=== PATIENT | female | born 1945 | race Caucasian/White ===

== ENCOUNTER → 2017-12-19 08:46 | Outpatient (CLI) | payer MEDICARE, BC, SELFPAY ==
[2017-12-11 11:31] VITALS: BP 124/71; BMI 26.7
--- NOTE | 2017-12-19 | IMM_PTH ---
PATIENT: ÓSCAR ROBERT LOC: CT U#:[id number] AGE/SX: 80/F ROOM: RE12/19/[address]: Dr. Abhay Guy MD : 1945 BED: DIS: SPEC #: [id number] RECD: 12/20/17 11:08 STATUS: RADHA REGeovany #: [id number] NADEEN: 12/19/17 00:[address]: Abhay Guy DEPT: IMMUNOHISTOCHEMISTRY RECD BY: Jelly Cortes ENTERED: 12/20/17 11:10 SP TYPE: IMMUNO OTHR DR: Dr. Edvin Anthony DO Tissues: B - Bone marrow of iliac crest Procedures: BCL-2 (add) BCL-6 (add) CD10 (add) CD138 (add) CD20 (add) CD23 (add) CD3 (add) CD30 (add) CD43 (add) CD45 (add) CD5 (add) CD79A (add) CYCLIN (add) KAPPA (add) KI-67 (add) LAMBDA (add) Pankeratin (initial) PHYSICIAN & [address] [address] SPECIMEN INFORMATION: Tissue Source: B ? Bone marrow clot Clinical Info: Multiple myeloma Specimen Number: [id number] CPT code: 63751, 41267 x16 METHODOLOGY: Deparaffinized sections of prefer/formalin-fixed tissue or PAP/DQ stained slides are incubated with monoclonal/polyclonal antibodies/oligonucleotide probes. Localization is made via biotin free immunoperoxidase method. Appropriate controls are performed and reacted as expected. Results on target cell population are indicated in the following table: RESULTS: ANTIBODY / CLONE RESULT AE1-3 (AE1/AE3/PCK26) negative CD3 (PS1) positive CD5 (SP10) positive CD10 (56C6) negative CD20 (L26) negative CD23 (1B12) negative CD30 (Rick-H2) negative CD43 (L60) positive CD45 (RP2/18) positive CD79a (11E3) positive CD138 (B-A38) positive BCL-2 (bcl-2/100/D5) positive BCL-6 (DY291F/A8) negative Cyclin D1/BCL-1 (SP4) negative Olivia Lopez De Gutierrez (polyclonal) positive Lambda (polyclonal) negative Ki-67 (30-9) positive These tests were developed and their performance characteristics determined by [facility]. They may not have been cleared or approved by the U.S. Food and Drug Administration. The FDA has determined that such clearance or approval is not necessary. INTERPRETATION: B. Bone marrow clot: Olivia Lopez De Gutierrez restricted plasma cell dyscrasia (4%). AM:lyn 12/26/17 Case has been reviewed in consultation with Dr. Singer who concurs with the above diagnosis. IDC:SJ
--- NOTE | 2017-12-19 | BMB_PTH ---
PATIENT: ÓSCAR ROBERT LOC: CT U#:[id number] AGE/SX: 80/F ROOM: RE12/19/[address]: Dr. Abhay Guy MD : 1945 BED: DIS: SPEC #: [id number] RECD: 12/19/17 13:35 STATUS: RADHA DELGADILLOGeovany #: [id number] NADEEN: 12/19/17 00:[address]: Abhay Guy DEPT: BONE MARROW RECD BY: Moris Holguin ENTERED: 12/19/17 13:35 SP TYPE: BMB OTHR DR: Dr. Edvin Anthony, DO Tissues: A - Bone marrow, NOS B - Bone marrow, NOS C - Bone marrow, NOS Procedures: PERIPH Decalcification bone/plaque Bone Marrow Aspiration Special Stain Group II PAS Stain (control) Retic (control) Iron Stain (control) Johns Stain (control) Bone Marrow Core Biopsy Iron Stain Bone Marrow HEADER OPERATION: Bone marrow biopsy and aspiration PRE-OP DIAGNOSIS: Multiple myeloma TISSUE SUBMITTED: A - Core, B - Clot, C - Smears, and send outs (flow, cytogenetics, FISH MDS & MM) BONE MARROW DIAGNOSIS Bone marrow core, clot and aspiration: [place] restricted plasma cell dyscrasia (4%). AM:lyn 12/26/17 COMMENT Flow cytometric analysis was performed at [facility] and reveals a population of monotypic cytoplasmic kappa restricted plasma cells consistent with plasma cell dyscrasia. The plasma cell population comprises 4% of the bone marrow elements. Please see the complete flow cytometric analysis report in patient?s EMR. The marrow is hypercellular for age due to atypical infiltrate of plasma cells. Clinical correlation is suggested. Case has been reviewed in consultation with Dr. Singer who concurs with the above diagnosis. IDC:SJ BONE MARROW STUDY Slides are reviewed. CBC DATE: 12/19/17 WBC 18.9; RBC 2.68; HGB 8.2; HCT 26.2; MCV 97.8; RDW 20.3; PLTS 63,000 SEGS 85.9%; LYMPHS 5.1%; MONOS 7.0%; EOS 0.3%; BASOS 0.1% PERIPHERAL SMEAR: Submitted. RBC: Normocytic anemia WBC: Neutrophilic leukocytosis with slight left shift. PLTS: Moderate thrombocytopenia BONE MARROW ASPIRATE DIFFERENTIAL: 200 cell count. Blasts % (normal 0-2): 2 Promyelocytes % (normal 1-5): 4 Myelocytes and metamyelocytes % (normal 17-41): 38 Bands and Segs % (normal 15-32): 20 Eos % (normal 1-6): 2 Basos % (normal 0-1): 0 Monocytes % (normal 0-4): 1 Erythroid Precursors % (normal 17-35): 21 Lymphocytes % (normal 7-13): 8 Plasma Cells % (normal 0-2): 4 ASPIRATE FINDINGS: Site: Not specified Paucispicular Hypocellular M/E ratio: 3.1 (Normal 1.5 - 4.0) Megakaryocytes: Normoblastic Erythropoiesis: Normoblastic Granulopoiesis: Slight left shift Other findings: 4% plasma cells (kappa restricted) consistent with plasma cell dyscrasia. CORE BIOPSY FINDINGS: Site: Not specified Adequacy: Inadequate for evaluation of marrow elements. Cellularity %: Not applicable M/E ratio: Not applicable Comment: Specimen contains only serum and blood. ASPIRATE CLOT FINDINGS: Site: Not specified Marrow Particles: few Cellularity %: 50% M/E ratio: increased. Megakaryocytes: Rare, Granuloma(s): 0 Lymphoid aggregate(s): 0 Atypical infiltrate(s): 0 Comment:. 4% plasma cells (kappa restricted) consistent with plasma cell dyscrasia. SPECIAL STAINS (with matched controls): Iron: Stainable iron present Reticulin: Within normal limits PAS: Highlights myeloid elements and megakaryocytes. BONE MARROW GROSS A - Received is a container labeled with the patient's name and designated bone marrow biopsy. The specimen consists of light pradhan clot measuring 1 x 0.5 x <0.1 cm. The specimen is totally submitted in one cassette after decalcification. No obvious bone is identified. B - Received labeled with the patient's name and designated aspirate is a specimen that consists of approximately 8 cc of bloody fluid that on filtration yields multiple irregular fragments of reddish-pradhan soft tissue measuring in aggregate 2.5 x 2 x 0.1 cm. The specimen is totally submitted in one cassette. C - Also received are 17 unstained and 1 peripheral stained slides. The unstained slides are submitted for appropriate staining. Also received are two green top tubes which are sent to our reference lab for flow, cytogenetics, FISH MDS & MM. / AM:lyn 12/19/17 TC:0 CPT: 01214, 44949, 61393 x2, 27729 x3, 17247 ADDENDUM ADDENDUM ADDENDUM ADDENDUM ADDENDUM ADDENDUM ADDENDUM ADDENDUM ADDENDUM ADDENDUM ADDENDUM ADDENDUM ADDENDUM ADDENDUM ADDENDUM ADDENDUM ADDENDUM ADDENDUM ADDENDUM 12/27/2017 14:50 ADDENDUM 05/23/2018 14:14 ADDENDUM 12/27/2017 14:50 ADDENDUM 12/27/2017 14:50 ADDENDUM 12/27/2017 14:50 ADDENDUM 12/27/2017 14:50 CYTOGENETICS, MDS FISH AND [facility] CY[facility]GENETIC RESULT: 46,XX[20] INTERPRETATION: Normal female karyotype was observed in twenty metaphases analyzed. FISH RESULT: Normal MDS panel INTERPRETATION: The FISH analysis of MDS specific chromosome changes was normal. DNA probes specific for chromosome regions 5q33, 7q31, 8cen/8q24 and 20q12 showed normal signals in all interphase cells examined. No deletion or trisomy associated with MDS was observed. FISH RESULT: Nuclei positive for FGFR3-IGH fusion, three 1Q signals, monosomy 13 and TP53 deletion. INTERPRETATION: Multiple myeloma related clone detected. Please see complete report in e-chart or EMR for further details This addendum is added to incorporate an outside pathology consultation report. The case was examined at [facility] (#[id number]) and the following diagnosis was rendered. Bone marrow, aspirate smears and clot section with peripheral blood: -?Involved by plasma cell neoplasm (kappa) representing 30% of hypercellular bone marrow (5060%) with trilineage hematopoiesis, persistent/recurrent by history. -?Stainable iron present. Please see complete above mentioned consultation report in EMR
--- NOTE | 2017-12-19 09:31 | CT_ITS ---
PROCEDURE: CT GUIDED BONE marrow biopsy of the right iliac bone. DATE: December 19, 2017. INDICATION: Female, 72 years old. The patient has a history of multiple myeloma. PHYSICIAN: iMlton Spear M.D. RADIATION DOSAGE (If Supplied By Facility): CTDIvol = ( 19 ) mGy, DLP = ( 602.98 ) mGycm. Individualized dose reduction technique was utilized. PROCEDURE: The risks, benefits, and alternatives to the procedure were explained to the patient. The specific risk of hemorrhage requiring further treatment or intervention was detailed and accepted. Follow-up instructions were discussed with the patient as well. Written informed consent was obtained. The patient was brought into the CT suite and placed in the supine position. . An appropriate entry site was identified. The anterior aspect of the right superior iliac crest was chosen. The overlying skin was prepped and draped in the usual sterile fashion. 1% lidocaine was administered subcutaneously for local anesthesia. Conscious sedation was performed. The patient received 2 mg of Versed and 75 mcg of fentanyl intravenously. The patient was monitored independently by the department nurse. Conscious sedation was started at 10:18 AM and terminated at 10:[address] guidance, a bone marrow aspirate was performed following this, a bone marrow biopsy was performed utilizing an Argon bone marrow biopsy kit. The specimens were then placed in the appropriate fluid and transported to the laboratory for analysis. Hemostasis was obtained. The patient tolerated the procedure well without immediate complications. CT/Biopsy/Inj or Needle Placement IMPRESSION: Successful CT guided bone marrow biopsy of the anterior right iliac bone, as described above. Electronically Signed: Milton Spear MD at 13:25 EST Tel [phone], Service support ,
[2017-12-19 09:43] VITALS: BP 146/76; PULSE 88; RESP 16; TEMP 36.6; O2SAT 96; BMI 26.5
[2017-12-19 09:48] LABS: Absolute Lymphocyte Count 0.71 X10^3/ul (0.83-4.51); Absolute Neutrophil Count 11.9 X10^3/uL (2.0-7.7); Basophil# 0.01 X10^3/uL; Basophil% 0.1 % (0-1); Eosinophil# 0.04 X10^3/uL; Eosinophils% 0.3 % (0-5); Hematocrit 26.2 % (37-47); Hemoglobin 8.2 g/dl (12.0-15.0); Lymphocyte # 0.71 X10^3/ul (4.0); Lymphocyte % 5.1 % (19-41); Mean Corp Hgb Conc 31.3 g/gl (32-36); Mean Corpuscular Hgb 30.6 pg (27.0-32.0); Mean Corpuscular Volume 97.8 fL (81-99); Mean Platelet Vol. 10.5 fl (6.2-12.0); Monocyte# 0.97 X10^3/uL; Neutrophil % 85.9 % (47-70); Platelet Count 63 K/mm3 (150-450); RBC Distribution Width CV 20.3 % (11.6-14.6); RBC Distribution Width SD 69.8 fl (35.1-43.9); Red Blood Count 2.68 M/mm3 (4.2-5.4); White Blood Count 13.9 K/mm3 (4.4-11.0)
[2017-12-19 09:49] LABS: Differential Indicated SCAN CRITERIA MET; POSITIVE COUNT NO; POSITIVE DIFFERENTIAL NO; POSITIVE MORPHOLOGY YES
[2017-12-19 09:53] LABS: Anisocytosis 1+; Hypochromasia 2+; Platelet Estimate MOD DEC (ADEQ); Rouleaux 1+
[2017-12-19 10:04] LABS: ALB/GLOB Ratio 0.5 RATIO (0.9-2.4); AST(SGOT) 57 U/L (15-37); Alanine Aminotransfer ALT/SGPT 32 U/L (13-56); Albumin, Serum 2.4 g/dL (3.2-5.0); Alkaline Phosphatase 206 U/L (45-117); Anion Gap 6 (5-15); BUN 20 mg/dL (7-18); BUN/Creat Ratio 36.8 RATIO (10-20); Calcium,Total 8.6 mg/dL (8.5-10.1); Chloride 106 mmol/L (98-107); Creatinine, Serum 0.54 mg/dL (0.55-1.02); EST Glomerular Filtration Rate 116 mL/min (>60); Est Glom Filt Rate - Afr Amer 141 mL/min (>60); Estimated Creatinine Clearance 39.04 ml/min; Globulin 4.4 g/dL (2.2-4.2); Glucose 105 mg/dL (74-106); Potassium 3.7 mmol/L (3.5-5.1); Protein, Total 6.8 g/dL (6.4-8.2); Sodium Level 141 mmol/L (136-145)
[2017-12-19 14:13] VITALS: BP 126/74; PULSE 84; RESP 16; O2SAT 94
== END ==
PROVIDERS: Family Provider Family Medicine; PCP Family Medicine; Visit Provider Internal Medicine Medical Oncology
DX: C90.00 Multiple myeloma not having achieved remission (principal); D75.89 Other specified diseases of blood and blood-forming organs; D64.9 Anemia, unspecified; D70.9 Neutropenia, unspecified; D69.6 Thrombocytopenia, unspecified; I25.10 Atherosclerotic heart disease of native coronary artery without angina pectoris; Z86.79 Personal history of other diseases of the circulatory system; Z85.3 Personal history of malignant neoplasm of breast; Z87.19 Personal history of other diseases of the digestive system; Z90.49 Acquired absence of other specified parts of digestive tract; Z90.710 Acquired absence of both cervix and uterus; Z90.12 Acquired absence of left breast and nipple; Z79.899 Other long term (current) drug therapy
CPT/HCPCS: 38222; 36415; 77012; 80053; 85025; 88305; 88311; 88313; 88341; 88342; 99156; 99157; J7040; A4216

== ENCOUNTER 2018-01-07 22:41 | Inpatient (IN) | payer MEDICARE, BC, SELFPAY ==
[2018-01-07 22:46] VITALS: BP 98/51; PULSE 107; RESP 20; O2SAT 98; BMI 25.3
[2018-01-07 22:53] VITALS: PULSE 100; TEMP 36.7; O2SAT 100
--- NOTE | 2018-01-07 23:10 | RAD_ITS ---
STUDY: X-RAY CHEST REASON FOR EXAM: Female, 72 years old. Chest pain TECHNIQUE: Single AP portable view of the chest. COMPARISON: 10/14/2017. FINDINGS: EKG lines overlying the chest. The lungs are expanded. No infiltrate. There is no demonstrated pleural abnormality. Normal size heart. Normal mediastinum and florence. Normal visualized pulmonary arteries. Normal visualized aortic arch and descending thoracic aorta. Normal visualized thoracic spine. Normal visualized ribs, clavicles, and shoulders. There is no demonstrated abnormality of the visualized soft tissue structures of the upper abdomen. RAD/Chest 1 View (Portable) IMPRESSION: No acute cardiopulmonary disease. Electronically Signed: David Wiggins DO at 23:41 EST , Service support ,
--- NOTE | 2018-01-07 23:16 | ED.VISSUMM ---
- ER Visit Summary Date of Service: 01/07/18 Chief Complaint: Chest pain History of Present Illness: The patient is a 72 F presenting with intermittent chest discomfort it feels like burning indigestion that has been present all afternoon and evening today for the past 8-9 hours. She gets that discomfort often, she states the only thing I can associated with his low blood counts, and her hemoglobin was 6.4 last week. She has multiple myeloma, undergoing active treatment for it, she had a packed red blood cell transfusion ?2 units prior to that reading, so since she had received multiple transfusions in the past month or 2, her doctor gave her Procrit instead and was planning on rechecking her this coming week. She states today, the symptoms are more persistent than usual, and knowing that her hemoglobin is low, this led her to concern. She has history coronary disease with one stent that was placed around 8 years ago. She gets intermittent nosebleeds, her last one was yesterday, it was not severe, she has had no other symptoms of bleeding. She states the symptoms get worse when she exerts herself and better with rest, she occasionally gets some relief with antacids, and has a lot of associated belching, and some occasional skipping of her heartbeat and that is not unusual for her. Today the antacids did not seem to help very much, however at this current time she has no discomfort. Secondary to bleeding, relatively low platelets which she has never needed a transfusion for, and her low blood counts, she is not on aspirin or other antiplatelets or anticoagulants. Physical Examination: Vital signs are normal, she is well-appearing in no acute distress. Heart is regular with a 3/6 systolic ejection murmur. Lungs are clear to auscultation throughout, no splinting on deep inspiration. Chest nontender. Abdomen benign. 1+ bilateral lower extremity edema without any calf tenderness or signs of cellulitis, patient states this is stable for the past month or so. Equal bilateral 2+/4 radial pulses. Test Results: EKG shows no ST elevation, but there is at most [address] depression in the lateral precordial leads, somewhat limited secondary to lead artifact that the tach clean as best possible, and there is flattening of T waves with nonspecific ST segment abnormalities in the lateral limb leads. No reciprocal changes. Normal axis. Sinus rhythm. These possible ischemic abnormalities are new when compared w/ prior EKG. Labs show prerenal azotemia and a hemoglobin of 3.3. She is pancytopenic, however her platelets are not dangerously low. Chest x-ray unremarkable. Troponin not elevated. Emergency Department Course and Treatment: I am concerned that the patient is having unstable angina due to her anemia and her coronary status is unknown at this time. I think she needs to be admitted. Patient is amenable to getting a blood transfusion. Discussed with Dr. Dutta, covering for Dr. Guy, who recommends that the blood be leuko-depleted and CMV negative. Discussed with the blood bank.. Will admit and transfuse with 1 unit PRBC for now. She is clinically and hemodynamically stable without any chest discomfort at rest at this time. Treatment Plan: Admit Disposition: Admit PCU Impression: Acute on chronic anemia Unstable angina Pancytopenia Multiple myeloma History coronary artery disease with remote PCI This note was generated with [employer] dictation software. It may contain incorrect words, spelling, and punctuation that were not noted in review of the chart prior to signing ED Disposition - Plan for ED Patient: Disposition: Acute Care Hospital [facility] Chief Complaint: Chest Pain Referrals: Edvin Anthony [Primary Care Provider] -
[2018-01-07 23:19] VITALS: O2SAT 100
--- NOTE | 2018-01-07 23:31 | ED.RN ---
LAB CALLS WITH CRITICAL RESULT, HEMOGLOBIN 3.3, DR. GRIMES MADE AWARE.
[2018-01-07 23:33] LABS: Absolute Lymphocyte Count 1.21 X10^3/ul (0.83-4.51); Absolute Neutrophil Count 0.9 X10^3/uL (2.0-7.7); Basophil# 0.01 X10^3/uL; Basophil% 0.4 % (0-1); Differential Indicated SCAN CRITERIA MET; Eosinophil# 0.05 X10^3/uL; Eosinophils% 1.9 % (0-5); Hematocrit 14.6 % (37-47); Hemoglobin 3.3 g/dl (12.0-15.0); Lymphocyte # 1.21 X10^3/ul (4.0); Lymphocyte % 47.1 % (19-41); Mean Corp Hgb Conc 22.6 g/gl (32-36); Mean Corpuscular Hgb 23.1 pg (27.0-32.0); Mean Corpuscular Volume 102.1 fL (81-99); Mean Platelet Vol. 9.7 fl (6.2-12.0); Monocyte# 0.35 X10^3/uL; Monocyte% 13.6 % (0-10); Neutrophil # 0.94 X10^3/uL (2.7-7.7); Neutrophil % 36.6 % (47-70); POSITIVE COUNT YES; POSITIVE DIFFERENTIAL YES; POSITIVE MORPHOLOGY YES; Platelet Count 98 K/mm3 (150-450); RBC Distribution Width CV 21.2 % (11.6-14.6); RBC Distribution Width SD 77.2 fl (35.1-43.9); Red Blood Count 1.43 M/mm3 (4.2-5.4); White Blood Count 2.6 K/mm3 (4.4-11.0)
[2018-01-07] MEDS: 0.9% Normal Saline 1,000 ML 15 ML IV (23:33)
[2018-01-07 23:57] LABS: ALB/GLOB Ratio 0.7 RATIO (0.9-2.4); AST(SGOT) 57 U/L (15-37); Alanine Aminotransfer ALT/SGPT 28 U/L (13-56); Albumin, Serum 2.1 g/dL (3.2-5.0); Alkaline Phosphatase 136 U/L (45-117); Anion Gap 9 (5-15); BUN 41 mg/dL (7-18); BUN/Creat Ratio 61.1 RATIO (10-20); Chloride 108 mmol/L (98-107); Creatinine, Serum 0.67 mg/dL (0.55-1.02); EST Glomerular Filtration Rate 91 mL/min (>60); Est Glom Filt Rate - Afr Amer 110 mL/min (>60); Estimated Creatinine Clearance 39.04 ml/min; Globulin 3.1 g/dL (2.2-4.2); Glucose 123 mg/dL (74-106); Potassium 4.7 mmol/L (3.5-5.1); Protein, Total 5.2 g/dL (6.4-8.2); Sodium Level 142 mmol/L (136-145)
[2018-01-07 23:58] LABS: Anisocytosis 3+; Differential Comment SCANNED
[2018-01-07 23:59] LABS: Hypochromasia 1+; Macrocytosis 3+; Schistocytes RARE
[2018-01-08] VITALS (44 sets, daily range): BP systolic 80–174; BP diastolic 36–102; PULSE 88–109; RESP 12–29; TEMP 36.6–37.3; O2SAT 93–100; BMI 25.0
--- NOTE | 2018-01-08 01:45 | PCM.HP.STD ---
Problem List (1) Signs and symptoms of anemia Status: Acute (2) Myelosuppression Status: Acute (3) Pancytopenia Status: Acute (4) CAD (coronary artery disease) Status: Chronic (5) Iron deficiency anemia Status: Chronic (6) Multiple myeloma Status: Chronic Qualifiers: (7) Multiple myeloma not having achieved remission Status: Chronic (8) Myelodysplasia (myelodysplastic syndrome) Status: Chronic (9) Myelosuppression after chemotherapy Status: Chronic History of Present Illness Date of Admission: 01/08/18 Chief Complaint: Acute symptomatic anemia The patient is a 72 year old female w/ h/o acute blood loss anemia, bone marrow suppression, multiple myeloma IgG kappa type, in May 2010. She has received various treatments including Thalomid/Decadron, Revlimid/Decadron and Velcade/Decadron, non-Hodgkin's lymphoma, stage IV, with abdominal mass and ascites in January 2000 s/p R-CHOP and 2 cycles of R-CEOP followed by high-dose chemotherapy and autologous stem cell transplant, left breast cancer s/p left modified radical mastectomy plus axillary lymph node dissection on 11/26/2008 for stage I, ER/DE positive, HER2 negative disease, and GIB admitted for acute symptomatic anemia. Her last dose of Velcade/Decadron was on 11/30/2016 because of persistent cytopenia requiring red blood cell transfusions and leukopenia requiring Neupogen. Bone marrow biopsy done on 01/04/2017 shows plasma cells of 15% and cellularity of 50-60%. She was supported last week with Procrit when her H and H was 6.4. She has received multiple blood transfusion in the past months and has weekly lab draw. However, her H and H has been extremely low. She has been fatigue for the past few weeks. Her fatigue has worsened. Nothing appeared to make it better or worse. Her fatigue affected her all part of the days on more days than not. She developed substernal chest pain this evening. Pain lasted for hours. Pain was sharp and radiated into the right arm. No e/o bleeding. No melena. No dark tarry stool. No SOB. No palpitation. Past Medical History Past Medical History (Chronic Problems): Chronic Problems (Last Reviewed 01/04/18 @ 09:28 by Sarah Skinner) Neutropenia (Chronic) History of breast cancer (Chronic) Multiple myeloma (Chronic) History of stem cell transplant (Chronic) CAD (coronary artery disease) (Chronic) HTN (hypertension) (Chronic) Iron deficiency anemia (Chronic) Myelodysplasia (myelodysplastic syndrome) (Chronic) Multiple myeloma not having achieved remission (Chronic) Myelosuppression after chemotherapy (Chronic) Severe anemia (Chronic) Allergies Penicillins [PCN] Allergy (Severe, Verified 01/07/18 22:50) Hives Home Medications: Ambulatory Orders Medication Instructions Recorded Simvastatin [Zocor] 40 mg PO QHS 08/15/13 Multivitamin [Multiple Vitamins] 1 each PO DAILY 09/26/17 Pyridoxine HCl [Vitamin B6] 100 mg PO DAILY 09/26/17 Metoclopramide [Reglan] 10 mg PO TID PRN #60 tablet 10/05/17 Albuterol Inhaler [Ventolin Hfa] 1 - 2 puff INHALATION Q4H PRN PRN 10/14/17 #1 inhaler Dexamethasone [Decadron] 40 mg PO QWEEK #40 tab 11/07/17 Loratadine [Claritin] 10 mg PO DAILY 11/20/17 lisinopril 2.5 mg tablet 2.5 mg PO DAILY #30 tab 01/03/18 metoprolol succinate ER 25 mg 25 mg PO DAILY #30 tab 01/03/18 tablet,extended release 24 hr Surgical History: cholecystectomy, hysterectomy, mastectomy Smoking Status: Never smoker - *Family History Maternal History Items: Cancer - Uterine and breast Paternal History Items: Cancer, Diabetes Review of Systems Constitutional: Reports: Malaise, Weakness, Fatigue. Denies: Chills, Fever, Weight Change HEENT: Denies: Head Aches, Sinus Congestion, Sinus Drainage Cardiovascular: Denies: Chest Pain, Palpitations Respiratory: Denies: Cough, Shortness of breath at rest, Sputum production Gastrointestinal: Denies: Abdominal Pain, Nausea, Vomiting Genitourinary: Denies: Dysuria Musculoskeletal: Denies: Joint Pain, Joint Tenderness Skin: Denies: Rash, Wounds Neurological: Denies: Numbness, Tingling, Focal weakness Psychiatric: Denies: Anxiety, Depression, Homicidal Ideations, Suicidal Ideations Hematologic/ Lymphatic: Denies: Easy Bruising, Easy Bleeding VTE Information - Inpt Only VTE Present on Admission: No VTE Mechan Device Prophylaxis: SCD's VTE Pharm Prophylaxis ordered?: No Patient Problems: Active and Suspected Problems (Last Reviewed 01/04/18 @ 09:28 by Sarah Skinner) Signs and symptoms of anemia (Acute) - Physical Exam General: Alert, Oriented x3, Cooperative HEENT: Atraumatic, PERRLA, EOMI, Normocephalic Neck: Supple, No JVD, Negative Carotid Bruits Lungs: Clear to auscultation, Normal air movement Cardiovascular: Regular rate, No murmurs Abdomen: Bowel Sounds Present, Soft, Non Tender Extremities: No edema, Capillary Refill Less than 3 Seconds Skin: No rashes, No breakdown Musculoskeletal: No Tenderness to Palpation of Joints or Extremities Neurological: Cranial nerves II-XII grossly intact Psych/Mental Status: Normal Affect, Appropriate Vital Signs Temp Pulse Resp BP Pulse Ox 98.0 F 93 19 H 98/52 L 100 01/08/18 01:42 01/08/18 01:42 01/08/18 01:42 01/08/18 01:42 01/08/18 01:42 Oxygen Flow Rate 2 Oxygen Delivery Method Nasal Cannula Weight: 62.8 kg Body Mass Index (BMI) 25.3 Intake and Output for Last 24 Hours 01/06/18 01/07/18 01/08/18 23:59 23:59 23:59 Intake Total 0 / 0 Balance 0 / 0 Laboratory Tests Past 24 Hrs 01/07/18 01/07/18 01/07/18 22:25 22:50 22:50 WBC 2.6 L RBC 1.43 L Hgb 3.3 L* Hct 14.6 L MCV 102.1 H MCH 23.1 L MCHC 22.6 L RDW 21.2 H RDW Differential 77.2 H Plt Count 98 L MPV 9.7 Immature Gran % (Auto) 0.400 Neut % (Auto) 36.6 L Lymph % (Auto) 47.1 H [place] % (Auto) 13.6 H Eos % (Auto) 1.9 Baso % (Auto) 0.4 Absolute Neuts (auto) 0.9 L Absolute Lymphs (auto) 1.21 Total Counted Not Reportable Differential Comment SCANNED Diff Path Review May foll Hypochromasia 1+ Anisocytosis 3+ Macrocytosis 3+ Schistocytes RARE Sodium 142 Potassium 4.7 Chloride 108 H Carbon Dioxide 25.0 Anion Gap 9 BUN 41 H Creatinine 0.67 Estim Creat Clear Calc 39.04 Est GFR (MDRD) Af Amer 110 Est GFR (MDRD) Non-Af 91 BUN/Creatinine Ratio 61.1 H Glucose 123 H Calcium 8.0 L Total Bilirubin 0.50 AST 57 H ALT 28 Alkaline Phosphatase 136 H Troponin I < 0.02 Total Protein 5.2 L Albumin 2.1 L Globulin 3.1 Albumin/Globulin Ratio 0.7 L Blood Type Antibody Screen Crossmatch See Detail 01/07/18 23:22 WBC RBC Hgb Hct MCV MCH MCHC RDW RDW Differential Plt Count MPV Immature Gran % (Auto) Neut % (Auto) Lymph % (Auto) [place] % (Auto) Eos % (Auto) Baso % (Auto) Absolute Neuts (auto) Absolute Lymphs (auto) Total Counted Differential Comment Diff Path Review Hypochromasia Anisocytosis Macrocytosis Schistocytes Sodium Potassium Chloride Carbon Dioxide Anion Gap BUN Creatinine Estim Creat Clear Calc Est GFR (MDRD) Af Amer Est GFR (MDRD) Non-Af BUN/Creatinine Ratio Glucose Calcium Total Bilirubin AST ALT Alkaline Phosphatase Troponin I Total Protein Albumin Globulin Albumin/Globulin Ratio Blood Type A NEGATIVE Antibody Screen NEGATIVE Crossmatch Assessment/Plan Active and Suspected Problems (Last Reviewed 01/04/18 @ 09:28 by Sarah Skinner) Signs and symptoms of anemia (Acute) 72 year old female w/ h/o acute blood loss anemia, bone marrow suppression, multiple myeloma IgG kappa type, in May 2010. She has received various treatments including Thalomid/Decadron, Revlimid/Decadron and Velcade/Decadron, non-Hodgkin's lymphoma, stage IV, with abdominal mass and ascites in January 2000 s/p R-CHOP and 2 cycles of R-CEOP followed by high-dose chemotherapy and autologous stem cell transplant, left breast cancer s/p left modified radical mastectomy plus axillary lymph node dissection on 11/26/2008 for stage I, ER/DE positive, HER2 negative disease, and GIB admitted for acute symptomatic anemia. 1) Acute symptomatic anemia: H and H 3.3 and 14.6 1 unit PRBC leukoreduced, irradiated and CMV negative blood given. Probably will need more transfusion. Iron, B12, folate, FOBT, LDH, and retic pending. Will admit to ICU. Hemodynamically stable. No e/o acute bleeding. Recent extensive GI workup done. 2) Multiple myeloma IgG kappa type, in May 2010. She has received various treatments including Thalomid/Decadron, Revlimid/Decadron and Velcade/Decadron. Treatment held secondary to worsening anemia. She is currently on decadron. Will defer to oncology [place] treatment of anemia given complex h/o multiple cancers. 3) HTN: Will hold all SBP meds in the setting of severe symptomatic anemia. Monitor. 4) Chest pain: Most likely secondary to severe symptomatic anemia. Will get serial trops. Treat anemia. Monitor. 5) Prophylaxis: No heparin given severe anemia. SCD
[2018-01-08 04:38] LABS: M R Staph aureus DNA By PCR Negative (Negative); Probe Check PASS; Specimen Processing Control PASS
[2018-01-08] MEDS: Multivitamins,Therapeutic Tablet 1 TABLET PO (08:11)
[2018-01-08 09:51] LABS: International Normalized Ratio 1.2; Prothrombin Time (Protime)PT. 15.6 SECONDS (11.7-14.9)
[2018-01-08 10:11] LABS: Hematocrit 17.2 % (37-47); Hemoglobin 5.9 g/dl (12.0-15.0); Mean Corp Hgb Conc 34.3 g/gl (32-36); Mean Corpuscular Hgb 32.2 pg (27.0-32.0); Platelet Count 71 K/mm3 (150-450); RBC Distribution Width CV 20.5 % (11.6-14.6); RBC Distribution Width SD 65.7 fl (35.1-43.9); Red Blood Count 1.83 M/mm3 (4.2-5.4); Scan Indicated on CBC? Y/N YES- FLAGS NOTED
[2018-01-08 10:35] LABS: Vitamin B12 > 2000 pg/mL (211-911)
[2018-01-08 10:40] LABS: Anion Gap 10 (5-15); BUN 36 mg/dL (7-18); Calcium,Total 7.9 mg/dL (8.5-10.1); Chloride 109 mmol/L (98-107); Cholesterol 90 mg/dL (200); Creatinine, Serum 0.62 mg/dL (0.55-1.02); EST Glomerular Filtration Rate 100 mL/min (>60); Est Glom Filt Rate - Afr Amer 121 mL/min (>60); Estimated Creatinine Clearance 39.04 ml/min; Glucose 149 mg/dL (74-106); High Density Lipoprotein 21 mg/dL; Iron 131 ug/dL (50-170); Iron Binding Capacity,Total 305 ug/dL (250-450); LDH 138 U/L (84-246); Potassium 3.8 mmol/L (3.5-5.1); Sodium Level 144 mmol/L (136-145); Thyroid Stim Hormone (TSH) 2.55 uIU/mL (0.358-3.74); Triglycerides 141 mg/dL; Very Low Density Lipoprotein 28 mg/dL (5-40)
[2018-01-08 10:43] LABS: Differential Comment SCANNED
[2018-01-08] MEDS: Pyridoxine HCl 50 MG Tablet 100 MG PO (10:49)
[2018-01-08] MEDS: Loratadine 10 MG Tablet PO (10:49)
[2018-01-08 11:13] LABS: Immature Platelet Fraction 4.9 % (1.0-7.9)
--- NOTE | 2018-01-08 12:06 | PCM.PN.HOSP ---
Patient Problems: Active and Suspected Problems (Last Reviewed 01/04/18 @ 09:28 by Sarah Skinner) Signs and symptoms of anemia (Acute) Subjective: CC: Generalized weakness The patient presented with generalized,weakness dizziness and chest discomfort and found to have hemoglobin of 3.3, she is receiving transfusion with packed RBCs, post feeling much improved since admission. She reports dark stools, heme positive test., She denies any hematochezia, abdominal pain, hematemesis nausea or vomiting. Vitals/I&O's: Vital Signs Temp Pulse Resp BP Pulse Ox 98.0 F 93 20 H 121/58 H 97 01/08/18 11:55 01/08/18 11:55 01/08/18 11:55 01/08/18 11:55 01/08/18 11:55 Oxygen Flow Rate 2 Oxygen Delivery Method Room Air Weight: 62.1 kg Body Mass Index (BMI) 25.0 Intake and Output for Last 24 Hours 01/06/18 01/07/18 01/08/18 23:59 23:59 23:59 Intake Total 1040 / 1040 Output Total 850 / 850 Balance 190 / 190 General: Alert, Oriented x3 Oral: Moist Mucosa Neck: Supple, No JVD Lungs: Clear to auscultation, No wheeze Cardiovascular: Regular rate, Normal S1, Normal S2 Abdomen: Bowel Sounds Present, Soft, Non Tender Extremities: No edema Microbiology Past 72 Hours 01/08/18 11:06 Stool Stool Occult Blood (ALEJA) - Final Occult Blood Positive Laboratory Results 01/08/18 02:20: MRSA (PCR) Negative 01/08/18 03:05: Troponin I < 0.02 01/08/18 06:40: Troponin I 0.02 01/08/18 09:35: Immature Plt Fraction 4.9, Retic Count 3.00 H, Immature Retic Fraction 10.30, Retic Hgb Equivalent 34.0 01/08/18 09:35: WBC 2.0 L, RBC 1.83 L, Hgb 5.9 L*, Hct 17.2 L, MCV 94.0, MCH 32.2 H, MCHC 34.3, RDW 20.5 H, RDW Differential 65.7 H, Plt Count 71 L, MPV 9.0, Differential Comment SCANNED, Diff Path Review March01/08/18 09:35: PT 15.6 H, INR 1.2 01/08/18 09:35: Sodium 144, Potassium 3.8, Chloride 109 H, Carbon Dioxide 25.0, Anion Gap 10, BUN 36 H, Creatinine 0.62, Estim Creat Clear Calc 39.04, Est GFR (MDRD) Af Amer 121, Est GFR (MDRD) Non-Af 100, BUN/Creatinine Ratio 58.0 H, Glucose 149 H, Calcium 7.9 L, Iron 131, TIBC 305, Iron Saturation 43.0, Lactate Dehydrogenase 138, Triglycerides 141, Cholesterol 90, LDL Cholesterol 41, VLDL Cholesterol 28, HDL Cholesterol 21 L, Folate 18.20, TSH 2.55 01/08/18 09:35: Vitamin B12 > 2000 H Current Medications Atorvastatin Calcium (Lipitor) 20 mg PO QHS [facility] Dexamethasone (Decadron) 40 mg PO QWEEK@0800 [facility] Last Admin: 01/08/18 08:13 Dose: 40 mg Sodium Chloride () 1,000 mls @ 0 mls/hr IV .Q0M MONIKA PRN Reason: KVO Last Admin: 01/07/18 23:33 Dose: 15 mls/hr Sodium Chloride () 250 mls @ 15 mls/hr IV .[id number] PRN PRN Reason: SALINE FLUSH Pantoprazole Sodium 40 mg/ (Sodium Chloride) 110 mls @ 330 mls/hr IV Q24 [facility] Loratadine (Claritin) 10 mg PO DAILY [facility] Last Admin: 01/08/18 10:49 Dose: 10 mg Magnesium Hydroxide (Milk Of Magnesia) 30 ml PO DAILY PRN PRN Reason: Constipation Metoclopramide HCl (Reglan) 10 mg PO TID PRN PRN PRN Reason: NAUSEA Metoprolol Succinate (Toprol Xl (Beta Freedom)) 25 mg PO DAILY [facility] Multivitamins (Multivitamin) 1 tablet PO DAILY@0800 [facility] Last Admin: 01/08/18 08:11 Dose: 1 tablet Nutritional Formula (Lactose Free) (Ensure Enlive) 120 ml PO 4X/DAY [facility] Last Admin: 01/08/18 11:33 Dose: 120 ml Pyridoxine HCl (Vitamin B-6) 100 mg PO DAILY [facility] Last Admin: 01/08/18 10:49 Dose: 100 mg Sodium Chloride () 5 - 30 ml IV UD PRN PRN Reason: SALINE FLUSH Assessment/Plan Active and Suspected Problems (Last Reviewed 01/04/18 @ 09:28 by Sarah Skinner) Signs and symptoms of anemia (Acute) 1. Acute blood loss anemia superimposed on anemia of chronic disease and myelosuppression; he said he has been transfused with packed RBCs. 2. Hem positive stool; patient is status post EGD for colonoscopy a year ago , was found to have diverticular bleed at some point. We will place him on PPI and consult surgery or GI for EGD 3. Pancytopenia; will repeat CBC daily. 4. Recurrent epistaxis; she has chronic maxillary sinusitis and was treated with oral antibiotics in September 2017 for this. 5. History of breast cancer, multiple myeloma, non-Hodgkin's lymphoma, status post stem cell transplant; oncology is consulted. 6. CAD-status post stent in 2009. She currently has no signs and symptoms of angina or heart failure. 7. Hypertension; this is controlled. 8. DVT Prophylaxis with SCDs. Code Visit Inpatient E&M: 40676 Subs Hosp L3
[2018-01-08 13:25] LABS: Pathologist Review Reviewed
--- NOTE | 2018-01-08 13:54 | ONC.CONS.INP ---
Consult Referring Physician: Lee Park Subjective Date of Service:: 01/08/18 Chief Complaint: Severe anemia History of Present Illness: Ms. Rhea Calhoun is a pleasant 71 year old woman with a complex oncologic history. She was diagnosed with non-Hodgkin's lymphoma, stage IV, with abdominal mass and ascites in January 2000. She received R-CHOP with remission. She had recurrent disease in May 2004 with multiple abdominal masses. She was treated with 2 cycles of R-CEOP followed by high-dose chemotherapy and autologous stem cell transplant with complete remission. She had left breast cancer and had a left modified radical mastectomy plus axillary lymph node dissection on 11/26/2008 for stage I, ER/CT positive, HER2 negative disease. She was then diagnosed with multiple myeloma, IgG kappa type, in May 2010. She has received various treatments including Thalomid/Decadron, Revlimid/Decadron and Velcade/Decadron. Her last dose of Velcade/Decadron was on 11/30/2016 because of persistent cytopenia requiring red blood cell transfusions and leukopenia requiring Neupogen. M spike has plateaued off. Bone marrow biopsy done on 01/04/2017 shows plasma cells of 15% and cellularity of 50-60%. Iron stain was negative. Requires Venofer often. Received Procrit 60,000 units and Granix 480 mcg weekly. She was found to have bleeding hemorrhoids June 2017, received PRBC transfusions. On 06/23/2017 she again presented with GI bleed, was transferred to [facility], GI bleeding study was negative, Capsule endoscopy was also negative. Resumed weekly Granix 07/04/17. Cyclosporine 07/19/17- 09/2017. Bone marrow bx 09/06/2017 at [facility] showed hypercellular marrow 90%, Plasma cell 40%. M-spike is 0.5, Cytogenetic was normal 46 XY. Abd US on 09/15/2017 showed mild splenomegaly and fatty infiltration of liver. She was to start Kyprolis but changed her mind and instead agreed to Decadron 40mg weekly, starting on 10/09/2017. She is transfusion dependent with parameters for tx being Hgb of <= 7 and subjective c/o fatigue/CP. She was given Granix 480mcg 3 times a week with no response so started Neulasta 6mg on 11/13/2017 and continues every 2 weeks, last dose 12/28/17. Bone marrow biopsy on 12/19/2017 showed Plasma cells 4%, Hypercellular marrow, + stainable iron. Given Procrit 60,000 units 01/04/18. Patient presented to [facility] ED last evening subsequent to experiencing worsening dyspnea, fatigue and CP. Found to have Hgb 3.3 and subsequently she was admitted for medical management of severe anemia. Upon assessment today she is just finishing 3rd unit of PRBCs and states I feel much better in terms of fatigue, weakness and CP has resolved. Denies dyspnea and swelling of extremities at this time. Admits she noticed dark, tarry stools daily x approx 3 days while at home. LBM this morning and describes as dark as well. 1 episode of mild epistaxis earlier today. Past Medical History: Chronic Problems (Last Reviewed 01/04/18 @ 09:28 by Sarah Skinner) Neutropenia (Chronic) History of breast cancer (Chronic) Multiple myeloma (Chronic) History of stem cell transplant (Chronic) CAD (coronary artery disease) (Chronic) HTN (hypertension) (Chronic) Iron deficiency anemia (Chronic) Myelodysplasia (myelodysplastic syndrome) (Chronic) Multiple myeloma not having achieved remission (Chronic) Myelosuppression after chemotherapy (Chronic) Severe anemia (Chronic) Past Medical/Surgical History: Past Medical History - Most Recent Inpatient Visit Past Medical History Start: 01/08/18 02:16 Text: Status: Complete Freq: ONCE Protocol: Document 01/08/18 02:16 AW (Rec: 01/08/18 02:26 AW [id number]) BMI Required to complete PMH What is Patient's BMI 25.0 Neurologic Medical History Hx Stroke/TIA No Hx Dementia/Alzheimer's No Hx Parkinson's Disease No Hx Seizures No Hx Multiple Sclerosis No Hx Migraines No Cardiac Medical History VTE Present on Admission No Hx of Deep Vein Thrombosis/VTE/PE No Hx Hypertension Yes Hx Chest Pain/Angina Yes: WHEN HGB GETS TOO LOW Hx Heart Attack No Hx Cardiac Surgery/Stents/Etc. Yes: STENT X1 Hx Heart Failure No Hx Pacemaker/AICD No Hx Irregular Heartbeat and/or Afib Yes: skips a beat occasionally Hx Anticoagulant Therapy No Query Text:(Coumadin, Aspirin, Plavix, Xarelto, etc.) Hx Pain in Legs when Walking/Leg Cramps Yes: leg cramps Respiratory Medical History Hx COPD No Hx Emphysema No Hx Smoking No Smoking Status Never smoker Hx Smoking Cessation Counseling No Hx Smoking Exposure No Hx Tobacco Use in last 12 months No Hx of Pipe Smoking No Hx Sleep Apnea No Do you snore loudly (louder than talking No or can be heard through closed doors)? Do you often feel tired/ fatigued/ Yes sleepy during daytime? Has anyone observed you stop breathing No during sleep? STOP Results Positive GI Medical History Hx Ulcer No Hx Hepatitis No Hx Cirrhosis No Hx GI Bleed Yes: some blood in stool occasionally Hx Unplanned Weight Loss No Genitourinary Medical History Indwelling Catheter in Place on Arrival/ No Admission Hx Renal Disease No Hx Dialysis No Musculoskeletal History Hx Arthritis No Hx Rheumatoid Arthritis No Endocrine Medical History Hx Diabetes No Hx Thyroid Disease No Hematologic Medical History Hx of Blood Transfusion Yes Hx of Transfusion in last 3 Months Yes Date of Last Transfusion (if within last 12/29/17 3 months) Ever experience any problems with No transfusion(s)? Hx of Preganancy in last 3 Months N/A Nurse Filling Out Transfusion & [id number] Questions: Date: 01/08/18 Time: 02:24 Psycho/Social Medical History Hx Depression No Hx Anxiety No Hx Behavior Disorder No Hx Alcohol Use No Hx Substance Use No Other Medical History Hx Blood Disorders Yes: MDS Hx Anemia Yes Hx Cancer Yes: breast, mult myeloma, lymphoma, NONHODGKINS Hx Drug Resistant Organism No Wound/Pressure Injury Present on Arrival No /Admission Query Text:If yes, chart assessment in Shift/Clinical Findings Central Line/PICC/VAD Present on Arrival No /Admission Antibiotics within last 7 days? No Methicillin Resistant Staphylococcus aureus Screening Active MRSA No Risk for Readmission Number of Risk Factors 6 At Risk for Readmission Patient is At Risk For Readmission Patient is eligible for Call Back Y Past Medical History (Last Reviewed 01/04/18 @ 09:28 by Sarah Skinner) CATARACT SURGERY BILATERAL (Acute) Past Surgical History (Last Reviewed 01/04/18 @ 09:28 by Sarah Skinner) H/O mastectomy (Acute) H/O: hysterectomy (Acute) Hx of cholecystectomy (Acute) Maternal Family History: Family History (Last Reviewed 01/04/18 @ 09:28 by Sarah Skinner) Father Diabetes Heart disease Mother Arthritis Breast cancer Uterine cancer Family History: Cancer - Uterine and breast Paternal Family History: Family History (Last Reviewed 01/04/18 @ 09:28 by Sarah Skinner) Father Diabetes Heart disease Mother Arthritis Breast cancer Uterine cancer Family History: Cancer, Diabetes - Social History Smoking Status: Never smoker Allergies/Adverse Reactions: Allergy/AdvReac Type Severity Reaction Status Date / Time Penicillins [PCN] Allergy Severe Hives Verified 01/07/18 22:50 Home Medications Medication Instructions Recorded Simvastatin [Zocor] 40 mg PO QHS 08/15/13 Multivitamin [Multiple Vitamins] 1 each PO DAILY 09/26/17 Pyridoxine HCl [Vitamin B6] 100 mg PO DAILY 09/26/17 Metoclopramide [Reglan] 10 mg PO TID PRN #60 tablet 10/05/17 Albuterol Inhaler [Ventolin Hfa] 1 - 2 puff INHALATION Q4H PRN PRN 10/14/17 #1 inhaler Dexamethasone [Decadron] 40 mg PO QWEEK #40 tab 11/07/17 Loratadine [Claritin] 10 mg PO DAILY 11/20/17 lisinopril 2.5 mg tablet 2.5 mg PO DAILY #30 tab 01/03/18 metoprolol succinate ER 25 mg 25 mg PO DAILY #30 tab 01/03/18 tablet,extended release 24 hr Bisacodyl [Dulcolax] 5 mg PO DAILY 01/08/18 Review of Systems Constitutional:: Reports: Weakness, Fatigue. Denies: Fever, Sweats, Weight loss, Appetite change, Chills Cardiovascular:: Reports: Dyspnea on exertion. Denies: Chest pain, Palpitations, Orthopnea, PND Respiratory: Denies: Cough, Hemoptysis, Wheezing Gastrointestinal:: Reports: Melena. Denies: Abdominal pain, Nausea, Vomiting, Diarrhea, Constipation, Hematochezia Genitourinary: Denies: Dysuria, Hematuria, 15, Flank pain Musculoskeletal:: Denies: Back pain, Myalgia, Arthralgia Skin: Denies: Rash, Skin Changes, Wounds Neurological:: Denies: Headache, Dizziness, Numbness, Tingling, Visual changes, Tinnitus, Hearing loss Psychiatric: Denies: Anxiety, Depression, Homicidal Ideations, Suicidal Ideations Vital Signs Height 5 ft 2 in Weight: 136 lb 14.513 oz Weight in Pounds 136.9 lbs Pulse Ox 98 Temperature 98.9 F Pulse Rate 93 Respiratory Rate 19 Blood Pressure [BP] 128/74 Blood Pressure 113/52 Blood Pressure Position [BP] Semi-Fowlers Blood Pressure Position Sitting - Physical Exam General: Alert, Oriented x3, No apparent distress HEENT: Atraumatic, Normocephalic Oropharynx:: Negative for: Dry mucosa, Ulcerated lesions Neck:: Supple, Trachea midline. Negative for: JVD, bilateral Cardiac:: Regular rate, Regular rhythm, Normal S1, Normal S2 Lungs: Clear to auscultation, Excusion symmetrical. Negative for: Rhonchi, Wheezes Abdomen:: Bowel sounds x 4, Soft, Non-tender, Non-distended. Negative for: Hepatosplenomegaly Extremities:: Negative for: Cyanosis, Edema Neurological: Neuro grossly intact Skin:: Negative for: Lesions, Rash, Petechiae, Ecchymosis Psychiatric:: Appropriate affect, Euthymic Lymphatics:: Negative for: Cervical lymphadenopathy, Supraclavicular lymphadenopathy, Axillary lymphadenopathy Laboratory Data: Microbiology 01/08/18 11:06 Stool Occult Blood (ALEJA) - Final Stool Occult Blood Positive Laboratory Tests 01/08/18 01/08/18 01/08/18 Range/Units 09:35 09:35 09:35 WBC (4.4-11.0) K/mm3 RBC (4.2-5.4) M/mm3 Hgb (12.0-15.0) g/dl Hct (37-47) % MCV (81-99) fL MCH (27.0-32.0) pg MCHC (32-36) g/gl RDW (11.6-14.6) % RDW Differential (35.1-43.9) fl Plt Count (150-450) K/mm3 MPV (6.2-12.0) fl Differential Comment Diff Path Review Immature Plt Fraction (1.0-7.9) % Retic Count (0.5-1.5) % Immature Retic Fraction (3.00-15.90) % Retic Hgb Equivalent (30-35) pg PT 15.6 H (11.7-14.9) SECONDS INR 1.2 Sodium 144 (136-145) mmol/L Potassium 3.8 (3.5-5.1) mmol/L Chloride 109 H (98-107) mmol/L Carbon Dioxide 25.0 (21.0-32.0) mmol/L Anion Gap 10 (5-15) BUN 36 H (7-18) mg/dL Creatinine 0.62 (0.55-1.02) mg/dL Estim Creat Clear Calc 39.04 ml/min Est GFR (MDRD) Af Amer 121 (>60) mL/min Est GFR (MDRD) Non-Af 100 (>60) mL/min BUN/Creatinine Ratio 58.0 H (10-20) RATIO Glucose 149 H (74-106) mg/dL Calcium 7.9 L (8.5-10.1) mg/dL Iron 131 (50-170) ug/dL TIBC 305 (250-450) ug/dL Iron Saturation 43.0 (15.0-55.0) % Lactate Dehydrogenase 138 (84-246) U/L Troponin I (<0.06) ng/mL Triglycerides 141 ( - 199) mg/dL Cholesterol 90 (200) mg/dL LDL Cholesterol 41 (0-130) mg/dL VLDL Cholesterol 28 (5-40) mg/dL HDL Cholesterol 21 L (40 - ) mg/dL Vitamin B12 > 2000 H (211-911) pg/mL Folate 18.20 (3.1-55.4) ng/mL TSH 2.55 (0.358-3.74) uIU/mL MRSA (PCR) (Negative) 01/08/18 01/08/18 01/08/18 Range/Units 09:35 09:35 06:40 WBC 2.0 L (4.4-11.0) K/mm3 RBC 1.83 L (4.2-5.4) M/mm3 Hgb 5.9 L* (12.0-15.0) g/dl Hct 17.2 L (37-47) % MCV 94.0 (81-99) fL MCH 32.2 H (27.0-32.0) pg MCHC 34.3 (32-36) g/gl RDW 20.5 H (11.6-14.6) % RDW Differential 65.7 H (35.1-43.9) fl Plt Count 71 L (150-450) K/mm3 MPV 9.0 (6.2-12.0) fl Differential Comment SCANNED Diff Path Review May foll Immature Plt Fraction 4.9 (1.0-7.9) % Retic Count 3.00 H (0.5-1.5) % Immature Retic Fraction 10.30 (3.00-15.90) % Retic Hgb Equivalent 34.0 (30-35) pg PT (11.7-14.9) SECONDS INR Sodium (136-145) mmol/L Potassium (3.5-5.1) mmol/L Chloride (98-107) mmol/L Carbon Dioxide (21.0-32.0) mmol/L Anion Gap (5-15) BUN (7-18) mg/dL Creatinine (0.55-1.02) mg/dL Estim Creat Clear Calc ml/min Est GFR (MDRD) Af Amer (>60) mL/min Est GFR (MDRD) Non-Af (>60) mL/min BUN/Creatinine Ratio (10-20) RATIO Glucose (74-106) mg/dL Calcium (8.5-10.1) mg/dL Iron (50-170) ug/dL TIBC (250-450) ug/dL Iron Saturation (15.0-55.0) % Lactate Dehydrogenase (84-246) U/L Troponin I 0.02 (<0.06) ng/mL Triglycerides ( - 199) mg/dL Cholesterol (200) mg/dL LDL Cholesterol (0-130) mg/dL VLDL Cholesterol (5-40) mg/dL HDL Cholesterol (40 - ) mg/dL Vitamin B12 (211-911) pg/mL Folate (3.1-55.4) ng/mL TSH (0.358-3.74) uIU/mL MRSA (PCR) (Negative) 01/08/18 01/08/18 Range/Units 03:05 02:20 WBC (4.4-11.0) K/mm3 RBC (4.2-5.4) M/mm3 Hgb (12.0-15.0) g/dl Hct (37-47) % MCV (81-99) fL MCH (27.0-32.0) pg MCHC (32-36) g/gl RDW (11.6-14.6) % RDW Differential (35.1-43.9) fl Plt Count (150-450) K/mm3 MPV (6.2-12.0) fl Differential Comment Diff Path Review Immature Plt Fraction (1.0-7.9) % Retic Count (0.5-1.5) % Immature Retic Fraction (3.00-15.90) % Retic Hgb Equivalent (30-35) pg PT (11.7-14.9) SECONDS INR Sodium (136-145) mmol/L Potassium (3.5-5.1) mmol/L Chloride (98-107) mmol/L Carbon Dioxide (21.0-32.0) mmol/L Anion Gap (5-15) BUN (7-18) mg/dL Creatinine (0.55-1.02) mg/dL Estim Creat Clear Calc ml/min Est GFR (MDRD) Af Amer (>60) mL/min Est GFR (MDRD) Non-Af (>60) mL/min BUN/Creatinine Ratio (10-20) RATIO Glucose (74-106) mg/dL Calcium (8.5-10.1) mg/dL Iron (50-170) ug/dL TIBC (250-450) ug/dL Iron Saturation (15.0-55.0) % Lactate Dehydrogenase (84-246) U/L Troponin I < 0.02 (<0.06) ng/mL Triglycerides ( - 199) mg/dL Cholesterol (200) mg/dL LDL Cholesterol (0-130) mg/dL VLDL Cholesterol (5-40) mg/dL HDL Cholesterol (40 - ) mg/dL Vitamin B12 (211-911) pg/mL Folate (3.1-55.4) ng/mL TSH (0.358-3.74) uIU/mL MRSA (PCR) Negative (Negative) Diagnostic Data: Diagnostic Data Chest X-Ray 01/07/18 23:10 IMPRESSION: No acute cardiopulmonary disease. Electronically Signed: David Wiggins DO at 23:41 EST , Service support , Assessment and Plan 72 year old female w/ h/o acute blood loss anemia and bone marrow suppression. PMH history positive for non-Hodgkin's lymphoma, stage IV, with abdominal mass and ascites in January 2000 s/p R-CHOP and 2 cycles of R-CEOP followed by high-dose chemotherapy and autologous stem cell transplant and left breast cancer s/p left modified radical mastectomy plus axillary lymph node dissection on 11/26/2008 for stage I, ER/CT positive, HER2 negative disease admitted for acute symptomatic anemia and most recently multiple myeloma IgG kappa type, in May 2010. 1) Acute symptomatic anemia: Upon admission Hgb 3.3. Subsequent to 2 units PRBC leukoreduced, irradiated and CMV negative PRBCs Hgb reflects improvement. Now 5.9 and receiving 3rd unit now. Goal hgb >7 and asymptomatic. Recent extensive GI workup completed, although patient endorses 3 days of melena. Although she has undergone extensive GI workup, it was complete > 6months ago. Recommend GI consult. 2) IgG kappa multiple myeloma- On weekly dexamethasone 40 mg, administered on Mondays. Dex given earlier this morning. IgG and kappa/lambda ratio improving. 3) Pancytopenia- ? myelosuppression, MDS. Platelets stable 71,000. ANC 3.1. Last dose of Neulasta administered on 12/28/17. Continue to monitor. 4) DVT Prophylaxis: Chemical prophylaxis contraindicated in the setting of severe anemia and mild thrombocytopenia. Kaylyn Dutta, MSN, [employer]ATOR-[employer], AOCNP Medications: Prescriptions This Visit Medication Instructions Recorded Bisacodyl [Dulcolax] 5 mg PO DAILY 01/08/18 Medications Added to Medication List This Visit Category Date Time Status Atorvastatin Calcium [Lipitor] Med 01/08/18 22:00 Active 20 mg PO QHS Dexamethasone [Decadron] Med 01/08/18 08:00 Active 40 mg PO QWEEK@0800 Ensure Enlive Med 01/08/18 10:00 Active 120 ml PO 4X/DAY Loratadine [Claritin] Med 01/08/18 10:00 Active 10 mg PO DAILY Metoprolol(XL)Succ [Toprol Xl (Beta Freedom)] Med 01/09/18 10:00 Active 25 mg PO DAILY Multivitamins,Therapeutic [Multivitamin] Med 01/08/18 08:00 Active 1 tablet PO DAILY@0800 Pantoprazole Sodium [Protonix] 40 mg Med 01/09/18 10:00 Active 0.9% Normal Saline 100 ml IV Q24 Pyridoxine HCl [Vitamin B-6] Med 01/08/18 10:00 Active 100 mg PO DAILY Primary Care Provider: Edvin Anthony Referring Provider:
[2018-01-08] MEDS: Metoprolol(XL)Succ 25 MG Tablet PO (14:07)
--- NOTE | 2018-01-08 14:08 | CON.PCM_ITS ---
Consult Referring Physician: Lee Park Subjective Date of Service:: 01/08/18 Chief Complaint: Severe anemia History of Present Illness: Ms. Rhea Calhoun is a pleasant 71 year old woman with a complex oncologic history. She was diagnosed with non-Hodgkin's lymphoma, stage IV, with abdominal mass and ascites in January 2000. She received R-CHOP with remission. She had recurrent disease in May 2004 with multiple abdominal masses. She was treated with 2 cycles of R-CEOP followed by high-dose chemotherapy and autologous stem cell transplant with complete remission. She had left breast cancer and had a left modified radical mastectomy plus axillary lymph node dissection on 11/26/2008 for stage I, ER/IN positive, HER2 negative disease. She was then diagnosed with multiple myeloma, IgG kappa type, in May 2010. She has received various treatments including Thalomid/Decadron, Revlimid/Decadron and Velcade/Decadron. Her last dose of Velcade/Decadron was on 11/30/2016 because of persistent cytopenia requiring red blood cell transfusions and leukopenia requiring Neupogen. M spike has plateaued off. Bone marrow biopsy done on 2016 shows plasma cells of 15% and cellularity of 50-60%. Iron stain was negative. Requires Venofer often. Received Procrit 60,000 units and Granix 480 mcg weekly. She was found to have bleeding hemorrhoids June 2017, received PRBC transfusions. On 06/23/2017 she again presented with GI bleed, was transferred to [facility], GI bleeding study was negative, Capsule endoscopy was also negative. Resumed weekly Granix 07/04/17. Cyclosporine - 09/2017. Bone marrow bx 09/06/2017 at [facility] showed hypercellular marrow 90%, Plasma cell 40%. M-spike is 0.5, Cytogenetic was normal 46 XY. Abd US on 2016 showed mild splenomegaly and fatty infiltration of liver. She was to start Kyprolis but changed her mind and instead agreed to Decadron 40mg weekly, starting on 10/09/2017. She is transfusion dependent with parameters for tx being Hgb of <= 7 and subjective c/o fatigue/CP. She was given Granix 480mcg 3 times a week with no response so started Neulasta 6mg on 11/13/2017 and continues every 2 weeks, last dose 12/28/17. Bone marrow biopsy on 12/19/2017 showed Plasma cells 4%, Hypercellular marrow, + stainable iron. Given Procrit 60,000 units 01/04/18. Patient presented to [facility] ED last evening subsequent to experiencing worsening dyspnea, fatigue and CP. Found to have Hgb 3.3 and subsequently she was admitted for medical management of severe anemia. Upon assessment today she is just finishing 3rd unit of PRBCs and states I feel much better in terms of fatigue, weakness and CP has resolved. Denies dyspnea and swelling of extremities at this time. Admits she noticed dark, tarry stools daily x approx 3 days while at home. LBM this morning and describes as dark as well. 1 episode of mild epistaxis earlier today. Past Medical History: Chronic Problems (Last Reviewed 01/04/18 @ 09:28 by Sarah Skinner) Neutropenia (Chronic) History of breast cancer (Chronic) Multiple myeloma (Chronic) History of stem cell transplant (Chronic) CAD (coronary artery disease) (Chronic) HTN (hypertension) (Chronic) Iron deficiency anemia (Chronic) Myelodysplasia (myelodysplastic syndrome) (Chronic) Multiple myeloma not having achieved remission (Chronic) Myelosuppression after chemotherapy (Chronic) Severe anemia (Chronic) Past Medical/Surgical History: Past Medical History - Most Recent Inpatient Visit Past Medical History Start: 01/08/18 02: 16 Text: Status: Complete Freq: ONCE Protocol: Document 01/08/18 02:16 AW (Rec: 01/08/18 02:26 AW [id number]) BMI Required to complete PMH What is Patient's BMI 25.0 Neurologic Medical History Hx Stroke/TIA No Hx Dementia/Alzheimer's No Hx Parkinson's Disease No Hx Seizures No Hx Multiple Sclerosis No Hx Migraines No Cardiac Medical History VTE Present on Admission No Hx of Deep Vein Thrombosis/VTE/PE No Hx Hypertension Yes Hx Chest Pain/Angina Yes: WHEN HGB GETS TOO LOW Hx Heart Attack No Hx Cardiac Surgery/Stents/Etc. Yes: STENT X1 Hx Heart Failure No Hx Pacemaker/AICD No Hx Irregular Heartbeat and/or Afib Yes: skips a beat occasionally Hx Anticoagulant Therapy No Query Text:(Coumadin, Aspirin, Plavix, Xarelto, etc.) Hx Pain in Legs when Walking/Leg Cramps Yes: leg cramps Respiratory Medical History Hx COPD No Hx Emphysema No Hx Smoking No Smoking Status Never smoker Hx Smoking Cessation Counseling No Hx Smoking Exposure No Hx Tobacco Use in last 12 months No Hx of Pipe Smoking No Hx Sleep Apnea No Do you snore loudly (louder than talking No or can be heard through closed doors)? Do you often feel tired/ fatigued/ Yes sleepy during daytime? Has anyone observed you stop breathing No during sleep? STOP Results Positive GI Medical History Hx Ulcer No Hx Hepatitis No Hx Cirrhosis No Hx GI Bleed Yes: some blood in stool occasionally Hx Unplanned Weight Loss No Genitourinary Medical History Indwelling Catheter in Place on Arrival/ No Admission Hx Renal Disease No Hx Dialysis No Musculoskeletal History Hx Arthritis No Hx Rheumatoid Arthritis No Endocrine Medical History Hx Diabetes No Hx Thyroid Disease No Hematologic Medical History Hx of Blood Transfusion Yes Hx of Transfusion in last 3 Months Yes Date of Last Transfusion (if within last 12/29/17 3 months) Ever experience any problems with No transfusion(s)? Hx of Preganancy in last 3 Months N/A Nurse Filling Out Transfusion & [id number] Questions: Date: 01/08/18 Time: 02:24 Psycho/Social Medical History Hx Depression No Hx Anxiety No Hx Behavior Disorder No Hx Alcohol Use No Hx Substance Use No Other Medical History Hx Blood Disorders Yes: MDS Hx Anemia Yes Hx Cancer Yes: breast, mult myeloma, lymphoma, NONHODGKINS Hx Drug Resistant Organism No Wound/Pressure Injury Present on Arrival No /Admission Query Text:If yes, chart assessment in Shift/Clinical Findings Central Line/PICC/VAD Present on Arrival No /Admission Antibiotics within last 7 days? No Methicillin Resistant Staphylococcus aureus Screening Active MRSA No Risk for Readmission Number of Risk Factors 6 At Risk for Readmission Patient is At Risk For Readmission Patient is eligible for Call Back Y Past Medical History (Last Reviewed 01/04/18 @ 09:28 by Sarah Skinner) CATARACT SURGERY BILATERAL (Acute) Past Surgical History (Last Reviewed 01/04/18 @ 09:28 by Sarah Skinner) H/O mastectomy (Acute) H/O: hysterectomy (Acute) Hx of cholecystectomy (Acute) Maternal Family History: Family History (Last Reviewed 01/04/18 @ 09:28 by Sarah Skinner) Father Diabetes Heart disease Mother Arthritis Breast cancer Uterine cancer Family History: Cancer - Uterine and breast Paternal Family History: Family History (Last Reviewed 01/04/18 @ 09:28 by Sarah Skinner) Father Diabetes Heart disease Mother Arthritis Breast cancer Uterine cancer Family History: Cancer, Diabetes - Social History Smoking Status: Never smoker Allergies/Adverse Reactions: Allergy/AdvReac Type Severity Reaction Status Date / Time Penicillins [PCN] Allergy Severe Hives Verified 01/07/18 22:50 Home Medications Medication Instructions Recorded Simvastatin [Zocor] 40 mg PO QHS 08/15/13 Multivitamin [Multiple Vitamins] 1 each PO DAILY 09/26/17 Pyridoxine HCl [Vitamin B6] 100 mg PO DAILY 09/26/17 Metoclopramide [Reglan] 10 mg PO TID PRN #60 tablet 10/05/17 Albuterol Inhaler [Ventolin Hfa] 1 - 2 puff INHALATION Q4H PRN PRN 10/14/17 #1 inhaler Dexamethasone [Decadron] 40 mg PO QWEEK #40 tab 11/07/17 Loratadine [Claritin] 10 mg PO DAILY 11/20/17 lisinopril 2.5 mg tablet 2.5 mg PO DAILY #30 tab 01/03/18 metoprolol succinate ER 25 mg 25 mg PO DAILY #30 tab 01/03/18 tablet,extended release 24 hr Bisacodyl [Dulcolax] 5 mg PO DAILY 01/08/18 Review of Systems Constitutional:: Reports: Weakness, Fatigue. Denies: Fever, Sweats, Weight loss , Appetite change, Chills Cardiovascular:: Reports: Dyspnea on exertion. Denies: Chest pain, Palpitations , Orthopnea, PND Respiratory: Denies: Cough, Hemoptysis, Wheezing Gastrointestinal:: Reports: Melena. Denies: Abdominal pain, Nausea, Vomiting, Diarrhea, Constipation, Hematochezia Genitourinary: Denies: Dysuria, Hematuria, 15, Flank pain Musculoskeletal:: Denies: Back pain, Myalgia, Arthralgia Skin: Denies: Rash, Skin Changes, Wounds Neurological:: Denies: Headache, Dizziness, Numbness, Tingling, Visual changes, Tinnitus, Hearing loss Psychiatric: Denies: Anxiety, Depression, Homicidal Ideations, Suicidal Ideations Vital Signs Height 5 ft 2 in Weight: 136 lb 14.513 oz Weight in Pounds 136.9 lbs Pulse Ox 98 Temperature 98.9 F Pulse Rate 93 Respiratory Rate 19 Blood Pressure [BP] 128/74 Blood Pressure 113/52 Blood Pressure Position [BP] Semi-Fowlers Blood Pressure Position Sitting - Physical Exam General: Alert, Oriented x3, No apparent distress HEENT: Atraumatic, Normocephalic Oropharynx:: Negative for: Dry mucosa, Ulcerated lesions Neck:: Supple, Trachea midline. Negative for: JVD, bilateral Cardiac:: Regular rate, Regular rhythm, Normal S1, Normal S2 Lungs: Clear to auscultation, Excusion symmetrical. Negative for: Rhonchi, Wheezes Abdomen:: Bowel sounds x 4, Soft, Non-tender, Non-distended. Negative for: Hepatosplenomegaly Extremities:: Negative for: Cyanosis, Edema Neurological: Neuro grossly intact Skin:: Negative for: Lesions, Rash, Petechiae, Ecchymosis Psychiatric:: Appropriate affect, Euthymic Lymphatics:: Negative for: Cervical lymphadenopathy, Supraclavicular lymphadenopathy, Axillary lymphadenopathy Laboratory Data: Microbiology 01/08/18 11:06 Stool Occult Blood (ALEJA) - Final Stool Occult Blood Positive Laboratory Tests 3 01/08/18 01/08/18 01/08/18 Range/Units 09:35 09:35 09:35 WBC (4.4-11.0) K/mm3 RBC (4.2-5.4) M/mm3 Hgb (12.0-15.0) g/dl Hct (37-47) % MCV (81-99) fL MCH (27.0-32.0) pg MCHC (32-36) g/gl RDW (11.6-14.6) % RDW Differential (35.1-43.9) fl Plt Count (150-450) K/mm3 MPV (6.2-12.0) fl Differential Comment Diff Path Review Immature Plt Fraction (1.0-7.9) % Retic Count (0.5-1.5) % Immature Retic Fraction (3.00-15.90) % Retic Hgb Equivalent (30-35) pg PT 15.6 H (11.7-14.9) SECONDS INR 1.2 Sodium 144 (136-145) mmol/L Potassium 3.8 (3.5-5.1) mmol/L Chloride 109 H (98-107) mmol/L Carbon Dioxide 25.0 (21.0-32.0) mmol/L Anion Gap 10 (5-15) BUN 36 H (7-18) mg/dL Creatinine 0.62 (0.55-1.02) mg/dL Estim Creat Clear Calc 39.04 ml/min Est GFR (MDRD) Af Amer 121 (>60) mL/min Est GFR (MDRD) Non-Af 100 (>60) mL/min BUN/Creatinine Ratio 58.0 H (10-20) RATIO Glucose 149 H (74-106) mg/dL Calcium 7.9 L (8.5-10.1) mg/dL Iron 131 (50-170) ug/dL TIBC 305 (250-450) ug/dL Iron Saturation 43.0 (15.0-55.0) % Lactate Dehydrogenase 138 (84-246) U/L Troponin I (<0.06) ng/mL Triglycerides 141 ( - 199) mg/dL Cholesterol 90 (200) mg/dL LDL Cholesterol 41 (0-130) mg/dL VLDL Cholesterol 28 (5-40) mg/dL HDL Cholesterol 21 L (40 - ) mg/dL Vitamin B12 > 2000 H (211-911) pg/mL Folate 18.20 (3.1-55.4) ng/mL TSH 2.55 (0.358-3.74) uIU/mL MRSA (PCR) (Negative) 3 01/08/18 01/08/18 01/08/18 Range/Units 09:35 09:35 06:40 WBC 2.0 L (4.4-11.0) K/mm3 RBC 1.83 L (4.2-5.4) M/mm3 Hgb 5.9 L* (12.0-15.0) g/dl Hct 17.2 L (37-47) % MCV 94.0 (81-99) fL MCH 32.2 H (27.0-32.0) pg MCHC 34.3 (32-36) g/gl RDW 20.5 H (11.6-14.6) % RDW Differential 65.7 H (35.1-43.9) fl Plt Count 71 L (150-450) K/mm3 MPV 9.0 (6.2-12.0) fl Differential Comment SCANNED Diff Path Review May foll Immature Plt Fraction 4.9 (1.0-7.9) % Retic Count 3.00 H (0.5-1.5) % Immature Retic Fraction 10.30 (3.00-15.90) % Retic Hgb Equivalent 34.0 (30-35) pg PT (11.7-14.9) SECONDS INR Sodium (136-145) mmol/L Potassium (3.5-5.1) mmol/L Chloride (98-107) mmol/L Carbon Dioxide (21.0-32.0) mmol/L Anion Gap (5-15) BUN (7-18) mg/dL Creatinine (0.55-1.02) mg/dL Estim Creat Clear Calc ml/min Est GFR (MDRD) Af Amer (>60) mL/min Est GFR (MDRD) Non-Af (>60) mL/min BUN/Creatinine Ratio (10-20) RATIO Glucose (74-106) mg/dL Calcium (8.5-10.1) mg/dL Iron (50-170) ug/dL TIBC (250-450) ug/dL Iron Saturation (15.0-55.0) % Lactate Dehydrogenase (84-246) U/L Troponin I 0.02 (<0.06) ng/mL Triglycerides ( - 199) mg/dL Cholesterol (200) mg/dL LDL Cholesterol (0-130) mg/dL VLDL Cholesterol (5-40) mg/dL HDL Cholesterol (40 - ) mg/dL Vitamin B12 (211-911) pg/mL Folate (3.1-55.4) ng/mL TSH (0.358-3.74) uIU/mL MRSA (PCR) (Negative) 3 01/08/18 01/08/18 Range/Units 03:05 02:20 WBC (4.4-11.0) K/mm3 RBC (4.2-5.4) M/mm3 Hgb (12.0-15.0) g/dl Hct (37-47) % MCV (81-99) fL MCH (27.0-32.0) pg MCHC (32-36) g/gl RDW (11.6-14.6) % RDW Differential (35.1-43.9) fl Plt Count (150-450) K/mm3 MPV (6.2-12.0) fl Differential Comment Diff Path Review Immature Plt Fraction (1.0-7.9) % Retic Count (0.5-1.5) % Immature Retic Fraction (3.00-15.90) % Retic Hgb Equivalent (30-35) pg PT (11.7-14.9) SECONDS INR Sodium (136-145) mmol/L Potassium (3.5-5.1) mmol/L Chloride (98-107) mmol/L Carbon Dioxide (21.0-32.0) mmol/L Anion Gap (5-15) BUN (7-18) mg/dL Creatinine (0.55-1.02) mg/dL Estim Creat Clear Calc ml/min Est GFR (MDRD) Af Amer (>60) mL/min Est GFR (MDRD) Non-Af (>60) mL/min BUN/Creatinine Ratio (10-20) RATIO Glucose (74-106) mg/dL Calcium (8.5-10.1) mg/dL Iron (50-170) ug/dL TIBC (250-450) ug/dL Iron Saturation (15.0-55.0) % Lactate Dehydrogenase (84-246) U/L Troponin I < 0.02 (<0.06) ng/mL Triglycerides ( - 199) mg/dL Cholesterol (200) mg/dL LDL Cholesterol (0-130) mg/dL VLDL Cholesterol (5-40) mg/dL HDL Cholesterol (40 - ) mg/dL Vitamin B12 (211-911) pg/mL Folate (3.1-55.4) ng/mL TSH (0.358-3.74) uIU/mL MRSA (PCR) Negative (Negative) Diagnostic Data: Diagnostic Data Chest X-Ray 01/07/18 23:10 IMPRESSION: No acute cardiopulmonary disease. Electronically Signed: David Wiggins DO at 23:41 EST , Service support , Assessment and Plan 72 year old female w/ h/o acute blood loss anemia and bone marrow suppression. PMH history positive for non-Hodgkin's lymphoma, stage IV, with abdominal mass and ascites in January 2000 s/p R-CHOP and 2 cycles of R-CEOP followed by high- dose chemotherapy and autologous stem cell transplant and left breast cancer s/ p left modified radical mastectomy plus axillary lymph node dissection on 2008 for stage I, ER/IN positive, HER2 negative disease admitted for acute symptomatic anemia and most recently multiple myeloma IgG kappa type, in May 2010. 1) Acute symptomatic anemia: Upon admission Hgb 3.3. Subsequent to 2 units PRBC leukoreduced, irradiated and CMV negative PRBCs Hgb reflects improvement. Now 5.9 and receiving 3rd unit now. Goal hgb >7 and asymptomatic. Recent extensive GI workup completed, although patient endorses 3 days of melena. Although she has undergone extensive GI workup, it was complete > 6months ago. Recommend GI consult. 2) IgG kappa multiple myeloma- On weekly dexamethasone 40 mg, administered on Mondays. Dex given earlier this morning. IgG and kappa/lambda ratio improving. 3) Pancytopenia- ? myelosuppression, MDS. Platelets stable 71,000. ANC 3.1. Last dose of Neulasta administered on 12/28/17. Continue to monitor. 4) DVT Prophylaxis: Chemical prophylaxis contraindicated in the setting of severe anemia and mild thrombocytopenia. Kaylyn Dutta, RADHA, [employer], AOCNP Medications: Prescriptions This Visit Medication Instructions Recorded Bisacodyl [Dulcolax] 5 mg PO DAILY 01/08/18 Medications Added to Medication List This Visit Category Date Time Status Atorvastatin Calcium [Lipitor] Med 01/08/18 22:00 Active 20 mg PO QHS Dexamethasone [Decadron] Med 01/08/18 08:00 Active 40 mg PO QWEEK@0800 Ensure Enlive Med 01/08/18 10:00 Active 120 ml PO 4X/DAY Loratadine [Claritin] Med 01/08/18 10:00 Active 10 mg PO DAILY Metoprolol(XL)Succ [Toprol Xl (Beta Freedom)] Med 01/09/18 10:00 Active 25 mg PO DAILY Multivitamins,Therapeutic [Multivitamin] Med 01/08/18 08:00 Active 1 tablet PO DAILY@0800 Pantoprazole Sodium [Protonix] 40 mg Med 01/09/18 10:00 Active 0.9% Normal Saline 100 ml IV Q24 Pyridoxine HCl [Vitamin B-6] Med 01/08/18 10:00 Active 100 mg PO DAILY Primary Care Provider: Edvin Anthony Referring Provider:
[2018-01-08 16:50] LABS: Hematocrit 22.2 % (37-47); Hemoglobin 7.4 g/dl (12.0-15.0)
[2018-01-08] MEDS: Atorvastatin Calcium 20 MG Tablet PO (21:28)
[2018-01-08] MEDS: LORazepam 0.5 MG Tablet PO (22:32)
[2018-01-09] VITALS (23 sets, daily range): BP systolic 110–150; BP diastolic 53–72; PULSE 71–99; RESP 13–23; TEMP 36.2–36.8; O2SAT 93–99
[2018-01-09 06:21] LABS: Hematocrit 21.3 % (37-47); Mean Corp Hgb Conc 32.9 g/gl (32-36); Mean Corpuscular Hgb 31.8 pg (27.0-32.0); Mean Corpuscular Volume 96.8 fL (81-99); Mean Platelet Vol. 10.6 fl (6.2-12.0); Platelet Count 67 K/mm3 (150-450); RBC Distribution Width CV 19.8 % (11.6-14.6); White Blood Count 3.6 K/mm3 (4.4-11.0)
[2018-01-09 06:25] LABS: Differential Indicated MANUAL DIFF; POSITIVE COUNT YES; POSITIVE DIFFERENTIAL YES; POSITIVE MORPHOLOGY YES
[2018-01-09 06:35] LABS: Total Cells Counted 50 (MANUAL DIFF)
[2018-01-09 06:36] LABS: Monocyte 4 % (0-10); Neutrophil-Band 4 % (0-5); Neutrophil-Segmented 76 % (47-70); Toxic Granulation 2+
[2018-01-09 06:37] LABS: Anion Gap 6 (5-15); BUN 23 mg/dL (7-18); BUN/Creat Ratio 46.1 RATIO (10-20); Blast 1 % (0-0); Calcium,Total 8.1 mg/dL (8.5-10.1); Chloride 112 mmol/L (98-107); EST Glomerular Filtration Rate 128 mL/min (>60); Est Glom Filt Rate - Afr Amer 155 mL/min (>60); Estimated Creatinine Clearance 39.04 ml/min; Glucose 128 mg/dL (74-106); Lymphocyte 15 % (19-41); Microcytosis 2+; Platelet Estimate MOD DEC (ADEQ); Potassium 3.9 mmol/L (3.5-5.1); Red Cell Morphology N CHROM NORMAL (NORM C&C); Sodium Level 143 mmol/L (136-145)
[2018-01-09 06:38] LABS: Absolute Lymphocyte Count 0.54 X10^3/ul (0.83-4.51); Lymphocyte # 0.54 X10^3/ul (4.0)
[2018-01-09 06:39] LABS: Absolute Neutrophil Count 2.9 X10^3/uL (2.0-7.7); Neutrophil # 2.88 X10^3/uL (2.7-7.7)
--- NOTE | 2018-01-09 07:45 | PCM.CONS.GEN ---
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) Severe anemia (Chronic) Pancytopenia (Chronic) Allergies Penicillins [PCN] Allergy (Severe, Verified 01/07/18 22:50) Hives Home Medications: Ambulatory Orders Medication Instructions Recorded Simvastatin [Zocor] 40 mg PO QHS 08/15/13 Multivitamin [Multiple Vitamins] 1 each PO DAILY 09/26/17 Pyridoxine HCl [Vitamin B6] 100 mg PO DAILY 09/26/17 Metoclopramide [Reglan] 10 mg PO TID PRN #60 tablet 10/05/17 Albuterol Inhaler [Ventolin Hfa] 1 - 2 puff INHALATION Q4H PRN PRN 10/14/17 #1 inhaler Dexamethasone [Decadron] 40 mg PO QWEEK #40 tab 11/07/17 Loratadine [Claritin] 10 mg PO DAILY 11/20/17 lisinopril 2.5 mg tablet 2.5 mg PO DAILY #30 tab 01/03/18 metoprolol succinate ER 25 mg 25 mg PO DAILY #30 tab 01/03/18 tablet,extended release 24 hr Bisacodyl [Dulcolax] 5 mg PO DAILY 01/08/18 Pantoprazole Sodium [Protonix] 40 mg PO DAILY #30 tab 01/09/18 Patient Problems: Active and Suspected Problems (Last Reviewed 01/04/18 @ 09:28 by Sarah Skniner) Signs and symptoms of anemia (Acute) - Physical Exam Vital Signs Temp Pulse Resp BP Pulse Ox 97.7 F L 88 17 134/65 H 95 01/09/18 12:46 01/09/18 12:46 01/09/18 12:46 01/09/18 12:46 01/09/18 12:46 Oxygen Flow Rate (L/min) 2 Oxygen Delivery Method Room Air Weight: 137 lb 12.623 oz Body Mass Index (BMI) 25.0 Intake and Output for Last 24 Hours 01/07/18 01/08/18 01/09/18 23:59 23:59 23:59 Intake Total 2290 / 2290 500 / 500 Output Total 1550 / 1550 Balance 740 / 740 500 / 500 Microbiology Past 72 Hours 01/08/18 11:06 Stool Occult Blood (ALEJA) - Final Stool Occult Blood Positive Laboratory Tests Past 24 Hrs 01/08/18 01/08/18 01/09/18 16:00 18:35 05:00 WBC 3.6 L RBC 2.20 L Hgb 7.4 L 7.0 L Hct 22.2 L 21.3 L MCV 96.8 MCH 31.8 MCHC 32.9 RDW 19.8 H RDW Differential 61.0 H Plt Count 67 L MPV 10.6 Neut % (Auto) Not Reportable Absolute Neuts (auto) 2.9 Absolute Lymphs (auto) 0.54 L Total Counted 50 Neutrophils % (Manual) 76 H Band Neutrophils % 4 Lymphocytes % (Manual) 15 L Monocytes % (Manual) 4 Blast Cells % 1 H* Diff Path Review May foll Toxic Granulation 2+ Platelet Estimate MOD DEC RBC Morphology N CHROM Microcytosis 2+ Sodium Potassium Chloride Carbon Dioxide Anion Gap BUN Creatinine Estim Creat Clear Calc Est GFR (MDRD) Af Amer Est GFR (MDRD) Non-Af BUN/Creatinine Ratio Glucose Calcium Troponin I < 0.02 01/09/18 05:00 WBC RBC Hgb Hct MCV MCH MCHC RDW RDW Differential Plt Count MPV Neut % (Auto) Absolute Neuts (auto) Absolute Lymphs (auto) Total Counted Neutrophils % (Manual) Band Neutrophils % Lymphocytes % (Manual) Monocytes % (Manual) Blast Cells % Diff Path Review Toxic Granulation Platelet Estimate RBC Morphology Microcytosis Sodium 143 Potassium 3.9 Chloride 112 H Carbon Dioxide 25.0 Anion Gap 6 BUN 23 H Creatinine 0.50 L Estim Creat Clear Calc 39.04 Est GFR (MDRD) Af Amer 155 Est GFR (MDRD) Non-Af 128 BUN/Creatinine Ratio 46.1 H Glucose 128 H Calcium 8.1 L Troponin I Assessment/Plan Active and Suspected Problems (Last Reviewed 01/04/18 @ 09:28 by Sarah Skinner) Signs and symptoms of anemia (Acute) This is an extremely complicated case. Patient has had numerous scopes in the past all of which have been negative. And I do not believe she has been of benefit from having a scope at this admission. I believe that once the patient is well hydrated and her hemoglobin is at an acceptable level as long as it does not drift down she can be discharged. However if her hemoglobin continues to drift down I believe the order of exams should be: 1. Immediate bleeding scan if this is positive it should be followed up with 2. An arteriogram selective to where the bleeding is coming from. If the bleeding is coming from an upper abdominal source since she has had no documented histories of ulcers she may have a dulafos vessel/ulcer which may need to be looked at via endoscopic technique. Unfortunately were hunting for Zebras now, and given overall medical condition we may never find the actual bleeding source. I believe if we continue to do negative diagnostic endoscopies and will be only a matter of time before she has a complication. <Analy Alcantara - Last Filed: 01/09/18 14:59> Problem List (1) Severe anemia Status: Chronic (2) GI bleed Status: Acute Reason for Consult Date of Consultation: 01/09/18 Reason for Consultation: Acute on Chronic anemia History of Present Illness: The patient is a 72 year old F who presents with chest pain, weakness starting on Monday. Patient was noted to have a hemoglobin of 3.3 in the ED. Patient has a history of multiple myeloma (currently being treated for), Non-Hodgkin's lymphoma stage IV (had an abdominal mass)- treated with high-dose chemotherapy. She has also had a previous stem cell transplant in 2003. Patient had history of left breast cancer in 2008. Dr. Oconnor performed a modified radical mastectomy with axillary dissection. She notes being treated with Decadron for multiple years for multiple myeloma. Patient currently receives Decadron weekly. Dr. Guy is her oncologist. Patient has a history of anemia. Patient has been given Procrit on 01/04/18 in oncology. Patient notes she has had multiple transfusions over the last year. She notes on average she would have blood transfusion every 6 months. Patient states since her ER visit in August with a nosebleed, she has had to have 2 units of PRBC every 2-3 weeks. Patient states her last blood transfusion was on 12/29 in oncology. Patient states she has had a previous GI bleed in June 2017 x 2. Patient notes early in June she came in with anemia. Dr. Oconnor performed and upper and lower scope on 06/12/17. Findings included internal hemorrhoids. Patient was given hemorrhoidal ointment. No active bleeding was noted at that time. Patient then returned later that month with anemia. She was transferred to [facility] secondary to suspicion of small bowel bleeding. She had a GI bleeding study/scan which was negative and capsule endoscopy was performed also negative. In August patient presented to the ED with nose bleed which was unable to be controlled. Patient was sent to [facility], where bleeding had ceased. She was transfused 3 or 4 units of PRBC. Patient noted she had an EGD by a Dr. Aguero which was unremarkable per patient. Again in October, patient had acute anemia and scopes were recommended. Dr. Oconnor did not recommend scopes at that time. Dr. Mack also evaluated this patient during that hospitalization and scopes were not recommended by him either. Dr. Mack's impression was possible diverticular bleed. Patient also has a cardiac history. She notes an abnormal stress test and cardiac cath and stent placement in 2009. She currently follows with Dr. Borden. She denies previous myocardial infarction, stroke and blood clots. Patient notes single bowel movement since admission. She noted black, dark stools for 3 days. She notes her stool was more brown yesterday. Patient had a positive occult blood test yesterday. Patient's hemoglobin was 7.0 this morning. Patient notes seeing a small amount of bright red blood on the toilet paper. Patient states she was started on a PPI by Dr. Miller, however this was discontinued by Dr. Guy secondary to possibly the cause of low platelets. Patient's surgical history consists of gallbladder and total hysterectomy. Past Medical History Allergies Penicillins [PCN] Allergy (Severe, Verified 01/07/18 22:50) Hives Surgical History: cholecystectomy, hysterectomy, mastectomy Smoking Status: Never smoker - *Family History Maternal History Items: Cancer - Uterine and breast Paternal History Items: Cancer, Diabetes Review of Systems Constitutional: Denies: Chills, Fever, Weight Change HEENT: Reports: Nasal bleeding. Denies: Head Aches, Sinus Congestion, Sinus Drainage Cardiovascular: Reports: Chest Pressure Respiratory: Reports: Shortness of Breath Gastrointestinal: Reports: Constipation, Hematochezia, Melena. Denies: Abdominal Pain Genitourinary: Denies: Dysuria Musculoskeletal: Denies: Joint Pain, Joint Tenderness Skin: Denies: Rash, Wounds Neurological: Denies: Numbness, Tingling, Focal weakness Psychiatric: Denies: Anxiety, Depression, Homicidal Ideations, Suicidal Ideations Hematologic/ Lymphatic: Reports: Anemia, Easy Bruising, Easy Bleeding, Hx of blood transfusion - Physical Exam General: Alert, Oriented x3, Cooperative HEENT: Atraumatic, PERRLA, EOMI, Normocephalic Neck: Supple, No JVD, Negative Carotid Bruits Lungs: Clear to auscultation, Normal air movement Cardiovascular: Regular rate, No murmurs Abdomen: Bowel Sounds Present, Soft, Non Tender, Non-Distended Extremities: No edema, Capillary Refill Less than 3 Seconds Skin: No rashes, No breakdown Musculoskeletal: No Tenderness to Palpation of Joints or Extremities Neurological: Neuro grossly intact Psych/Mental Status: Normal Affect, Appropriate Vital Signs Temp Pulse Resp BP Pulse Ox 97.9 F 82 18 141/68 H 97 01/09/18 05:00 01/09/18 06:00 01/09/18 06:00 01/09/18 06:00 01/09/18 06:00 Oxygen Flow Rate (L/min) 2 Oxygen Delivery Method Room Air Weight: 137 lb 12.623 oz Body Mass Index (BMI) 25.0 Intake and Output for Last 24 Hours 01/07/18 01/08/18 01/09/18 23:59 23:59 23:59 Intake Total 2290 / 2290 500 / 500 Output Total 1550 / 1550 Balance 740 / 740 500 / 500 Microbiology Past 72 Hours 01/08/18 11:06 Stool Occult Blood (ALEJA) - Final Stool Occult Blood Positive Laboratory Tests Past 24 Hrs 01/08/18 01/08/18 01/08/18 06:40 09:35 09:35 WBC 2.0 L RBC 1.83 L Hgb 5.9 L* Hct 17.2 L MCV 94.0 MCH 32.2 H MCHC 34.3 RDW 20.5 H RDW Differential 65.7 H Plt Count 71 L MPV 9.0 Neut % (Auto) Absolute Neuts (auto) Absolute Lymphs (auto) Total Counted Neutrophils % (Manual) Band Neutrophils % Lymphocytes % (Manual) Monocytes % (Manual) Blast Cells % Differential Comment SCANNED Diff Path Review May foll Toxic Granulation Platelet Estimate Immature Plt Fraction 4.9 RBC Morphology Microcytosis Retic Count 3.00 H Immature Retic Fraction 10.30 Retic Hgb Equivalent 34.0 PT INR Sodium Potassium Chloride Carbon Dioxide Anion Gap BUN Creatinine Estim Creat Clear Calc Est GFR (MDRD) Af Amer Est GFR (MDRD) Non-Af BUN/Creatinine Ratio Glucose Calcium Iron TIBC Iron Saturation Lactate Dehydrogenase Troponin I 0.02 Triglycerides Cholesterol LDL Cholesterol VLDL Cholesterol HDL Cholesterol Vitamin B12 Folate TSH 01/08/18 01/08/18 01/08/18 09:35 09:35 09:35 WBC RBC Hgb Hct MCV MCH MCHC RDW RDW Differential Plt Count MPV Neut % (Auto) Absolute Neuts (auto) Absolute Lymphs (auto) Total Counted Neutrophils % (Manual) Band Neutrophils % Lymphocytes % (Manual) Monocytes % (Manual) Blast Cells % Differential Comment Diff Path Review Toxic Granulation Platelet Estimate Immature Plt Fraction RBC Morphology Microcytosis Retic Count Immature Retic Fraction Retic Hgb Equivalent PT 15.6 H INR 1.2 Sodium 144 Potassium 3.8 Chloride 109 H Carbon Dioxide 25.0 Anion Gap 10 BUN 36 H Creatinine 0.62 Estim Creat Clear Calc 39.04 Est GFR (MDRD) Af Amer 121 Est GFR (MDRD) Non-Af 100 BUN/Creatinine Ratio 58.0 H Glucose 149 H Calcium 7.9 L Iron 131 TIBC 305 Iron Saturation 43.0 Lactate Dehydrogenase 138 Troponin I Triglycerides 141 Cholesterol 90 LDL Cholesterol 41 VLDL Cholesterol 28 HDL Cholesterol 21 L Vitamin B12 > 2000 H Folate 18.20 TSH 2.55 01/08/18 01/08/18 01/09/18 16:00 18:35 05:00 WBC 3.6 L RBC 2.20 L Hgb 7.4 L 7.0 L Hct 22.2 L 21.3 L MCV 96.8 MCH 31.8 MCHC 32.9 RDW 19.8 H RDW Differential 61.0 H Plt Count 67 L MPV 10.6 Neut % (Auto) Not Reportable Absolute Neuts (auto) 2.9 Absolute Lymphs (auto) 0.54 L Total Counted 50 Neutrophils % (Manual) 76 H Band Neutrophils % 4 Lymphocytes % (Manual) 15 L Monocytes % (Manual) 4 Blast Cells % 1 H* Differential Comment Diff Path Review May foll Toxic Granulation 2+ Platelet Estimate MOD DEC Immature Plt Fraction RBC Morphology N CHROM Microcytosis 2+ Retic Count Immature Retic Fraction Retic Hgb Equivalent PT INR Sodium Potassium Chloride Carbon Dioxide Anion Gap BUN Creatinine Estim Creat Clear Calc Est GFR (MDRD) Af Amer Est GFR (MDRD) Non-Af BUN/Creatinine Ratio Glucose Calcium Iron TIBC Iron Saturation Lactate Dehydrogenase Troponin I < 0.02 Triglycerides Cholesterol LDL Cholesterol VLDL Cholesterol HDL Cholesterol Vitamin B12 Folate TSH 01/09/18 05:00 WBC RBC Hgb Hct MCV MCH MCHC RDW RDW Differential Plt Count MPV Neut % (Auto) Absolute Neuts (auto) Absolute Lymphs (auto) Total Counted Neutrophils % (Manual) Band Neutrophils % Lymphocytes % (Manual) Monocytes % (Manual) Blast Cells % Differential Comment Diff Path Review Toxic Granulation Platelet Estimate Immature Plt Fraction RBC Morphology Microcytosis Retic Count Immature Retic Fraction Retic Hgb Equivalent PT INR Sodium 143 Potassium 3.9 Chloride 112 H Carbon Dioxide 25.0 Anion Gap 6 BUN 23 H Creatinine 0.50 L Estim Creat Clear Calc 39.04 Est GFR (MDRD) Af Amer 155 Est GFR (MDRD) Non-Af 128 BUN/Creatinine Ratio 46.1 H Glucose 128 H Calcium 8.1 L Iron TIBC Iron Saturation Lactate Dehydrogenase Troponin I Triglycerides Cholesterol LDL Cholesterol VLDL Cholesterol HDL Cholesterol Vitamin B12 Folate TSH Assessment/Plan I have been consulted in conjunction with Dr. Oconnor. Impression: Severe acute on chronic anemia Plan: Discussed patient with Dr. Oconnor. Patient has recently had scopes in June of last year and other scopes there after, which have not shown active bleeding. At this time, Dr. Oconnor will defer scopes as scoping may not be of benefit since her previous scopes have been negative. Patient is blood transfusion dependent. If continued active bleeding may recommend bleeding scan. We will continue to monitor this patient. Patient has had the opportunity to ask and have questions answered. Patient verbally understands and agrees with the plan. Thank you for allowing us to participate in this patient care. My recommendations will be available via electronic medical records.
[2018-01-09] MEDS: Pyridoxine HCl 50 MG Tablet 100 MG PO (09:59)
[2018-01-09] MEDS: Metoprolol(XL)Succ 25 MG Tablet PO (09:59)
[2018-01-09] MEDS: Multivitamins,Therapeutic Tablet 1 TABLET PO (09:59)
[2018-01-09] MEDS: Loratadine 10 MG Tablet PO (09:59)
[2018-01-09] MEDS: Furosemide 20 MG/2 ML VIAL IV (10:00)
--- NOTE | 2018-01-09 11:52 | ONC.PN.INPT ---
- Problem List (1) Severe anemia Status: Chronic (2) Multiple myeloma Status: Chronic Qualifiers: Multiple myeloma remission status: not in remission Qualified Code(s): C90.00 - Multiple myeloma not having achieved remission (3) Pancytopenia Status: Chronic Subjective Date of Service:: 01/09/18 Severe anemia Ms. Rhea Calhoun is a pleasant 71 year old woman with a complex oncologic history. She was diagnosed with non-Hodgkin's lymphoma, stage IV, with abdominal mass and ascites in January 2000. She received R-CHOP with remission. She had recurrent disease in May 2004 with multiple abdominal masses. She was treated with 2 cycles of R-CEOP followed by high-dose chemotherapy and autologous stem cell transplant with complete remission. She had left breast cancer and had a left modified radical mastectomy plus axillary lymph node dissection on 11/26/2008 for stage I, ER/AK positive, HER2 negative disease. She was then diagnosed with multiple myeloma, IgG kappa type, in May 2010. She has received various treatments including Thalomid/Decadron, Revlimid/Decadron and Velcade/Decadron. Her last dose of Velcade/Decadron was on 11/30/2016 because of persistent cytopenia requiring red blood cell transfusions and leukopenia requiring Neupogen. M spike has plateaued off. Bone marrow biopsy done on 01/04/2017 shows plasma cells of 15% and cellularity of 50-60%. Iron stain was negative. Requires Venofer often. Received Procrit 60,000 units and Granix 480 mcg weekly. She was found to have bleeding hemorrhoids June 2017, received PRBC transfusions. On 06/23/2017 she again presented with GI bleed, was transferred to [facility], GI bleeding study was negative, Capsule endoscopy was also negative. Resumed weekly Granix 07/04/17. Cyclosporine 07/19/17- 09/2017. Bone marrow bx 09/06/2017 at [facility] showed hypercellular marrow 90%, Plasma cell 40%. M-spike is 0.5, Cytogenetic was normal 46 XY. Abd US on 09/15/2017 showed mild splenomegaly and fatty infiltration of liver. She was to start Kyprolis but changed her mind and instead agreed to Decadron 40mg weekly, starting on 10/09/2017. She is transfusion dependent with parameters for tx being Hgb of <= 7 and subjective c/o fatigue/CP. She was given Granix 480mcg 3 times a week with no response so started Neulasta 6mg on 11/13/2017 and continues every 2 weeks, last dose 12/28/17. Bone marrow biopsy on 12/19/2017 showed Plasma cells 4%, Hypercellular marrow, + stainable iron. Given Procrit 60,000 units 01/04/18. Patient presented to [facility] 01/07/18 subsequent to experiencing worsening dyspnea, fatigue and CP. Found to have Hgb 3.3 and subsequently she was admitted for medical management of severe anemia. She has received a total of 3 units PRBCS and reports Upon assessment today, patient reports I am feeling better in terms of weakness. CP and dyspnea have resolved. Reports 2 dark, tarry stools earlier today and noted yaneli blood on toilet tissue. No epistaxis. Past Medical History: Chronic Problems (Last Reviewed 01/04/18 @ 09:28 by Sarah Skinner) Neutropenia (Chronic) History of breast cancer (Chronic) Multiple myeloma (Chronic) History of stem cell transplant (Chronic) CAD (coronary artery disease) (Chronic) HTN (hypertension) (Chronic) Iron deficiency anemia (Chronic) Myelodysplasia (myelodysplastic syndrome) (Chronic) Multiple myeloma not having achieved remission (Chronic) Myelosuppression after chemotherapy (Chronic) Severe anemia (Chronic) Pancytopenia (Chronic) Past Medical History - Most Recent Inpatient Visit Past Medical History Start: 01/08/18 02:16 Text: Status: Complete Freq: ONCE Protocol: Document 01/08/18 02:16 AW (Rec: 01/08/18 02:26 AW [id number]) BMI Required to complete PMH What is Patient's BMI 25.0 Neurologic Medical History Hx Stroke/TIA No Hx Dementia/Alzheimer's No Hx Parkinson's Disease No Hx Seizures No Hx Multiple Sclerosis No Hx Migraines No Cardiac Medical History VTE Present on Admission No Hx of Deep Vein Thrombosis/VTE/PE No Hx Hypertension Yes Hx Chest Pain/Angina Yes: WHEN HGB GETS TOO LOW Hx Heart Attack No Hx Cardiac Surgery/Stents/Etc. Yes: STENT X1 Hx Heart Failure No Hx Pacemaker/AICD No Hx Irregular Heartbeat and/or Afib Yes: skips a beat occasionally Hx Anticoagulant Therapy No Query Text:(Coumadin, Aspirin, Plavix, Xarelto, etc.) Hx Pain in Legs when Walking/Leg Cramps Yes: leg cramps Respiratory Medical History Hx COPD No Hx Emphysema No Hx Smoking No Smoking Status Never smoker Hx Smoking Cessation Counseling No Hx Smoking Exposure No Hx Tobacco Use in last 12 months No Hx of Pipe Smoking No Hx Sleep Apnea No Do you snore loudly (louder than talking No or can be heard through closed doors)? Do you often feel tired/ fatigued/ Yes sleepy during daytime? Has anyone observed you stop breathing No during sleep? STOP Results Positive GI Medical History Hx Ulcer No Hx Hepatitis No Hx Cirrhosis No Hx GI Bleed Yes: some blood in stool occasionally Hx Unplanned Weight Loss No Genitourinary Medical History Indwelling Catheter in Place on Arrival/ No Admission Hx Renal Disease No Hx Dialysis No Musculoskeletal History Hx Arthritis No Hx Rheumatoid Arthritis No Endocrine Medical History Hx Diabetes No Hx Thyroid Disease No Hematologic Medical History Hx of Blood Transfusion Yes Hx of Transfusion in last 3 Months Yes Date of Last Transfusion (if within last 12/29/17 3 months) Ever experience any problems with No transfusion(s)? Hx of Preganancy in last 3 Months N/A Nurse Filling Out Transfusion & AWIERZBIC Questions: Date: 01/08/18 Time: 02:24 Psycho/Social Medical History Hx Depression No Hx Anxiety No Hx Behavior Disorder No Hx Alcohol Use No Hx Substance Use No Other Medical History Hx Blood Disorders Yes: MDS Hx Anemia Yes Hx Cancer Yes: breast, mult myeloma, lymphoma, NONHODGKINS Hx Drug Resistant Organism No Wound/Pressure Injury Present on Arrival No /Admission Query Text:If yes, chart assessment in Shift/Clinical Findings Central Line/PICC/VAD Present on Arrival No /Admission Antibiotics within last 7 days? No Methicillin Resistant Staphylococcus aureus Screening Active MRSA No Risk for Readmission Number of Risk Factors 6 At Risk for Readmission Patient is At Risk For Readmission Patient is eligible for Call Back Y Past Medical History (Last Reviewed 01/04/18 @ 09:28 by Sarah Skinner) CATARACT SURGERY BILATERAL (Acute) Past Surgical History (Last Reviewed 01/04/18 @ 09:28 by Sarah Skinner) H/O mastectomy (Acute) H/O: hysterectomy (Acute) Hx of cholecystectomy (Acute) Maternal Family History: Family History (Last Reviewed 01/04/18 @ 09:28 by Sarah Skinner) Father Diabetes Heart disease Mother Arthritis Breast cancer Uterine cancer Family History: Cancer - Uterine and breast Paternal Family History: Family History (Last Reviewed 01/04/18 @ 09:28 by Sarah Skinner) Father Diabetes Heart disease Mother Arthritis Breast cancer Uterine cancer Family History: Cancer, Diabetes - Social History Smoking Status: Never smoker Review of Systems Constitutional:: Reports: Weakness. Denies: Fever, Sweats, Weight loss, Appetite change, Chills Cardiovascular:: Denies: Chest pain, Palpitations, Dyspnea on exertion, Orthopnea, PND, Shortness of breath Respiratory: Denies: Cough, Hemoptysis, Shortness of Breath, Wheezing Gastrointestinal:: Reports: Melena, Hematochezia. Denies: Abdominal pain, Nausea, Vomiting, Diarrhea, Constipation Genitourinary: Denies: Dysuria, Hematuria, 15, Flank pain Musculoskeletal:: Denies: Back pain, Myalgia, Arthralgia Skin: Denies: Rash, Skin Changes, Wounds Neurological:: Denies: Headache, Dizziness, Numbness, Tingling, Visual changes, Tinnitus, Hearing loss Psychiatric: Denies: Anxiety, Depression, Homicidal Ideations, Suicidal Ideations Vital Signs Height 5 ft 2 in Weight: 137 lb 12.623 oz Weight in Pounds 137.8 lbs Pulse Ox 97 Temperature 97.9 F Pulse Rate 88 Respiratory Rate 17 Blood Pressure [BP] 132/65 Blood Pressure 141/63 Blood Pressure Position [BP] Semi-Fowlers Blood Pressure Position Semi-Fowlers - Physical Exam General: Alert, Oriented x3, No apparent distress HEENT: Atraumatic, Normocephalic Oropharynx:: Negative for: Dry mucosa, Ulcerated lesions Neck:: Supple, Trachea midline. Negative for: JVD, bilateral Cardiac:: Regular rate, Regular rhythm, Normal S1, Normal S2 Lungs: Clear to auscultation, Excusion symmetrical. Negative for: Rhonchi, Wheezes Abdomen:: Bowel sounds x 4, Soft, Non-tender, Non-distended. Negative for: Hepatosplenomegaly Extremities:: Negative for: Cyanosis, Edema Skin:: Negative for: Lesions, Rash, Petechiae, Ecchymosis Psychiatric:: Appropriate affect, Euthymic Lymphatics:: Negative for: Cervical lymphadenopathy, Supraclavicular lymphadenopathy Laboratory Data: Microbiology 01/08/18 11:06 Stool Occult Blood (ALEJA) - Final Stool Occult Blood Positive Laboratory Tests 01/09/18 01/09/18 01/08/18 Range/Units 05:00 05:00 18:35 WBC 3.6 L (4.4-11.0) K/mm3 RBC 2.20 L (4.2-5.4) M/mm3 Hgb 7.0 L (12.0-15.0) g/dl Hct 21.3 L (37-47) % MCV 96.8 (81-99) fL MCH 31.8 (27.0-32.0) pg MCHC 32.9 (32-36) g/gl RDW 19.8 H (11.6-14.6) % RDW Differential 61.0 H (35.1-43.9) fl Plt Count 67 L (150-450) K/mm3 MPV 10.6 (6.2-12.0) fl Neut % (Auto) Not Reportable Absolute Neuts (auto) 2.9 (2.0-7.7) X10^3/uL Absolute Lymphs (auto) 0.54 L (0.83-4.51) X10^3/ul Total Counted 50 (MANUAL DIFF) Neutrophils % (Manual) 76 H (47-70) % Band Neutrophils % 4 (0-5) % Lymphocytes % (Manual) 15 L (19-41) % Monocytes % (Manual) 4 (0-10) % Blast Cells % 1 H* (0-0) % Diff Path Review May foll Toxic Granulation 2+ Platelet Estimate MOD DEC (ADEQ) RBC Morphology N CHROM (NORM C&C) NORMAL Microcytosis 2+ Sodium 143 (136-145) mmol/L Potassium 3.9 (3.5-5.1) mmol/L Chloride 112 H (98-107) mmol/L Carbon Dioxide 25.0 (21.0-32.0) mmol/L Anion Gap 6 (5-15) BUN 23 H (7-18) mg/dL Creatinine 0.50 L (0.55-1.02) mg/dL Estim Creat Clear Calc 39.04 ml/min Est GFR (MDRD) Af Amer 155 (>60) mL/min Est GFR (MDRD) Non-Af 128 (>60) mL/min BUN/Creatinine Ratio 46.1 H (10-20) RATIO Glucose 128 H (74-106) mg/dL Calcium 8.1 L (8.5-10.1) mg/dL Troponin I < 0.02 (<0.06) ng/mL 01/08/18 Range/Units 16:00 WBC (4.4-11.0) K/mm3 RBC (4.2-5.4) M/mm3 Hgb 7.4 L (12.0-15.0) g/dl Hct 22.2 L (37-47) % MCV (81-99) fL MCH (27.0-32.0) pg MCHC (32-36) g/gl RDW (11.6-14.6) % RDW Differential (35.1-43.9) fl Plt Count (150-450) K/mm3 MPV (6.2-12.0) fl Neut % (Auto) Absolute Neuts (auto) (2.0-7.7) X10^3/uL Absolute Lymphs (auto) (0.83-4.51) X10^3/ul Total Counted (MANUAL DIFF) Neutrophils % (Manual) (47-70) % Band Neutrophils % (0-5) % Lymphocytes % (Manual) (19-41) % Monocytes % (Manual) (0-10) % Blast Cells % (0-0) % Diff Path Review Toxic Granulation Platelet Estimate (ADEQ) RBC Morphology (NORM C&C) NORMAL Microcytosis Sodium (136-145) mmol/L Potassium (3.5-5.1) mmol/L Chloride (98-107) mmol/L Carbon Dioxide (21.0-32.0) mmol/L Anion Gap (5-15) BUN (7-18) mg/dL Creatinine (0.55-1.02) mg/dL Estim Creat Clear Calc ml/min Est GFR (MDRD) Af Amer (>60) mL/min Est GFR (MDRD) Non-Af (>60) mL/min BUN/Creatinine Ratio (10-20) RATIO Glucose (74-106) mg/dL Calcium (8.5-10.1) mg/dL Troponin I (<0.06) ng/mL Diagnostic Data: Diagnostic Data Chest X-Ray 01/07/18 23:10 IMPRESSION: No acute cardiopulmonary disease. Electronically Signed: David Wiggins DO at 23:41 EST , Service support , Assessment and Plan 72 year old female w/ h/o acute blood loss anemia and bone marrow suppression. PMH history positive for non-Hodgkin's lymphoma, stage IV, with abdominal mass and ascites in January 2000 s/p R-CHOP and 2 cycles of R-CEOP followed by high-dose chemotherapy and autologous stem cell transplant and left breast cancer s/p left modified radical mastectomy plus axillary lymph node dissection on 11/26/2008 for stage I, ER/AK positive, HER2 negative disease admitted for acute symptomatic anemia and most recently multiple myeloma IgG kappa type, in May 2010. 1) Acute symptomatic anemia: Upon admission Hgb 3.3. Subsequent to 3 units PRBC leukoreduced, irradiated and CMV negative PRBCs. Hgb reflects improvement, now 7. Goal hgb >7 and asymptomatic. It appears an additional unit PRBCs has been ordered per primary team. Bleed scan being considered per Dr. Oconnor. 2) IgG kappa multiple myeloma- On weekly dexamethasone 40 mg, administered on Mondays. IgG level and kappa/lambda ratio improving. 3) Pancytopenia- ? myelosuppression, MDS. Platelets stable 67,000. ANC 2.9 Last dose of Neulasta administered on 12/28/17. 4) DVT Prophylaxis: Chemical prophylaxis contraindicated in the setting of severe anemia and mild thrombocytopenia. Kaylyn Dutta, RADHA, [employer] [place], AOCNP Medications: Prescriptions This Visit Medication Instructions Recorded Bisacodyl [Dulcolax] 5 mg PO DAILY 01/08/18 Medications Added to Medication List This Visit Category Date Time Status Metoprolol(XL)Succ [Toprol Xl (Beta Freedom)] Med 01/09/18 10:00 Active 25 mg PO DAILY Pantoprazole Sodium [Protonix] 40 mg Med 01/09/18 10:00 Active 0.9% Normal Saline 100 ml IV Q24 Primary Care Provider: Edvin Anthony Referring Provider:
--- NOTE | 2018-01-09 12:01 | PN_ITS ---
- Problem List (1) Severe anemia Status: Chronic (2) Multiple myeloma Status: Chronic Qualifiers: Multiple myeloma remission status: not in remission Qualified Code(s): C90.00 - Multiple myeloma not having achieved remission (3) Pancytopenia Status: Chronic Subjective Date of Service:: 01/09/18 Severe anemia Ms. Rhea Calhoun is a pleasant 71 year old woman with a complex oncologic history. She was diagnosed with non-Hodgkin's lymphoma, stage IV, with abdominal mass and ascites in January 2000. She received R-CHOP with remission. She had recurrent disease in May 2004 with multiple abdominal masses. She was treated with 2 cycles of R-CEOP followed by high-dose chemotherapy and autologous stem cell transplant with complete remission. She had left breast cancer and had a left modified radical mastectomy plus axillary lymph node dissection on 11/26/2008 for stage I, ER/NH positive, HER2 negative disease. She was then diagnosed with multiple myeloma, IgG kappa type, in May 2010. She has received various treatments including Thalomid/Decadron, Revlimid/Decadron and Velcade/Decadron. Her last dose of Velcade/Decadron was on 11/30/2016 because of persistent cytopenia requiring red blood cell transfusions and leukopenia requiring Neupogen. M spike has plateaued off. Bone marrow biopsy done on 2016 shows plasma cells of 15% and cellularity of 50-60%. Iron stain was negative. Requires Venofer often. Received Procrit 60,000 units and Granix 480 mcg weekly. She was found to have bleeding hemorrhoids June 2017, received PRBC transfusions. On 06/23/2017 she again presented with GI bleed, was transferred to [facility], GI bleeding study was negative, Capsule endoscopy was also negative. Resumed weekly Granix 07/04/17. Cyclosporine - 09/2017. Bone marrow bx 09/06/2017 at [facility] showed hypercellular marrow 90%, Plasma cell 40%. M-spike is 0.5, Cytogenetic was normal 46 XY. Abd US on 2016 showed mild splenomegaly and fatty infiltration of liver. She was to start Kyprolis but changed her mind and instead agreed to Decadron 40mg weekly, starting on 10/09/2017. She is transfusion dependent with parameters for tx being Hgb of <= 7 and subjective c/o fatigue/CP. She was given Granix 480mcg 3 times a week with no response so started Neulasta 6mg on 11/13/2017 and continues every 2 weeks, last dose 12/28/17. Bone marrow biopsy on 12/19/2017 showed Plasma cells 4%, Hypercellular marrow, + stainable iron. Given Procrit 60,000 units 01/04/18. Patient presented to [facility] ED 01/07/18 subsequent to experiencing worsening dyspnea , fatigue and CP. Found to have Hgb 3.3 and subsequently she was admitted for medical management of severe anemia. She has received a total of 3 units PRBCS and reports Upon assessment today, patient reports I am feeling better in terms of weakness. CP and dyspnea have resolved. Reports 2 dark, tarry stools earlier today and noted yaneli blood on toilet tissue. No epistaxis. Past Medical History: Chronic Problems (Last Reviewed 01/04/18 @ 09:28 by Sarah Skinner) Neutropenia (Chronic) History of breast cancer (Chronic) Multiple myeloma (Chronic) History of stem cell transplant (Chronic) CAD (coronary artery disease) (Chronic) HTN (hypertension) (Chronic) Iron deficiency anemia (Chronic) Myelodysplasia (myelodysplastic syndrome) (Chronic) Multiple myeloma not having achieved remission (Chronic) Myelosuppression after chemotherapy (Chronic) Severe anemia (Chronic) Pancytopenia (Chronic) Past Medical History - Most Recent Inpatient Visit Past Medical History Start: 01/08/18 02: 16 Text: Status: Complete Freq: ONCE Protocol: Document 01/08/18 02:16 AW (Rec: 01/08/18 02:26 AW [id number]) BMI Required to complete PMH What is Patient's BMI 25.0 Neurologic Medical History Hx Stroke/TIA No Hx Dementia/Alzheimer's No Hx Parkinson's Disease No Hx Seizures No Hx Multiple Sclerosis No Hx Migraines No Cardiac Medical History VTE Present on Admission No Hx of Deep Vein Thrombosis/VTE/PE No Hx Hypertension Yes Hx Chest Pain/Angina Yes: WHEN HGB GETS TOO LOW Hx Heart Attack No Hx Cardiac Surgery/Stents/Etc. Yes: STENT X1 Hx Heart Failure No Hx Pacemaker/AICD No Hx Irregular Heartbeat and/or Afib Yes: skips a beat occasionally Hx Anticoagulant Therapy No Query Text:(Coumadin, Aspirin, Plavix, Xarelto, etc.) Hx Pain in Legs when Walking/Leg Cramps Yes: leg cramps Respiratory Medical History Hx COPD No Hx Emphysema No Hx Smoking No Smoking Status Never smoker Hx Smoking Cessation Counseling No Hx Smoking Exposure No Hx Tobacco Use in last 12 months No Hx of Pipe Smoking No Hx Sleep Apnea No Do you snore loudly (louder than talking No or can be heard through closed doors)? Do you often feel tired/ fatigued/ Yes sleepy during daytime? Has anyone observed you stop breathing No during sleep? STOP Results Positive GI Medical History Hx Ulcer No Hx Hepatitis No Hx Cirrhosis No Hx GI Bleed Yes: some blood in stool occasionally Hx Unplanned Weight Loss No Genitourinary Medical History Indwelling Catheter in Place on Arrival/ No Admission Hx Renal Disease No Hx Dialysis No Musculoskeletal History Hx Arthritis No Hx Rheumatoid Arthritis No Endocrine Medical History Hx Diabetes No Hx Thyroid Disease No Hematologic Medical History Hx of Blood Transfusion Yes Hx of Transfusion in last 3 Months Yes Date of Last Transfusion (if within last 12/29/17 3 months) Ever experience any problems with No transfusion(s)? Hx of Preganancy in last 3 Months N/A Nurse Filling Out Transfusion & AWIERZBIC Questions: Date: 01/08/18 Time: 02:24 Psycho/Social Medical History Hx Depression No Hx Anxiety No Hx Behavior Disorder No Hx Alcohol Use No Hx Substance Use No Other Medical History Hx Blood Disorders Yes: MDS Hx Anemia Yes Hx Cancer Yes: breast, mult myeloma, lymphoma, NONHODGKINS Hx Drug Resistant Organism No Wound/Pressure Injury Present on Arrival No /Admission Query Text:If yes, chart assessment in Shift/Clinical Findings Central Line/PICC/VAD Present on Arrival No /Admission Antibiotics within last 7 days? No Methicillin Resistant Staphylococcus aureus Screening Active MRSA No Risk for Readmission Number of Risk Factors 6 At Risk for Readmission Patient is At Risk For Readmission Patient is eligible for Call Back Y Past Medical History (Last Reviewed 01/04/18 @ 09:28 by Sarah Skinner) CATARACT SURGERY BILATERAL (Acute) Past Surgical History (Last Reviewed 01/04/18 @ 09:28 by Sarah Skinner) H/O mastectomy (Acute) H/O: hysterectomy (Acute) Hx of cholecystectomy (Acute) Maternal Family History: Family History (Last Reviewed 01/04/18 @ 09:28 by Sarah Skinner) Father Diabetes Heart disease Mother Arthritis Breast cancer Uterine cancer Family History: Cancer - Uterine and breast Paternal Family History: Family History (Last Reviewed 01/04/18 @ 09:28 by Sarah Skinner) Father Diabetes Heart disease Mother Arthritis Breast cancer Uterine cancer Family History: Cancer, Diabetes - Social History Smoking Status: Never smoker Review of Systems Constitutional:: Reports: Weakness. Denies: Fever, Sweats, Weight loss, Appetite change, Chills Cardiovascular:: Denies: Chest pain, Palpitations, Dyspnea on exertion, Orthopnea, PND, Shortness of breath Respiratory: Denies: Cough, Hemoptysis, Shortness of Breath, Wheezing Gastrointestinal:: Reports: Melena, Hematochezia. Denies: Abdominal pain, Nausea, Vomiting, Diarrhea, Constipation Genitourinary: Denies: Dysuria, Hematuria, 15, Flank pain Musculoskeletal:: Denies: Back pain, Myalgia, Arthralgia Skin: Denies: Rash, Skin Changes, Wounds Neurological:: Denies: Headache, Dizziness, Numbness, Tingling, Visual changes, Tinnitus, Hearing loss Psychiatric: Denies: Anxiety, Depression, Homicidal Ideations, Suicidal Ideations Vital Signs Height 5 ft 2 in Weight: 137 lb 12.623 oz Weight in Pounds 137.8 lbs Pulse Ox 97 Temperature 97.9 F Pulse Rate 88 Respiratory Rate 17 Blood Pressure [BP] 132/65 Blood Pressure 141/63 Blood Pressure Position [BP] Semi-Fowlers Blood Pressure Position Semi-Fowlers - Physical Exam General: Alert, Oriented x3, No apparent distress HEENT: Atraumatic, Normocephalic Oropharynx:: Negative for: Dry mucosa, Ulcerated lesions Neck:: Supple, Trachea midline. Negative for: JVD, bilateral Cardiac:: Regular rate, Regular rhythm, Normal S1, Normal S2 Lungs: Clear to auscultation, Excusion symmetrical. Negative for: Rhonchi, Wheezes Abdomen:: Bowel sounds x 4, Soft, Non-tender, Non-distended. Negative for: Hepatosplenomegaly Extremities:: Negative for: Cyanosis, Edema Skin:: Negative for: Lesions, Rash, Petechiae, Ecchymosis Psychiatric:: Appropriate affect, Euthymic Lymphatics:: Negative for: Cervical lymphadenopathy, Supraclavicular lymphadenopathy Laboratory Data: Microbiology 01/08/18 11:06 Stool Occult Blood (ALEJA) - Final Stool Occult Blood Positive Laboratory Tests 3 01/09/18 01/09/18 01/08/18 Range/Units 05:00 05:00 18:35 WBC 3.6 L (4.4-11.0) K/mm3 RBC 2.20 L (4.2-5.4) M/mm3 Hgb 7.0 L (12.0-15.0) g/dl Hct 21.3 L (37-47) % MCV 96.8 (81-99) fL MCH 31.8 (27.0-32.0) pg MCHC 32.9 (32-36) g/gl RDW 19.8 H (11.6-14.6) % RDW Differential 61.0 H (35.1-43.9) fl Plt Count 67 L (150-450) K/mm3 MPV 10.6 (6.2-12.0) fl Neut % (Auto) Not Reportable Absolute Neuts (auto) 2.9 (2.0-7.7) X10^3/uL Absolute Lymphs (auto) 0.54 L (0.83-4.51) X10^3/ul Total Counted 50 (MANUAL DIFF) Neutrophils % (Manual) 76 H (47-70) % Band Neutrophils % 4 (0-5) % Lymphocytes % (Manual) 15 L (19-41) % Monocytes % (Manual) 4 (0-10) % Blast Cells % 1 H* (0-0) % Diff Path Review May foll Toxic Granulation 2+ Platelet Estimate MOD DEC (ADEQ) RBC Morphology N CHROM (NORM C&C) NORMAL Microcytosis 2+ Sodium 143 (136-145) mmol/L Potassium 3.9 (3.5-5.1) mmol/L Chloride 112 H (98-107) mmol/L Carbon Dioxide 25.0 (21.0-32.0) mmol/L Anion Gap 6 (5-15) BUN 23 H (7-18) mg/dL Creatinine 0.50 L (0.55-1.02) mg/dL Estim Creat Clear Calc 39.04 ml/min Est GFR (MDRD) Af Amer 155 (>60) mL/min Est GFR (MDRD) Non-Af 128 (>60) mL/min BUN/Creatinine Ratio 46.1 H (10-20) RATIO Glucose 128 H (74-106) mg/dL Calcium 8.1 L (8.5-10.1) mg/dL Troponin I < 0.02 (<0.06) ng/mL 3 01/08/18 Range/Units 16:00 WBC (4.4-11.0) K/mm3 RBC (4.2-5.4) M/mm3 Hgb 7.4 L (12.0-15.0) g/dl Hct 22.2 L (37-47) % MCV (81-99) fL MCH (27.0-32.0) pg MCHC (32-36) g/gl RDW (11.6-14.6) % RDW Differential (35.1-43.9) fl Plt Count (150-450) K/mm3 MPV (6.2-12.0) fl Neut % (Auto) Absolute Neuts (auto) (2.0-7.7) X10^3/uL Absolute Lymphs (auto) (0.83-4.51) X10^3/ul Total Counted (MANUAL DIFF) Neutrophils % (Manual) (47-70) % Band Neutrophils % (0-5) % Lymphocytes % (Manual) (19-41) % Monocytes % (Manual) (0-10) % Blast Cells % (0-0) % Diff Path Review Toxic Granulation Platelet Estimate (ADEQ) RBC Morphology (NORM C&C) NORMAL Microcytosis Sodium (136-145) mmol/L Potassium (3.5-5.1) mmol/L Chloride (98-107) mmol/L Carbon Dioxide (21.0-32.0) mmol/L Anion Gap (5-15) BUN (7-18) mg/dL Creatinine (0.55-1.02) mg/dL Estim Creat Clear Calc ml/min Est GFR (MDRD) Af Amer (>60) mL/min Est GFR (MDRD) Non-Af (>60) mL/min BUN/Creatinine Ratio (10-20) RATIO Glucose (74-106) mg/dL Calcium (8.5-10.1) mg/dL Troponin I (<0.06) ng/mL Diagnostic Data: Diagnostic Data Chest X-Ray 01/07/18 23:10 IMPRESSION: No acute cardiopulmonary disease. Electronically Signed: David Wiggins DO at 23:41 EST , Service support , Assessment and Plan 72 year old female w/ h/o acute blood loss anemia and bone marrow suppression. PMH history positive for non-Hodgkin's lymphoma, stage IV, with abdominal mass and ascites in January 2000 s/p R-CHOP and 2 cycles of R-CEOP followed by high- dose chemotherapy and autologous stem cell transplant and left breast cancer s/ p left modified radical mastectomy plus axillary lymph node dissection on 2008 for stage I, ER/NH positive, HER2 negative disease admitted for acute symptomatic anemia and most recently multiple myeloma IgG kappa type, in May 2010. 1) Acute symptomatic anemia: Upon admission Hgb 3.3. Subsequent to 3 units PRBC leukoreduced, irradiated and CMV negative PRBCs. Hgb reflects improvement , now 7. Goal hgb >7 and asymptomatic. It appears an additional unit PRBCs has been ordered per primary team. Bleed scan being considered per Dr. Oconnor. 2) IgG kappa multiple myeloma- On weekly dexamethasone 40 mg, administered on Mondays. IgG level and kappa/lambda ratio improving. 3) Pancytopenia- ? myelosuppression, MDS. Platelets stable 67,000. ANC 2.9 Last dose of Neulasta administered on 12/28/17. 4) DVT Prophylaxis: Chemical prophylaxis contraindicated in the setting of severe anemia and mild thrombocytopenia. Kaylyn Dutta, MSN, CAMP NURSE-C, AOCNP Medications: Prescriptions This Visit Medication Instructions Recorded Bisacodyl [Dulcolax] 5 mg PO DAILY 01/08/18 Medications Added to Medication List This Visit Category Date Time Status Metoprolol(XL)Succ [Toprol Xl (Beta Freedom)] Med 01/09/18 10:00 Active 25 mg PO DAILY Pantoprazole Sodium [Protonix] 40 mg Med 01/09/18 10:00 Active 0.9% Normal Saline 100 ml IV Q24 Primary Care Provider: Edvin Anthony Referring Provider:
--- NOTE | 2018-01-09 12:32 | PCM.DC.SUM ---
Discharge Date and Diagnosis - Problem List Patient Problems: Active and Suspected Problems (Last Reviewed 01/04/18 @ 09:28 by Sarah Skinner) Signs and symptoms of anemia (Acute) Date of Admission: 01/08/18 Date of Discharge: 01/09/18 - Primary Discharge Diagnosis Active and Suspected Problems (Last Reviewed 01/04/18 @ 09:28 by Sarah Skinner) Signs and symptoms of anemia (Acute) - Secondary Discharge Diagnosis Chronic Problems (Last Reviewed 01/04/18 @ 09:28 by Sarah Skinner) Neutropenia (Chronic) History of breast cancer (Chronic) Multiple myeloma (Chronic) History of stem cell transplant (Chronic) CAD (coronary artery disease) (Chronic) HTN (hypertension) (Chronic) Iron deficiency anemia (Chronic) Myelodysplasia (myelodysplastic syndrome) (Chronic) Multiple myeloma not having achieved remission (Chronic) Myelosuppression after chemotherapy (Chronic) Severe anemia (Chronic) Pancytopenia (Chronic) Hospital Course and Treatment Operations: None Summary of Care Provided: The patient presented with generalized,weakness dizziness and chest discomfort and found to have hemoglobin of 3.3, she is receiving transfusion with packed RBCs, post feeling much improved since admission. She reports dark stools, heme positive test, she denies any hematochezia, abdominal pain, hematemesis nausea or vomiting. She was admitted to the hospital and given blood transfusion , general surgery was consulted for possible EGD but this was not recommended at this time. 1. Acute blood loss anemia superimposed on anemia of chronic disease and myelosuppression; HGB stabilized to 8.0 after transfusion with 4 units of PRBCs. Given IV Lasix to prevent volume overload from transfusions. 2. Hem positive stool; patient is status post EGD for colonoscopy a year ago , she was found to have diverticulosis. Was consulted and no endoscopy was recommended at this time the patient was placed on PPI. 3. History of breast cancer, multiple myeloma, non-Hodgkin's lymphoma, status post stem cell transplant; oncology is consulted. 4. Recurrent epistaxis; she has chronic maxillary sinusitis and was treated with oral antibiotics in September 2017 for this. 5. CAD-status post stent in 2009. She currently has no signs and symptoms of angina or heart failure. 7. Hypertension; this is controlled. Physical exam at the time of discharge; vital signs were stable. she was alert and oriented to time place and person. she did not appear to be any form of distress. S1 and S2 heard no murmur or gallop Lung exam was clear to auscultation with no adventitious sounds. Abdomen was soft nontender with normal bowel sounds. extremity exam did not reveal any edema, palpable pulses bilaterally. Neurologic exam was grossly intact. Discharge Diet: No Restrictions Home Medications: Medications to take at Discharge Simvastatin [Zocor] 40 mg PO QHS 08/15/13 Multivitamin [Multiple Vitamins] 1 each PO DAILY 09/26/17 Pyridoxine HCl [Vitamin B6] 100 mg PO DAILY 09/26/17 Metoclopramide [Reglan] 10 mg PO TID PRN #60 tablet 10/05/17 Albuterol Inhaler [Ventolin Hfa] 1 - 2 puff INHALATION Q4H PRN PRN #1 inhaler 10/14/17 Dexamethasone [Decadron] 40 mg PO QWEEK #40 tab 11/07/17 Loratadine [Claritin] 10 mg PO DAILY 11/20/17 lisinopril 2.5 mg tablet 2.5 mg PO DAILY #30 tab 01/03/18 metoprolol succinate ER 25 mg tablet,extended release 24 hr 25 mg PO DAILY #30 tab 01/03/18 Bisacodyl [Dulcolax] 5 mg PO DAILY 01/08/18 Pantoprazole Sodium [Protonix] 40 mg PO DAILY #30 tab 01/09/18 Following Prescrptions Were Given to Patient: Pantoprazole Sodium [Protonix] 40 mg PO DAILY #30 tab Primary Care Physician: Edvin Anthony [Primary Care Provider] - Within 2 Weeks Disposition: Home Patient Condition:: Good Meaningful Use Info Meaningful Use Diagnoses (Choose all that apply): None applicable Code Visit Inpatient E&M: 82923 Disch Hosp
[2018-01-09 13:41] LABS: Pathologist Review Reviewed
[2018-01-09 13:45] LABS: Pathologist Review Reviewed
[2018-01-09 16:14] LABS: Hematocrit 23.9 % (37-47)
--- NOTE | 2018-01-09 16:33 | PCM.DC ---
- Discharge Diagnoses Current Active Problems: Current Active and Chronic Problems (Last Reviewed 01/04/18 @ 09:28 by Sarah Skinner) Signs and symptoms of anemia (Acute) You will use the following diet at home:: Regular Discharge Activity: Return to Normal Activity Call your doctor if your incision/area has: Continuous Slow Oozing Allergies/Adverse Reactions: Allergies Penicillins [PCN] Allergy (Severe, Verified 01/07/18 22:50) Hives Medications to take at Discharge Simvastatin [Zocor] 40 mg PO QHS 08/15/13 Multivitamin [Multiple Vitamins] 1 each PO DAILY 09/26/17 Pyridoxine HCl [Vitamin B6] 100 mg PO DAILY 09/26/17 Metoclopramide [Reglan] 10 mg PO TID PRN #60 tablet 10/05/17 Albuterol Inhaler [Ventolin Hfa] 1 - 2 puff INHALATION Q4H PRN PRN #1 inhaler 10/14/17 Dexamethasone [Decadron] 40 mg PO QWEEK #40 tab 11/07/17 Loratadine [Claritin] 10 mg PO DAILY 11/20/17 lisinopril 2.5 mg tablet 2.5 mg PO DAILY #30 tab 01/03/18 metoprolol succinate ER 25 mg tablet,extended release 24 hr 25 mg PO DAILY #30 tab 01/03/18 Bisacodyl [Dulcolax] 5 mg PO DAILY 01/08/18 Pantoprazole Sodium [Protonix] 40 mg PO DAILY #30 tab 01/09/18 The following prescriptions were given: Pantoprazole Sodium [Protonix] 40 mg PO DAILY #30 tab Primary Care Physician: Edvin Anthony [Primary Care Provider] - Within 2 Weeks Proposed Discharge Date: 01/09/18
== END 2018-01-09 17:15 | disposition home or self-care (01) | DRG 812 ==
LOC: ED 01-08 01:16 → ICU 01-08 02:22
PROVIDERS: Family Medicine; Admitting Provider Internal Medicine; Emergency Provider Emergency Medicine; Family Provider Family Medicine; PCP Family Medicine; Visit Provider Internal Medicine
DX: D62 Acute posthemorrhagic anemia (principal); E44.0 Moderate protein-calorie malnutrition; C90.00 Multiple myeloma not having achieved remission; C85.90 Non-Hodgkin lymphoma, unspecified, unspecified site; Z94.84 Stem cells transplant status; K92.1 Melena; J32.0 Chronic maxillary sinusitis; D63.8 Anemia in other chronic diseases classified elsewhere; R04.0 Epistaxis; I25.10 Atherosclerotic heart disease of native coronary artery without angina pectoris; I10 Essential (primary) hypertension; Z85.3 Personal history of malignant neoplasm of breast; Z90.12 Acquired absence of left breast and nipple; Z95.5 Presence of coronary angioplasty implant and graft; Z79.899 Other long term (current) drug therapy; D46.9 Myelodysplastic syndrome, unspecified; D61.818 Other pancytopenia; Z68.25 Body mass index [BMI] 25.0-25.9, adult
CPT/HCPCS: 71045; 80048; 80053; 80061; 82274; 82607; 82746; 83540; 83550; 83615; 84443; 84484; 85014; 85018; 85025; 85027; 85045; 85610; 86644; 86850; 86900; 86920; 87641; 93005; 97802; 99283; J7030; P9040; A4216; J1940

== ENCOUNTER → 2018-01-19 07:56 | Outpatient (CLI) | payer MEDICARE, BC, SELFPAY ==
[2018-01-19] VITALS (7 sets, daily range): BP systolic 101–132; BP diastolic 50–70; PULSE 81–89; RESP 16–20; TEMP 36.2–36.7; O2SAT 96–100; BMI 25.6
[2018-01-19] MEDS: hydrOXYzine 10 MG Tablet PO (08:30)
[2018-01-19] MEDS: Furosemide 20 MG/2 ML VIAL 40 MG IV (11:19)
== END ==
PROVIDERS: Family Provider Family Medicine; PCP Family Medicine; Visit Provider Internal Medicine Medical Oncology
DX: D64.9 Anemia, unspecified (principal); D75.89 Other specified diseases of blood and blood-forming organs; D50.9 Iron deficiency anemia, unspecified
CPT/HCPCS: 36430; 86644; 86850; 86900; 86920; 86922; J7040; P9040; A4216; J1940

== ENCOUNTER → 2018-01-30 12:03 | Outpatient (CLI) | payer MEDICARE, BC, SELFPAY ==
--- NOTE | 2018-01-30 12:09 | NM_ITS ---
CLINICAL: 72 year old female with history of gastrointestinal hemorrhage. LABELED BLOOD POOL GASTROINTESTINAL BLEEDING STUDY COMPARISON: None available FINDINGS: Following the intravenous administration of 27.0 mCi of 99m Tc Ultratag labeled RBCs, image acquisitions of the anterior-abdomen and pelvis for a total of 60 minutes reveal: 1. Static sequential acquisitions of the anterior abdomen-pelvis demonstrate no evidence of abnormal increased radiopharmaceutical concentration indicative of acute gastrointestinal hemorrhage. 2. Physiologic distribution of the radiopharmaceutical appears evident in the cardiac, hepatic, splenic and major vascular blood pool. The spleen appears prominent in size. NM/GI Bleed Scan IMPRESSION: 1. NEGATIVE 99m Tc ULTRATAG LABELED BLOOD POOL GASTROINTESTINAL BLEEDING EXAMINATION. 2. There is no definitive scintigraphic evidence of acute gastrointestinal hemorrhage on the current evaluation. Electronically Signed: Moris Moreno DO at 15:26 EDT Tel , Service support ,
== END ==
PROVIDERS: Family Provider Family Medicine; PCP Family Medicine; Visit Provider Internal Medicine Medical Oncology
DX: K92.2 Gastrointestinal hemorrhage, unspecified (principal); C90.00 Multiple myeloma not having achieved remission; D46.9 Myelodysplastic syndrome, unspecified; D50.9 Iron deficiency anemia, unspecified; D75.9 Disease of blood and blood-forming organs, unspecified; Z79.899 Other long term (current) drug therapy
CPT/HCPCS: 36415; 78278; 81001; 85025; 86850; 86900; 86920; 86922; 87086; 87186; A9560

== ENCOUNTER → 2018-02-05 13:54 | Outpatient (CLI) | payer MEDICARE, BC, SELFPAY | PROVIDERS: Family Provider Family Medicine; PCP Family Medicine; Visit Provider Nurse Practitioner Women's Health | DX: L29.8 Other pruritus (principal) | CPT/HCPCS: 87070; 87205 ==

== ENCOUNTER 2018-02-11 17:32 | Inpatient (IN) | payer MEDICARE, BC, SELFPAY ==
[2018-02-11] VITALS (12 sets, daily range): BP systolic 98–140; BP diastolic 53–79; PULSE 92–105; RESP 14–18; TEMP 36.3–36.8; O2SAT 97–100; BMI 26.4; BMI 26.2
--- NOTE | 2018-02-11 17:53 | ED.VISSUMM ---
- ER Visit Summary Date of Service: 02/11/18 Chief Complaint: [] Lower GI bleed History of Present Illness: The patient is a 72 F [] presenting with lower GI bleed starting today during bowel movement. Patient has a history of multiple myeloma and breast cancer status post mastectomy. She reports she has had several lower GI bleeds in the past with unknown etiology. She reports having had colonoscopies and bleeding scans again without any obvious identified source. The bleeds may be associated with her multiple myeloma. She denies abdominal pain currently. Reports mild nausea prior to arrival however denies nausea or vomiting currently. Denies fevers. Denies chest pain or shortness of breath. Physical Examination: [] Afebrile, vital signs stable. 72-year-old female in no acute distress. Conversational. Cardiovascular exam reveals a 2/6 systolic murmur. Regular rate. Lungs clear to auscultation. Abdomen is soft and nontender. Digital rectal exam reveals no masses or external hemorrhoids. There is hematochezia on digital rectal exam. No lower extremity edema. Remainder of exam is unremarkable. Test Results: [] Hemoccult negative, despite the appearance of hematochezia on digital rectal exam. CBC, BMP: White blood cell count 3.8. Hemoglobin 3.2. Hematocrit 11. Sodium 146. Potassium 3.1. Chloride 119. LFTs, lipase: Normal. PTT: 7.9. Lactic acid 1.2. Emergency Department Course and Treatment: [] Patient given normal saline at 125 cc/h throughout the ED course. She was evaluated for lower GI bleed. Hemoglobin returned very low and resulted in the initiation of 2 units of packed red blood cells. She had a low potassium 3.1 which was replaced orally with 40 mEq of KCl the emergency department. Calcium was low. Case was discussed with the hospitalist and the electrical accessories i assembler. Hospitalist discussed the case with the on-call surgeon for GI coverage. Patient will be admitted to the intensive care unit for likely several units of blood transfusion and close monitoring. Treatment Plan: [] Transfusion of packed red blood cells. Disposition: [] Admit to the ICU, stable. Impression: [] Anemia, hemoglobin of 3 Hypokalemia Hypocalcemia History of multiple myeloma Critical care time: 35 minutes This note was generated with Tape TVation software. It may contain incorrect words, spelling, and punctuation that were not noted in review of the chart prior to signing ED Disposition - Plan for ED Patient: Chief Complaint: GI Bleed Referrals: Edvin Anthony [Primary Care Provider] -
--- NOTE | 2018-02-11 17:56 | ED.DCSUM_ITS ---
- ER Visit Summary Date of Service: 02/11/18 Chief Complaint: [] Lower GI bleed History of Present Illness: The patient is a 72 F [] presenting with lower GI bleed starting today during bowel movement. Patient has a history of multiple myeloma and breast cancer status post mastectomy. She reports she has had several lower GI bleeds in the past with unknown etiology. She reports having had colonoscopies and bleeding scans again without any obvious identified source. The bleeds may be associated with her multiple myeloma. She denies abdominal pain currently. Reports mild nausea prior to arrival however denies nausea or vomiting currently. Denies fevers. Denies chest pain or shortness of breath. Physical Examination: [] Afebrile, vital signs stable. 72-year-old female in no acute distress. Conversational. Cardiovascular exam reveals a 2/6 systolic murmur. Regular rate. Lungs clear to auscultation. Abdomen is soft and nontender. Digital rectal exam reveals no masses or external hemorrhoids. There is hematochezia on digital rectal exam. No lower extremity edema. Remainder of exam is unremarkable. Test Results: [] Hemoccult negative, despite the appearance of hematochezia on digital rectal exam. CBC, BMP: White blood cell count 3.8. Hemoglobin 3.2. Hematocrit 11. Sodium 146. Potassium 3.1. Chloride 119. LFTs, lipase: Normal. PTT: 7.9. Lactic acid 1.2. Emergency Department Course and Treatment: [] Patient given normal saline at 125 cc/h throughout the ED course. She was evaluated for lower GI bleed. Hemoglobin returned very low and resulted in the initiation of 2 units of packed red blood cells. She had a low potassium 3.1 which was replaced orally with 40 mEq of KCl the emergency department. Calcium was low. Case was discussed with the hospitalist and the start up specialist. Hospitalist discussed the case with the on-call surgeon for GI coverage. Patient will be admitted to the intensive care unit for likely several units of blood transfusion and close monitoring. Treatment Plan: [] Transfusion of packed red blood cells. Disposition: [] Admit to the ICU, stable. Impression: [] Anemia, hemoglobin of 3 Hypokalemia Hypocalcemia History of multiple myeloma Critical care time: 35 minutes This note was generated with [employer] software. It may contain incorrect words, spelling, and punctuation that were not noted in review of the chart prior to signing ED Disposition - Plan for ED Patient: Chief Complaint: GI Bleed Referrals: Edvin Anthony [Primary Care Provider] -
[2018-02-11 18:43] LABS: Absolute Lymphocyte Count 0.87 X10^3/ul (0.83-4.51); Absolute Neutrophil Count 2.1 X10^3/uL (2.0-7.7); Basophil# 0.01 X10^3/uL; Basophil% 0.3 % (0-1); Eosinophil# 0.06 X10^3/uL; Eosinophils% 1.6 % (0-5); Hematocrit 11.6 % (37-47); Lymphocyte # 0.87 X10^3/ul (4.0); Mean Corp Hgb Conc 33.6 g/gl (32-36); Mean Corpuscular Volume 95.1 fL (81-99); Mean Platelet Vol. 10.1 fl (6.2-12.0); Monocyte# 0.74 X10^3/uL; Monocyte% 19.5 % (0-10); Neutrophil # 2.07 X10^3/uL (2.7-7.7); Neutrophil % 54.5 % (47-70); RBC Distribution Width CV 19.9 % (11.6-14.6); Red Blood Count 1.22 M/mm3 (4.2-5.4); White Blood Count 3.8 K/mm3 (4.4-11.0)
[2018-02-11 18:44] LABS: Hemoglobin 3.9 g/dl (12.0-15.0); Platelet Count 48 K/mm3 (150-450)
[2018-02-11 18:45] LABS: Differential Indicated SCAN CRITERIA MET; POSITIVE COUNT YES; POSITIVE DIFFERENTIAL NO; POSITIVE MORPHOLOGY YES
[2018-02-11] MEDS: 0.9% Normal Saline 1,000 ML 125 ML IV (18:50)
[2018-02-11 18:51] LABS: International Normalized Ratio 1.5; Prothrombin Time (Protime)PT. 18.4 SECONDS (11.7-14.9)
[2018-02-11 18:52] LABS: Partial Thromboplast Time 47.9 Seconds (24.1-36.2)
[2018-02-11 19:02] LABS: AST(SGOT) 33 U/L (15-37); Alanine Aminotransfer ALT/SGPT 15 U/L (13-56); Alkaline Phosphatase 79 U/L (45-117); Anion Gap 9 (5-15); BUN 18 mg/dL (7-18); BUN/Creat Ratio 37.5 RATIO (10-20); Bilirubin, Direct 0.15 mg/dL (0.00-0.30); Calcium,Total 5.4 mg/dL (8.5-10.1); Chloride 119 mmol/L (98-107); Creatinine, Serum 0.48 mg/dL (0.55-1.02); EST Glomerular Filtration Rate 134 mL/min (>60); Est Glom Filt Rate - Afr Amer 162 mL/min (>60); Estimated Creatinine Clearance 39.04 ml/min; Globulin 6.1 g/dL (2.2-4.2); Glucose 62 mg/dL (74-106); Lipase 145 U/L (73-393); Potassium 3.1 mmol/L (3.5-5.1); Protein, Total 7.1 g/dL (6.4-8.2); Sodium Level 146 mmol/L (136-145)
--- NOTE | 2018-02-11 19:03 | ED.RN ---
lab called calcium of 5.4
[2018-02-11 19:07] LABS: Lactic Acid 1.2 mmol/L (0.4-2.0)
--- NOTE | 2018-02-11 19:19 | PCM.HP.STD ---
Problem List (1) History of breast cancer Status: Chronic (2) Multiple myeloma Status: Chronic Qualifiers: Multiple myeloma remission status: not in remission Qualified Code(s): C90.00 - Multiple myeloma not having achieved remission (3) History of stem cell transplant Status: Chronic (4) CAD (coronary artery disease) Status: Chronic Qualifiers: Coronary Disease-Associated Artery/Lesion type: unspecified vessel or lesion type [place] vs. transplanted heart: unspecified whether [place] or transplanted heart Associated angina: angina presence unspecified Qualified Code(s): I25.10 - Atherosclerotic heart disease of [place] coronary artery without angina pectoris (5) HTN (hypertension) Status: Chronic Qualifiers: Hypertension type: essential hypertension Qualified Code(s): I10 - Essential (primary) hypertension (6) Iron deficiency anemia Status: Chronic Qualifiers: Iron deficiency anemia type: unspecified iron deficiency Qualified Code(s): D50.9 - Iron deficiency anemia, unspecified (7) Myelodysplasia (myelodysplastic syndrome) Status: Chronic (8) Malignant neoplasm of right female breast Status: Resolved Qualifiers: Breast location: unspecified site of breast Estrogen receptor status: unspecified Qualified Code(s): C50.911 - Malignant neoplasm of unspecified site of right female breast (9) Severe anemia Status: Chronic (10) Acute blood loss anemia Status: Acute (11) GI bleed Status: Acute Qualifiers: GI bleed type/associated pathology: unspecified gastrointestinal hemorrhage type Qualified Code(s): K92.2 - Gastrointestinal hemorrhage, unspecified (12) Pancytopenia Status: Chronic History of Present Illness Date of Admission: 02/11/18 Chief Complaint: Weakness, Fatigue, Rectal bleeding The patient is a 72 y/o F w/ PMHx: CAD, HTN, History of Breast CA (R), History of Multiple Myeloma, History of [place] Lymphoma, ? History of MDS, History of stem cell txp, Chronic Fe Deficiency Anemia previously being given IV venofer and intermittent PRBC administration with recent unremarkable EGD/C-scope who presents to the [facility] ED on 02/11/18 with recurrent onset of increased weakness, fatigue, mild lightheadedness w/ Hgb decrease but onset rectal bleeding since AM on day of presentation. She notes having some baseline mildly loose stools w/ notable bleeding w/ these movements and confirmed blood in the toilet with each BM although movement at hospital she noted appeared more normal. She was evaluated per Hem/Onc ~2-3 days prior and had Hgb 5 at that time and was administered 2 u PRBC at their office. Repeat Hgb ED 3, but repeat lab pending to confirm. ED requested 2 u PRBC warmed blood given history. In the ED VS w/ T 97.4, HR 103, BP 122/61, RR 18, 98% on RA, CBC w/ WBC 3.8, Hgb 3 with repeat pending, Plt pending with ANC 2.1, coags w/ PT 18.4, INR 1.5, PT 47.9, CMP w/ Na 146, K 3.1, Chl 119, CO2 18, BUN/Cr 18/0.48, Glucose 62, Ca 5.4, guiac per ED physician negative but noted appearance still concerning for GI Bleed. Prior guiac on 01/08/18 and 09/18/17 positive. In the ED patient administered NS, K-dur oral 40 mEq x 1. Past Medical History Past Medical History (Chronic Problems): Chronic Problems (Last Reviewed 02/06/18 @ 10:11 by Sarah Skinner) Neutropenia (Chronic) History of breast cancer (Chronic) Multiple myeloma (Chronic) History of stem cell transplant (Chronic) CAD (coronary artery disease) (Chronic) HTN (hypertension) (Chronic) Iron deficiency anemia (Chronic) Myelodysplasia (myelodysplastic syndrome) (Chronic) Multiple myeloma not having achieved remission (Chronic) Myelosuppression after chemotherapy (Chronic) Severe anemia (Chronic) Pancytopenia (Chronic) Allergies Penicillins [PCN] Allergy (Severe, Verified 02/11/18 17:35) Hives diphenhydramine [From Benadryl] Allergy (Mild, Verified 02/11/18 17:35) restless legs Home Medications: Ambulatory Orders Medication Instructions Recorded Simvastatin [Zocor] 40 mg PO QHS 08/15/13 Multivitamin [Multiple Vitamins] 1 ea PO DAILY 09/26/17 Pyridoxine HCl [Vitamin B6] 100 mg PO DAILY 09/26/17 Albuterol Inhaler [Ventolin Hfa] 1 - 2 puff INHALATION Q4H PRN PRN 10/14/17 #1 inhaler Loratadine [Claritin] 10 mg PO DAILY 01/15/18 metoprolol succinate ER 25 mg 25 mg PO DAILY #30 tab 01/03/18 tablet,extended release 24 hr Pantoprazole Sodium [Protonix] 40 mg PO DAILY #30 tab 01/09/18 lisinopril 2.5 mg tablet 2.5 mg PO DAILY #30 tab 01/11/18 Clobetasol Propionate 15 gm TP QHS 14 Days #1 tube 01/30/18 Docusate Sodium [Colace] 100 mg PO DAILY 02/11/18 Surgical History: cholecystectomy, hysterectomy, mastectomy Psychiatric History: Anxiety [employer] History: No pertinent [employer]ING [employer] OPER[employer] history Lives: Spouse/ Significant Other Smoking Status: Never smoker Tobacco Use: Non-smoker Alcohol: None Drugs: None - *Family History Maternal History Items: Cancer - Uterine and breast Paternal History Items: Cancer, Diabetes Review of Systems Constitutional: Reports: Anorexia, Malaise, Weakness, Fatigue. Denies: Chills, Fever, Weight Change HEENT: Denies: Head Aches, Sinus Congestion, Sinus Drainage Cardiovascular: Reports: Light Headedness. Denies: Chest Pain, Palpitations Respiratory: Denies: Cough, Shortness of breath at rest, Sputum production Gastrointestinal: Reports: Abdominal Pain, Diarrhea, Nausea, - - BRBPR w/ loose stools.. Denies: Vomiting Genitourinary: Denies: Dysuria Musculoskeletal: Denies: Joint Pain, Joint Tenderness Skin: Denies: Rash, Wounds Neurological: Denies: Numbness, Tingling, Focal weakness Psychiatric: Reports: Anxiety. Denies: Depression, Homicidal Ideations, Suicidal Ideations Hematologic/ Lymphatic: Reports: Anemia, Easy Bruising, Easy Bleeding VTE Information - Inpt Only VTE Present on Admission: No VTE Mechan Device Prophylaxis: SCD's VTE Pharm Prophylaxis ordered?: No Reason prophylaxis not ordered:: Medical Contraindication Subjective: Seated upright in the ED bed, fatigued appearing, NAD. Objective: Physical Examination: General: awake, alert, oriented x 3 and cooperative, seated upright in the ED bed in no apparent distress, fatigued, pale appearance. Skin: pale color, turgor, no icterus, cyanosis. HEENT: AT/NC, EOMI, PERRLA, dry MM, some bleeding from her gums, no carotid bruits or JVD noted. Lungs: Diminished BS bases, moderate effort, no rales, ronchi or wheezing. Heart: Mildly tachycardic with regular rhythm; no gallop, rub audible. Abdomen: soft, NTTP, ND, hyperactive BS, no HSM. Extremities: no cyanosis, clubbing, or edema. Neurological: patient awake, alert, oriented x 3; cognitive function intact; pupils equally reactive to light and accomodation; cranial nerves II-XII grossly normal, moving all 4 extremities, no focal deficits, strength severely globally decreased. Psychiatric: affect appears fatigued, no acute evidence of depressive or anxiety feelings. - Physical Exam Vital Signs Temp Pulse Resp BP Pulse Ox 97.4 F L 103 H 18 122/61 H 98 02/11/18 17:32 02/11/18 17:32 02/11/18 17:32 02/11/18 17:32 02/11/18 17:32 Oxygen Delivery Method Room Air Weight: 144 lb 6.444 oz Body Mass Index (BMI) 26.4 Microbiology Past 72 Hours 02/11/18 17:50 Stool Occult Blood (ALEJA) - Final Stool Laboratory Tests Past 24 Hrs 02/11/18 02/11/18 02/11/18 17:00 17:00 17:00 WBC 3.8 L RBC 1.22 L Hgb Pending Hct 11.6 L MCV 95.1 MCH 32.0 MCHC 33.6 RDW 19.9 H RDW Differential 67.0 H Plt Count Pending MPV 10.1 Immature Gran % (Auto) 1.100 H Neut % (Auto) 54.5 Lymph % (Auto) 23.0 [place] % (Auto) 19.5 H Eos % (Auto) 1.6 Baso % (Auto) 0.3 Absolute Neuts (auto) 2.1 Absolute Lymphs (auto) 0.87 Total Counted Pending PT 18.4 H INR 1.5 APTT 47.9 H Sodium 146 H Potassium 3.1 L Chloride 119 H Carbon Dioxide 18.0 L Anion Gap 9 BUN 18 Creatinine 0.48 L Estim Creat Clear Calc 39.04 Est GFR (MDRD) Af Amer 162 Est GFR (MDRD) Non-Af 134 BUN/Creatinine Ratio 37.5 H Glucose 62 L Lactic Acid Calcium 5.4 L* Total Bilirubin 0.30 Direct Bilirubin 0.15 AST 33 ALT 15 Alkaline Phosphatase 79 Total Protein 7.1 Albumin 1.0 L Globulin 6.1 H Lipase 145 Blood Type Antibody Screen Crossmatch 02/11/18 02/11/18 02/11/18 17:00 17:00 17:00 WBC RBC Hgb Hct MCV MCH MCHC RDW RDW Differential Plt Count MPV Immature Gran % (Auto) Neut % (Auto) Lymph % (Auto) [place] % (Auto) Eos % (Auto) Baso % (Auto) Absolute Neuts (auto) Absolute Lymphs (auto) Total Counted PT INR APTT Sodium Potassium Chloride Carbon Dioxide Anion Gap BUN Creatinine Estim Creat Clear Calc Est GFR (MDRD) Af Amer Est GFR (MDRD) Non-Af BUN/Creatinine Ratio Glucose Lactic Acid 1.2 Calcium Total Bilirubin Direct Bilirubin AST ALT Alkaline Phosphatase Total Protein Albumin Globulin Lipase Blood Type Pending Antibody Screen Pending Crossmatch See Detail Assessment/Plan The patient is a 72 y/o F w/ PMHx: CAD, HTN, History of Breast CA (R), History of Multiple Myeloma, History of [place] Lymphoma, ? History of MDS, History of stem cell txp, Chronic Fe Deficiency Anemia previously being given IV venofer and intermittent PRBC administration with recent unremarkable EGD/C-scope who presents to the [facility] ED on 02/11/18 with recurrent onset of increased weakness, fatigue, mild lightheadedness w/ Hgb decrease but onset rectal bleeding since AM on day of presentation. (1) Acute on Chronic Normocytic Anemia, Multifactorial, secondary to underlying MDS w/ Chronic Pancytopenia, Hx of [place] Lymphoma, Hx of R Breast CA, Hx of Multiple Myeloma w/ Severe Fe Deficiency Anemia requiring Fe Administration/Serial PRBC administration and Acute GI bleed: 2016 EGD/c-scope unremarkable, GI bleed not felt etiology at that time, currently guiac negative but patient reported BRBPR since AM. Will admit to ICU given severity of Hgb, discussed w/ ED and Dr. Corado Surgery, maintain on IVFs, Will obtain serial H+H q 6 hours, continue ED initiated 2 u PRBC and will request an additional 4 u PRBC, maintain on IV PPI. Mag, phos pending. (2) Hypokalemia: Admission K+ 3.1, supplementation given, repeat level in AM. (3) Hypocalcemia: Admission Ca 5.4, supplementation IV given, ICa level in AM. (4) Hypertension: Continue home regimen lisinopril, metoprolol with hold parameters, PRN hydralazine. (5) Hyperlipidemia: Continue home statin regimen. (6) CAD: Continue home statin, BB, not on ASA regimen given presentation. (7) Anxiety: Continue home low dose PRN ativan. (8) DVT Prophylaxis: SCDs, defer chemoprophylaxis given history and acute presentation. (9) CODE status: Discussed CODE status at length including difference between FULL code, DNR-CCA and DNR-CC status. Following discussions about the differences in these status, confirmed HCPOA and LW in place, maintain DNR-CCA, no intubation status. Advanced Care Planning Face to Face Time: 17 minutes. Code Visit Inpatient E&M: 11910 Init Hosp L3 Procedures: 46569 Advncd Care Plan 30 Min
--- NOTE | 2018-02-11 19:33 | HP.PCM_ITS ---
Problem List (1) History of breast cancer Status: Chronic (2) Multiple myeloma Status: Chronic Qualifiers: Multiple myeloma remission status: not in remission Qualified Code(s): C90.00 - Multiple myeloma not having achieved remission (3) History of stem cell transplant Status: Chronic (4) CAD (coronary artery disease) Status: Chronic Qualifiers: Coronary Disease-Associated Artery/Lesion type: unspecified vessel or lesion type [place] vs. transplanted heart: unspecified whether [place] or transplanted heart Associated angina: angina presence unspecified Qualified Code(s): I25.10 - Atherosclerotic heart disease of [place] coronary artery without angina pectoris (5) HTN (hypertension) Status: Chronic Qualifiers: Hypertension type: essential hypertension Qualified Code(s): I10 - Essential (primary) hypertension (6) Iron deficiency anemia Status: Chronic Qualifiers: Iron deficiency anemia type: unspecified iron deficiency Qualified Code(s) : D50.9 - Iron deficiency anemia, unspecified (7) Myelodysplasia (myelodysplastic syndrome) Status: Chronic (8) Malignant neoplasm of right female breast Status: Resolved Qualifiers: Breast location: unspecified site of breast Estrogen receptor status: unspecified Qualified Code(s): C50.911 - Malignant neoplasm of unspecified site of right female breast (9) Severe anemia Status: Chronic (10) Acute blood loss anemia Status: Acute (11) GI bleed Status: Acute Qualifiers: GI bleed type/associated pathology: unspecified gastrointestinal hemorrhage type Qualified Code(s): K92.2 - Gastrointestinal hemorrhage, unspecified (12) Pancytopenia Status: Chronic History of Present Illness Date of Admission: 02/11/18 Chief Complaint: Weakness, Fatigue, Rectal bleeding The patient is a 72 y/o F w/ PMHx: CAD, HTN, History of Breast CA (R), History of Multiple Myeloma, History of [place] Lymphoma, ? History of MDS, History of stem cell txp, Chronic Fe Deficiency Anemia previously being given IV venofer and intermittent PRBC administration with recent unremarkable EGD/C-scope who presents to the [facility] ED on 02/11/18 with recurrent onset of increased weakness, fatigue, mild lightheadedness w/ Hgb decrease but onset rectal bleeding since AM on day of presentation. She notes having some baseline mildly loose stools w / notable bleeding w/ these movements and confirmed blood in the toilet with each BM although movement at hospital she noted appeared more normal. She was evaluated per Hem/Onc ~2-3 days prior and had Hgb 5 at that time and was administered 2 u PRBC at their office. Repeat Hgb ED 3, but repeat lab pending to confirm. ED requested 2 u PRBC warmed blood given history. In the ED VS w/ T 97.4, HR 103, BP 122/61, RR 18, 98% on RA, CBC w/ WBC 3.8, Hgb 3 with repeat pending, Plt pending with ANC 2.1, coags w/ PT 18.4, INR 1.5, PT 47.9, CMP w/ Na 146, K 3.1, Chl 119, CO2 18, BUN/Cr 18/0.48, Glucose 62, Ca 5.4, guiac per ED physician negative but noted appearance still concerning for GI Bleed. Prior guiac on 01/08/18 and 09/18/17 positive. In the ED patient administered NS, K-dur oral 40 mEq x 1. Past Medical History Past Medical History (Chronic Problems): Chronic Problems (Last Reviewed 02/06/18 @ 10:11 by Sarah Skinner) Neutropenia (Chronic) History of breast cancer (Chronic) Multiple myeloma (Chronic) History of stem cell transplant (Chronic) CAD (coronary artery disease) (Chronic) HTN (hypertension) (Chronic) Iron deficiency anemia (Chronic) Myelodysplasia (myelodysplastic syndrome) (Chronic) Multiple myeloma not having achieved remission (Chronic) Myelosuppression after chemotherapy (Chronic) Severe anemia (Chronic) Pancytopenia (Chronic) Allergies Penicillins [PCN] Allergy (Severe, Verified 02/11/18 17:35) Hives diphenhydramine [From Benadryl] Allergy (Mild, Verified 02/11/18 17:35) restless legs Home Medications: Ambulatory Orders Medication Instructions Recorded Simvastatin [Zocor] 40 mg PO QHS 08/15/13 Multivitamin [Multiple Vitamins] 1 ea PO DAILY 09/26/17 Pyridoxine HCl [Vitamin B6] 100 mg PO DAILY 09/26/17 Albuterol Inhaler [Ventolin Hfa] 1 - 2 puff INHALATION Q4H PRN PRN 10/14/17 #1 inhaler Loratadine [Claritin] 10 mg PO DAILY 01/15/18 metoprolol succinate ER 25 mg 25 mg PO DAILY #30 tab 01/03/18 tablet,extended release 24 hr Pantoprazole Sodium [Protonix] 40 mg PO DAILY #30 tab 01/09/18 lisinopril 2.5 mg tablet 2.5 mg PO DAILY #30 tab 01/11/18 Clobetasol Propionate 15 gm TP QHS 14 Days #1 tube 01/30/18 Docusate Sodium [Colace] 100 mg PO DAILY 02/11/18 Surgical History: cholecystectomy, hysterectomy, mastectomy Psychiatric History: Anxiety 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 Denies: Chills, Fever, Weight Change HEENT: Denies: Head Aches, Sinus Congestion, Sinus Drainage Cardiovascular: Reports: Light Headedness. Denies: Chest Pain, Palpitations Respiratory: Denies: Cough, Shortness of breath at rest, Sputum production Gastrointestinal: Reports: Abdominal Pain, Diarrhea, Nausea, - - BRBPR w/ loose stools.. Denies: Vomiting Genitourinary: Denies: Dysuria Musculoskeletal: Denies: Joint Pain, Joint Tenderness Skin: Denies: Rash, Wounds Neurological: Denies: Numbness, Tingling, Focal weakness Psychiatric: Reports: Anxiety. Denies: Depression, Homicidal Ideations, Suicidal Ideations Hematologic/ Lymphatic: Reports: Anemia, Easy Bruising, Easy Bleeding VTE Information - Inpt Only VTE Present on Admission: No VTE Mechan Device Prophylaxis: SCD's VTE Pharm Prophylaxis ordered?: No Reason prophylaxis not ordered:: Medical Contraindication Subjective: Seated upright in the ED bed, fatigued appearing, NAD. Objective: Physical Examination: General: awake, alert, oriented x 3 and cooperative, seated upright in the ED bed in no apparent distress, fatigued, pale appearance. Skin: pale color, turgor, no icterus, cyanosis. HEENT: AT/NC, EOMI, PERRLA, dry MM, some bleeding from her gums, no carotid bruits or JVD noted. Lungs: Diminished BS bases, moderate effort, no rales, ronchi or wheezing. Heart: Mildly tachycardic with regular rhythm; no gallop, rub audible. Abdomen: soft, NTTP, ND, hyperactive BS, no HSM. Extremities: no cyanosis, clubbing, or edema. Neurological: patient awake, alert, oriented x 3; cognitive function intact; pupils equally reactive to light and accomodation; cranial nerves II-XII grossly normal, moving all 4 extremities, no focal deficits, strength severely globally decreased. Psychiatric: affect appears fatigued, no acute evidence of depressive or anxiety feelings. - Physical Exam Vital Signs Temp Pulse Resp BP Pulse Ox 97.4 F L 103 H 18 122/61 H 98 02/11/18 17:32 02/11/18 17:32 02/11/18 17:32 02/11/18 17:32 02/11/18 17:32 Oxygen Delivery Method Room Air Weight: 144 lb 6.444 oz Body Mass Index (BMI) 26.4 Microbiology Past 72 Hours 02/11/18 17:50 Stool Occult Blood (ALEJA) - Final Stool Laboratory Tests Past 24 Hrs 02/11/18 02/11/18 02/11/18 17:00 17:00 17:00 WBC 3.8 L RBC 1.22 L Hgb Pending Hct 11.6 L MCV 95.1 MCH 32.0 MCHC 33.6 RDW 19.9 H RDW Differential 67.0 H Plt Count Pending MPV 10.1 Immature Gran % (Auto) 1.100 H Neut % (Auto) 54.5 Lymph % (Auto) 23.0 [place] % (Auto) 19.5 H Eos % (Auto) 1.6 Baso % (Auto) 0.3 Absolute Neuts (auto) 2.1 Absolute Lymphs (auto) 0.87 Total Counted Pending PT 18.4 H INR 1.5 APTT 47.9 H Sodium 146 H Potassium 3.1 L Chloride 119 H Carbon Dioxide 18.0 L Anion Gap 9 BUN 18 Creatinine 0.48 L Estim Creat Clear Calc 39.04 Est GFR (MDRD) Af Amer 162 Est GFR (MDRD) Non-Af 134 BUN/Creatinine Ratio 37.5 H Glucose 62 L Lactic Acid Calcium 5.4 L* Total Bilirubin 0.30 Direct Bilirubin 0.15 AST 33 ALT 15 Alkaline Phosphatase 79 Total Protein 7.1 Albumin 1.0 L Globulin 6.1 H Lipase 145 Blood Type Antibody Screen Crossmatch 02/11/18 02/11/18 02/11/18 17:00 17:00 17:00 WBC RBC Hgb Hct MCV MCH MCHC RDW RDW Differential Plt Count MPV Immature Gran % (Auto) Neut % (Auto) Lymph % (Auto) [place] % (Auto) Eos % (Auto) Baso % (Auto) Absolute Neuts (auto) Absolute Lymphs (auto) Total Counted PT INR APTT Sodium Potassium Chloride Carbon Dioxide Anion Gap BUN Creatinine Estim Creat Clear Calc Est GFR (MDRD) Af Amer Est GFR (MDRD) Non-Af BUN/Creatinine Ratio Glucose Lactic Acid 1.2 Calcium Total Bilirubin Direct Bilirubin AST ALT Alkaline Phosphatase Total Protein Albumin Globulin Lipase Blood Type Pending Antibody Screen Pending Crossmatch See Detail Assessment/Plan The patient is a 72 y/o F w/ PMHx: CAD, HTN, History of Breast CA (R), History of Multiple Myeloma, History of [place] Lymphoma, ? History of MDS, History of stem cell txp, Chronic Fe Deficiency Anemia previously being given IV venofer and intermittent PRBC administration with recent unremarkable EGD/C-scope who presents to the [facility] ED on 02/11/18 with recurrent onset of increased weakness, fatigue, mild lightheadedness w/ Hgb decrease but onset rectal bleeding since AM on day of presentation. (1) Acute on Chronic Normocytic Anemia, Multifactorial, secondary to underlying MDS w/ Chronic Pancytopenia, Hx of [place] Lymphoma, Hx of R Breast CA, Hx of Multiple Myeloma w/ Severe Fe Deficiency Anemia requiring Fe Administration/ Serial PRBC administration and Acute GI bleed: 2016 EGD/c-scope unremarkable, GI bleed not felt etiology at that time, currently guiac negative but patient reported BRBPR since AM. Will admit to ICU given severity of Hgb, discussed w/ ED and Dr. Corado Surgery, maintain on IVFs, Will obtain serial H+H q 6 hours, continue ED initiated 2 u PRBC and will request an additional 4 u PRBC, maintain on IV PPI. Mag, phos pending. (2) Hypokalemia: Admission K+ 3.1, supplementation given, repeat level in AM. (3) Hypocalcemia: Admission Ca 5.4, supplementation IV given, ICa level in AM. (4) Hypertension: Continue home regimen lisinopril, metoprolol with hold parameters, PRN hydralazine. (5) Hyperlipidemia: Continue home statin regimen. (6) CAD: Continue home statin, BB, not on ASA regimen given presentation. (7) Anxiety: Continue home low dose PRN ativan. (8) DVT Prophylaxis: SCDs, defer chemoprophylaxis given history and acute presentation. (9) CODE status: Discussed CODE status at length including difference between FULL code, DNR-CCA and DNR-CC status. Following discussions about the differences in these status, confirmed HCPOA and LW in place, maintain DNR-CCA, no intubation status. Advanced Care Planning Face to Face Time: 17 minutes. Code Visit Inpatient E&M: 86987 Init Hosp L3 Procedures: 30006 Advncd Care Plan 30 Min
[2018-02-11 20:42] LABS: Platelet Estimate MKD DEC (ADEQ); Platelet Morphology LARGE
[2018-02-11 20:43] LABS: Differential Comment SCANNED; Toxic Granulation 1+
[2018-02-11 20:44] LABS: Anisocytosis 3+
[2018-02-11] MEDS: Atorvastatin Calcium 20 MG Tablet PO (22:05)
[2018-02-11 23:39] LABS: M R Staph aureus DNA By PCR Negative (Negative); Probe Check PASS; Specimen Processing Control PASS
[2018-02-12] VITALS (36 sets, daily range): BP systolic 101–162; BP diastolic 52–89; PULSE 76–100; RESP 13–23; TEMP 36.4–37.1; O2SAT 91–100
[2018-02-12 00:28] LABS: Magnesium 2.1 mg/dL (1.6-2.6); Phosphorus 4.3 mg/dL (2.5-4.9)
[2018-02-12 04:40] LABS: Hematocrit 19.3 % (37-47); Hemoglobin 6.6 g/dl (12.0-15.0); Mean Corp Hgb Conc 34.2 g/gl (32-36); Mean Corpuscular Hgb 31.6 pg (27.0-32.0); Mean Corpuscular Volume 92.3 fL (81-99); Mean Platelet Vol. 10.8 fl (6.2-12.0); Platelet Count 72 K/mm3 (150-450); RBC Distribution Width CV 18.5 % (11.6-14.6); RBC Distribution Width SD 59.1 fl (35.1-43.9); Red Blood Count 2.09 M/mm3 (4.2-5.4); White Blood Count 5.1 K/mm3 (4.4-11.0)
[2018-02-12 04:41] LABS: Differential Indicated MANUAL DIFF; POSITIVE COUNT YES; POSITIVE DIFFERENTIAL NO; POSITIVE MORPHOLOGY YES
[2018-02-12] MEDS: 0.9% Normal Saline 1,000 ML 125 ML IV (05:25)
[2018-02-12 05:53] LABS: Basophil 1 % (0-1); Eosinophil 3 % (0-5); Lymphocyte 27 % (19-41); Monocyte 15 % (0-10); Neutrophil-Band 1 % (0-5); Nucleated Red Bld Cells,Manual 1 % (0-5); Total Cells Counted 100 (MANUAL DIFF)
[2018-02-12 05:54] LABS: Anisocytosis 3+; Microcytosis 2+; Platelet Estimate SLT DEC (ADEQ); Red Cell Morphology N CYTIC NORMAL (NORM C&C)
[2018-02-12 05:55] LABS: Hypochromasia 1+; Target Cells RARE
[2018-02-12 05:59] LABS: Neutrophil-Segmented 53 % (47-70)
[2018-02-12 06:00] LABS: Absolute Lymphocyte Count 1.38 X10^3/ul (0.83-4.51); Absolute Neutrophil Count 2.8 X10^3/uL (2.0-7.7); Lymphocyte # 1.38 X10^3/ul (4.0); Neutrophil # 2.76 X10^3/uL (2.7-7.7); Vacuolated Cells 2+
--- NOTE | 2018-02-12 07:12 | PCM.CON.CC ---
Reason for Consult Date of Consultation: 02/12/18 Reason for Consultation: Blood loss anemia History of Present Illness: The patient is a 72-year-old female, with a history as outlined below, who presented to the emergency department on February 11 with self reported lower GI bleeding. The patient has a history of non-Hodgkin's lymphoma along with left breast cancer. The patient has chronic iron deficiency anemia who requires intermittent transfusions. She was recently admitted and had an unremarkable upper and lower endoscopy. Upon presentation to the hospital, the patient reported increased weakness and fatigue. The patient was last seen by oncology on February 06, at which time, she was noted to be anemic. She did receive 2 units of packed red blood cells at that time and was also given Neulasta and Procrit. On presentation to the emergency department, the patient was noted to be afebrile hemodynamically stable. She was maintaining appropriate oxygen saturations on room air. Initial laboratory evaluation revealed a hemoglobin of 3.9, which was recently 5.8 g/dL on February 06. Chemistry profile was notable for a sodium of 146, potassium of 3.1, chloride of 119 and serum bicarbonate of 18. Serum lactate was within normal limits. Albumin was low at 1.0. Type and screen was sent and the patient was subsequently set up to receive blood products. She was then transferred to the medical intensive care unit for ongoing management. Overnight, nursing staff did report bright red blood per rectum. To date, the patient has received 4 units of packed red blood cells. Her hemoglobin has incremented appropriately from 3.9 to 8.8. Past Medical History Past Medical History (Chronic Problems): Chronic Problems (Last Reviewed 02/06/18 @ 10:11 by Sarah Skinner) Neutropenia (Chronic) History of breast cancer (Chronic) Multiple myeloma (Chronic) History of stem cell transplant (Chronic) CAD (coronary artery disease) (Chronic) HTN (hypertension) (Chronic) Iron deficiency anemia (Chronic) Myelodysplasia (myelodysplastic syndrome) (Chronic) Multiple myeloma not having achieved remission (Chronic) Myelosuppression after chemotherapy (Chronic) Severe anemia (Chronic) Pancytopenia (Chronic) Allergies Penicillins [PCN] Allergy (Severe, Verified 02/11/18 17:35) Hives diphenhydramine [From Benadryl] Allergy (Mild, Verified 02/11/18 17:35) restless legs Home Medications: Ambulatory Orders Medication Instructions Recorded Simvastatin [Zocor] 40 mg PO QHS 08/15/13 Multivitamin [Multiple Vitamins] 1 ea PO DAILY 09/26/17 Pyridoxine HCl [Vitamin B6] 100 mg PO DAILY 09/26/17 Albuterol Inhaler [Ventolin Hfa] 1 - 2 puff INHALATION Q4H PRN PRN 10/14/17 #1 inhaler Loratadine [Claritin] 10 mg PO DAILY 11/20/17 metoprolol succinate ER 25 mg 25 mg PO DAILY #30 tab 01/03/18 tablet,extended release 24 hr Pantoprazole Sodium [Protonix] 40 mg PO DAILY #30 tab 01/09/18 lisinopril 2.5 mg tablet 2.5 mg PO DAILY #30 tab 01/11/18 Clobetasol Propionate 15 gm TP QHS 14 Days #1 tube 01/30/18 Docusate Sodium [Colace] 100 mg PO DAILY 02/11/18 Surgical History: cholecystectomy, hysterectomy, mastectomy Psychiatric History: Anxiety 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 Denies: Chills, Fever Eyes: Denies: Blurred vision, Double vision HEENT: Denies: Head Aches, Sinus Congestion, Sinus Drainage Cardiovascular: Denies: Chest Pain, Palpitations Respiratory: Denies: Cough, Shortness of breath at rest, Sputum production Gastrointestinal: Reports: Hematochezia Genitourinary: Denies: Dysuria Musculoskeletal: Denies: Joint Pain, Joint Tenderness Skin: Denies: Rash, Wounds Neurological: Denies: Numbness, Tingling, Focal weakness Psychiatric: Denies: Anxiety, Depression, Homicidal Ideations, Suicidal Ideations Hematologic/ Lymphatic: Reports: Anemia, Hx of blood transfusion Objective: The patient's most recent lab work, culture data and imaging studies have all been personally reviewed. Stool for occult blood was negative. Prior echocardiogram demonstrated normal LV size and function with an ejection fraction of 55%. Pulmonary artery systolic pressure was estimated to be 30 mmHg. - Physical Exam General: Alert, Cooperative, No apparent distress HEENT: Atraumatic, PERRLA, Normocephalic Oral: No Gingival or Mucosal Lesions/ Ulcerations Neck: Supple, No Nodes, Trachea Midline Lungs: No rhonchi, No wheeze, No rales, Diminished Cardiovascular: Normal S1, Normal S2, No murmurs, No rub noted, No Gallop, Tachycardic Abdomen: Bowel Sounds Present, Soft, Non Tender Extremities: No clubbing, No cyanosis, No edema Skin: No breakdown Musculoskeletal: No Tenderness to Palpation of Joints or Extremities Lymphatic: No Cervical, Supraclavicular, or Inguinal Adenopathy Neurological: Neuro grossly intact Psych/Mental Status: Normal Affect, Appropriate Vital Signs Temp Pulse Resp BP Pulse Ox 97.8 F 85 13 105/53 L 98 02/12/18 07:11 02/12/18 07:11 02/12/18 07:11 02/12/18 07:11 02/12/18 07:11 Oxygen Delivery Method Room Air Weight: 143 lb 8.335 oz Body Mass Index (BMI) 26.2 Intake and Output for Last 24 Hours 02/10/18 02/11/18 02/12/18 23:59 23:59 23:59 Intake Total 0 / 0 1331 / 1331 Balance 0 / 0 1331 / 1331 Laboratory Tests Past 24 Hrs 02/11/18 02/11/18 02/12/18 21:00 23:25 04:34 WBC 5.1 RBC 2.09 L Hgb 6.6 L Hct 19.3 L MCV 92.3 MCH 31.6 MCHC 34.2 RDW 18.5 H RDW Differential 59.1 H Plt Count 72 L MPV 10.8 Neut % (Auto) Not Reportable Absolute Neuts (auto) 2.8 Absolute Lymphs (auto) 1.38 Total Counted 100 Neutrophils % (Manual) 53 Band Neutrophils % 1 Lymphocytes % (Manual) 27 Monocytes % (Manual) 15 H Eosinophils % (Manual) 3 Basophils % (Manual) 1 Blast Cells % AUDITING SPECIALIST Nucleated RBCs/100 WBC 1 Differential Comment 2+ Platelet Estimate SLT DEC RBC Morphology N CYTIC Hypochromasia 1+ Anisocytosis 3+ Microcytosis 2+ Target Cells RARE Sodium Potassium Chloride Carbon Dioxide Anion Gap BUN Creatinine Est GFR (MDRD) Af Amer Est GFR (MDRD) Non-Af BUN/Creatinine Ratio Glucose Calcium Ionized Calcium Phosphorus 4.3 Magnesium 2.1 MRSA (PCR) Negative 02/12/18 02/12/18 06:00 06:12 WBC RBC Hgb Hct MCV MCH MCHC RDW RDW Differential Plt Count MPV Neut % (Auto) Absolute Neuts (auto) Absolute Lymphs (auto) Total Counted Neutrophils % (Manual) Band Neutrophils % Lymphocytes % (Manual) Monocytes % (Manual) Eosinophils % (Manual) Basophils % (Manual) Blast Cells % Nucleated RBCs/100 WBC Differential Comment Platelet Estimate RBC Morphology Hypochromasia Anisocytosis Microcytosis Target Cells Sodium Pending Potassium Pending Chloride Pending Carbon Dioxide Pending Anion Gap Pending BUN Pending Creatinine Pending Est GFR (MDRD) Af Amer Pending Est GFR (MDRD) Non-Af Pending BUN/Creatinine Ratio Pending Glucose Pending Calcium Pending Ionized Calcium Pending Phosphorus Magnesium MRSA (PCR) Assessment/Plan RECOMMENDATIONS: 1. Initially 6 units of packed red blood cells was ordered to be transfused. However, would plan to stop after 4 units and recheck H&H. 2. Goal to maintain a hemoglobin greater than 8 g/dL 3. Surgery has been consulted for potential upper and lower endoscopy. 4. Maintain appropriate IV access 5. Electrolyte repletion 6. Discontinue continuous supplemental IV fluids. IMPRESSIONS: 1. Acute on chronic anemia This is a recurrent issue for the patient with concern for acute GI bleed. The patient has received 4 units of packed red blood cells thus far and has incremented appropriately. Would plan to maintain her hemoglobin at or above 8 g/dL, if possible. Continue to monitor serial H&H. Tentative plans for upper and lower endoscopy tomorrow by surgery. Discontinue continuous supplemental IV fluids over concern for third spacing, given her low albumin level. Maintain appropriate IV access. Continue twice daily Protonix. 2. Hypokalemia/hypocalcemia Electrolyte repletion as indicated. Recheck levels status post repletion. 3. History of breast cancer/coronary artery disease/hypertension/hyperlipidemia Complicates care, management, recovery and prognosis. The patient has remained hemodynamically stable and is tachycardic. Okay to continue beta-dejan. This note was generated with [employer]book[employer] software. It may contain incorrect words, spelling, and punctuation that were not noted in checking the note before signing. Code Visit Inpatient E&M: 98853 Init Hosp L3
[2018-02-12 07:15] LABS: Anion Gap 9 (5-15); BUN 25 mg/dL (7-18); BUN/Creat Ratio 42.9 RATIO (10-20); Calcium,Total 8.2 mg/dL (8.5-10.1); Chloride 115 mmol/L (98-107); Creatinine, Serum 0.58 mg/dL (0.55-1.02); EST Glomerular Filtration Rate 107 mL/min (>60); Est Glom Filt Rate - Afr Amer 130 mL/min (>60); Estimated Creatinine Clearance 39.04 ml/min; Glucose 82 mg/dL (74-106); Potassium 4.5 mmol/L (3.5-5.1); Sodium Level 147 mmol/L (136-145)
[2018-02-12] MEDS: Multivitamins,Therapeutic Tablet 1 TABLET PO (07:55)
--- NOTE | 2018-02-12 08:40 | PCM.PN.HOSP ---
Subjective: Patient is getting blood transfusion. Hemoglobin improved from 3.9 g percent to 6.6 g percent. Patient has history of chronic anemia with multiple different etiologies and has been admitted several times for this indication. She has a history of NHL, breast cancer and multiple myeloma not in remission This time she had rectal bleeding, bright red. She had multiple EGD and colonoscopy, last one in April 2017. She was found hemorrhoids at that time. Vitals/I&O's: Vital Signs Temp Pulse Resp BP Pulse Ox 97.6 F L 84 18 132/63 H 99 02/12/18 08:12 02/12/18 08:12 02/12/18 08:12 02/12/18 08:12 02/12/18 08:12 Oxygen Delivery Method Room Air Weight: 143 lb 8.335 oz Body Mass Index (BMI) 26.2 Intake and Output for Last 24 Hours 02/10/18 02/11/18 02/12/18 23:59 23:59 23:59 Intake Total 0 / 0 1331 / 1331 Balance 0 / 0 1331 / 1331 General: Alert, Oriented x3, Cooperative HEENT: Atraumatic, PERRLA, EOMI, Normocephalic Neck: Supple, No JVD, Negative Carotid Bruits Lungs: Clear to auscultation, Diminished Cardiovascular: Regular rate, Regular Rhythm, Normal S1, Normal S2, No murmurs Abdomen: Bowel Sounds Present, Soft, Non Tender, Non-Distended Extremities: No edema, Capillary Refill Less than 3 Seconds Skin: No rashes, No breakdown Musculoskeletal: No Tenderness to Palpation of Joints or Extremities, Arthritic Changes Neurological: Cranial nerves II-XII grossly intact Psych/Mental Status: Normal Affect, Appropriate Laboratory Results 02/11/18 21:00: MRSA (PCR) Negative 02/11/18 23:25: Phosphorus 4.3, Magnesium 2.1 02/12/18 04:34: WBC 5.1, RBC 2.09 L, Hgb 6.6 L, Hct 19.3 L, MCV 92.3, MCH 31.6, MCHC 34.2, RDW 18.5 H, RDW Differential 59.1 H, Plt Count 72 L, MPV 10.8, Neut % (Auto) Not Reportable, Absolute Neuts (auto) 2.8, Absolute Lymphs (auto) 1.38, Total Counted 100, Neutrophils % (Manual) 53, Band Neutrophils % 1, Lymphocytes % (Manual) 27, Monocytes % (Manual) 15 H, Eosinophils % (Manual) 3, Basophils % (Manual) 1, Blast Cells % GRAPHICS PROGRAMMER, Nucleated RBCs/100 WBC 1, Differential Comment 2+, Platelet Estimate SLT DEC, RBC Morphology N CYTIC, Hypochromasia 1+, Anisocytosis 3+, Microcytosis 2+, Target Cells RARE 02/12/18 06:00: Ionized Calcium Pending 02/12/18 06:12: Sodium 147 H, Potassium 4.5, Chloride 115 H, Carbon Dioxide 23.0, Anion Gap 9, BUN 25 H, Creatinine 0.58, Estim Creat Clear Calc 39.04, Est GFR (MDRD) Af Amer 130, Est GFR (MDRD) Non-Af 107, BUN/Creatinine Ratio 42.9 H, Glucose 82, Calcium 8.2 L Current Medications Hydrocodone Bitart/Acetaminophen ([place] 5mg-325mg) 1 - 2 tablet PO Q6H PRN PRN PRN Reason: Moderate-severe pain Albuterol Sulfate (Ventolin Aerosols) 2.5 mg INHALATION Q2H PRN PRN PRN Reason: dyspnea, wheezing Atorvastatin Calcium (Lipitor) 20 mg PO QHS [facility] Last Admin: 02/11/18 22:05 Dose: 20 mg Sodium Chloride () 1,000 mls @ 125 mls/hr IV .Q8H [facility] Last Admin: 02/12/18 05:25 Dose: 125 mls/hr Pantoprazole Sodium 40 mg/ (Sodium Chloride) 110 mls @ 330 mls/hr IV Q12 [facility] Last Admin: 02/11/18 22:04 Dose: 330 mls/hr Sodium Chloride () 250 mls @ 15 mls/hr IV .[id number] PRN PRN Reason: SALINE FLUSH Sodium Chloride () 250 mls @ 15 mls/hr IV .[id number] PRN PRN Reason: SALINE FLUSH Lisinopril (Zestril) 2.5 mg PO DAILY [facility] Magnesium Hydroxide (Milk Of Magnesia) 30 ml PO DAILY PRN PRN PRN Reason: Constipation Metoprolol Succinate (Toprol Xl (Beta Freedom)) 25 mg PO DAILY [facility] Multivitamins (Multivitamin) 1 tablet PO DAILYCM [facility] Last Admin: 02/12/18 07:55 Dose: 1 tablet Ondansetron HCl (Zofran) 4 mg IV Q8H PRN PRN PRN Reason: NAUSEA Promethazine HCl (Phenergan Iv) 12.5 mg IV Q6H PRN PRN PRN Reason: NAUSEA/VOMITING Pyridoxine HCl (Vitamin B-6) 100 mg PO DAILY [facility] Sodium Chloride () 5 - 30 ml IV UD PRN PRN Reason: SALINE FLUSH Medical Necessity - Tobacco Use Smoking Status: Never smoker Tobacco Use: Non-smoker Assessment/Plan This is a 72-year-old female with of chronic anemia with multiple different etiologies including NHL, breast cancer and multiple myeloma not in remission, 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 Patient also felt increased weakness and fatigue but unclear about dyspnea on exertion as she is mostly homebound. 1. Chronic normocytic anemia, multifactorial including history of multiple myeloma, possible MDS/NHL with history of right breast cancer; probably exacerbated by rectal bleeding: Patient had EGD and colonoscopy in April 2017 mostly unremarkable but patient also started she has history of hemorrhoids. Denies constipation and straining; moving regular bowel on stool softener. On serial H&H monitoring, PRBC transfusion and PPI. Plant Custodian consult. Dr. Cage consulted. Hemodynamic monitoring 2. Electrolyte abnormality: Hypokalemia, hypocalcemia probably exacerbated by GI bleed: Monitor and replace accordingly. 3. Other chronic comorbidities include hypertension, dyslipidemia, CAD: Aspirin held for severe anemia and GI bleed 4. Neoplastic history including NHL, multiple myeloma status post stem cell transplant, history of MDS? and chronic iron deficiency anemia on intermittent IV Venofer: Follow Dr. Guy DVT prophylaxis: SCDs. Pharmacological prophylaxis contraindicated. Code Visit Inpatient E&M: 65087 Subs Hosp L3
--- NOTE | 2018-02-12 08:50 | PN_ITS ---
Subjective: Patient is getting blood transfusion. Hemoglobin improved from 3.9 g percent to 6.6 g percent. Patient has history of chronic anemia with multiple different etiologies and has been admitted several times for this indication. She has a history of NHL, breast cancer and multiple myeloma not in remission This time she had rectal bleeding, bright red. She had multiple EGD and colonoscopy, last one in April 2017. She was found hemorrhoids at that time. Vitals/I&O's: Vital Signs Temp Pulse Resp BP Pulse Ox 97.6 F L 84 18 132/63 H 99 02/12/18 08:12 02/12/18 08:12 02/12/18 08:12 02/12/18 08:12 02/12/18 08:12 Oxygen Delivery Method Room Air Weight: 143 lb 8.335 oz Body Mass Index (BMI) 26.2 Intake and Output for Last 24 Hours 02/10/18 02/11/18 02/12/18 23:59 23:59 23:59 Intake Total 0 / 0 1331 / 1331 Balance 0 / 0 1331 / 1331 General: Alert, Oriented x3, Cooperative HEENT: Atraumatic, PERRLA, EOMI, Normocephalic Neck: Supple, No JVD, Negative Carotid Bruits Lungs: Clear to auscultation, Diminished Cardiovascular: Regular rate, Regular Rhythm, Normal S1, Normal S2, No murmurs Abdomen: Bowel Sounds Present, Soft, Non Tender, Non-Distended Extremities: No edema, Capillary Refill Less than 3 Seconds Skin: No rashes, No breakdown Musculoskeletal: No Tenderness to Palpation of Joints or Extremities, Arthritic Changes Neurological: Cranial nerves II-XII grossly intact Psych/Mental Status: Normal Affect, Appropriate Laboratory Results 02/11/18 21:00: MRSA (PCR) Negative 02/11/18 23:25: Phosphorus 4.3, Magnesium 2.1 02/12/18 04:34: WBC 5.1, RBC 2.09 L, Hgb 6.6 L, Hct 19.3 L, MCV 92.3, MCH 31.6, MCHC 34.2, RDW 18.5 H, RDW Differential 59.1 H, Plt Count 72 L, MPV 10.8, Neut % (Auto) Not Reportable, Absolute Neuts (auto) 2.8, Absolute Lymphs (auto) 1.38 , Total Counted 100, Neutrophils % (Manual) 53, Band Neutrophils % 1, Lymphocytes % (Manual) 27, Monocytes % (Manual) 15 H, Eosinophils % (Manual) 3, Basophils % (Manual) 1, Blast Cells % CLINICAL APPLICATIONS SPECIALIST, Nucleated RBCs/100 WBC 1, Differential Comment 2+, Platelet Estimate SLT DEC, RBC Morphology N CYTIC, Hypochromasia 1+, Anisocytosis 3+, Microcytosis 2+, Target Cells RARE 02/12/18 06:00: Ionized Calcium Pending 02/12/18 06:12: Sodium 147 H, Potassium 4.5, Chloride 115 H, Carbon Dioxide 23.0 , Anion Gap 9, BUN 25 H, Creatinine 0.58, Estim Creat Clear Calc 39.04, Est GFR (MDRD) Af Amer 130, Est GFR (MDRD) Non-Af 107, BUN/Creatinine Ratio 42.9 H, Glucose 82, Calcium 8.2 L Current Medications Hydrocodone Bitart/Acetaminophen ([place] 5mg-325mg) 1 - 2 tablet PO Q6H PRN PRN PRN Reason: Moderate-severe pain Albuterol Sulfate (Ventolin Aerosols) 2.5 mg INHALATION Q2H PRN PRN PRN Reason: dyspnea, wheezing Atorvastatin Calcium (Lipitor) 20 mg PO QHS [facility] Last Admin: 02/11/18 22:05 Dose: 20 mg Sodium Chloride () 1,000 mls @ 125 mls/hr IV .Q8H [facility] Last Admin: 02/12/18 05:25 Dose: 125 mls/hr Pantoprazole Sodium 40 mg/ (Sodium Chloride) 110 mls @ 330 mls/hr IV Q12 [facility] Last Admin: 02/11/18 22:04 Dose: 330 mls/hr Sodium Chloride () 250 mls @ 15 mls/hr IV .[id number] PRN PRN Reason: SALINE FLUSH Sodium Chloride () 250 mls @ 15 mls/hr IV .[id number] PRN PRN Reason: SALINE FLUSH Lisinopril (Zestril) 2.5 mg PO DAILY [facility] Magnesium Hydroxide (Milk Of Magnesia) 30 ml PO DAILY PRN PRN PRN Reason: Constipation Metoprolol Succinate (Toprol Xl (Beta Freedom)) 25 mg PO DAILY [facility] Multivitamins (Multivitamin) 1 tablet PO DAILYCM [facility] Last Admin: 02/12/18 07:55 Dose: 1 tablet Ondansetron HCl (Zofran) 4 mg IV Q8H PRN PRN PRN Reason: NAUSEA Promethazine HCl (Phenergan Iv) 12.5 mg IV Q6H PRN PRN PRN Reason: NAUSEA/VOMITING Pyridoxine HCl (Vitamin B-6) 100 mg PO DAILY [facility] Sodium Chloride () 5 - 30 ml IV UD PRN PRN Reason: SALINE FLUSH Medical Necessity - Tobacco Use Smoking Status: Never smoker Tobacco Use: Non-smoker Assessment/Plan This is a 72-year-old female with of chronic anemia with multiple different etiologies including NHL, breast cancer and multiple myeloma not in remission, 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 Patient also felt increased weakness and fatigue but unclear about dyspnea on exertion as she is mostly homebound. 1. Chronic normocytic anemia, multifactorial including history of multiple myeloma, possible MDS/NHL with history of right breast cancer; probably exacerbated by rectal bleeding: Patient had EGD and colonoscopy in April 2017 mostly unremarkable but patient also started she has history of hemorrhoids. Denies constipation and straining; moving regular bowel on stool softener. On serial H&H monitoring, PRBC transfusion and PPI. Police Shift Commander consult. Dr. Cage consulted. Hemodynamic monitoring 2. Electrolyte abnormality: Hypokalemia, hypocalcemia probably exacerbated by GI bleed: Monitor and replace accordingly. 3. Other chronic comorbidities include hypertension, dyslipidemia, CAD: Aspirin held for severe anemia and GI bleed 4. Neoplastic history including NHL, multiple myeloma status post stem cell transplant, history of MDS? and chronic iron deficiency anemia on intermittent IV Venofer: Follow Dr. Guy DVT prophylaxis: SCDs. Pharmacological prophylaxis contraindicated. Code Visit Inpatient E&M: 07125 Subs Hosp L3
--- NOTE | 2018-02-12 09:17 | NURSING ---
In TAR documentation, third unit of PRBC at 0903 02/12/18 was initiated at 15ml/hr, not 125ml/hr. Error in charting, and unable to edit in the TAR.
--- NOTE | 2018-02-12 12:41 | CASEMGMT ---
See RN CM Assessment Link. DC PLAN: HOME -PT/OT evaluations ordered. Will assist with DME or dc needs. is available to assist. Kelsea BERNALN RN ACM
[2018-02-12 13:57] LABS: Hematocrit 26.8 % (37-47); Hemoglobin 8.8 g/dl (12.0-15.0); Mean Corp Hgb Conc 32.8 g/gl (32-36); Mean Corpuscular Volume 91.5 fL (81-99); Mean Platelet Vol. 10.4 fl (6.2-12.0); Platelet Count 51 K/mm3 (150-450); Red Blood Count 2.93 M/mm3 (4.2-5.4); White Blood Count 5.6 K/mm3 (4.4-11.0)
[2018-02-12 13:58] LABS: Differential Indicated MANUAL DIFF; POSITIVE COUNT YES; POSITIVE DIFFERENTIAL NO; POSITIVE MORPHOLOGY YES
[2018-02-12 14:18] LABS: Eosinophil 2 % (0-5); Lymphocyte 35 % (19-41); Metamyelocyte 1 % (0-1); Monocyte 26 % (0-10); Neutrophil-Band 3 % (0-5); Neutrophil-Segmented 32 % (47-70); Nucleated Red Bld Cells,Manual 3 % (0-5); Plasma Cell 1 %; Total Cells Counted 100 (MANUAL DIFF)
[2018-02-12 14:20] LABS: Anisocytosis 1+; Hypochromasia 1+; Macrocytosis 1+; Platelet Estimate MKD DEC (ADEQ)
[2018-02-12 14:21] LABS: Absolute Lymphocyte Count 1.96 X10^3/ul (0.83-4.51)
--- NOTE | 2018-02-12 14:37 | PCM.CONS.GEN ---
Problem List (1) Acute blood loss anemia Status: Acute (2) Myelosuppression Status: Acute (3) Multiple myeloma Status: Chronic Qualifiers: Multiple myeloma remission status: not in remission Qualified Code(s): C90.00 - Multiple myeloma not having achieved remission Reason for Consult Date of Consultation: 02/12/18 History of Present Illness: The patient is a 72 year old F with a history of multiple myeloma, Hodgkin's lymphoma and breast cancer who requires frequent transfusions for marrow failure. The patient was most recently admitted for bleeding, early January. Consultation by Dr. Oconnor noted: The patient is a 72 year old F who presents with chest pain, weakness starting on Monday. Patient was noted to have a hemoglobin of 3.3 in the ED. Patient has a history of multiple myeloma (currently being treated for), Non-Hodgkin's lymphoma stage IV (had an abdominal mass)- treated with high-dose chemotherapy. She has also had a previous stem cell transplant in 2003. Patient had history of left breast cancer in 2008. Dr. Oconnor performed a modified radical mastectomy with axillary dissection. She notes being treated with Decadron for multiple years for multiple myeloma. Patient currently receives Decadron weekly. Dr. Guy is her oncologist. Patient has a history of anemia. Patient has been given Procrit on 01/04/18 in oncology. Patient notes she has had multiple transfusions over the last year. She notes on average she would have blood transfusion every 6 months. Patient states since her ER visit in August with a nosebleed, she has had to have 2 units of PRBC every 2-3 weeks. Patient states her last blood transfusion was on 12/29 in oncology. Patient states she has had a previous GI bleed in June 2017 x 2. Patient notes early in June she came in with anemia. Dr. Oconnor performed and upper and lower scope on 06/12/17. Findings included internal hemorrhoids. Patient was given hemorrhoidal ointment. No active bleeding was noted at that time. Patient then returned later that month with anemia. She was transferred to [facility] secondary to suspicion of small bowel bleeding. She had a GI bleeding study/scan which was negative and capsule endoscopy was performed also negative. In August patient presented to the ED with nose bleed which was unable to be controlled. Patient was sent to [facility], where bleeding had ceased. She was transfused 3 or 4 units of PRBC. Patient noted she had an EGD by a Dr. Aguero which was unremarkable per patient. Again in October, patient had acute anemia and scopes were recommended. Dr. Oconnor did not recommend scopes at that time. Dr. Mack also evaluated this patient during that hospitalization and scopes were not recommended by him either. Dr. Mack's impression was possible diverticular bleed. Patient also has a cardiac history. She notes an abnormal stress test and cardiac cath and stent placement in 2009. She currently follows with Dr. Borden. She denies previous myocardial infarction, stroke and blood clots. Patient notes single bowel movement since admission. She noted black, dark stools for 3 days. She notes her stool was more brown yesterday. Patient had a positive occult blood test yesterday. Patient's hemoglobin was 7.0 this morning. Patient notes seeing a small amount of bright red blood on the toilet paper. Patient states she was started on a PPI by Dr. Miller, however this was discontinued by Dr. Guy secondary to possibly the cause of low platelets. Patient's surgical history consists of gallbladder and total hysterectomy. the patient currently denies significant nosebleeds but does note relatively persistent bloody nasal drainage and bleeding gums. This is relatively standard for her. Last week when the patient was seen. Her hemoglobin was 5.5, and she received 2 units of packed red cells. Since that time, the patient noted increased fatigue and more maroon-colored stools, then more black stools. She was admitted to the ER. She has received 4 units of packed cells. Today, she had a bowel movement which the ICU nurse interpreted as melena. Past Medical History Past Medical History (Chronic Problems): Chronic Problems (Last Reviewed 02/06/18 @ 10:11 by Sarah Skinner) Neutropenia (Chronic) History of breast cancer (Chronic) Multiple myeloma (Chronic) History of stem cell transplant (Chronic) CAD (coronary artery disease) (Chronic) HTN (hypertension) (Chronic) Iron deficiency anemia (Chronic) Myelodysplasia (myelodysplastic syndrome) (Chronic) Multiple myeloma not having achieved remission (Chronic) Myelosuppression after chemotherapy (Chronic) Severe anemia (Chronic) Pancytopenia (Chronic) Allergies Penicillins [PCN] Allergy (Severe, Verified 02/11/18 17:35) Hives diphenhydramine [From Benadryl] Allergy (Mild, Verified 02/11/18 17:35) restless legs Home Medications: Ambulatory Orders Medication Instructions Recorded Simvastatin [Zocor] 40 mg PO QHS 08/15/13 Multivitamin [Multiple Vitamins] 1 ea PO DAILY 09/26/17 Pyridoxine HCl [Vitamin B6] 100 mg PO DAILY 09/26/17 Albuterol Inhaler [Ventolin Hfa] 1 - 2 puff INHALATION Q4H PRN PRN 10/14/17 #1 inhaler Loratadine [Claritin] 10 mg PO DAILY 11/20/17 metoprolol succinate ER 25 mg 25 mg PO DAILY #30 tab 01/03/18 tablet,extended release 24 hr Pantoprazole Sodium [Protonix] 40 mg PO DAILY #30 tab 01/09/18 lisinopril 2.5 mg tablet 2.5 mg PO DAILY #30 tab 01/11/18 Clobetasol Propionate 15 gm TP QHS 14 Days #1 tube 01/30/18 Docusate Sodium [Colace] 100 mg PO DAILY 02/11/18 Surgical History: cholecystectomy, hysterectomy, mastectomy Psychiatric History: Anxiety 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 Lungs: Clear to auscultation, Normal air movement Cardiovascular: Regular rate, Murmur Vital Signs Temp Pulse Resp BP Pulse Ox 98.0 F 79 18 128/89 H 98 02/12/18 13:42 02/12/18 14:00 02/12/18 14:00 02/12/18 14:00 02/12/18 14:00 Oxygen Delivery Method Room Air Weight: 65.1 kg Body Mass Index (BMI) 26.2 Intake and Output for Last 24 Hours 02/10/18 02/11/18 02/12/18 23:59 23:59 23:59 Intake Total 0 / 0 2731 / 2731 Output Total 300 / 300 Balance 0 / 0 2431 / 2431 Laboratory Tests Past 24 Hrs 02/11/18 02/11/18 02/12/18 21:00 23:25 04:34 WBC 5.1 RBC 2.09 L Hgb 6.6 L Hct 19.3 L MCV 92.3 MCH 31.6 MCHC 34.2 RDW 18.5 H RDW Differential 59.1 H Plt Count 72 L MPV 10.8 Neut % (Auto) Not Reportable Absolute Neuts (auto) 2.8 Absolute Lymphs (auto) 1.38 Total Counted 100 Neutrophils % (Manual) 53 Band Neutrophils % 1 Lymphocytes % (Manual) 27 Monocytes % (Manual) 15 H Eosinophils % (Manual) 3 Basophils % (Manual) 1 Metamyelocytes % Blast Cells % AUTO PARTS DELIVERY DRIVER Plasma Cell % (Manual) Nucleated RBCs/100 WBC 1 Differential Comment 2+ Diff Path Review Platelet Estimate SLT DEC RBC Morphology N CYTIC Hypochromasia 1+ Anisocytosis 3+ Microcytosis 2+ Macrocytosis Target Cells RARE Sodium Potassium Chloride Carbon Dioxide Anion Gap BUN Creatinine Estim Creat Clear Calc Est GFR (MDRD) Af Amer Est GFR (MDRD) Non-Af BUN/Creatinine Ratio Glucose Calcium Ionized Calcium Phosphorus 4.3 Magnesium 2.1 MRSA (PCR) Negative 02/12/18 02/12/18 02/12/18 06:00 06:12 13:45 WBC 5.6 RBC 2.93 L Hgb 8.8 L Hct 26.8 L MCV 91.5 MCH 30.0 MCHC 32.8 RDW 18.0 H RDW Differential 56.0 H Plt Count 51 L MPV 10.4 Neut % (Auto) Not Reportable Absolute Neuts (auto) 2.0 Absolute Lymphs (auto) 1.96 Total Counted 100 Neutrophils % (Manual) 32 L Band Neutrophils % 3 Lymphocytes % (Manual) 35 Monocytes % (Manual) 26 H Eosinophils % (Manual) 2 Basophils % (Manual) Metamyelocytes % 1 Blast Cells % Plasma Cell % (Manual) 1 Nucleated RBCs/100 WBC 3 Differential Comment Diff Path Review May foll Platelet Estimate MKD DEC RBC Morphology Hypochromasia 1+ Anisocytosis 1+ Microcytosis Macrocytosis 1+ Target Cells Sodium 147 H Potassium 4.5 Chloride 115 H Carbon Dioxide 23.0 Anion Gap 9 BUN 25 H Creatinine 0.58 Estim Creat Clear Calc 39.04 Est GFR (MDRD) Af Amer 130 Est GFR (MDRD) Non-Af 107 BUN/Creatinine Ratio 42.9 H Glucose 82 Calcium 8.2 L Ionized Calcium Pending Phosphorus Magnesium MRSA (PCR) Assessment/Plan acute on chronic anemia-myelodysplastic syndrome, multiple myeloma, lymphoma, breast cancer, obscure source with multiple past endoscopies and procedures I discussed with the patient the fact that these occult bleeding sources can be particularly frustrating prove. She's had extensive upper and lower endoscopy, previous capsule endoscopy, bleeding scans. The fact that the patient notes recurring epistaxis and bleeding gums, makes a bleeding source from the GI tract versus these entities also a possibility. I discussed with the patient. Since she is noting more melanoma that performing a repeat upper and lower endoscopy might but not necessarily find the source. The patient's hemoglobin is up to 8.8 after transfusion. Her platelet count has dropped again to below 50K I be most comfortable if the patient was given a platelet transfusion to see if this helps with her bleeding gums and/or nosebleed. Would recommend repeat upper and lower endoscopy since has not been performed since June 11, 2017. The patient was sent to the risks, benefits, possible complications and consents to the procedure. She'll be given GoLYTELY bowel prep today with plans for endoscopy at approximately noon tomorrow with monitored anesthetic care.
[2018-02-12 14:45] LABS: Pathologist Review Reviewed
[2018-02-12 14:49] LABS: Pathologist Review Reviewed
--- NOTE | 2018-02-12 15:16 | CHAPLAIN ---
Type of Pastoral Visit _x__ Initial Visit ___ Follow-up Visit ___ On-call Visit ___ General Patient Visit ___ Spiritual Assessment ___ Family Conference ___ Bereavement ___ Rapid Response ___ Code Blue ___ Other (describe below) Pastoral Care Referral From _x__ Patient ___ Family ___ Nurse ___ Physician ___ Profile Saw Setup Operator ___ Coal Weigher ___ Other (describe below) Sacrament/Intervention _x__ Active listening ___ Anointing ___ Alevism ___ Bereavement ___ Communion ___ Marielena exploration ___ _x__ Life review _x__ Prayer ___ Reconciliation ___ Sacrament of Sick _x__ Supportive presence ___ Wedding ___ Other (describe below) Pastoral Comments patient requested visit; pt has had physical issues for many months and speaks of being tired and wanting to get some answers for healing; pt is pleasant; spouse is with pt; both acknowledge desire for prayer support
[2018-02-12] MEDS: Electrolyte Solution/Peg's 4000 ML PO (16:13)
[2018-02-12 21:17] LABS: Hematocrit 33.2 % (37-47)
[2018-02-12] MEDS: 0.9% NaCl Peripheral Flush Adult/Peds IV (21:32)
[2018-02-12] MEDS: Atorvastatin Calcium 20 MG Tablet PO (21:32)
[2018-02-13] VITALS (33 sets, daily range): BP systolic 98–144; BP diastolic 46–82; PULSE 77–107; RESP 12–20; TEMP 36.5–37.1; O2SAT 93–100
--- NOTE | 2018-02-13 | IMM_PTH ---
PATIENT: ÓSCAR ROBERT LOC: MS3 U#:[id number] AGE/SX: 72/F [place] [facility] [place]: Dr. Mariano Simon MD : 1945 BED: 1 DIS: 02/14/2018 SPEC #: [id number] RECD: 02/14/18 10:52 STATUS: RADHA REQ #: [id number] NADEEN: 02/13/18 00:[address]: Moris Corado DEPT: IMMUNOHISTOCHEMISTRY RECD BY: Jelly Cortes ENTERED: 02/14/18 10:52 SP TYPE: IMMUNO OTHR DR: MD Dr. Edvin Blancas, DO Dr. Cody Colón, MD Dr. Juan A Melton Dr., DO Dr. Moris Corado MD Tissues: Stomach, NOS Procedures: H Pylori (initial) Comments: @ Ordering doctor for H.PYLORI edited from to DR.RGUTTM Caba by KARLA at 02/14/18 1056 @ Submitting doctor edited from to DR.RGUTTM Caba by KARLA at 02/14/18 1056 PHYSICIAN & [place] [id number] SPECIMEN INFORMATION: Tissue Source: Antral biopsy Clinical Info: JANKI Specimen Number: [id number] CPT code: 07603 METHODOLOGY: Deparaffinized sections of prefer/formalin-fixed tissue or PAP/DQ stained slides are incubated with monoclonal/polyclonal antibodies/oligonucleotide probes. Localization is made via biotin free immunoperoxidase method. Appropriate controls are performed and reacted as expected. Results on target cell population are indicated in the following table: RESULTS: ANTIBODY / CLONE RESULT H Pylori (polyclonal) negative These tests were developed and their performance characteristics determined by [facility]. They may not have been cleared or approved by the U.S. Food and Drug Administration. The FDA has determined that such clearance or approval is not necessary. INTERPRETATION: Antral biopsy: Negative for Helicobacter pylori organisms. VALERIE:lyn 02/15/18
--- NOTE | 2018-02-13 | EGD_PTH ---
PATIENT: ÓSCAR ROBERT LOC: MS3 U#:[id number] AGE/SX: 72/F ROOM: [facility] RE02/11/[address]: Dr. Mariano Simon MD : 1945 BED: 1 DIS: 02/14/2018 SPEC #: [id number] RECD: 02/13/18 14:47 STATUS: RADHA REQ #: [id number] NADEEN: 02/13/18 00:[address]: Moris Corado DEPT: SURGICAL PATHOLOGY RECD BY: Nell Saavedra ENTERED: 02/13/18 14:58 SP TYPE: EGD BIOPSY OT DR: MD Dr. Edvin Blancas DO Dr. Derek Brown, DO Dr. Prakash Chand, MD Dr. Rami Ahmed, DO Tissues: Gastric mucous membrane Procedures: Surgery Specimen Level IV HEADER OPERATION: EGD PRE-OP DIAGNOSIS: MDS TISSUE SUBMITTED: Antral biopsy for history and H. pylori MICROSCOPIC DIAGNOSIS Antral biopsy: Gastritis. SJ:lyn 02/14/18 COMMENT The results of immunohistochemistry for Helicobacter pylori will be reported separately ([id number]). MICROSCOPIC DESCRIPTION Slides are reviewed. The specimen shows fragments of gastric mucosa with chronic inflammatory cell infiltrates in the lamina propria consisting of lymphocytes and plasma cells, consistent with chronic gastritis. A minute lymphoid aggregate is also noted, favor benign. GROSS DESCRIPTION Received in fixative is one container labeled with the patient's name and designated antral biopsy. The specimen consists of one irregular fragment of light pradhan soft tissue that measures 0.3 x 0.2 x 0.1 cm. The specimen is totally submitted in one cassette. / AM:lyn 02/13/18 TC:3 CPT: 55500
[2018-02-13] MEDS: HYDROcodone Bitartrate/Apap 5/325 Tablet PO (01:15)
[2018-02-13 05:57] LABS: Hematocrit 25.4 % (37-47); Mean Corp Hgb Conc 35.4 g/gl (32-36); Mean Corpuscular Hgb 32.3 pg (27.0-32.0); Mean Platelet Vol. 10.4 fl (6.2-12.0); RBC Distribution Width CV 18.1 % (11.6-14.6); RBC Distribution Width SD 57.2 fl (35.1-43.9); Red Blood Count 2.79 M/mm3 (4.2-5.4); White Blood Count 3.6 K/mm3 (4.4-11.0)
[2018-02-13 05:58] LABS: Differential Indicated MANUAL DIFF; POSITIVE COUNT YES; POSITIVE DIFFERENTIAL NO; POSITIVE MORPHOLOGY YES; Platelet Count 50 K/mm3 (150-450)
[2018-02-13 06:44] LABS: Eosinophil 2 % (0-5); Lymphocyte 38 % (19-41); Metamyelocyte 1 % (0-1); Monocyte 14 % (0-10); Myelocyte 1 (0-0); Neutrophil-Band 2 % (0-5); Neutrophil-Segmented 42 % (47-70); Platelet Estimate MOD (ADEQ); Red Cell Morphology NORM C+C NORMAL (NORM C&C); Total Cells Counted 100 (MANUAL DIFF)
[2018-02-13 06:45] LABS: Absolute Lymphocyte Count 1.36 X10^3/ul (0.83-4.51); Lymphocyte # 1.36 X10^3/ul (4.0)
[2018-02-13 06:46] LABS: Absolute Neutrophil Count 1.6 X10^3/uL (2.0-7.7); Neutrophil # 1.58 X10^3/uL (2.7-7.7)
[2018-02-13 07:02] LABS: Anion Gap 8 (5-15); BUN 15 mg/dL (7-18); BUN/Creat Ratio 24.5 RATIO (10-20); Calcium,Total 8.1 mg/dL (8.5-10.1); Chloride 112 mmol/L (98-107); Creatinine, Serum 0.61 mg/dL (0.55-1.02); EST Glomerular Filtration Rate 101 mL/min (>60); Est Glom Filt Rate - Afr Amer 123 mL/min (>60); Estimated Creatinine Clearance 39.04 ml/min; Glucose 79 mg/dL (74-106); Potassium 3.9 mmol/L (3.5-5.1); Sodium Level 144 mmol/L (136-145)
--- NOTE | 2018-02-13 07:05 | PCM.PN.INT ---
Subjective: The patient was seen and examined at the bedside this morning. Events from the last 24 hours have been reviewed. The patient is currently afebrile, hemodynamically stable and maintaining appropriate oxygen saturations on room air. Since the patient was admitted to the hospital, she has received a total of 4 units of packed red blood cells. Her hemoglobin is incremented from 3.9 to 9.0 g/dL this morning. Platelet count remains stable at 50,000. There are tentative plans for upper and lower endoscopy today at noon by Dr. Corado. Objective: The patient's most recent lab work, culture data and imaging studies have all been personally reviewed. Stool for occult blood was negative. Prior echocardiogram demonstrated normal LV size and function with an ejection fraction of 55%. Pulmonary artery systolic pressure was estimated to be 30 mmHg. General: Alert, Oriented x3, Cooperative, No apparent distress, - - Sitting in bedside recliner HEENT: Atraumatic, PERRLA, Normocephalic Oral: No Gingival or Mucosal Lesions/ Ulcerations Neck: Supple, No Nodes, Trachea Midline Lungs: Normal air movement, No rhonchi, No wheeze, No rales Cardiovascular: Regular rate, Regular Rhythm, Normal S1, Normal S2, No murmurs Abdomen: Bowel Sounds Present, Soft, Non Tender Extremities: No clubbing, No cyanosis, No edema Skin: No rashes, No breakdown Musculoskeletal: No Tenderness to Palpation of Joints or Extremities Lymphatic: No Cervical, Supraclavicular, or Inguinal Adenopathy Neurological: Neuro grossly intact Psych/Mental Status: Normal Affect, Appropriate Vital Signs Temp Pulse Resp BP Pulse Ox 97.9 F 78 15 107/52 L 97 02/13/18 00:00 02/13/18 05:59 02/13/18 05:59 02/13/18 05:59 02/13/18 05:59 Oxygen Delivery Method Room Air Weight: 144 lb 9.972 oz Body Mass Index (BMI) 26.2 Intake and Output for Last 24 Hours 02/11/18 02/12/18 02/13/18 23:59 23:59 23:59 Intake Total 0 / 0 7326 / 7326 0 / 0 Output Total 300 / 300 Balance 0 / 0 7026 / 7026 0 / 0 Labs (Last 48 Hours) 02/11/18 02/11/18 02/12/18 21:00 23:25 04:34 WBC 5.1 RBC 2.09 L Hgb 6.6 L Hct 19.3 L MCV 92.3 MCH 31.6 MCHC 34.2 RDW 18.5 H RDW Differential 59.1 H Plt Count 72 L MPV 10.8 Neut % (Auto) Not Reportable Absolute Neuts (auto) 2.8 Absolute Lymphs (auto) 1.38 Total Counted 100 Neutrophils % (Manual) 53 Band Neutrophils % 1 Lymphocytes % (Manual) 27 Monocytes % (Manual) 15 H Eosinophils % (Manual) 3 Basophils % (Manual) 1 Metamyelocytes % Myelocytes % Blast Cells % [employer] Plasma Cell % (Manual) Nucleated RBCs/100 WBC 1 Differential Comment 2+ Diff Path Review Reviewed Platelet Estimate SLT DEC RBC Morphology N CYTIC Hypochromasia 1+ Anisocytosis 3+ Microcytosis 2+ Macrocytosis Target Cells RARE Sodium Potassium Chloride Carbon Dioxide Anion Gap BUN Creatinine Estim Creat Clear Calc Est GFR (MDRD) Af Amer Est GFR (MDRD) Non-Af BUN/Creatinine Ratio Glucose Calcium Ionized Calcium Phosphorus 4.3 Magnesium 2.1 MRSA (PCR) Negative 02/12/18 02/12/18 02/12/18 06:00 06:12 13:45 WBC 5.6 RBC 2.93 L Hgb 8.8 L Hct 26.8 L MCV 91.5 MCH 30.0 MCHC 32.8 RDW 18.0 H RDW Differential 56.0 H Plt Count 51 L MPV 10.4 Neut % (Auto) Not Reportable Absolute Neuts (auto) 2.0 Absolute Lymphs (auto) 1.96 Total Counted 100 Neutrophils % (Manual) 32 L Band Neutrophils % 3 Lymphocytes % (Manual) 35 Monocytes % (Manual) 26 H Eosinophils % (Manual) 2 Basophils % (Manual) Metamyelocytes % 1 Myelocytes % Blast Cells % Plasma Cell % (Manual) 1 Nucleated RBCs/100 WBC 3 Differential Comment Diff Path Review May foll Platelet Estimate MKD DEC RBC Morphology Hypochromasia 1+ Anisocytosis 1+ Microcytosis Macrocytosis 1+ Target Cells Sodium 147 H Potassium 4.5 Chloride 115 H Carbon Dioxide 23.0 Anion Gap 9 BUN 25 H Creatinine 0.58 Estim Creat Clear Calc 39.04 Est GFR (MDRD) Af Amer 130 Est GFR (MDRD) Non-Af 107 BUN/Creatinine Ratio 42.9 H Glucose 82 Calcium 8.2 L Ionized Calcium Cancelled Phosphorus Magnesium MRSA (PCR) 02/12/18 02/13/18 02/13/18 20:38 05:45 05:45 WBC 3.6 L RBC 2.79 L Hgb 11.0 L 9.0 L Hct 33.2 L 25.4 L MCV 91.0 MCH 32.3 H MCHC 35.4 RDW 18.1 H RDW Differential 57.2 H Plt Count 50 L* MPV 10.4 Neut % (Auto) Not Reportable Absolute Neuts (auto) 1.6 L Absolute Lymphs (auto) 1.36 Total Counted 100 Neutrophils % (Manual) 42 L Band Neutrophils % 2 Lymphocytes % (Manual) 38 Monocytes % (Manual) 14 H Eosinophils % (Manual) 2 Basophils % (Manual) Metamyelocytes % 1 Myelocytes % 1 H Blast Cells % Plasma Cell % (Manual) Nucleated RBCs/100 WBC Differential Comment Diff Path Review May foll Platelet Estimate MOD RBC Morphology NORM C+C Hypochromasia Anisocytosis Microcytosis Macrocytosis Target Cells Sodium 144 Potassium 3.9 Chloride 112 H Carbon Dioxide 24.0 Anion Gap 8 BUN 15 Creatinine 0.61 Estim Creat Clear Calc 39.04 Est GFR (MDRD) Af Amer 123 Est GFR (MDRD) Non-Af 101 BUN/Creatinine Ratio 24.5 H Glucose 79 Calcium 8.1 L Ionized Calcium Phosphorus Magnesium MRSA (PCR) 02/13/18 05:45 WBC RBC Hgb Hct MCV MCH MCHC RDW RDW Differential Plt Count MPV Neut % (Auto) Absolute Neuts (auto) Absolute Lymphs (auto) Total Counted Neutrophils % (Manual) Band Neutrophils % Lymphocytes % (Manual) Monocytes % (Manual) Eosinophils % (Manual) Basophils % (Manual) Metamyelocytes % Myelocytes % Blast Cells % Plasma Cell % (Manual) Nucleated RBCs/100 WBC Differential Comment Diff Path Review Platelet Estimate RBC Morphology Hypochromasia Anisocytosis Microcytosis Macrocytosis Target Cells Sodium Potassium Chloride Carbon Dioxide Anion Gap BUN Creatinine Estim Creat Clear Calc Est GFR (MDRD) Af Amer Est GFR (MDRD) Non-Af BUN/Creatinine Ratio Glucose Calcium Ionized Calcium Pending Phosphorus Magnesium MRSA (PCR) Medical Necessity - Tobacco Use Smoking Status: Never smoker Tobacco Use: Non-smoker Assessment/Plan RECOMMENDATIONS: 1. Check CBC daily. Plans for endoscopy today. 2. No indication for additional blood product administration. Goal to maintain a hemoglobin greater than 8 g/dL 3. Maintain appropriate IV access 4. Continue PPI twice daily 5. Encourage incentive spirometer use while in bed and mobilize patient as tolerated. IMPRESSIONS: 1. Acute on chronic anemia This is a recurrent issue for the patient with concern for acute GI bleed. The patient has received 4 units of packed red blood cells thus far and has incremented appropriately. Would plan to maintain her hemoglobin at or above 8 g/dL, if possible. Check CBC daily. Tentative plans for endoscopy later today by surgery. Maintain appropriate IV access. Continue twice daily Protonix. 2. History of breast cancer/coronary artery disease/hypertension/hyperlipidemia Complicates care, management, recovery and prognosis. The patient has remained hemodynamically. Okay to continue home medications from my perspective. This note was generated with [employer] dictation software. It may contain incorrect words, spelling, and punctuation that were not noted in checking the note before signing. Code Visit Inpatient E&M: 12920 Subs Hosp L2
--- NOTE | 2018-02-13 08:54 | PCM.PN.HOSP ---
Subjective: The patient hemoglobin improved to 9.0 g percent after 3 units of PRBC transfusion. seen by commercial shrimping captain Dr. Colón and Dr. Cage. Patient is scheduled for EGD and colonoscopy today. Metabolic profile is suggestive of pancytopenia, thrombocytopenia platelet count 50,000 and WBC count 3.6 thousand probably due to MDS Vitals/I&O's: Vital Signs Temp Pulse Resp BP Pulse Ox 97.9 F 84 13 118/65 100 02/13/18 00:00 02/13/18 08:00 02/13/18 08:00 02/13/18 08:00 02/13/18 08:00 Oxygen Delivery Method Room Air Weight: 144 lb 9.972 oz Body Mass Index (BMI) 26.2 Intake and Output for Last 24 Hours 02/11/18 02/12/18 02/13/18 23:59 23:59 23:59 Intake Total 0 / 0 7326 / 7326 0 / 0 Output Total 300 / 300 Balance 0 / 0 7026 / 7026 0 / 0 General: Alert, Oriented x3, Cooperative HEENT: Atraumatic, PERRLA, EOMI, Normocephalic Neck: Supple, No JVD, Negative Carotid Bruits Lungs: Clear to auscultation, No rhonchi, No wheeze, No rales, Diminished Cardiovascular: Regular rate, Regular Rhythm, Normal S1, Normal S2, No murmurs Abdomen: Bowel Sounds Present, Soft, Non Tender, Non-Distended Extremities: No edema, Capillary Refill Less than 3 Seconds Skin: No rashes, No breakdown Musculoskeletal: No Tenderness to Palpation of Joints or Extremities Neurological: Cranial nerves II-XII grossly intact Psych/Mental Status: Normal Affect, Appropriate Laboratory Results 02/12/18 04:34: Diff Path Review Reviewed 02/12/18 06:00: Ionized Calcium Cancelled 02/12/18 13:45: WBC 5.6, RBC 2.93 L, Hgb 8.8 L, Hct 26.8 L, MCV 91.5, MCH 30.0, MCHC 32.8, RDW 18.0 H, RDW Differential 56.0 H, Plt Count 51 L, MPV 10.4, Neut % (Auto) Not Reportable, Absolute Neuts (auto) 2.0, Absolute Lymphs (auto) 1.96, Total Counted 100, Neutrophils % (Manual) 32 L, Band Neutrophils % 3, Lymphocytes % (Manual) 35, Monocytes % (Manual) 26 H, Eosinophils % (Manual) 2, Metamyelocytes % 1, Plasma Cell % (Manual) 1, Nucleated RBCs/100 WBC 3, Diff Path Review May foll, Platelet Estimate MKD DEC, Hypochromasia 1+, Anisocytosis 1+, Macrocytosis 1+ 02/12/18 20:38: Hgb 11.0 L, Hct 33.2 L 02/13/18 05:45: WBC 3.6 L, RBC 2.79 L, Hgb 9.0 L, Hct 25.4 L, MCV 91.0, MCH 32.3 H, MCHC 35.4, RDW 18.1 H, RDW Differential 57.2 H, Plt Count 50 L*, MPV 10.4, Neut % (Auto) Not Reportable, Absolute Neuts (auto) 1.6 L, Absolute Lymphs (auto) 1.36, Total Counted 100, Neutrophils % (Manual) 42 L, Band Neutrophils % 2, Lymphocytes % (Manual) 38, Monocytes % (Manual) 14 H, Eosinophils % (Manual) 2, Metamyelocytes % 1, Myelocytes % 1 H, Diff Path Review May foll, Platelet Estimate MOD, RBC Morphology NORM C+C 02/13/18 05:45: Sodium 144, Potassium 3.9, Chloride 112 H, Carbon Dioxide 24.0, Anion Gap 8, BUN 15, Creatinine 0.61, Estim Creat Clear Calc 39.04, Est GFR (MDRD) Af Amer 123, Est GFR (MDRD) Non-Af 101, BUN/Creatinine Ratio 24.5 H, Glucose 79, Calcium 8.1 L 02/13/18 05:45: Ionized Calcium Pending Current Medications Hydrocodone Bitart/Acetaminophen ([place] 5mg-325mg) 1 - 2 tablet PO Q6H PRN PRN PRN Reason: Moderate-severe pain Last Admin: 02/13/18 01:15 Dose: 1 tablet Albuterol Sulfate (Ventolin Aerosols) 2.5 mg INHALATION Q2H PRN PRN PRN Reason: dyspnea, wheezing Atorvastatin Calcium (Lipitor) 20 mg PO QHS MONIKA Last Admin: 02/12/18 21:32 Dose: 20 mg Chlorhexidine Gluconate () 1 each TOPICAL DAILY MONIKA Pantoprazole Sodium 40 mg/ (Sodium Chloride) 110 mls @ 330 mls/hr IV Q12 [facility] Last Admin: 02/12/18 21:32 Dose: 330 mls/hr Sodium Chloride () 250 mls @ 15 mls/hr IV .[id number] PRN PRN Reason: SALINE FLUSH Sodium Chloride () 250 mls @ 15 mls/hr IV .[id number] PRN PRN Reason: SALINE FLUSH Lisinopril (Zestril) 2.5 mg PO DAILY [facility] Last Admin: 02/12/18 09:47 Dose: Not Given Magnesium Hydroxide (Milk Of Magnesia) 30 ml PO DAILY PRN PRN PRN Reason: Constipation Metoprolol Succinate (Toprol Xl (Beta Freedom)) 25 mg PO DAILY [facility] Last Admin: 02/12/18 09:47 Dose: Not Given Multivitamins (Multivitamin) 1 tablet PO DAILYCM [facility] Last Admin: 02/12/18 07:55 Dose: 1 tablet Ondansetron HCl (Zofran) 4 mg IV Q8H PRN PRN PRN Reason: NAUSEA Promethazine HCl (Phenergan Iv) 12.5 mg IV Q6H PRN PRN PRN Reason: NAUSEA/VOMITING Pyridoxine HCl (Vitamin B-6) 100 mg PO DAILY [facility] Last Admin: 02/12/18 09:47 Dose: Not Given Sodium Chloride () 5 - 30 ml IV UD PRN PRN Reason: SALINE FLUSH Last Admin: 02/12/18 21:32 Dose: 20 ml Medical Necessity - Tobacco Use Smoking Status: Never smoker Tobacco Use: Non-smoker Assessment/Plan This is a 72-year-old female with of chronic anemia with multiple different etiologies including NHL, breast cancer and multiple myeloma not in remission, 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 Patient also felt increased weakness and fatigue but unclear about dyspnea on exertion as she is mostly homebound. 1. Chronic normocytic anemia, and pancytopenia, multifactorial including history of multiple myeloma,most probably due to MDS with history of right breast cancer and chemotherapy in past; probably exacerbated by rectal bleeding: Denies constipation and straining; moving regular bowel on stool softener. On serial H&H monitoring. Patient had 3 units of PRBC transfusion. Hemoglobin went up 90 g percent. She had bone marrow biopsy on December 2017 which showed [place] restricted plasma cells, comprising 4% of bone marrow elements consistent with plasma cell dyscrasias 2. GI bleed most probably upper GI bleed, etiology unclear: She had extensive GI workup in the past including EGD, colonoscopy in 04/2017 and previous RBC scan and capsule endoscopy but was mostly unremarkable except she was found hemorrhoids. Patient has EGD and colonoscopy today. EGD reported as diffuse gastritis otherwise normal EGD. Colonoscopy normal. As per Dr. Cage patient can be transferred to floor. Electrolyte abnormality: Hypokalemia, hypocalcemia probably exacerbated by GI bleed: Monitor and replace accordingly. 3. Other chronic comorbidities include hypertension, dyslipidemia, CAD: Aspirin held for severe anemia and GI bleed 4. Neoplastic history including NHL, multiple myeloma status post stem cell transplant, history of MDS? and chronic iron deficiency anemia on intermittent IV Venofer: Follow Dr. Guy. DVT prophylaxis: SCDs. Pharmacological prophylaxis contraindicated. Microbiology Past 72 Hours 02/11/18 17:50 Stool Stool Occult Blood (ALEJA) - Final Laboratory Results 02/11/18 17:00: Diff Path Review Reviewed 02/11/18 18:30: Crossmatch See Detail 02/12/18 04:34: Diff Path Review Reviewed 02/12/18 06:00: Ionized Calcium Cancelled 02/12/18 13:45: WBC 5.6, RBC 2.93 L, Hgb 8.8 L, Hct 26.8 L, MCV 91.5, MCH 30.0, MCHC 32.8, RDW 18.0 H, RDW Differential 56.0 H, Plt Count 51 L, MPV 10.4, Neut % (Auto) Not Reportable, Absolute Neuts (auto) 2.0, Absolute Lymphs (auto) 1.96, Total Counted 100, Neutrophils % (Manual) 32 L, Band Neutrophils % 3, Lymphocytes % (Manual) 35, Monocytes % (Manual) 26 H, Eosinophils % (Manual) 2, Metamyelocytes % 1, Plasma Cell % (Manual) 1, Nucleated RBCs/100 WBC 3, Diff Path Review May , Platelet Estimate MKD DEC, Hypochromasia 1+, Anisocytosis 1+, Macrocytosis 1+ 02/12/18 20:38: Hgb 11.0 L, Hct 33.2 L 02/13/18 05:45: WBC 3.6 L, RBC 2.79 L, Hgb 9.0 L, Hct 25.4 L, MCV 91.0, MCH 32.3 H, MCHC 35.4, RDW 18.1 H, RDW Differential 57.2 H, Plt Count 50 L*, MPV 10.4, Neut % (Auto) Not Reportable, Absolute Neuts (auto) 1.6 L, Absolute Lymphs (auto) 1.36, Total Counted 100, Neutrophils % (Manual) 42 L, Band Neutrophils % 2, Lymphocytes % (Manual) 38, Monocytes % (Manual) 14 H, Eosinophils % (Manual) 2, Metamyelocytes % 1, Myelocytes % 1 H, Diff Path Review March ric, Platelet Estimate MOD, RBC Morphology NORM C+C 02/13/18 05:45: Sodium 144, Potassium 3.9, Chloride 112 H, Carbon Dioxide 24.0, Anion Gap 8, BUN 15, Creatinine 0.61, Estim Creat Clear Calc 39.04, Est GFR (MDRD) Af Amer 123, Est GFR (MDRD) Non-Af 101, BUN/Creatinine Ratio 24.5 H, Glucose 79, Calcium 8.1 L 02/13/18 05:45: Ionized Calcium Pending Code Visit Inpatient E&M: 32676 Subs Hosp L3
--- NOTE | 2018-02-13 09:15 | PN_ITS ---
Subjective: The patient hemoglobin improved to 9.0 g percent after 3 units of PRBC transfusion. seen by materials analyst Dr. Colón and Dr. Cage. Patient is scheduled for EGD and colonoscopy today. Metabolic profile is suggestive of pancytopenia, thrombocytopenia platelet count 50,000 and WBC count 3.6 thousand probably due to MDS Vitals/I&O's: Vital Signs Temp Pulse Resp BP Pulse Ox 97.9 F 84 13 118/65 100 02/13/18 00:00 02/13/18 08:00 02/13/18 08:00 02/13/18 08:00 02/13/18 08:00 Oxygen Delivery Method Room Air Weight: 144 lb 9.972 oz Body Mass Index (BMI) 26.2 Intake and Output for Last 24 Hours 02/11/18 02/12/18 02/13/18 23:59 23:59 23:59 Intake Total 0 / 0 7326 / 7326 0 / 0 Output Total 300 / 300 Balance 0 / 0 7026 / 7026 0 / 0 General: Alert, Oriented x3, Cooperative HEENT: Atraumatic, PERRLA, EOMI, Normocephalic Neck: Supple, No JVD, Negative Carotid Bruits Lungs: Clear to auscultation, No rhonchi, No wheeze, No rales, Diminished Cardiovascular: Regular rate, Regular Rhythm, Normal S1, Normal S2, No murmurs Abdomen: Bowel Sounds Present, Soft, Non Tender, Non-Distended Extremities: No edema, Capillary Refill Less than 3 Seconds Skin: No rashes, No breakdown Musculoskeletal: No Tenderness to Palpation of Joints or Extremities Neurological: Cranial nerves II-XII grossly intact Psych/Mental Status: Normal Affect, Appropriate Laboratory Results 02/12/18 04:34: Diff Path Review Reviewed 02/12/18 06:00: Ionized Calcium Cancelled 02/12/18 13:45: WBC 5.6, RBC 2.93 L, Hgb 8.8 L, Hct 26.8 L, MCV 91.5, MCH 30.0, MCHC 32.8, RDW 18.0 H, RDW Differential 56.0 H, Plt Count 51 L, MPV 10.4, Neut % (Auto) Not Reportable, Absolute Neuts (auto) 2.0, Absolute Lymphs (auto) 1.96 , Total Counted 100, Neutrophils % (Manual) 32 L, Band Neutrophils % 3, Lymphocytes % (Manual) 35, Monocytes % (Manual) 26 H, Eosinophils % (Manual) 2, Metamyelocytes % 1, Plasma Cell % (Manual) 1, Nucleated RBCs/100 WBC 3, Diff Path Review May foll, Platelet Estimate MKD DEC, Hypochromasia 1+, Anisocytosis 1+, Macrocytosis 1+ 02/12/18 20:38: Hgb 11.0 L, Hct 33.2 L 02/13/18 05:45: WBC 3.6 L, RBC 2.79 L, Hgb 9.0 L, Hct 25.4 L, MCV 91.0, MCH 32.3 H, MCHC 35.4, RDW 18.1 H, RDW Differential 57.2 H, Plt Count 50 L*, MPV 10.4, Neut % (Auto) Not Reportable, Absolute Neuts (auto) 1.6 L, Absolute Lymphs (auto) 1.36, Total Counted 100, Neutrophils % (Manual) 42 L, Band Neutrophils % 2, Lymphocytes % (Manual) 38, Monocytes % (Manual) 14 H, Eosinophils % (Manual) 2, Metamyelocytes % 1, Myelocytes % 1 H, Diff Path Review May foll, Platelet Estimate MOD, RBC Morphology NORM C+C 02/13/18 05:45: Sodium 144, Potassium 3.9, Chloride 112 H, Carbon Dioxide 24.0, Anion Gap 8, BUN 15, Creatinine 0.61, Estim Creat Clear Calc 39.04, Est GFR ( MDRD) Af Amer 123, Est GFR (MDRD) Non-Af 101, BUN/Creatinine Ratio 24.5 H, Glucose 79, Calcium 8.1 L 02/13/18 05:45: Ionized Calcium Pending Current Medications Hydrocodone Bitart/Acetaminophen ([place] 5mg-325mg) 1 - 2 tablet PO Q6H PRN PRN PRN Reason: Moderate-severe pain Last Admin: 02/13/18 01:15 Dose: 1 tablet Albuterol Sulfate (Ventolin Aerosols) 2.5 mg INHALATION Q2H PRN PRN PRN Reason: dyspnea, wheezing Atorvastatin Calcium (Lipitor) 20 mg PO QHS MONIKA Last Admin: 02/12/18 21:32 Dose: 20 mg Chlorhexidine Gluconate () 1 each TOPICAL DAILY MONIKA Pantoprazole Sodium 40 mg/ (Sodium Chloride) 110 mls @ 330 mls/hr IV Q12 [facility] Last Admin: 02/12/18 21:32 Dose: 330 mls/hr Sodium Chloride () 250 mls @ 15 mls/hr IV .[id number] PRN PRN Reason: SALINE FLUSH Sodium Chloride () 250 mls @ 15 mls/hr IV .[id number] PRN PRN Reason: SALINE FLUSH Lisinopril (Zestril) 2.5 mg PO DAILY [facility] Last Admin: 02/12/18 09:47 Dose: Not Given Magnesium Hydroxide (Milk Of Magnesia) 30 ml PO DAILY PRN PRN PRN Reason: Constipation Metoprolol Succinate (Toprol Xl (Beta [place])) 25 mg PO DAILY [facility] Last Admin: 02/12/18 09:47 Dose: Not Given Multivitamins (Multivitamin) 1 tablet PO DAILYCM [facility] Last Admin: 02/12/18 07:55 Dose: 1 tablet Ondansetron HCl (Zofran) 4 mg IV Q8H PRN PRN PRN Reason: NAUSEA Promethazine HCl (Phenergan Iv) 12.5 mg IV Q6H PRN PRN PRN Reason: NAUSEA/VOMITING Pyridoxine HCl (Vitamin B-6) 100 mg PO DAILY [facility] Last Admin: 02/12/18 09:47 Dose: Not Given Sodium Chloride () 5 - 30 ml IV UD PRN PRN Reason: SALINE FLUSH Last Admin: 02/12/18 21:32 Dose: 20 ml Medical Necessity - Tobacco Use Smoking Status: Never smoker Tobacco Use: Non-smoker Assessment/Plan This is a 72-year-old female with of chronic anemia with multiple different etiologies including NHL, breast cancer and multiple myeloma not in remission, 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 Patient also felt increased weakness and fatigue but unclear about dyspnea on exertion as she is mostly homebound. 1. Chronic normocytic anemia, and pancytopenia, multifactorial including history of multiple myeloma,most probably due to MDS with history of right breast cancer and chemotherapy in past; probably exacerbated by rectal bleeding : Denies constipation and straining; moving regular bowel on stool softener. On serial H&H monitoring. Patient had 3 units of PRBC transfusion. Hemoglobin went up 90 g percent. She had bone marrow biopsy on December 2017 which showed [place] restricted plasma cells, comprising 4% of bone marrow elements consistent with plasma cell dyscrasias 2. GI bleed most probably upper GI bleed, etiology unclear: She had extensive GI workup in the past including EGD, colonoscopy in 04/2017 and previous RBC scan and capsule endoscopy but was mostly unremarkable except she was found hemorrhoids. Patient has EGD and colonoscopy today. EGD reported as diffuse gastritis otherwise normal EGD. Colonoscopy normal. As per Dr. Cage patient can be transferred to floor. Electrolyte abnormality: Hypokalemia, hypocalcemia probably exacerbated by GI bleed: Monitor and replace accordingly. 3. Other chronic comorbidities include hypertension, dyslipidemia, CAD: Aspirin held for severe anemia and GI bleed 4. Neoplastic history including NHL, multiple myeloma status post stem cell transplant, history of MDS? and chronic iron deficiency anemia on intermittent IV Venofer: Follow Dr. Guy. DVT prophylaxis: SCDs. Pharmacological prophylaxis contraindicated. Microbiology Past 72 Hours 02/11/18 17:50 Stool Stool Occult Blood (ALEJA) - Final Laboratory Results 02/11/18 17:00: Diff Path Review Reviewed 02/11/18 18:30: Crossmatch See Detail 02/12/18 04:34: Diff Path Review Reviewed 02/12/18 06:00: Ionized Calcium Cancelled 02/12/18 13:45: WBC 5.6, RBC 2.93 L, Hgb 8.8 L, Hct 26.8 L, MCV 91.5, MCH 30.0, MCHC 32.8, RDW 18.0 H, RDW Differential 56.0 H, Plt Count 51 L, MPV 10.4, Neut % (Auto) Not Reportable, Absolute Neuts (auto) 2.0, Absolute Lymphs (auto) 1.96 , Total Counted 100, Neutrophils % (Manual) 32 L, Band Neutrophils % 3, Lymphocytes % (Manual) 35, Monocytes % (Manual) 26 H, Eosinophils % (Manual) 2, Metamyelocytes % 1, Plasma Cell % (Manual) 1, Nucleated RBCs/100 WBC 3, Diff Path Review May , Platelet Estimate MKD DEC, Hypochromasia 1+, Anisocytosis 1+, Macrocytosis 1+ 02/12/18 20:38: Hgb 11.0 L, Hct 33.2 L 02/13/18 05:45: WBC 3.6 L, RBC 2.79 L, Hgb 9.0 L, Hct 25.4 L, MCV 91.0, MCH 32.3 H, MCHC 35.4, RDW 18.1 H, RDW Differential 57.2 H, Plt Count 50 L*, MPV 10.4, Neut % (Auto) Not Reportable, Absolute Neuts (auto) 1.6 L, Absolute Lymphs (auto) 1.36, Total Counted 100, Neutrophils % (Manual) 42 L, Band Neutrophils % 2, Lymphocytes % (Manual) 38, Monocytes % (Manual) 14 H, Eosinophils % (Manual) 2, Metamyelocytes % 1, Myelocytes % 1 H, Diff Path Review March ric, Platelet Estimate MOD, RBC Morphology NORM C+C 02/13/18 05:45: Sodium 144, Potassium 3.9, Chloride 112 H, Carbon Dioxide 24.0, Anion Gap 8, BUN 15, Creatinine 0.61, Estim Creat Clear Calc 39.04, Est GFR ( MDRD) Af Amer 123, Est GFR (MDRD) Non-Af 101, BUN/Creatinine Ratio 24.5 H, Glucose 79, Calcium 8.1 L 02/13/18 05:45: Ionized Calcium Pending Code Visit Inpatient E&M: 00092 Subs Hosp L3
[2018-02-13] MEDS: CHLORHEXIDINE GLUC 2% CLOTH 1 EACH TOWELETTE TOPICAL (10:09)
[2018-02-13 10:35] LABS: Pathologist Review Reviewed
[2018-02-13 10:42] LABS: Pathologist Review Reviewed
--- NOTE | 2018-02-13 13:01 | PCM.OPRPT ---
Problem List (1) Acute blood loss anemia Status: Acute (2) Myelosuppression Status: Acute (3) Multiple myeloma Status: Chronic Qualifiers: Multiple myeloma remission status: not in remission Qualified Code(s): C90.00 - Multiple myeloma not having achieved remission Report of Operation Date of Procedure: 02/13/18 Pre-Operative Diagnosis: anemia, GI bleed? prior endoscopy with unknown source Post-Operative Diagnosis: anemia, GI bleed? prior endoscopy with unknown source - gastritis - diffuse. patchy, otherwise normal EGD, normal colonoscopy Surgery/Procedure Performed:: EGD with biopsy , Colonoscopy industrial health and safety professor: None Type of Anesthesia:: MAC Anesthesiologist: Gabo Edwards - ASA3 Specimen's removed: gastric Description of Procedure: The patient was brought to the endoscopy suite. Sign in was performed verifying patient, site, planned procedure, critical nursing information, the patient was monitored with cardiac, pulse oximetric, and blood pressure monitoring devices. Monitored anesthetic care was provided for sedation. Following IV sedation and after the oropharynx was sprayed with Cetacaine spray, a video gastroscope was inserted in the oropharynx and advanced down the esophagus without difficulty. The scope was advanced through the stomach, through the pylorus through the duodenum to the proximal jejunum. the jejunum and duodenum were unremarkable. there was boucher bile in the duodenum without signs of hemobilia There was mild diffuse gastritis. Biopsies were taken for H. pylori and pathology. the esophagus was unremarkable The patient was positioned for colonoscopy. A digital rectal exam was performed which revealed no palpable abnormalities The video colonoscope was inserted and advanced to the cecum as verified by the ileocecal valve, cecal base anatomic features and palpation. the entire colon was unremarkable. The scope was retroflexed and this was unremarkable.. The patient tolerated the procedure well and was brought to recovery in stable condition
[2018-02-13] MEDS: Lisinopril 2.5 MG Tablet PO (15:20)
[2018-02-13] MEDS: Metoprolol(XL)Succ 25 MG Tablet PO (15:20)
[2018-02-13] MEDS: Atorvastatin Calcium 20 MG Tablet PO (21:01)
[2018-02-13] MEDS: 0.9% NaCl IVPB Med Flush (250 mL) 15 ML IV (21:01)
[2018-02-13] MEDS: Metoprolol Tartrate 25 MG Tablet 12.5 MG PO (21:01)
[2018-02-13 21:18] LABS: Hematocrit 28.9 % (37-47); Hemoglobin 9.5 g/dl (12.0-15.0)
[2018-02-14] VITALS (9 sets, daily range): BP systolic 115–149; BP diastolic 59–75; PULSE 69–80; RESP 17–18; TEMP 36.6–37.1; O2SAT 95–99
[2018-02-14 05:34] LABS: Absolute Lymphocyte Count 0.69 X10^3/ul (0.83-4.51); Absolute Neutrophil Count 1.6 X10^3/uL (2.0-7.7); Basophil# 0.01 X10^3/uL; Basophil% 0.3 % (0-1); Eosinophil# 0.08 X10^3/uL; Eosinophils% 2.6 % (0-5); Hematocrit 27.9 % (37-47); Hemoglobin 9.2 g/dl (12.0-15.0); Lymphocyte # 0.69 X10^3/ul (4.0); Lymphocyte % 22.8 % (19-41); Mean Corpuscular Hgb 30.7 pg (27.0-32.0); Mean Platelet Vol. 10.2 fl (6.2-12.0); Monocyte# 0.58 X10^3/uL; Monocyte% 19.1 % (0-10); Neutrophil # 1.64 X10^3/uL (2.7-7.7); Neutrophil % 54.2 % (47-70); RBC Distribution Width CV 18.1 % (11.6-14.6); RBC Distribution Width SD 58.7 fl (35.1-43.9)
--- NOTE | 2018-02-14 05:51 | PCM.PN.SRG ---
- Physical Exam General: Alert, Oriented x3 Lungs: Clear to auscultation Cardiovascular: Regular rate Abdomen: Bowel Sounds Present, Soft, Non Tender Vital Signs Temp Pulse Resp BP Pulse Ox 98.7 F 71 17 115/59 L 95 02/14/18 03:15 02/14/18 03:55 02/14/18 03:15 02/14/18 03:15 02/14/18 03:15 Oxygen Delivery Method Room Air Weight: 63.4 kg Body Mass Index (BMI) 26.2 Intake and Output for Last 24 Hours 02/12/18 02/13/18 02/14/18 23:59 23:59 23:59 Intake Total 7326 / 7326 850 / 850 380 / 380 Output Total 300 / 300 Balance 7026 / 7026 850 / 850 380 / 380 Laboratory Tests Past 24 Hrs 02/12/18 02/13/18 02/13/18 13:45 05:45 05:45 WBC 3.6 L RBC 2.79 L Hgb 9.0 L Hct 25.4 L MCV 91.0 MCH 32.3 H MCHC 35.4 RDW 18.1 H RDW Differential 57.2 H Plt Count 50 L* MPV 10.4 Neut % (Auto) Not Reportable Absolute Neuts (auto) 1.6 L Absolute Lymphs (auto) 1.36 Total Counted 100 Neutrophils % (Manual) 42 L Band Neutrophils % 2 Lymphocytes % (Manual) 38 Monocytes % (Manual) 14 H Eosinophils % (Manual) 2 Metamyelocytes % 1 Myelocytes % 1 H Diff Path Review Reviewed Reviewed Platelet Estimate MOD RBC Morphology NORM C+C Sodium 144 Potassium 3.9 Chloride 112 H Carbon Dioxide 24.0 Anion Gap 8 BUN 15 Creatinine 0.61 Estim Creat Clear Calc 39.04 Est GFR (MDRD) Af Amer 123 Est GFR (MDRD) Non-Af 101 BUN/Creatinine Ratio 24.5 H Glucose 79 Calcium 8.1 L 02/13/18 21:02 WBC RBC Hgb 9.5 L Hct 28.9 L MCV MCH MCHC RDW RDW Differential Plt Count MPV Neut % (Auto) Absolute Neuts (auto) Absolute Lymphs (auto) Total Counted Neutrophils % (Manual) Band Neutrophils % Lymphocytes % (Manual) Monocytes % (Manual) Eosinophils % (Manual) Metamyelocytes % Myelocytes % Diff Path Review Platelet Estimate RBC Morphology Sodium Potassium Chloride Carbon Dioxide Anion Gap BUN Creatinine Estim Creat Clear Calc Est GFR (MDRD) Af Amer Est GFR (MDRD) Non-Af BUN/Creatinine Ratio Glucose Calcium Medical Necessity - Tobacco Use Smoking Status: Never smoker Tobacco Use: Non-smoker Assessment/Plan acute on chronic anemia-myelodysplastic syndrome, multiple myeloma, lymphoma, breast cancer, obscure source with multiple past endoscopies and procedures. The patient had diffuse mild to moderate gastritis without other significant findings. I discussed with the patient the fact that these occult bleeding sources can be particularly frustrating prove. She's had extensive upper and lower endoscopy, previous capsule endoscopy, bleeding scans. The fact that the patient notes recurring epistaxis and bleeding gums, makes a bleeding source from the GI tract versus these entities also a possibility. I discussed with the patient. Since she is noting more melanoma that performing a repeat upper and lower endoscopy might but not necessarily find the source. The patient's hemoglobin is up to stable at 9 Her platelet count is at 50K Recommend bleeding scan if she has any further episodes of bleeding
[2018-02-14 06:07] LABS: Differential Indicated SCAN CRITERIA MET; POSITIVE COUNT YES; POSITIVE DIFFERENTIAL NO; POSITIVE MORPHOLOGY NO; Platelet Count 40 K/mm3 (150-450)
[2018-02-14 06:09] LABS: Differential Comment SCAN
[2018-02-14 06:10] LABS: Platelet Estimate MKD DEC (ADEQ)
[2018-02-14 06:18] LABS: Anion Gap 9 (5-15); BUN 12 mg/dL (7-18); BUN/Creat Ratio 19.5 RATIO (10-20); Calcium,Total 8.4 mg/dL (8.5-10.1); Chloride 111 mmol/L (98-107); Creatinine, Serum 0.61 mg/dL (0.55-1.02); EST Glomerular Filtration Rate 101 mL/min (>60); Est Glom Filt Rate - Afr Amer 122 mL/min (>60); Estimated Creatinine Clearance 39.04 ml/min; Glucose 75 mg/dL (74-106); Potassium 3.7 mmol/L (3.5-5.1); Sodium Level 143 mmol/L (136-145)
[2018-02-14] MEDS: Multivitamins,Therapeutic Tablet 1 TABLET PO (08:57)
[2018-02-14 09:09] LABS: Pathologist Review Reviewed
--- NOTE | 2018-02-14 09:54 | PCM.PROGNOTE ---
Subjective: Patient was seen and examined. She is sitting up in the chair with no acute complaints. Nursing staff reports no bloody stools overnight. Patient denies any shortness of breath. Her hemoglobin is stable at 9.2. Platelets are still low. Surgery has recommended a bleeding scan if the patient has any further bleeding episodes. Is maintaining appropriate saturations on room air. Asking if she can go home today. Objective: Recent lab and culture data reviewed. Upper and lower endoscopy 02/13 showed mild diffuse gastritis, no acute bleed. - Physical Exam General: Alert, Oriented x3, Cooperative, No apparent distress, Well developed, Well nourished, - HEENT: Atraumatic, Normocephalic Oral: Moist Mucosa, No Gingival or Mucosal Lesions/ Ulcerations Neck: Supple, No Nodes, Trachea Midline Lungs: Normal air movement, No rhonchi, No wheeze, No rales Cardiovascular: Regular rate, Regular Rhythm, Normal S1, Normal S2, No murmurs, No rub noted, No Gallop Abdomen: Bowel Sounds Present, Soft, Non Tender Extremities: No clubbing, No cyanosis, No edema, - - Peripheral vascular changes Skin: No rashes, No breakdown Musculoskeletal: No Tenderness to Palpation of Joints or Extremities Neurological: Neuro grossly intact Psych/Mental Status: Alert and oriented to time, place, person, mood and affect Vital Signs Temp Pulse Resp BP Pulse Ox 97.9 F 70 18 149/75 H 99 02/14/18 08:25 02/14/18 08:33 02/14/18 08:33 02/14/18 08:25 02/14/18 08:33 Oxygen Delivery Method Room Air Weight: 139 lb 12.369 oz Body Mass Index (BMI) 26.2 Intake and Output for Last 24 Hours 02/12/18 02/13/18 02/14/18 23:59 23:59 23:59 Intake Total 7326 / 7326 850 / 850 380 / 380 Output Total 300 / 300 Balance 7026 / 7026 850 / 850 380 / 380 Laboratory Tests Past 24 Hrs 02/12/18 02/13/18 02/13/18 13:45 05:45 21:02 WBC RBC Hgb 9.5 L Hct 28.9 L MCV MCH MCHC RDW RDW Differential Plt Count MPV Immature Gran % (Auto) Neut % (Auto) Lymph % (Auto) [place] % (Auto) Eos % (Auto) Baso % (Auto) Absolute Neuts (auto) Absolute Lymphs (auto) Total Counted Differential Comment Diff Path Review Reviewed Reviewed Platelet Estimate Sodium Potassium Chloride Carbon Dioxide Anion Gap BUN Creatinine Estim Creat Clear Calc Est GFR (MDRD) Af Amer Est GFR (MDRD) Non-Af BUN/Creatinine Ratio Glucose Calcium 02/14/18 02/14/18 05:16 05:16 WBC 3.0 L RBC 3.00 L Hgb 9.2 L Hct 27.9 L MCV 93.0 MCH 30.7 MCHC 33.0 RDW 18.1 H RDW Differential 58.7 H Plt Count 40 L* MPV 10.2 Immature Gran % (Auto) 1.000 H Neut % (Auto) 54.2 Lymph % (Auto) 22.8 [place] % (Auto) 19.1 H Eos % (Auto) 2.6 Baso % (Auto) 0.3 Absolute Neuts (auto) 1.6 L Absolute Lymphs (auto) 0.69 L Total Counted Not Reportable Differential Comment SCAN Diff Path Review Reviewed Platelet Estimate MKD DEC Sodium 143 Potassium 3.7 Chloride 111 H Carbon Dioxide 23.0 Anion Gap 9 BUN 12 Creatinine 0.61 Estim Creat Clear Calc 39.04 Est GFR (MDRD) Af Amer 122 Est GFR (MDRD) Non-Af 101 BUN/Creatinine Ratio 19.5 Glucose 75 Calcium 8.4 L Medical Necessity - Tobacco Use Smoking Status: Never smoker Tobacco Use: Non-smoker Assessment/Plan RECOMMENDATIONS: 1. Check CBC daily 2. Goal to maintain a hemoglobin greater than 8 g/dL 3. Maintain appropriate IV access 4. Continue PPI twice daily 5. Encourage incentive spirometer use while in bed and mobilize patient as tolerated. 6. Patient is stable, given lack of economics consultant needs, will sign off at this time. IMPRESSIONS: 1. Acute on chronic anemia This is a recurrent issue for the patient with concern for acute GI bleed. The patient has received 4 units of packed red blood cells thus far and has incremented appropriately. Would plan to maintain her hemoglobin at or above 8 g/dL, if possible. Check CBC daily. Upper and lower endoscopy yesterday showed mild diffuse gastritis, no signs of acute bleeding. Continue twice daily Protonix. Follow up with GI as outpatient. 2. History of breast cancer/coronary artery disease/hypertension/hyperlipidemia Complicates care, management, recovery and prognosis. The patient has remained hemodynamically. Okay to continue home medications from my perspective. This note was generated with [employer] dictation software. It may contain incorrect words, spelling, and punctuation that were not noted in checking the note before signing.
[2018-02-14] MEDS: Metoprolol Tartrate 25 MG Tablet 12.5 MG PO (09:56)
[2018-02-14] MEDS: Lisinopril 2.5 MG Tablet PO (09:58)
[2018-02-14] MEDS: Pyridoxine HCl 100 MG Tablet PO (09:58)
[2018-02-14] MEDS: 0.9% NaCl Peripheral Flush Adult/Peds IV (10:27)
--- NOTE | 2018-02-14 11:32 | PCM.DC ---
You will use the following diet at home:: Cardiac Your food should be the consistency of: Regular Additional Instructions: Need RBC bleeding scan if further episode of GI bleed. Allergies/Adverse Reactions: Allergies Penicillins [PCN] Allergy (Severe, Verified 02/11/18 17:35) Hives diphenhydramine [From Benadryl] Allergy (Mild, Verified 02/11/18 17:35) restless legs Medications to take at Discharge Simvastatin [Zocor] 40 mg PO QHS 08/15/13 Multivitamin [Multiple Vitamins] 1 ea PO DAILY 09/26/17 Pyridoxine HCl [Vitamin B6] 100 mg PO DAILY 09/26/17 Albuterol Inhaler [Ventolin Hfa] 1 - 2 puff INHALATION Q4H PRN PRN #1 inhaler 10/14/17 Loratadine [Claritin] 10 mg PO DAILY 11/20/17 metoprolol succinate ER 25 mg tablet,extended release 24 hr 25 mg PO DAILY #30 tab 01/03/18 lisinopril 2.5 mg tablet 2.5 mg PO DAILY #30 tab 01/11/18 Clobetasol Propionate 15 gm TP QHS 14 Days #1 tube 01/30/18 Docusate Sodium [Colace] 100 mg PO DAILY 02/11/18 Pantoprazole Sodium [Protonix] 40 mg PO BID #30 tab 02/14/18 Primary Care Physician: Edvin Anthony [Primary Care Provider] - Please follow up with your Primary Care Physician in: in 2 weeks Please Follow Up With: Karri Oconnor MD When: in 4 weeks
--- NOTE | 2018-02-14 16:54 | DS.PCM_ITS ---
Discharge Date and Diagnosis Date of Admission: 02/11/18 Date of Discharge: 02/14/18 - Primary Discharge Diagnosis 1. Acute on Chronic normocytic anemia, and pancytopenia, multifactorial including history of multiple myeloma,most probably due to MDS with history of right breast cancer and chemotherapy in past; probably exacerbated by rectal bleedin. GI bleed most probably upper but exact site and etiology unclear: - Secondary Discharge Diagnosis Chronic Problems (Last Reviewed 02/06/18 @ 10:11 by Sarah Skinner) Neutropenia (Chronic) History of breast cancer (Chronic) Multiple myeloma (Chronic) History of stem cell transplant (Chronic) CAD (coronary artery disease) (Chronic) HTN (hypertension) (Chronic) Iron deficiency anemia (Chronic) Myelodysplasia (myelodysplastic syndrome) (Chronic) Multiple myeloma not having achieved remission (Chronic) Myelosuppression after chemotherapy (Chronic) Severe anemia (Chronic) Pancytopenia (Chronic) Hospital Course and Treatment Operations: None Summary of Care Provided: [] This is a 72-year-old female with of chronic anemia with multiple different etiologies including NHL, breast cancer and multiple myeloma not in remission, 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 Patient also felt increased weakness and fatigue but unclear about dyspnea on exertion as she is mostly homebound. 1. Acute on Chronic normocytic anemia, and pancytopenia, multifactorial including history of multiple myeloma,most probably due to MDS with history of right breast cancer and chemotherapy in past; probably exacerbated by rectal bleeding: Denies constipation and straining; moving regular bowel on stool softener. She did not had serial H&H monitoring. Patient had 3 units of PRBC transfusion. Hemoglobin went up 9.2 g percent. Lovenox is stable. She had bone marrow biopsy on December 2017 which showed [place] restricted plasma cells, comprising 4% of bone marrow elements consistent with plasma cell dyscrasias. Follow-up with oncologist Dr. Guy. 2. GI bleed most probably upper GI bleed, etiology unclear: She had extensive GI workup in the past including EGD, colonoscopy in 04/2017 and previous RBC scan and capsule endoscopy but was mostly unremarkable except she was found hemorrhoids. Patient has EGD and colonoscopy on 02/13/2018. EGD reported as diffuse gastritis otherwise normal EGD. Colonoscopy normal. Dr. Cage suggested a further episode of GI bleed, will need RBC scan. Advised follow-up with Dr. Oconnor with home she previously had GI workup. Electrolyte abnormality: Hypokalemia, hypocalcemia probably exacerbated by GI bleed: Monitor and replace accordingly. 3. Other chronic comorbidities include hypertension, dyslipidemia, CAD: Aspirin held for severe anemia and GI bleed 4. Neoplastic history including NHL, multiple myeloma status post stem cell transplant, history of MDS? and chronic iron deficiency anemia on intermittent IV Venofer: Follow Dr. Guy. DVT prophylaxis: SCDs. Pharmacological prophylaxis contraindicated. Discharge medication reconciliation done. Follow-up instructions completed. Patient was advised Protonix 40 mg twice daily for 1 week and then once daily. Total time spent, exact 35 minutes on discharge meds reconciliation, examination , review of imaging and blood test and discussion with the patient on follow-up instructions. Home Medications: Medications to take at Discharge Simvastatin [Zocor] 40 mg PO QHS 08/15/13 Multivitamin [Multiple Vitamins] 1 ea PO DAILY 09/26/17 Pyridoxine HCl [Vitamin B6] 100 mg PO DAILY 09/26/17 Albuterol Inhaler [Ventolin Hfa] 1 - 2 puff INHALATION Q4H PRN PRN #1 inhaler Loratadine [Claritin] 10 mg PO DAILY 11/20/17 metoprolol succinate ER 25 mg tablet,extended release 24 hr 25 mg PO DAILY #30 tab 01/03/18 lisinopril 2.5 mg tablet 2.5 mg PO DAILY #30 tab 01/11/18 Clobetasol Propionate 15 gm TP QHS 14 Days #1 tube 01/30/18 Docusate Sodium [Colace] 100 mg PO DAILY 02/11/18 Pantoprazole Sodium [Protonix] 40 mg PO BID #30 tab 02/14/18 Primary Care Physician: Edvin Anthony [Primary Care Provider] - Please follow up with your Primary Care Physician in: in 2 weeks Please Follow Up With: Karri Oconnor MD When: in 4 weeks Medical Necessity - Tobacco Use Smoking Status: Never smoker Tobacco Use: Non-smoker Meaningful Use Info Meaningful Use Diagnoses (Choose all that apply): None applicable Code Visit Inpatient E&M: 41337 [facility] Hosp
--- NOTE | 2018-02-16 15:56 | CASEMGMT ---
RN JACINTO Discharge Follow-UP Phone Call Lace:15 Strata:4 Call Date: 02/16/15 Time of Call:1550 Duration: 1 min Adm Dx:Sever Anemia, GI Bleed RN JACINTO attempted follow-up phone call at this time. No answer and voice message left with return contact information. Upon review of discharge instructions, no follow-up appointments scheduled.
== END 2018-02-14 13:45 | disposition home or self-care (01) | DRG 812 ==
LOC: ED 18:08 → ICU 20:02 → MS3 02-14 07:52
PROVIDERS: Internal Medicine Critical Care Medicine; Surgery; Admitting Provider Family Medicine; Emergency Provider Emergency Medicine; Family Provider Family Medicine; PCP Family Medicine; Visit Provider Internal Medicine
PROC: 0DJD8ZZ Inspection of Lower Intestinal Tract, Via Natural or Artificial Opening Endoscopic (ICD-10-PCS; CPT 45378; principal; 2018-02-13 12:15)
DX: D62 Acute posthemorrhagic anemia (principal); C90.00 Multiple myeloma not having achieved remission; C85.90 Non-Hodgkin lymphoma, unspecified, unspecified site; Z94.84 Stem cells transplant status; D61.818 Other pancytopenia; I25.10 Atherosclerotic heart disease of native coronary artery without angina pectoris; D46.9 Myelodysplastic syndrome, unspecified; I10 Essential (primary) hypertension; E87.6 Hypokalemia; E83.51 Hypocalcemia; Z85.3 Personal history of malignant neoplasm of breast; Z79.899 Other long term (current) drug therapy; E78.5 Hyperlipidemia, unspecified; K64.8 Other hemorrhoids; Z95.5 Presence of coronary angioplasty implant and graft; K29.50 Unspecified chronic gastritis without bleeding; D50.0 Iron deficiency anemia secondary to blood loss (chronic); F41.9 Anxiety disorder, unspecified; Z66 Do not resuscitate
CPT/HCPCS: 36415; 80048; 80076; 82274; 82330; 83605; 83690; 83735; 84100; 85014; 85018; 85025; 85610; 85730; 86850; 86900; 86920; 86922; 87641; 88305; 88342; 97110; 97116; 97162; 97165; 97530; 97535; 97802; 99285; J7030; J7050; P9016; P9040; A4216; J0610

== ENCOUNTER 2018-02-19 03:01 | Inpatient (IN) | payer MEDICARE, BC, SELFPAY ==
[2018-02-19] VITALS (27 sets, daily range): BP systolic 122–160; BP diastolic 59–90; PULSE 80–107; RESP 15–18; TEMP 36.4–37.6; O2SAT 93–100; BMI 26.8; BMI 26.2; BMI 26.3
[2018-02-19] MEDS: Oxymetazoline 0.05% 1 SPRAY SPRAY.BTL 2 SPRAY NASAL (03:30)
[2018-02-19 04:35] LABS: International Normalized Ratio 1.3; Prothrombin Time (Protime)PT. 15.9 SECONDS (11.7-14.9)
[2018-02-19 04:36] LABS: Partial Thromboplast Time 36.1 Seconds (24.1-36.2)
[2018-02-19 04:43] LABS: Absolute Neutrophil Count 0.5 X10^3/uL (2.0-7.7); Basophil# 0.01 X10^3/uL; Basophil% 0.7 % (0-1); Eosinophil# 0.03 X10^3/uL; Hematocrit 23.3 % (37-47); Hemoglobin 7.4 g/dl (12.0-15.0); Lymphocyte % 45.8 % (19-41); Mean Corp Hgb Conc 31.8 g/gl (32-36); Mean Corpuscular Hgb 29.8 pg (27.0-32.0); Mean Platelet Vol. 11.1 fl (6.2-12.0); Monocyte% 19.6 % (0-10); Neutrophil # 0.47 X10^3/uL (2.7-7.7); Neutrophil % 30.6 % (47-70); RBC Distribution Width CV 18.3 % (11.6-14.6); RBC Distribution Width SD 60.7 fl (35.1-43.9); Red Blood Count 2.48 M/mm3 (4.2-5.4); White Blood Count 1.5 K/mm3 (4.4-11.0)
[2018-02-19 04:47] LABS: Differential Indicated SCAN CRITERIA MET; POSITIVE COUNT YES; POSITIVE DIFFERENTIAL YES; POSITIVE MORPHOLOGY NO; Platelet Count 31 K/mm3 (150-450)
--- NOTE | 2018-02-19 04:47 | ED.RN ---
aware of platelets of 31.
--- NOTE | 2018-02-19 05:30 | PCM.HP.STD ---
Problem List (1) Neutropenia Status: Chronic Qualifiers: Neutropenia type: unspecified Qualified Code(s): D70.9 - Neutropenia, unspecified (2) History of breast cancer Status: Chronic (3) Multiple myeloma Status: Chronic Qualifiers: Multiple myeloma remission status: unspecified Qualified Code(s): C90.00 - Multiple myeloma not having achieved remission (4) History of stem cell transplant Status: Chronic (5) CAD (coronary artery disease) Status: Chronic Qualifiers: Coronary Disease-Associated Artery/Lesion type: unspecified vessel or lesion type [place] vs. transplanted heart: unspecified whether [place] or transplanted heart Associated angina: angina presence unspecified Qualified Code(s): I25.10 - Atherosclerotic heart disease of [place] coronary artery without angina pectoris (6) HTN (hypertension) Status: Chronic Qualifiers: Hypertension type: essential hypertension Qualified Code(s): I10 - Essential (primary) hypertension (7) Iron deficiency anemia Status: Chronic Qualifiers: Iron deficiency anemia type: unspecified iron deficiency Qualified Code(s): D50.9 - Iron deficiency anemia, unspecified (8) Myelodysplasia (myelodysplastic syndrome) Status: Chronic (9) Malignant neoplasm of right female breast Status: Chronic Qualifiers: Breast location: unspecified site of breast Estrogen receptor status: unspecified Qualified Code(s): C50.911 - Malignant neoplasm of unspecified site of right female breast (10) Severe anemia Status: Chronic (11) Epistaxis, recurrent Status: Acute (12) Acute blood loss anemia Status: Acute (13) Pancytopenia Status: Chronic History of Present Illness Date of Admission: 02/19/18 Chief Complaint: Nosebleed The patient is a 72 y/o F w/ PMHx: CAD, HTN, History of Breast CA (R), History of Multiple Myeloma, History of [place] Lymphoma, ? History of MDS, History of stem cell txp, Chronic Fe Deficiency Anemia previously being given IV venofer and intermittent PRBC administration, recent 02/11/18 admission w/ GI bleed w/ unremarkable EGD who now re-presents to the [facility] ED on 02/19/18 with onset nose bleed, ongoing, starting at 02/18/18 ~ 11:00 pm. She dies any associated lightheadedness, dizziness with the epistaxis. In the ED work-up included T 98.1, heart rate 87, BP 141/77, respiratory rate 18, 100% on room air, CBC with WBC 1.5, hemoglobin 7.4, platelet 31, absolute neutrophil 0.5. In the ED Hem/Onc contacted per ED and patient ordered 2 pcks plts and 2 u PRBC. Past Medical History Past Medical History (Chronic Problems): Chronic Problems (Last Reviewed 02/06/18 @ 10:11 by Sarah Skinner) Neutropenia (Chronic) History of breast cancer (Chronic) Multiple myeloma (Chronic) History of stem cell transplant (Chronic) CAD (coronary artery disease) (Chronic) HTN (hypertension) (Chronic) Iron deficiency anemia (Chronic) Myelodysplasia (myelodysplastic syndrome) (Chronic) Malignant neoplasm of right female breast (Chronic) Multiple myeloma not having achieved remission (Chronic) Myelosuppression after chemotherapy (Chronic) Severe anemia (Chronic) Pancytopenia (Chronic) Allergies Penicillins [PCN] Allergy (Severe, Verified 02/19/18 03:01) Hives diphenhydramine [From Benadryl] Allergy (Mild, Verified 02/19/18 03:01) restless legs Home Medications: Ambulatory Orders Medication Instructions Recorded Simvastatin [Zocor] 40 mg PO QHS 08/15/13 Multivitamin [Multiple Vitamins] 1 ea PO DAILY 09/26/17 Pyridoxine HCl [Vitamin B6] 100 mg PO DAILY 09/26/17 Albuterol Inhaler [Ventolin Hfa] 1 - 2 puff INHALATION Q4H PRN PRN 10/14/17 #1 inhaler Loratadine [Claritin] 10 mg PO DAILY 11/20/17 metoprolol succinate ER 25 mg 25 mg PO DAILY #30 tab 01/03/18 tablet,extended release 24 hr lisinopril 2.5 mg tablet 2.5 mg PO DAILY #30 tab 01/11/18 Clobetasol Propionate 15 gm TP QHS 14 Days #1 tube 01/30/18 Docusate Sodium [Colace] 100 mg PO DAILY 02/11/18 Pantoprazole Sodium [Protonix] 40 mg PO BID #30 tab 02/14/18 Surgical History: cholecystectomy, hysterectomy, mastectomy Psychiatric History: Anxiety 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 Denies: Chills, Fever, Weight Change HEENT: Reports: Nasal bleeding. Denies: Head Aches, Sinus Congestion, Sinus Drainage Cardiovascular: Denies: Chest Pain, Palpitations Respiratory: Denies: Cough, Shortness of breath at rest, Sputum production Gastrointestinal: Denies: Abdominal Pain, Nausea, Vomiting Genitourinary: Denies: Dysuria Musculoskeletal: Denies: Joint Pain, Joint Tenderness Skin: Denies: Rash, Wounds Neurological: Denies: Numbness, Tingling, Focal weakness Psychiatric: Denies: Anxiety, Depression, Homicidal Ideations, Suicidal Ideations Hematologic/ Lymphatic: Reports: Anemia, Easy Bruising, Easy Bleeding VTE Information - Inpt Only VTE Present on Admission: No VTE Mechan Device Prophylaxis: SCD's VTE Pharm Prophylaxis ordered?: No Reason prophylaxis not ordered:: Medical Contraindication Subjective: Seated upright in the ED bed, fatigued appearing, BL nasal packing in place, NAD. Objective: Physical Examination: General: awake, alert, oriented x 3 and cooperative, seated upright in the ED bed in no apparent distress, fatigued, pale appearance. Skin: pale color, turgor, no icterus, cyanosis. HEENT: AT/NC, EOMI, PERRLA, dry MM, BL nasal packing in place, no carotid bruits or JVD noted. Lungs: Diminished BS bases, moderate effort, no rales, ronchi or wheezing. Heart: Regular rate with regular rhythm; no gallop, rub audible. Abdomen: soft, NTTP, ND, normal BS, no HSM. Extremities: no cyanosis, clubbing, or edema. Neurological: patient awake, alert, oriented x 3; cognitive function intact; pupils equally reactive to light and accomodation; cranial nerves II-XII grossly normal, moving all 4 extremities, no focal deficits, strength severely globally decreased. Psychiatric: affect appears fatigued, no acute evidence of depressive or anxiety feelings. - Physical Exam Vital Signs Temp Pulse Resp BP Pulse Ox 98.1 F 97 18 141/77 H 100 02/19/18 03:01 02/19/18 03:01 02/19/18 03:01 02/19/18 03:01 02/19/18 03:01 Oxygen Delivery Method Room Air Weight: 146 lb 9.718 oz Body Mass Index (BMI) 26.8 Laboratory Tests Past 24 Hrs 02/19/18 02/19/18 02/19/18 03:23 03:23 04:20 WBC Cancelled Corrected WBC Cancelled RBC Cancelled Hgb Cancelled Hct Cancelled MCV Cancelled MCH Cancelled MCHC Cancelled RDW Cancelled RDW Differential Cancelled Plt Count Cancelled MPV Cancelled Immature Gran % (Auto) Cancelled Neut % (Auto) Cancelled Lymph % (Auto) Cancelled [place] % (Auto) Cancelled Eos % (Auto) Cancelled Baso % (Auto) Cancelled Immature Gran # (Auto) Cancelled Absolute Neuts (auto) Cancelled Absolute Lymphs (auto) Cancelled Absolute Monos (auto) Cancelled Total Counted Cancelled Neutrophils % (Manual) Cancelled Band Neutrophils % Cancelled Lymphocytes % (Manual) Cancelled Monocytes % (Manual) Cancelled Eosinophils % (Manual) Cancelled Basophils % (Manual) Cancelled Metamyelocytes % Cancelled Myelocytes % Cancelled Promyelocytes % Cancelled Blast Cells % Cancelled Plasma Cell % (Manual) Cancelled Other Cells % Cancelled Lymphocytes # Cancelled Nucleated RBCs/100 WBC Cancelled Differential Comment Cancelled Diff Path Review Cancelled Hypersegmented Neuts Cancelled Atypical Lymphocytes Cancelled Reactive Lymphocytes Cancelled Smudge Cells Cancelled Eosinophilia # Cancelled Basophilia # Cancelled Toxic Granulation Cancelled Dohle Bodies Cancelled Anna Rods Cancelled Platelet Estimate Cancelled Plt Morphology Comment Cancelled RBC Morphology Cancelled Polychromasia Cancelled Hypochromasia Cancelled Poikilocytosis Cancelled Basophilic Stippling Cancelled Anisocytosis Cancelled Microcytosis Cancelled Macrocytosis Cancelled Spherocytes Cancelled Sickle Cells Cancelled Target Cells Cancelled Tear Drop Cells Cancelled Ovalocytes Cancelled Stomatocytes Cancelled Reynolds-Sangrey Bodies Cancelled Margy Cells Cancelled Bite Cells Cancelled Acanthocytes (Spur) Cancelled Rouleaux Cancelled Schistocytes Cancelled PT Cancelled 15.9 H INR Cancelled 1.3 APTT Cancelled 36.1 02/19/18 04:20 WBC 1.5 L Corrected WBC RBC 2.48 L Hgb 7.4 L Hct 23.3 L MCV 94.0 MCH 29.8 MCHC 31.8 L RDW 18.3 H RDW Differential 60.7 H Plt Count 31 L* MPV 11.1 Immature Gran % (Auto) 1.300 H Neut % (Auto) 30.6 L Lymph % (Auto) 45.8 H [place] % (Auto) 19.6 H Eos % (Auto) 2.0 Baso % (Auto) 0.7 Immature Gran # (Auto) Absolute Neuts (auto) 0.5 L Absolute Lymphs (auto) 0.70 L Absolute Monos (auto) Total Counted Pending Neutrophils % (Manual) Band Neutrophils % Lymphocytes % (Manual) Monocytes % (Manual) Eosinophils % (Manual) Basophils % (Manual) Metamyelocytes % Myelocytes % Promyelocytes % Blast Cells % Plasma Cell % (Manual) Other Cells % Lymphocytes # Nucleated RBCs/100 WBC Differential Comment Diff Path Review Hypersegmented Neuts Atypical Lymphocytes Reactive Lymphocytes Smudge Cells Eosinophilia # Basophilia # Toxic Granulation Dohle Bodies Anna Rods Platelet Estimate Plt Morphology Comment RBC Morphology Polychromasia Hypochromasia Poikilocytosis Basophilic Stippling Anisocytosis Microcytosis Macrocytosis Spherocytes Sickle Cells Target Cells Tear Drop Cells Ovalocytes Stomatocytes Reynolds-Sangrey Bodies [place] Cells Bite Cells Acanthocytes (Spur) Rouleaux Schistocytes PT INR APTT Assessment/Plan The patient is a 72 y/o F w/ PMHx: CAD, HTN, History of Breast CA (R), History of Multiple Myeloma, History of [place] Lymphoma, ? History of MDS, History of stem cell txp, Chronic Fe Deficiency Anemia previously being given IV venofer and intermittent PRBC administration, recent 02/11/18 admission w/ GI bleed w/ unremarkable EGD who now re-presents to the [facility] ED on 02/19/18 with onset nose bleed, ongoing, starting at 02/18/18 ~ 11:00 pm. (1) Acute on Chronic Normocytic Anemia, Multifactorial, secondary to underlying MDS, Hx of [place] Lymphoma, Hx of R Breast CA, Hx of Multiple Myeloma w/ Severe Fe Deficiency Anemia requiring Fe Administration/Serial PRBC administration with Acute on Chronic Pancytopenia secondary to Acute Epistaxis: Will admit to PMS, ED initiated Plts and PRBC (2 units PRBC and 2 packs Plts) given Hgb admision 7.4 and Plts 31, maintain on IVFs, obtain serial H+H q 6 hours, packing in place, pending Dr. Butler consultation, maintain on PPI, maintain on neutropenic precautions, maintain on rocephin IV while packing is in place, transition to oral cephalosporin given PCN allergy upon discharge if packing remains. Maintain NPO status until assure bleeding completely stopped given presenting notable acute on chronic pancytopenia. Hem/Onc also consulted. (2) Hypertension: Continue home regimen lisinopril, metoprolol with hold parameters, PRN hydralazine. (3) Hyperlipidemia: Continue home statin regimen. (4) CAD: Continue home statin, BB, not on ASA regimen given presentation. (5) Anxiety: Continue home low dose PRN ativan. (6) DVT Prophylaxis: SCDs, defer chemoprophylaxis given history and acute presentation. (7) CODE status: DNR-CCA, no intubation status. Code Visit Inpatient E&M: 63393 Init Hosp L3
[2018-02-19 05:33] LABS: Differential Comment SCANNED; Platelet Estimate MKD DEC (ADEQ)
--- NOTE | 2018-02-19 05:39 | NURSING ---
ASSIST X 1 TO THE BATHROOM. PT HAD A SMALL BOWEL MOVEMENT WITH A TINGE OF BLOOD NOTED.
--- NOTE | 2018-02-19 05:41 | HP.PCM_ITS ---
Problem List (1) Neutropenia Status: Chronic Qualifiers: Neutropenia type: unspecified Qualified Code(s): D70.9 - Neutropenia, unspecified (2) History of breast cancer Status: Chronic (3) Multiple myeloma Status: Chronic Qualifiers: Multiple myeloma remission status: unspecified Qualified Code(s): C90.00 - Multiple myeloma not having achieved remission (4) History of stem cell transplant Status: Chronic (5) CAD (coronary artery disease) Status: Chronic Qualifiers: Coronary Disease-Associated Artery/Lesion type: unspecified vessel or lesion type [place] vs. transplanted heart: unspecified whether [place] or transplanted heart Associated angina: angina presence unspecified Qualified Code(s): I25.10 - Atherosclerotic heart disease of [place] coronary artery without angina pectoris (6) HTN (hypertension) Status: Chronic Qualifiers: Hypertension type: essential hypertension Qualified Code(s): I10 - Essential (primary) hypertension (7) Iron deficiency anemia Status: Chronic Qualifiers: Iron deficiency anemia type: unspecified iron deficiency Qualified Code(s) : D50.9 - Iron deficiency anemia, unspecified (8) Myelodysplasia (myelodysplastic syndrome) Status: Chronic (9) Malignant neoplasm of right female breast Status: Chronic Qualifiers: Breast location: unspecified site of breast Estrogen receptor status: unspecified Qualified Code(s): C50.911 - Malignant neoplasm of unspecified site of right female breast (10) Severe anemia Status: Chronic (11) Epistaxis, recurrent Status: Acute (12) Acute blood loss anemia Status: Acute (13) Pancytopenia Status: Chronic History of Present Illness Date of Admission: 02/19/18 Chief Complaint: Nosebleed The patient is a 72 y/o F w/ PMHx: CAD, HTN, History of Breast CA (R), History of Multiple Myeloma, History of [place] Lymphoma, ? History of MDS, History of stem cell txp, Chronic Fe Deficiency Anemia previously being given IV venofer and intermittent PRBC administration, recent 02/11/18 admission w/ GI bleed w/ unremarkable EGD who now re-presents to the [facility] ED on 02/19/18 with onset nose bleed, ongoing, starting at 02/18/18 ~ 11:00 pm. She dies any associated lightheadedness, dizziness with the epistaxis. In the ED work-up included T 98.1 , heart rate 87, BP 141/77, respiratory rate 18, 100% on room air, CBC with WBC 1.5, hemoglobin 7.4, platelet 31, absolute neutrophil 0.5. In the ED Hem/Onc contacted per ED and patient ordered 2 pcks plts and 2 u PRBC. Past Medical History Past Medical History (Chronic Problems): Chronic Problems (Last Reviewed 02/06/18 @ 10:11 by Sarah Skinnre) Neutropenia (Chronic) History of breast cancer (Chronic) Multiple myeloma (Chronic) History of stem cell transplant (Chronic) CAD (coronary artery disease) (Chronic) HTN (hypertension) (Chronic) Iron deficiency anemia (Chronic) Myelodysplasia (myelodysplastic syndrome) (Chronic) Malignant neoplasm of right female breast (Chronic) Multiple myeloma not having achieved remission (Chronic) Myelosuppression after chemotherapy (Chronic) Severe anemia (Chronic) Pancytopenia (Chronic) Allergies Penicillins [PCN] Allergy (Severe, Verified 02/19/18 03:01) Hives diphenhydramine [From Benadryl] Allergy (Mild, Verified 02/19/18 03:01) restless legs Home Medications: Ambulatory Orders Medication Instructions Recorded Simvastatin [Zocor] 40 mg PO QHS 08/15/13 Multivitamin [Multiple Vitamins] 1 ea PO DAILY 09/26/17 Pyridoxine HCl [Vitamin B6] 100 mg PO DAILY 09/26/17 Albuterol Inhaler [Ventolin Hfa] 1 - 2 puff INHALATION Q4H PRN PRN 10/14/17 #1 inhaler Loratadine [Claritin] 10 mg PO DAILY 11/20/17 metoprolol succinate ER 25 mg 25 mg PO DAILY #30 tab 01/03/18 tablet,extended release 24 hr lisinopril 2.5 mg tablet 2.5 mg PO DAILY #30 tab 01/11/18 Clobetasol Propionate 15 gm TP QHS 14 Days #1 tube 01/30/18 Docusate Sodium [Colace] 100 mg PO DAILY 02/11/18 Pantoprazole Sodium [Protonix] 40 mg PO BID #30 tab 02/14/18 Surgical History: cholecystectomy, hysterectomy, mastectomy Psychiatric History: Anxiety 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 Denies: Chills, Fever, Weight Change HEENT: Reports: Nasal bleeding. Denies: Head Aches, Sinus Congestion, Sinus Drainage Cardiovascular: Denies: Chest Pain, Palpitations Respiratory: Denies: Cough, Shortness of breath at rest, Sputum production Gastrointestinal: Denies: Abdominal Pain, Nausea, Vomiting Genitourinary: Denies: Dysuria Musculoskeletal: Denies: Joint Pain, Joint Tenderness Skin: Denies: Rash, Wounds Neurological: Denies: Numbness, Tingling, Focal weakness Psychiatric: Denies: Anxiety, Depression, Homicidal Ideations, Suicidal Ideations Hematologic/ Lymphatic: Reports: Anemia, Easy Bruising, Easy Bleeding VTE Information - Inpt Only VTE Present on Admission: No VTE Mechan Device Prophylaxis: SCD's VTE Pharm Prophylaxis ordered?: No Reason prophylaxis not ordered:: Medical Contraindication Subjective: Seated upright in the ED bed, fatigued appearing, BL nasal packing in place, NAD. Objective: Physical Examination: General: awake, alert, oriented x 3 and cooperative, seated upright in the ED bed in no apparent distress, fatigued, pale appearance. Skin: pale color, turgor, no icterus, cyanosis. HEENT: AT/NC, EOMI, PERRLA, dry MM, BL nasal packing in place, no carotid bruits or JVD noted. Lungs: Diminished BS bases, moderate effort, no rales, ronchi or wheezing. Heart: Regular rate with regular rhythm; no gallop, rub audible. Abdomen: soft, NTTP, ND, normal BS, no HSM. Extremities: no cyanosis, clubbing, or edema. Neurological: patient awake, alert, oriented x 3; cognitive function intact; pupils equally reactive to light and accomodation; cranial nerves II-XII grossly normal, moving all 4 extremities, no focal deficits, strength severely globally decreased. Psychiatric: affect appears fatigued, no acute evidence of depressive or anxiety feelings. - Physical Exam Vital Signs Temp Pulse Resp BP Pulse Ox 98.1 F 97 18 141/77 H 100 02/19/18 03:01 02/19/18 03:01 02/19/18 03:01 02/19/18 03:01 02/19/18 03:01 Oxygen Delivery Method Room Air Weight: 146 lb 9.718 oz Body Mass Index (BMI) 26.8 Laboratory Tests Past 24 Hrs 02/19/18 02/19/18 02/19/18 03:23 03:23 04:20 WBC Cancelled Corrected WBC Cancelled RBC Cancelled Hgb Cancelled Hct Cancelled MCV Cancelled MCH Cancelled MCHC Cancelled RDW Cancelled RDW Differential Cancelled Plt Count Cancelled MPV Cancelled Immature Gran % (Auto) Cancelled Neut % (Auto) Cancelled Lymph % (Auto) Cancelled [place] % (Auto) Cancelled Eos % (Auto) Cancelled Baso % (Auto) Cancelled Immature Gran # (Auto) Cancelled Absolute Neuts (auto) Cancelled Absolute Lymphs (auto) Cancelled Absolute Monos (auto) Cancelled Total Counted Cancelled Neutrophils % (Manual) Cancelled Band Neutrophils % Cancelled Lymphocytes % (Manual) Cancelled Monocytes % (Manual) Cancelled Eosinophils % (Manual) Cancelled Basophils % (Manual) Cancelled Metamyelocytes % Cancelled Myelocytes % Cancelled Promyelocytes % Cancelled Blast Cells % Cancelled Plasma Cell % (Manual) Cancelled Other Cells % Cancelled Lymphocytes # Cancelled Nucleated RBCs/100 WBC Cancelled Differential Comment Cancelled Diff Path Review Cancelled Hypersegmented Neuts Cancelled Atypical Lymphocytes Cancelled Reactive Lymphocytes Cancelled Smudge Cells Cancelled Eosinophilia # Cancelled Basophilia # Cancelled Toxic Granulation Cancelled Dohle Bodies Cancelled Anna Rods Cancelled Platelet Estimate Cancelled Plt Morphology Comment Cancelled RBC Morphology Cancelled Polychromasia Cancelled Hypochromasia Cancelled Poikilocytosis Cancelled Basophilic Stippling Cancelled Anisocytosis Cancelled Microcytosis Cancelled Macrocytosis Cancelled Spherocytes Cancelled Sickle Cells Cancelled Target Cells Cancelled Tear Drop Cells Cancelled Ovalocytes Cancelled Stomatocytes Cancelled [place] Bodies Cancelled Margy Cells Cancelled Bite Cells Cancelled Acanthocytes (Spur) Cancelled Rouleaux Cancelled Schistocytes Cancelled PT Cancelled 15.9 H INR Cancelled 1.3 APTT Cancelled 36.1 02/19/18 04:20 WBC 1.5 L Corrected WBC RBC 2.48 L Hgb 7.4 L Hct 23.3 L MCV 94.0 MCH 29.8 MCHC 31.8 L RDW 18.3 H RDW Differential 60.7 H Plt Count 31 L* MPV 11.1 Immature Gran % (Auto) 1.300 H Neut % (Auto) 30.6 L Lymph % (Auto) 45.8 H [place] % (Auto) 19.6 H Eos % (Auto) 2.0 Baso % (Auto) 0.7 Immature Gran # (Auto) Absolute Neuts (auto) 0.5 L Absolute Lymphs (auto) 0.70 L Absolute Monos (auto) Total Counted Pending Neutrophils % (Manual) Band Neutrophils % Lymphocytes % (Manual) Monocytes % (Manual) Eosinophils % (Manual) Basophils % (Manual) Metamyelocytes % Myelocytes % Promyelocytes % Blast Cells % Plasma Cell % (Manual) Other Cells % Lymphocytes # Nucleated RBCs/100 WBC Differential Comment Diff Path Review Hypersegmented Neuts Atypical Lymphocytes Reactive Lymphocytes Smudge Cells Eosinophilia # Basophilia # Toxic Granulation Dohle Bodies Anna Rods Platelet Estimate Plt Morphology Comment RBC Morphology Polychromasia Hypochromasia Poikilocytosis Basophilic Stippling Anisocytosis Microcytosis Macrocytosis Spherocytes Sickle Cells Target Cells Tear Drop Cells Ovalocytes Stomatocytes [place] Bodies Margy Cells Bite Cells Acanthocytes (Spur) Rouleaux Schistocytes PT INR APTT Assessment/Plan The patient is a 72 y/o F w/ PMHx: CAD, HTN, History of Breast CA (R), History of Multiple Myeloma, History of [place] Lymphoma, ? History of MDS, History of stem cell txp, Chronic Fe Deficiency Anemia previously being given IV venofer and intermittent PRBC administration, recent 02/11/18 admission w/ GI bleed w/ unremarkable EGD who now re-presents to the [facility] ED on 02/19/18 with onset nose bleed, ongoing, starting at 02/18/18 ~ 11:00 pm. (1) Acute on Chronic Normocytic Anemia, Multifactorial, secondary to underlying MDS, Hx of [place] Lymphoma, Hx of R Breast CA, Hx of Multiple Myeloma w/ Severe Fe Deficiency Anemia requiring Fe Administration/Serial PRBC administration with Acute on Chronic Pancytopenia secondary to Acute Epistaxis: Will admit to PMS, ED initiated Plts and PRBC (2 units PRBC and 2 packs Plts) given Hgb admision 7.4 and Plts 31, maintain on IVFs, obtain serial H+H q 6 hours, packing in place , pending Dr. Butler consultation, maintain on PPI, maintain on neutropenic precautions, maintain on rocephin IV while packing is in place, transition to oral cephalosporin given PCN allergy upon discharge if packing remains. Maintain NPO status until assure bleeding completely stopped given presenting notable acute on chronic pancytopenia. Hem/Onc also consulted. (2) Hypertension: Continue home regimen lisinopril, metoprolol with hold parameters, PRN hydralazine. (3) Hyperlipidemia: Continue home statin regimen. (4) CAD: Continue home statin, BB, not on ASA regimen given presentation. (5) Anxiety: Continue home low dose PRN ativan. (6) DVT Prophylaxis: SCDs, defer chemoprophylaxis given history and acute presentation. (7) CODE status: DNR-CCA, no intubation status. Code Visit Inpatient E&M: 50476 Init Hosp L3
--- NOTE | 2018-02-19 05:53 | ED.DCSUM_ITS ---
- ER Visit Summary Date of Service: 02/19/18 Chief Complaint: Nosebleed History of Present Illness: The patient is a 72 F with a nosebleed that started overnight tonight. Blood is coming from both nostrils. The patient has a history of multiple myeloma and pancytopenia. She was recently admitted for GI bleed. She denies any blood thinner use. Physical Examination: Vital signs unremarkable. Afebrile. Patient has bilateral epistaxis with a clamp over her nose. Oropharynx shows blood streaking down posteriorly. Airway patent. Lungs clear. Abdomen soft. Heart regular. Skin normal in color. Test Results: White count 1.5, hemoglobin 7.4, platelets 31. INR 1.3 and PTT 36.1. BMP pending. Type and cross pending. Emergency Department Course and Treatment: Epistaxis was not resolving with direct pressure. I was concerned that she might be anemic and thrombocytopenic. Afrin and lidocaine applied to her bilateral nostrils. Patient blew her nose and blew out some large clots. I cannot identify definite source of bleeding. Bilateral packing applied. At the patient's request, I did apply Surgicel around the rapid Rhino in the right nare. Her left nare was smaller, and I could not apply Surgicel. Balloon inflated with air. She tolerated this very well. It seemed to stop the bleeding. I attempted to speak with nurse practitioner Luzmaria, but at the time of this dictation I have not heard back. Type and cross performed. I ordered 1 unit of packed red cells and I also ordered 2 platelets. Blood products are irradiated. I spoke with the hospitalist who will admit. Treatment Plan: As above Disposition: Admission Impression: 1. Posterior epistaxis 2. Pancytopenia This note was generated with [employer] dictation software. It may contain incorrect words, spelling, and punctuation that were not noted in review of the chart prior to signing ED Disposition - Plan for ED Patient: Chief Complaint: Nosebleed Referrals: Edvin Anthony [Primary Care Provider] -
[2018-02-19 07:44] LABS: Hematocrit 23.2 % (37-47); Hemoglobin 7.4 g/dl (12.0-15.0)
[2018-02-19 08:13] LABS: Anion Gap 7 (5-15); BUN 21 mg/dL (7-18); BUN/Creat Ratio 30.7 RATIO (10-20); Calcium,Total 8.6 mg/dL (8.5-10.1); Chloride 110 mmol/L (98-107); Creatinine, Serum 0.68 mg/dL (0.55-1.02); EST Glomerular Filtration Rate 89 mL/min (>60); Est Glom Filt Rate - Afr Amer 108 mL/min (>60); Estimated Creatinine Clearance 39.04 ml/min; Glucose 97 mg/dL (74-106); Magnesium 2.2 mg/dL (1.6-2.6); Potassium 4.1 mmol/L (3.5-5.1); Sodium Level 143 mmol/L (136-145)
--- NOTE | 2018-02-19 08:26 | PN_ITS ---
Subjective: Patient was seen and examined. She continues to have epistaxis. Has bilateral nose packing done in the ED, denies any headache or fever or chills dizziness or chest pain. Patient has had one bloody bowel movement. She has history of GI bleeds with unremarkable workup except for hemorrhoids. Vitals/I&O's: Vital Signs Temp Pulse Resp BP Pulse Ox 97.9 F 87 18 152/76 H 100 02/19/18 07:00 02/19/18 07:00 02/19/18 07:00 02/19/18 07:00 02/19/18 07:00 Oxygen Delivery Method Room Air Weight: 65.136 kg Body Mass Index (BMI) 26.2 General: Alert, Oriented x3, Cooperative, No apparent distress HEENT: Atraumatic, PERRLA, EOMI, Normocephalic, - - Bilateral anterior nares packing, which is soaked, with some light red epistaxis Oral: Moist Mucosa Neck: Supple Lungs: Clear to auscultation, Normal air movement Cardiovascular: Regular rate, Regular Rhythm, Normal S1, Normal S2, No murmurs Abdomen: Bowel Sounds Present, Soft, Non Tender, Non-Distended, No Hepato- splenomegaly Extremities: No edema Skin: No rashes, No breakdown Musculoskeletal: No Tenderness to Palpation of Joints or Extremities Lymphatic: No Cervical, Supraclavicular, or Inguinal Adenopathy Neurological: Cranial nerves II-XII grossly intact Psych/Mental Status: Normal Affect, Appropriate Laboratory Results 02/19/18 06:09: Blood Type A NEGATIVE, Antibody Screen NEGATIVE, Crossmatch See Detail 02/19/18 06:09: Crossmatch See Detail 02/19/18 07:30: Sodium 143, Potassium 4.1, Chloride 110 H, Carbon Dioxide 26.0, Anion Gap 7, BUN 21 H, Creatinine 0.68, Estim Creat Clear Calc 39.04, Est GFR ( MDRD) Af Amer 108, Est GFR (MDRD) Non-Af 89, BUN/Creatinine Ratio 30.7 H, Glucose 97, Calcium 8.6, Magnesium 2.2 02/19/18 07:30: Hgb 7.4 L, Hct 23.2 L Current Medications Al Hydroxide/Mg Hydroxide (Mylanta Ii) 30 ml PO Q6H PRN PRN PRN Reason: Gastric burning Albuterol Sulfate (Ventolin Aerosols) 2.5 mg INHALATION Q2H PRN PRN PRN Reason: dyspnea, wheezing Atorvastatin Calcium (Lipitor) 20 mg PO QHS MONIKA Docusate Sodium (Colace) 100 mg PO DAILY MONIKA Ceftriaxone Sodium (Rocephin) 1 gm in 50 mls @ 100 mls/hr IV Q24H MONIKA Lisinopril (Zestril) 2.5 mg PO DAILY MONIKA Loratadine (Claritin) 10 mg PO DAILY MONIKA Magnesium Hydroxide (Milk Of Magnesia) 30 ml PO DAILY PRN PRN PRN Reason: Constipation Metoprolol Succinate (Toprol Xl (Beta Freedom)) 25 mg PO DAILY MONIKA Ondansetron HCl (Zofran) 4 mg IV Q8H PRN PRN PRN Reason: NAUSEA Pantoprazole Sodium (Protonix) 40 mg PO BID MONIKA Promethazine HCl (Phenergan) 12.5 mg IV Q6H PRN PRN PRN Reason: NAUSEA/VOMITING Pyridoxine HCl (Vitamin B-6) 100 mg PO DAILY [facility] Medical Necessity - Tobacco Use Smoking Status: Never smoker Tobacco Use: Non-smoker Assessment/Plan 72 y/o F with with multiple comorbidities, recently admitted on 02/11/2018 with GI bleed, with unremarkable workup, admitted with epistaxis 1. Epistaxis likely related to severe thrombocytopenia, status post bilateral Adrai nares packing, epistaxis still ongoing, stable vitals, patient admitted platelet count of 31,000, being given platelets, will check platelet levels after transfusion in the morning 2. Acute on Chronic Normocytic Anemia, in the setting of pancytopenia, multifactorial, secondary to underlying MDS, Hx of NH Lymphoma, Hx of R Breast CA, Hx of Multiple Myeloma w/ Severe Fe Deficiency Anemia requiring Fe Administration, Serial PRBC administration, but this was 1 unit packed RBC, repeat hemoglobin is 7.6, not different from earlier hemoglobin was 7.4. History of CAD, will transfuse 2 units with a goal of getting more than Hb more than 10, give Lasix IV in between. 3. Hypertension, uncontrolled, on lisinopril 2.5, will continue to monitor this with as needed hydralazine so that we do not to drop her blood pressures in the light of ongoing epistaxis 4. GI bleed, one episode of bleeding per rectum, recent discharge for above condition, will switch from p.o. PPI to IV PPI, if patient continues to bleed per rectum, will consult Dr. Cage and get a bleeding scan stat. 5. Pancytopenia, absolute neutrophil count is 500, patient in prophylactic neutropenic precautions, started on IV ceftriaxone prophylactically for neutropenic sepsis, would monitor CBCD, possibly stop antibiotics tomorrow if cell counts improve. 6. Hyperlipidemia, statin 7. CAD, on statin, beta-freedom, not on aspirin: Continue home statin, BB, not on ASA regimen given presentation. 8. Anxiety, on as needed Ativan. 9. DVT Prophylaxis - SCDs, not on any medications on account of current epistaxis and history of GI bleed 10. CODE status: DNR-CCA, no intubation status. Code Visit Inpatient E&M: 85159 Init Hosp L3
[2018-02-19] MEDS: Loratadine 10 MG Tablet PO (09:08)
[2018-02-19] MEDS: Docusate Sodium 100 MG Capsule PO (09:08)
[2018-02-19] MEDS: Pyridoxine HCl 50 MG Tablet 100 MG PO (09:08)
[2018-02-19] MEDS: Lisinopril 2.5 MG Tablet PO (09:08)
[2018-02-19] MEDS: Metoprolol(XL)Succ 25 MG Tablet PO (09:09)
--- NOTE | 2018-02-19 11:20 | CASEMGMT ---
RN JACINTO Face to Face with patient for initial transition planning/care coordination assessment. RN CM introduced self and role at [facility]. Patient lying in bed, alert and oriented. Patient willing to participate in assessment and is able to answer all questions appropriately. Care providers, pharmacy, and demographics verified. See link attached. Patient wishes to discharge home, denies need for home health at this time. Patient states she has no further needs or concerns at this time. CM to follow for discharge planning needs that may arise. Disposition Plan: Patient to discharge home with family support and follow-up plans in place.
[2018-02-19] MEDS: Ceftriaxone 1 GM/50 ML BAG IV (12:12)
[2018-02-19] MEDS: Pantoprazole Sodium 40 MG Tablet PO (12:12)
[2018-02-19 13:09] LABS: Hematocrit 23.8 % (37-47); Hemoglobin 7.6 g/dl (12.0-15.0)
--- NOTE | 2018-02-19 15:42 | ONC.CONS.INP ---
Consult Referring Physician: Dr. Ena Betancourt Subjective Date of Service:: 02/19/18 Chief Complaint: Epistaxis, pancytopenia History of Present Illness: Ms. Rhea Calhoun is a pleasant 72 year old woman with a complex oncologic history. She was diagnosed with non-Hodgkin's lymphoma, stage IV, with abdominal mass and ascites in January 2000. She received R-CHOP with remission. She had recurrent disease in May 2004 with multiple abdominal masses. She was treated with 2 cycles of R-CEOP followed by high-dose chemotherapy and autologous stem cell transplant with complete remission. Diagnosed with left breast cancer and underwent a left modified radical mastectomy plus axillary lymph node dissection on 11/26/2008 for stage I, ER/NJ positive, HER2 negative disease. She was then diagnosed with multiple myeloma, IgG kappa type, in May 2010. She has received various treatments including Thalomid/Decadron, Revlimid/Decadron and Velcade/Decadron. Her last dose of Velcade/Decadron was on 11/30/2016 because of persistent cytopenia requiring red blood cell transfusions and leukopenia requiring Neupogen. Bone marrow biopsy done on 01/04/2017 showed plasma cells of 15% and cellularity of 50-60%. Bone marrow bx 09/06/2017 at [facility] showed hypercellular marrow 90%, Plasma cell 40%. M-spike 0.5, Cytogenetic was normal 46 XY. US on 09/15/2017 showed mild splenomegaly and fatty infiltration of liver. Received Decadron 40mg weekly, starting on 10/09/2017 covered with PPI. Bone marrow biopsy on 12/19/2017 showed Plasma cells 4%, Hypercellular marrow, + stainable iron. Decadron stopped 01/24/18. H/o frequent occult GI bleed requiring admissions, however source remains elusive despite capsule endoscopy (06/2017), multiple bleed scans and endoscopies with most recent EGD and colonoscopy performed 02/13/18 under the care of Dr. Corado as well as frequent episodes of epistaxis also requiring admissions. Receives Neulasta every 14 days in the outpatient setting. Patient developed epistaxis not responsive to usual measures, pressure, etc. 02/18/18 night which prompted presentation to [facility] ED. Found to have WBC count 1.5, Hgb 7.4 and platelets 31,000. Given 2 units leukodepleted PRBCs and 2 pks platelets have been ordered. Patient nares packed. Fatigue moderate to severe. LBM 02/19/18- no yaneli blood however stool dark. Past Medical History: Chronic Problems (Last Reviewed 02/06/18 @ 10:11 by Sarah Skinner) Neutropenia (Chronic) History of breast cancer (Chronic) Multiple myeloma (Chronic) History of stem cell transplant (Chronic) CAD (coronary artery disease) (Chronic) HTN (hypertension) (Chronic) Iron deficiency anemia (Chronic) Myelodysplasia (myelodysplastic syndrome) (Chronic) Malignant neoplasm of right female breast (Chronic) Multiple myeloma not having achieved remission (Chronic) Myelosuppression after chemotherapy (Chronic) Severe anemia (Chronic) Pancytopenia (Chronic) Past Medical/Surgical History: Past Medical History - Most Recent Inpatient Visit Past Medical History Start: 02/19/18 06:53 Text: Status: Complete Freq: ONCE Protocol: Document 02/19/18 06:53 ANNAMARIA (Rec: 02/19/18 06:59 CLLee [id number]) BMI Required to complete PMH What is Patient's BMI 26.3 Past Medical History Unable History Recalled No Query Text:Pt Unable/Family Not Present Neurologic Medical History Hx Stroke/TIA No Hx Dementia/Alzheimer's No Hx Parkinson's Disease No Hx Seizures No Hx Multiple Sclerosis No Hx Migraines No Cardiac Medical History VTE Present on Admission No Hx of Deep Vein Thrombosis/VTE/PE No Hx Hypertension Yes Hx Chest Pain/Angina Yes: WHEN HGB GETS TOO LOW Hx Heart Attack No Hx Cardiac Surgery/Stents/Etc. Yes: STENT X1 Hx Heart Failure No Hx Pacemaker/AICD No Hx Irregular Heartbeat and/or Afib Yes: skips a beat occasionally Hx Anticoagulant Therapy No Query Text:(Coumadin, Aspirin, Plavix, Xarelto, etc.) Hx Pain in Legs when Walking/Leg Cramps Yes: leg cramps Respiratory Medical History Hx COPD No Hx Emphysema No Hx Smoking No Smoking Status Never smoker Tobacco Use Non-smoker Hx Smoking Cessation Counseling No Hx Smoking Exposure No Hx Tobacco Use in last 12 months No Hx of Pipe Smoking No Hx Sleep Apnea No Do you snore loudly (louder than talking No or can be heard through closed doors)? Do you often feel tired/ fatigued/ No sleepy during daytime? Has anyone observed you stop breathing No during sleep? STOP Results Negative GI Medical History Hx Ulcer No Hx Hepatitis No Hx Cirrhosis No Hx GI Bleed Yes: some blood in stool occasionally Hx Unplanned Weight Loss No Genitourinary Medical History Indwelling Catheter in Place on Arrival/ No Admission Hx Renal Disease No Hx Dialysis No Musculoskeletal History Hx Arthritis No Hx Rheumatoid Arthritis No Endocrine Medical History Hx Diabetes No Hx Thyroid Disease No Hematologic Medical History Hx of Blood Transfusion Yes Hx of Transfusion in last 3 Months Yes Date of Last Transfusion (if within last 4-9-18 3 months) Ever experience any problems with No transfusion(s)? Hx of Preganancy in last 3 Months N/A Nurse Filling Out Transfusion & CKELLY Questions: Date: 02/19/18 Time: 06:58 Psycho/Social Medical History Hx Depression No Hx Anxiety No Hx Behavior Disorder No Hx Alcohol Use No Hx Substance Use No Other Medical History Hx Blood Disorders Yes: MDS Hx Anemia Yes Hx Cancer Yes: breast, mult myeloma, lymphoma, NONHODGKINS Hx Drug Resistant Organism No Wound/Pressure Injury Present on Arrival No /Admission Query Text:If yes, chart assessment in Shift/Clinical Findings Central Line/PICC/VAD Present on Arrival No /Admission Antibiotics within last 7 days? No Methicillin Resistant Staphylococcus aureus Screening Active MRSA No Risk for Readmission Number of Risk Factors 6 At Risk for Readmission Patient is At Risk For Readmission Patient is eligible for Call Back Y Past Medical History (Last Reviewed 02/06/18 @ 10:11 by Sarah Skinner) CATARACT SURGERY BILATERAL (Acute) Non Hodgkin's lymphoma (Acute) Past Surgical History (Last Reviewed 02/06/18 @ 10:11 by Sarah Skinner) H/O mastectomy (Acute) H/O: hysterectomy (Acute) Hx of cholecystectomy (Acute) abdomen biopsy (Resolved) Maternal Family History: Family History (Last Reviewed 02/06/18 @ 10:11 by Sarah Skinner) Father Diabetes Heart disease Mother Arthritis Breast cancer Uterine cancer Family History: Cancer - Uterine and breast Paternal Family History: Family History (Last Reviewed 02/06/18 @ 10:11 by Sarah Skinner) Father Diabetes Heart disease Mother Arthritis Breast cancer Uterine cancer Family History: Cancer, Diabetes - Social History Lives: Spouse/ Significant Other Smoking Status: Never smoker Tobacco Use: Non-smoker Alcohol: None Drugs: None Allergies/Adverse Reactions: Allergy/AdvReac Type Severity Reaction Status Date / Time Penicillins [PCN] Allergy Severe Hives Verified 02/19/18 03:01 diphenhydramine Allergy Mild restless Verified 02/19/18 03:01 [From Skyler] legs Home Medications Medication Instructions Recorded Simvastatin [Zocor] 40 mg PO QHS 08/15/13 Multivitamin [Multiple Vitamins] 1 ea PO DAILY 09/26/17 Pyridoxine HCl [Vitamin B6] 100 mg PO DAILY 09/26/17 Albuterol Inhaler [Ventolin Hfa] 1 - 2 puff INHALATION Q4H PRN PRN 10/14/17 #1 inhaler Loratadine [Claritin] 10 mg PO DAILY 11/20/17 metoprolol succinate ER 25 mg 25 mg PO DAILY #30 tab 01/03/18 tablet,extended release 24 hr lisinopril 2.5 mg tablet 2.5 mg PO DAILY #30 tab 01/11/18 Clobetasol Propionate 15 gm TP QHS 14 Days #1 tube 01/30/18 Docusate Sodium [Colace] 100 mg PO DAILY 02/11/18 Pantoprazole Sodium [Protonix] 40 mg PO BID #30 tab 02/14/18 Review of Systems Constitutional:: Reports: Fatigue. Denies: Fever, Sweats, Weight loss, Appetite change, Chills Cardiovascular:: Denies: Chest pain, Palpitations, Dyspnea on exertion, Orthopnea, PND Respiratory: Denies: Cough, Hemoptysis, Shortness of Breath, Wheezing Gastrointestinal:: Reports: Melena, Hemorrhoids. Denies: Abdominal pain, Nausea, Vomiting, Diarrhea, Constipation, Hematochezia, Reflux Genitourinary: Denies: Incontinence, Dysuria, Hematuria, Flank pain Musculoskeletal:: Denies: Back pain, Myalgia, Arthralgia Skin: Denies: Rash, Skin Changes, Wounds Neurological:: Denies: Headache, Dizziness, Numbness, Tingling, Visual changes, Tinnitus, Hearing loss Psychiatric: Denies: Anxiety, Depression, Homicidal Ideations, Suicidal Ideations Vital Signs Height 5 ft 2 in Weight: 143 lb 9.605 oz Weight in Pounds 143.6 lbs Pulse Ox 96 Temperature 98.9 F Pulse Rate 87 Respiratory Rate 18 Blood Pressure 128/64 Blood Pressure Position Semi-Fowlers - Physical Exam General: Alert, Oriented x3, No apparent distress HEENT: Atraumatic, Normocephalic, - - bilat nares occluded with brown and light red saturated packing Oropharynx:: Dry mucosa. Negative for: Ulcerated lesions Neck:: Supple, Trachea midline. Negative for: JVD, bilateral Cardiac:: Regular rate, Regular rhythm, Normal S1, Normal S2 Lungs: Clear to auscultation, Excusion symmetrical. Negative for: Rhonchi, Wheezes Abdomen:: Bowel sounds x 4, Soft, Non-tender, Non-distended. Negative for: Hepatosplenomegaly Extremities:: Edema - trace BLE. Negative for: Cyanosis Neurological: Neuro grossly intact Skin:: Ecchymosis - ecchymosis BUE in various stages of healing. Negative for: Lesions, Rash, Petechiae Psychiatric:: Appropriate affect, Euthymic Lymphatics:: Negative for: Cervical lymphadenopathy, Supraclavicular lymphadenopathy Laboratory Data: Laboratory Tests 02/19/18 02/19/18 02/19/18 Range/Units 13:00 07:30 07:30 Hgb 7.6 L 7.4 L (12.0-15.0) g/dl Hct 23.8 L 23.2 L (37-47) % Sodium 143 (136-145) mmol/L Potassium 4.1 (3.5-5.1) mmol/L Chloride 110 H (98-107) mmol/L Carbon Dioxide 26.0 (21.0-32.0) mmol/L Anion Gap 7 (5-15) BUN 21 H (7-18) mg/dL Creatinine 0.68 (0.55-1.02) mg/dL Estim Creat Clear Calc 39.04 ml/min Est GFR (MDRD) Af Amer 108 (>60) mL/min Est GFR (MDRD) Non-Af 89 (>60) mL/min BUN/Creatinine Ratio 30.7 H (10-20) RATIO Glucose 97 (74-106) mg/dL Calcium 8.6 (8.5-10.1) mg/dL Magnesium 2.2 (1.6-2.6) mg/dL Blood Type Antibody Screen Crossmatch 02/19/18 02/19/18 Range/Units 06:09 06:09 Hgb (12.0-15.0) g/dl Hct (37-47) % Sodium (136-145) mmol/L Potassium (3.5-5.1) mmol/L Chloride (98-107) mmol/L Carbon Dioxide (21.0-32.0) mmol/L Anion Gap (5-15) BUN (7-18) mg/dL Creatinine (0.55-1.02) mg/dL Estim Creat Clear Calc ml/min Est GFR (MDRD) Af Amer (>60) mL/min Est GFR (MDRD) Non-Af (>60) mL/min BUN/Creatinine Ratio (10-20) RATIO Glucose (74-106) mg/dL Calcium (8.5-10.1) mg/dL Magnesium (1.6-2.6) mg/dL Blood Type A NEGATIVE Antibody Screen NEGATIVE Crossmatch See Detail See Detail Assessment and Plan 72 y/o F with with complex oncologic history inclusive of non Hodgkin lymphoma, left sided breast cancer and IgG kappa multiple myeloma, experiencing sequela of pancytopenia r/t myelosuppression vs. MDS, frequent episodes of epistaxis and GI bleed with source of bleeding elusive requiring frequent admissions. 1. Myelosuppression vs. MDS- Neutropenia is responsive to Neulasta administered q14 days. ANC upon admission 0.5. Will order Neulasta to be given today. Neutropenic precautions. Began prophylactic IV atb per primary team. 2. Acute on Chronic Normocytic Anemia and thrombocytopenia- Likely multifactorial given the context of myelosuppression and frequent yaneli GI bleeding although source cannot be identified thru capsule endoscopy, multiple bleed scans and most recent EGD and colonoscopy 02/13/18. Has been given 2 units leukodepleted, irradiated and CMV neg PRBCS. Will closely monitor CBC. If develops hematochezia, will obtain bleed scan. 3. Epistaxis- Recurrent, ENT consulted. Patient awaiting 2 packs platelets that have already been ordered. 4. IgG kappa Multiple Myeloma- Bone marrow plasma cells decreased to 4% per most recent BMBX obtained December 2017 and M-spike 0.6, off Decadron 40mg weekly for the time being. Case discussed with Dr. Guy, who is agreement with the aforementioned plan. Kaylyn Dutta, RADHA, [employer], AOCNP Medications: Medications Added to Medication List This Visit Category Date Time Status 0.9% Saline Lock Med 02/19/18 09:00 Active 5 - 30 ml IV UD PRN Albuterol Aerosols [Ventolin Aerosols] Med 02/19/18 07:14 Active 2.5 mg INHALATION Q2H PRN PRN Atorvastatin Calcium [Lipitor] Med 02/19/18 22:00 Active 20 mg PO QHS Ceftriaxone [Rocephin] Med 02/19/18 08:30 Active 1 gm in 50 ml IV Q24H Docusate Sodium [Colace] Med 02/19/18 10:00 Active 100 mg PO DAILY Furosemide [Lasix] Med 02/20/18 10:00 Active 40 mg IV DAILY Lisinopril [Zestril] Med 02/19/18 10:00 Active 2.5 mg PO DAILY Loratadine [Claritin] Med 02/19/18 10:00 Active 10 mg PO DAILY Metoprolol(XL)Succ [Toprol Xl (Beta Freedom)] Med 02/19/18 10:00 Active 25 mg PO DAILY Pantoprazole Sodium [Protonix] 40 mg Med 02/19/18 22:00 Active 0.9% Normal Saline 100 ml IV Q12 Pyridoxine HCl [Vitamin B-6] Med 02/19/18 10:00 Active 100 mg PO DAILY hydrALAZINE IV [Apresoline IV] Med 02/19/18 15:34 Active 5 mg IV Q6H PRN PRN Primary Care Provider: Edvin Anthony Referring Provider:
--- NOTE | 2018-02-19 15:52 | CON.PCM_ITS ---
Consult Referring Physician: Dr. Ena Betancourt Subjective Date of Service:: 02/19/18 Chief Complaint: Epistaxis, pancytopenia History of Present Illness: Ms. Rhea Calhoun is a pleasant 72 year old woman with a complex oncologic history. She was diagnosed with non-Hodgkin's lymphoma, stage IV, with abdominal mass and ascites in January 2000. She received R-CHOP with remission. She had recurrent disease in May 2004 with multiple abdominal masses. She was treated with 2 cycles of R-CEOP followed by high-dose chemotherapy and autologous stem cell transplant with complete remission. Diagnosed with left breast cancer and underwent a left modified radical mastectomy plus axillary lymph node dissection on 11/26/2008 for stage I, ER/MO positive, HER2 negative disease. She was then diagnosed with multiple myeloma, IgG kappa type, in May 2010. She has received various treatments including Thalomid/Decadron, Revlimid/ Decadron and Velcade/Decadron. Her last dose of Velcade/Decadron was on 2016 because of persistent cytopenia requiring red blood cell transfusions and leukopenia requiring Neupogen. Bone marrow biopsy done on 01/04/2017 showed plasma cells of 15% and cellularity of 50-60%. Bone marrow bx 09/06/2017 at [facility] showed hypercellular marrow 90%, Plasma cell 40%. M-spike 0.5, Cytogenetic was normal 46 XY. US on 09/15/2017 showed mild splenomegaly and fatty infiltration of liver. Received Decadron 40mg weekly, starting on 10/09/2017 covered with PPI. Bone marrow biopsy on 12/19/2017 showed Plasma cells 4%, Hypercellular marrow, + stainable iron. Decadron stopped 01/24/18. H/o frequent occult GI bleed requiring admissions, however source remains elusive despite capsule endoscopy (06/2017), multiple bleed scans and endoscopies with most recent EGD and colonoscopy performed 02/13/18 under the care of Dr. Corado as well as frequent episodes of epistaxis also requiring admissions. Receives Neulasta every 14 days in the outpatient setting. Patient developed epistaxis not responsive to usual measures, pressure, etc. night which prompted presentation to [facility] ED. Found to have WBC count 1.5 , Hgb 7.4 and platelets 31,000. Given 2 units leukodepleted PRBCs and 2 pks platelets have been ordered. Patient nares packed. Fatigue moderate to severe. LBM 02/19/18- no yaneli blood however stool dark. Past Medical History: Chronic Problems (Last Reviewed 02/06/18 @ 10:11 by Sarah Skinner) Neutropenia (Chronic) History of breast cancer (Chronic) Multiple myeloma (Chronic) History of stem cell transplant (Chronic) CAD (coronary artery disease) (Chronic) HTN (hypertension) (Chronic) Iron deficiency anemia (Chronic) Myelodysplasia (myelodysplastic syndrome) (Chronic) Malignant neoplasm of right female breast (Chronic) Multiple myeloma not having achieved remission (Chronic) Myelosuppression after chemotherapy (Chronic) Severe anemia (Chronic) Pancytopenia (Chronic) Past Medical/Surgical History: Past Medical History - Most Recent Inpatient Visit Past Medical History Start: 02/19/18 06: 53 Text: Status: Complete Freq: ONCE Protocol: Document 02/19/18 06:53 ANNAMARIA (Rec: 02/19/18 06:59 CLLee [id number]) BMI Required to complete PMH What is Patient's BMI 26.3 Past Medical History Unable History Recalled No Query Text:Pt Unable/Family Not Present Neurologic Medical History Hx Stroke/TIA No Hx Dementia/Alzheimer's No Hx Parkinson's Disease No Hx Seizures No Hx Multiple Sclerosis No Hx Migraines No Cardiac Medical History VTE Present on Admission No Hx of Deep Vein Thrombosis/VTE/PE No Hx Hypertension Yes Hx Chest Pain/Angina Yes: WHEN HGB GETS TOO LOW Hx Heart Attack No Hx Cardiac Surgery/Stents/Etc. Yes: STENT X1 Hx Heart Failure No Hx Pacemaker/AICD No Hx Irregular Heartbeat and/or Afib Yes: skips a beat occasionally Hx Anticoagulant Therapy No Query Text:(Coumadin, Aspirin, Plavix, Xarelto, etc.) Hx Pain in Legs when Walking/Leg Cramps Yes: leg cramps Respiratory Medical History Hx COPD No Hx Emphysema No Hx Smoking No Smoking Status Never smoker Tobacco Use Non-smoker Hx Smoking Cessation Counseling No Hx Smoking Exposure No Hx Tobacco Use in last 12 months No Hx of Pipe Smoking No Hx Sleep Apnea No Do you snore loudly (louder than talking No or can be heard through closed doors)? Do you often feel tired/ fatigued/ No sleepy during daytime? Has anyone observed you stop breathing No during sleep? STOP Results Negative GI Medical History Hx Ulcer No Hx Hepatitis No Hx Cirrhosis No Hx GI Bleed Yes: some blood in stool occasionally Hx Unplanned Weight Loss No Genitourinary Medical History Indwelling Catheter in Place on Arrival/ No Admission Hx Renal Disease No Hx Dialysis No Musculoskeletal History Hx Arthritis No Hx Rheumatoid Arthritis No Endocrine Medical History Hx Diabetes No Hx Thyroid Disease No Hematologic Medical History Hx of Blood Transfusion Yes Hx of Transfusion in last 3 Months Yes Date of Last Transfusion (if within last 4-9-18 3 months) Ever experience any problems with No transfusion(s)? Hx of Preganancy in last 3 Months N/A Nurse Filling Out Transfusion & CKELLY Questions: Date: 02/19/18 Time: 06:58 Psycho/Social Medical History Hx Depression No Hx Anxiety No Hx Behavior Disorder No Hx Alcohol Use No Hx Substance Use No Other Medical History Hx Blood Disorders Yes: MDS Hx Anemia Yes Hx Cancer Yes: breast, mult myeloma, lymphoma, NONHODGKINS Hx Drug Resistant Organism No Wound/Pressure Injury Present on Arrival No /Admission Query Text:If yes, chart assessment in Shift/Clinical Findings Central Line/PICC/VAD Present on Arrival No /Admission Antibiotics within last 7 days? No Methicillin Resistant Staphylococcus aureus Screening Active MRSA No Risk for Readmission Number of Risk Factors 6 At Risk for Readmission Patient is At Risk For Readmission Patient is eligible for Call Back Y Past Medical History (Last Reviewed 02/06/18 @ 10:11 by Sarah Skinner) CATARACT SURGERY BILATERAL (Acute) Non Hodgkin's lymphoma (Acute) Past Surgical History (Last Reviewed 02/06/18 @ 10:11 by Sarah Skinner) H/O mastectomy (Acute) H/O: hysterectomy (Acute) Hx of cholecystectomy (Acute) abdomen biopsy (Resolved) Maternal Family History: Family History (Last Reviewed 02/06/18 @ 10:11 by Sarah Skinner) Father Diabetes Heart disease Mother Arthritis Breast cancer Uterine cancer Family History: Cancer - Uterine and breast Paternal Family History: Family History (Last Reviewed 02/06/18 @ 10:11 by Sarah Skinner) Father Diabetes Heart disease Mother Arthritis Breast cancer Uterine cancer Family History: Cancer, Diabetes - Social History Lives: Spouse/ Significant Other Smoking Status: Never smoker Tobacco Use: Non-smoker Alcohol: None Drugs: None Allergies/Adverse Reactions: Allergy/AdvReac Type Severity Reaction Status Date / Time Penicillins [PCN] Allergy Severe Hives Verified 02/19/18 03:01 diphenhydramine Allergy Mild restless Verified 02/19/18 03:01 [From Skyler] legs Home Medications Medication Instructions Recorded Simvastatin [Zocor] 40 mg PO QHS 08/15/13 Multivitamin [Multiple Vitamins] 1 ea PO DAILY 09/26/17 Pyridoxine HCl [Vitamin B6] 100 mg PO DAILY 09/26/17 Albuterol Inhaler [Ventolin Hfa] 1 - 2 puff INHALATION Q4H PRN PRN 10/14/17 #1 inhaler Loratadine [Claritin] 10 mg PO DAILY 11/20/17 metoprolol succinate ER 25 mg 25 mg PO DAILY #30 tab 01/03/18 tablet,extended release 24 hr lisinopril 2.5 mg tablet 2.5 mg PO DAILY #30 tab 01/11/18 Clobetasol Propionate 15 gm TP QHS 14 Days #1 tube 01/30/18 Docusate Sodium [Colace] 100 mg PO DAILY 02/11/18 Pantoprazole Sodium [Protonix] 40 mg PO BID #30 tab 02/14/18 Review of Systems Constitutional:: Reports: Fatigue. Denies: Fever, Sweats, Weight loss, Appetite change, Chills Cardiovascular:: Denies: Chest pain, Palpitations, Dyspnea on exertion, Orthopnea, PND Respiratory: Denies: Cough, Hemoptysis, Shortness of Breath, Wheezing Gastrointestinal:: Reports: Melena, Hemorrhoids. Denies: Abdominal pain, Nausea , Vomiting, Diarrhea, Constipation, Hematochezia, Reflux Genitourinary: Denies: Incontinence, Dysuria, Hematuria, Flank pain Musculoskeletal:: Denies: Back pain, Myalgia, Arthralgia Skin: Denies: Rash, Skin Changes, Wounds Neurological:: Denies: Headache, Dizziness, Numbness, Tingling, Visual changes, Tinnitus, Hearing loss Psychiatric: Denies: Anxiety, Depression, Homicidal Ideations, Suicidal Ideations Vital Signs Height 5 ft 2 in Weight: 143 lb 9.605 oz Weight in Pounds 143.6 lbs Pulse Ox 96 Temperature 98.9 F Pulse Rate 87 Respiratory Rate 18 Blood Pressure 128/64 Blood Pressure Position Semi-Fowlers - Physical Exam General: Alert, Oriented x3, No apparent distress HEENT: Atraumatic, Normocephalic, - - bilat nares occluded with brown and light red saturated packing Oropharynx:: Dry mucosa. Negative for: Ulcerated lesions Neck:: Supple, Trachea midline. Negative for: JVD, bilateral Cardiac:: Regular rate, Regular rhythm, Normal S1, Normal S2 Lungs: Clear to auscultation, Excusion symmetrical. Negative for: Rhonchi, Wheezes Abdomen:: Bowel sounds x 4, Soft, Non-tender, Non-distended. Negative for: Hepatosplenomegaly Extremities:: Edema - trace BLE. Negative for: Cyanosis Neurological: Neuro grossly intact Skin:: Ecchymosis - ecchymosis BUE in various stages of healing. Negative for: Lesions, Rash, Petechiae Psychiatric:: Appropriate affect, Euthymic Lymphatics:: Negative for: Cervical lymphadenopathy, Supraclavicular lymphadenopathy Laboratory Data: Laboratory Tests 3 02/19/18 02/19/18 02/19/18 Range/Units 13:00 07:30 07:30 Hgb 7.6 L 7.4 L (12.0-15.0) g/dl Hct 23.8 L 23.2 L (37-47) % Sodium 143 (136-145) mmol/L Potassium 4.1 (3.5-5.1) mmol/L Chloride 110 H (98-107) mmol/L Carbon Dioxide 26.0 (21.0-32.0) mmol/L Anion Gap 7 (5-15) BUN 21 H (7-18) mg/dL Creatinine 0.68 (0.55-1.02) mg/dL Estim Creat Clear Calc 39.04 ml/min Est GFR (MDRD) Af Amer 108 (>60) mL/min Est GFR (MDRD) Non-Af 89 (>60) mL/min BUN/Creatinine Ratio 30.7 H (10-20) RATIO Glucose 97 (74-106) mg/dL Calcium 8.6 (8.5-10.1) mg/dL Magnesium 2.2 (1.6-2.6) mg/dL Blood Type Antibody Screen Crossmatch 3 02/19/18 02/19/18 Range/Units 06:09 06:09 Hgb (12.0-15.0) g/dl Hct (37-47) % Sodium (136-145) mmol/L Potassium (3.5-5.1) mmol/L Chloride (98-107) mmol/L Carbon Dioxide (21.0-32.0) mmol/L Anion Gap (5-15) BUN (7-18) mg/dL Creatinine (0.55-1.02) mg/dL Estim Creat Clear Calc ml/min Est GFR (MDRD) Af Amer (>60) mL/min Est GFR (MDRD) Non-Af (>60) mL/min BUN/Creatinine Ratio (10-20) RATIO Glucose (74-106) mg/dL Calcium (8.5-10.1) mg/dL Magnesium (1.6-2.6) mg/dL Blood Type A NEGATIVE Antibody Screen NEGATIVE Crossmatch See Detail See Detail Assessment and Plan 72 y/o F with with complex oncologic history inclusive of non Hodgkin lymphoma, left sided breast cancer and IgG kappa multiple myeloma, experiencing sequela of pancytopenia r/t myelosuppression vs. MDS, frequent episodes of epistaxis and GI bleed with source of bleeding elusive requiring frequent admissions. 1. Myelosuppression vs. MDS- Neutropenia is responsive to Neulasta administered q14 days. ANC upon admission 0.5. Will order Neulasta to be given today. Neutropenic precautions. Began prophylactic IV atb per primary team. 2. Acute on Chronic Normocytic Anemia and thrombocytopenia- Likely multifactorial given the context of myelosuppression and frequent yaneli GI bleeding although source cannot be identified thru capsule endoscopy, multiple bleed scans and most recent EGD and colonoscopy 02/13/18. Has been given 2 units leukodepleted, irradiated and CMV neg PRBCS. Will closely monitor CBC. If develops hematochezia, will obtain bleed scan. 3. Epistaxis- Recurrent, ENT consulted. Patient awaiting 2 packs platelets that have already been ordered. 4. IgG kappa Multiple Myeloma- Bone marrow plasma cells decreased to 4% per most recent BMBX obtained December 2017 and M-spike 0.6, off Decadron 40mg weekly for the time being. Case discussed with Dr. Guy, who is agreement with the aforementioned plan. Kaylyn Dutta, MSN, [employer], AOCNP Medications: Medications Added to Medication List This Visit Category Date Time Status 0.9% Saline Lock Med 02/19/18 09:00 Active 5 - 30 ml IV UD PRN Albuterol Aerosols [Ventolin Aerosols] Med 02/19/18 07:14 Active 2.5 mg INHALATION Q2H PRN PRN Atorvastatin Calcium [Lipitor] Med 02/19/18 22:00 Active 20 mg PO QHS Ceftriaxone [Rocephin] Med 02/19/18 08:30 Active 1 gm in 50 ml IV Q24H Docusate Sodium [Colace] Med 02/19/18 10:00 Active 100 mg PO DAILY Furosemide [Lasix] Med 02/20/18 10:00 Active 40 mg IV DAILY Lisinopril [Zestril] Med 02/19/18 10:00 Active 2.5 mg PO DAILY Loratadine [Claritin] Med 02/19/18 10:00 Active 10 mg PO DAILY Metoprolol(XL)Succ [Toprol Xl (Beta Freedom)] Med 02/19/18 10:00 Active 25 mg PO DAILY Pantoprazole Sodium [Protonix] 40 mg Med 02/19/18 22:00 Active 0.9% Normal Saline 100 ml IV Q12 Pyridoxine HCl [Vitamin B-6] Med 02/19/18 10:00 Active 100 mg PO DAILY hydrALAZINE IV [Apresoline IV] Med 02/19/18 15:34 Active 5 mg IV Q6H PRN PRN Primary Care Provider: Edvin Anthony Referring Provider:
[2018-02-19] MEDS: Furosemide 40 MG/4 ML Vial IV (17:36)
[2018-02-19] MEDS: 0.9% NaCl Peripheral Flush Adult/Peds IV ×2 (17:37→23:54)
[2018-02-19] MEDS: TBO-FILGRASTIM 480 MCG/0.8 ML ML SC (19:25)
[2018-02-19] MEDS: Atorvastatin Calcium 20 MG Tablet PO (21:50)
[2018-02-20] VITALS (21 sets, daily range): BP systolic 103–132; BP diastolic 52–80; PULSE 64–99; RESP 16–18; TEMP 35.9–36.8; O2SAT 92–99; BMI 26.2; BMI 26.3
--- NOTE | 2018-02-20 00:25 | NURSING ---
Called Desi in lab to make aware that blood was finished at 2353 and H&H can be drawn close to 0100.
[2018-02-20 01:31] LABS: Hematocrit 26.7 % (37-47); Hemoglobin 8.8 g/dl (12.0-15.0)
--- NOTE | 2018-02-20 06:00 | EKG12_ITS ---
Test Reason : AM EKG Blood Pressure : / mmHG Vent. Rate : 093 BPM Atrial Rate : 093 BPM P-R Int : 194 ms QRS Dur : 084 ms QT Int : 372 ms P-R-T Axes : 074 045 106 degrees QTc Int : 462 ms Normal sinus rhythm Septal infarct , age undetermined Abnormal ECG Confirmed by SOFIA CHEATHAM, GIACOMO ([id number]), assignment desk editor TORRES PORTILLO ([id number]) on 03/01/2018 1:55:05 PM Referred By: CUCO Confirmed By:GIACOMO BLACK MD
[2018-02-20] MEDS: Acetaminophen 325 MG Tablet 650 MG PO (06:57)
[2018-02-20 07:23] LABS: Hematocrit 27.6 % (37-47); Hemoglobin 8.7 g/dl (12.0-15.0)
[2018-02-20 07:51] LABS: AST(SGOT) 52 U/L (15-37); Alanine Aminotransfer ALT/SGPT 21 U/L (13-56); Albumin, Serum 2.2 g/dL (3.2-5.0); Alkaline Phosphatase 156 U/L (45-117); Anion Gap 9 (5-15); BUN 22 mg/dL (7-18); BUN/Creat Ratio 37.4 RATIO (10-20); Bilirubin, Direct 0.48 mg/dL (0.00-0.30); Calcium,Total 8.7 mg/dL (8.5-10.1); Chloride 108 mmol/L (98-107); Creatinine, Serum 0.59 mg/dL (0.55-1.02); EST Glomerular Filtration Rate 106 mL/min (>60); Est Glom Filt Rate - Afr Amer 128 mL/min (>60); Estimated Creatinine Clearance 39.04 ml/min; Globulin 3.2 g/dL (2.2-4.2); Glucose 89 mg/dL (74-106); Potassium 3.9 mmol/L (3.5-5.1); Protein, Total 5.4 g/dL (6.4-8.2); Sodium Level 143 mmol/L (136-145)
[2018-02-20] MEDS: Ceftriaxone 1 GM/50 ML BAG IV (08:27)
[2018-02-20 09:56] LABS: Pathologist Review Reviewed
[2018-02-20] MEDS: Oxymetazoline 0.05% 1 SPRAY SPRAY.BTL 15 SPRAY (10:16)
--- NOTE | 2018-02-20 10:36 | PCM.OP.BLANK ---
Operative Report Date of Procedure: 02/20/18 Operative note on Rhea Calhoun Operative procedure removal of nasal packs and endoscopic examination of the nose and cautery of nasal septal bleeders. The operative diagnosis bilateral nasal bleeding status post insertion of nasal packs, multiple myeloma, pancytopenia. Anesthesia general Postoperative diagnosis same Procedure the patient was placed supine on the operating room table. The Rhino Rocket's were removed from both nasal cavities after the patient had been draped in the usual sterile manner. Both nasal cavities were examined with the 0? endoscope. Bleeding sites were identified along the inferior turbinate as well as the anterior and posterior septum on both sides. These sites were cauterized with the Bovie. FloSeal was painted on the septal and inferior turbinate mucosa. The nasopharynx was suctioned and the procedure was considered terminated. The patient was returned to the recovery room in satisfactory condition. Jr Lebron
[2018-02-20] MEDS: Loratadine 10 MG Tablet PO (12:14)
[2018-02-20] MEDS: Metoprolol(XL)Succ 25 MG Tablet PO (12:15)
[2018-02-20] MEDS: Lisinopril 2.5 MG Tablet PO (12:16)
[2018-02-20] MEDS: Pyridoxine HCl 50 MG Tablet 100 MG PO (12:16)
[2018-02-20 12:58] LABS: Hematocrit 26.5 % (37-47); Hemoglobin 8.8 g/dl (12.0-15.0); Mean Corp Hgb Conc 33.2 g/gl (32-36); Mean Corpuscular Hgb 30.7 pg (27.0-32.0); Mean Corpuscular Volume 92.3 fL (81-99); Mean Platelet Vol. 10.6 fl (6.2-12.0); Platelet Count 88 K/mm3 (150-450); RBC Distribution Width CV 18.9 % (11.6-14.6); RBC Distribution Width SD 60.4 fl (35.1-43.9); Red Blood Count 2.87 M/mm3 (4.2-5.4); White Blood Count 7.2 K/mm3 (4.4-11.0)
[2018-02-20 13:00] LABS: Scan Indicated on CBC? Y/N NO
--- NOTE | 2018-02-20 14:42 | PCM.PN.HOSP ---
Subjective: Patient complains of some melena stools. Was taken to surgery and had cauterization done of the bleeders in his nostrils. Denies any headache or dizziness or palpitations. Blood work was reviewed and there has been improvement in her platelet count from 31-88. He denies any fever or chills Objective: Physical exam: General: Alert, Oriented x3, Cooperative, No apparent distress HEENT: Atraumatic, PERRLA, EOMI, Normocephalic, no epistaxis seen Oral: Moist Mucosa Neck: Supple Lungs: Clear to auscultation, Normal air movement Cardiovascular: Regular rate, Regular Rhythm, Normal S1, Normal S2, No murmurs Abdomen: Bowel Sounds Present, Soft, Non Tender, Non-Distended, No Hepato-splenomegaly Extremities: No edema Skin: No rashes, No breakdown Musculoskeletal: No Tenderness to Palpation of Joints or Extremities Lymphatic: No Cervical, Supraclavicular, or Inguinal Adenopathy Neurological: Cranial nerves II-XII grossly intact Psych/Mental Status: Normal Affect, Appropriate Vitals/I&O's: Vital Signs Temp Pulse Resp BP Pulse Ox 97.5 F L 70 18 132/60 H 96 02/20/18 13:57 02/20/18 13:57 02/20/18 13:57 02/20/18 13:57 02/20/18 13:57 Oxygen Flow Rate (L/min) 5 Oxygen Delivery Method Room Air Weight: 65.136 kg Body Mass Index (BMI) 26.2 Intake and Output for Last 24 Hours 02/18/18 02/19/18 02/20/18 23:59 23:59 23:59 Intake Total 3999 / 3999 695 / 695 Output Total 200 / 200 750 / 750 Balance 3799 / 3799 -55 / -55 Laboratory Results 02/19/18 06:09: Crossmatch See Detail 02/19/18 06:09: Crossmatch See Detail 02/19/18 06:09: Crossmatch See Detail 02/20/18 01:05: Hgb 8.8 L, Hct 26.7 L 02/20/18 07:05: Sodium 143, Potassium 3.9, Chloride 108 H, Carbon Dioxide 26.0, Anion Gap 9, BUN 22 H, Creatinine 0.59, Estim Creat Clear Calc 39.04, Est GFR (MDRD) Af Amer 128, Est GFR (MDRD) Non-Af 106, BUN/Creatinine Ratio 37.4 H, Glucose 89, Calcium 8.7, Total Bilirubin 2.30 H, Direct Bilirubin 0.48 H, AST 52 H, ALT 21, Alkaline Phosphatase 156 H, Total Protein 5.4 L, Albumin 2.2 L, Globulin 3.2 02/20/18 07:05: Hgb 8.7 L, Hct 27.6 L 02/20/18 12:50: WBC 7.2, RBC 2.87 L, Hgb 8.8 L, Hct 26.5 L, MCV 92.3, MCH 30.7, MCHC 33.2, RDW 18.9 H, RDW Differential 60.4 H, Plt Count 88 L, MPV 10.6 Current Medications Acetaminophen (Tylenol) 650 mg PO Q6H PRN PRN PRN Reason: PAIN Last Admin: 02/20/18 06:57 Dose: 650 mg Al Hydroxide/Mg Hydroxide (Mylanta Ii) 30 ml PO Q6H PRN PRN PRN Reason: Gastric burning Albuterol Sulfate (Ventolin Aerosols) 2.5 mg INHALATION Q2H PRN PRN PRN Reason: dyspnea, wheezing Atorvastatin Calcium (Lipitor) 20 mg PO QHS [facility] Last Admin: 02/19/18 21:50 Dose: 20 mg Docusate Sodium (Colace) 100 mg PO DAILY [facility] Last Admin: 02/20/18 12:14 Dose: Not Given Hydralazine HCl (Apresoline Iv) 5 mg IV Q6H PRN PRN PRN Reason: blood pressure Ceftriaxone Sodium (Rocephin) 1 gm in 50 mls @ 100 mls/hr IV Q24H [facility] Last Admin: 02/20/18 08:27 Dose: 100 mls/hr Pantoprazole Sodium 40 mg/ (Sodium Chloride) 110 mls @ 330 mls/hr IV Q12 [facility] Last Admin: 02/20/18 12:13 Dose: 330 mls/hr Lisinopril (Zestril) 2.5 mg PO DAILY [facility] Last Admin: 02/20/18 12:16 Dose: 2.5 mg Loratadine (Claritin) 10 mg PO DAILY [facility] Last Admin: 02/20/18 12:14 Dose: 10 mg Magnesium Hydroxide (Milk Of Magnesia) 30 ml PO DAILY PRN PRN PRN Reason: Constipation Metoprolol Succinate (Toprol Xl (Beta Freedom)) 25 mg PO DAILY [facility] Last Admin: 02/20/18 12:15 Dose: 25 mg Ondansetron HCl (Zofran) 4 mg IV Q8H PRN PRN PRN Reason: NAUSEA Pyridoxine HCl (Vitamin B-6) 100 mg PO DAILY [facility] Last Admin: 02/20/18 12:16 Dose: 100 mg Sodium Chloride () 5 - 30 ml IV UD PRN PRN Reason: SALINE FLUSH Last Admin: 02/19/18 23:54 Dose: 10 ml Medical Necessity - Tobacco Use Smoking Status: Never smoker Tobacco Use: Non-smoker Assessment/Plan 72 y/o F with with multiple comorbidities, recently admitted on 02/11/2018 with GI bleed, with unremarkable workup, admitted with epistaxis 1. Epistaxis likely related to severe thrombocytopenia, status post cauterization in the OR today, resolved, will continue to monitor overnight, possibly discharge if no epistaxis or any other acute events. 2. Acute on chronic normocytic anemia, in the setting of pancytopenia, multifactorial, admitted with hemoglobin of 7.4 with ongoing epistaxis, status post 3 packed RBCs, patient complains now of melena stools and an episode of bright red bleeding per rectum that was small, reviewed previous notes, Dr. Corado will be consulted, will have a tagged RBC scan if patient bleeds again. 3. GI bleed related to severe thrombocytopenia, status post recent workup which was unremarkable, started patient on IV PPI, will do a tagged RBC scan if patient continues to bleed. 3. Hypertension, controlled, continue to monitor. 4. Pancytopenia, improved with blood transfusions 6. Hyperlipidemia, statin 7. CAD, on statin, beta-freedom, not on aspirin, on statin, BB. 8. Anxiety, on as needed Ativan. 9.DVT Prophylaxis - SCDs, not on any medications on account of current epistaxis and history of GI bleed 10.CODE status: DNR-CCA, no intubation status. 11. Disposition: Possible dc in am Code Visit Inpatient E&M: 16873 Subs Hosp L2
--- NOTE | 2018-02-20 14:56 | PN_ITS ---
Subjective: Patient complains of some melena stools. Was taken to surgery and had cauterization done of the bleeders in his nostrils. Denies any headache or dizziness or palpitations. Blood work was reviewed and there has been improvement in her platelet count from 31-88. He denies any fever or chills Objective: Physical exam: General: Alert, Oriented x3, Cooperative, No apparent distress HEENT: Atraumatic, PERRLA, EOMI, Normocephalic, no epistaxis seen Oral: Moist Mucosa Neck: Supple Lungs: Clear to auscultation, Normal air movement Cardiovascular: Regular rate, Regular Rhythm, Normal S1, Normal S2, No murmurs Abdomen: Bowel Sounds Present, Soft, Non Tender, Non-Distended, No Hepato- splenomegaly Extremities: No edema Skin: No rashes, No breakdown Musculoskeletal: No Tenderness to Palpation of Joints or Extremities Lymphatic: No Cervical, Supraclavicular, or Inguinal Adenopathy Neurological: Cranial nerves II-XII grossly intact Psych/Mental Status: Normal Affect, Appropriate Vitals/I&O's: Vital Signs Temp Pulse Resp BP Pulse Ox 97.5 F L 70 18 132/60 H 96 02/20/18 13:57 02/20/18 13:57 02/20/18 13:57 02/20/18 13:57 02/20/18 13:57 Oxygen Flow Rate (L/min) 5 Oxygen Delivery Method Room Air Weight: 65.136 kg Body Mass Index (BMI) 26.2 Intake and Output for Last 24 Hours 02/18/18 02/19/18 02/20/18 23:59 23:59 23:59 Intake Total 3999 / 3999 695 / 695 Output Total 200 / 200 750 / 750 Balance 3799 / 3799 -55 / -55 Laboratory Results 02/19/18 06:09: Crossmatch See Detail 02/19/18 06:09: Crossmatch See Detail 02/19/18 06:09: Crossmatch See Detail 02/20/18 01:05: Hgb 8.8 L, Hct 26.7 L 02/20/18 07:05: Sodium 143, Potassium 3.9, Chloride 108 H, Carbon Dioxide 26.0, Anion Gap 9, BUN 22 H, Creatinine 0.59, Estim Creat Clear Calc 39.04, Est GFR ( MDRD) Af Amer 128, Est GFR (MDRD) Non-Af 106, BUN/Creatinine Ratio 37.4 H, Glucose 89, Calcium 8.7, Total Bilirubin 2.30 H, Direct Bilirubin 0.48 H, AST 52 H, ALT 21, Alkaline Phosphatase 156 H, Total Protein 5.4 L, Albumin 2.2 L, Globulin 3.2 02/20/18 07:05: Hgb 8.7 L, Hct 27.6 L 02/20/18 12:50: WBC 7.2, RBC 2.87 L, Hgb 8.8 L, Hct 26.5 L, MCV 92.3, MCH 30.7, MCHC 33.2, RDW 18.9 H, RDW Differential 60.4 H, Plt Count 88 L, MPV 10.6 Current Medications Acetaminophen (Tylenol) 650 mg PO Q6H PRN PRN PRN Reason: PAIN Last Admin: 02/20/18 06:57 Dose: 650 mg Al Hydroxide/Mg Hydroxide (Mylanta Ii) 30 ml PO Q6H PRN PRN PRN Reason: Gastric burning Albuterol Sulfate (Ventolin Aerosols) 2.5 mg INHALATION Q2H PRN PRN PRN Reason: dyspnea, wheezing Atorvastatin Calcium (Lipitor) 20 mg PO QHS [facility] Last Admin: 02/19/18 21:50 Dose: 20 mg Docusate Sodium (Colace) 100 mg PO DAILY [facility] Last Admin: 02/20/18 12:14 Dose: Not Given Hydralazine HCl (Apresoline Iv) 5 mg IV Q6H PRN PRN PRN Reason: blood pressure Ceftriaxone Sodium (Rocephin) 1 gm in 50 mls @ 100 mls/hr IV Q24H [facility] Last Admin: 02/20/18 08:27 Dose: 100 mls/hr Pantoprazole Sodium 40 mg/ (Sodium Chloride) 110 mls @ 330 mls/hr IV Q12 [facility] Last Admin: 02/20/18 12:13 Dose: 330 mls/hr Lisinopril (Zestril) 2.5 mg PO DAILY [facility] Last Admin: 02/20/18 12:16 Dose: 2.5 mg Loratadine (Claritin) 10 mg PO DAILY [facility] Last Admin: 02/20/18 12:14 Dose: 10 mg Magnesium Hydroxide (Milk Of Magnesia) 30 ml PO DAILY PRN PRN PRN Reason: Constipation Metoprolol Succinate (Toprol Xl (Beta Freedom)) 25 mg PO DAILY [facility] Last Admin: 02/20/18 12:15 Dose: 25 mg Ondansetron HCl (Zofran) 4 mg IV Q8H PRN PRN PRN Reason: NAUSEA Pyridoxine HCl (Vitamin B-6) 100 mg PO DAILY [facility] Last Admin: 02/20/18 12:16 Dose: 100 mg Sodium Chloride () 5 - 30 ml IV UD PRN PRN Reason: SALINE FLUSH Last Admin: 02/19/18 23:54 Dose: 10 ml Medical Necessity - Tobacco Use Smoking Status: Never smoker Tobacco Use: Non-smoker Assessment/Plan 72 y/o F with with multiple comorbidities, recently admitted on 02/11/2018 with GI bleed, with unremarkable workup, admitted with epistaxis 1. Epistaxis likely related to severe thrombocytopenia, status post cauterization in the OR today, resolved, will continue to monitor overnight, possibly discharge if no epistaxis or any other acute events. 2. Acute on chronic normocytic anemia, in the setting of pancytopenia, multifactorial, admitted with hemoglobin of 7.4 with ongoing epistaxis, status post 3 packed RBCs, patient complains now of melena stools and an episode of bright red bleeding per rectum that was small, reviewed previous notes, Dr. Corado will be consulted, will have a tagged RBC scan if patient bleeds again. 3. GI bleed related to severe thrombocytopenia, status post recent workup which was unremarkable, started patient on IV PPI, will do a tagged RBC scan if patient continues to bleed. 3. Hypertension, controlled, continue to monitor. 4. Pancytopenia, improved with blood transfusions 6. Hyperlipidemia, statin 7. CAD, on statin, beta-freedom, not on aspirin, on statin, BB. 8. Anxiety, on as needed Ativan. 9.DVT Prophylaxis - SCDs, not on any medications on account of current epistaxis and history of GI bleed 10.CODE status: DNR-CCA, no intubation status. 11. Disposition: Possible dc in am Code Visit Inpatient E&M: 94287 Subs Hosp L2
--- NOTE | 2018-02-20 16:35 | ONC.PN.INPT ---
- Problem List (1) Pancytopenia Status: Chronic Subjective Date of Service:: 02/20/18 Epistaxis, pancytopenia Ms. Rhea Calhoun is a pleasant 72 year old woman with a complex oncologic history. She was diagnosed with non-Hodgkin's lymphoma, stage IV, with abdominal mass and ascites in January 2000. She received R-CHOP with remission. She had recurrent disease in May 2004 with multiple abdominal masses. She was treated with 2 cycles of R-CEOP followed by high-dose chemotherapy and autologous stem cell transplant with complete remission. Diagnosed with left breast cancer and underwent a left modified radical mastectomy plus axillary lymph node dissection on 11/26/2008 for stage I, ER/NM positive, HER2 negative disease. She was then diagnosed with multiple myeloma, IgG kappa type, in May 2010. She has received various treatments including Thalomid/Decadron, Revlimid/Decadron and Velcade/Decadron. Her last dose of Velcade/Decadron was on 11/30/2016 because of persistent cytopenia requiring red blood cell transfusions and leukopenia requiring Neupogen. Bone marrow biopsy done on 01/04/2017 showed plasma cells of 15% and cellularity of 50-60%. [facility] marrow bx 09/06/2017 [facility] showed hypercellular marrow 90%, Plasma cell 40%. M-spike 0.5, Cytogenetic was normal 46 XY. US on 09/15/2017 showed mild splenomegaly and fatty infiltration of liver. Received Decadron 40mg weekly, starting on 10/09/2017 covered with PPI. Bone marrow biopsy on 12/19/2017 showed Plasma cells 4%, Hypercellular marrow, + stainable iron. Decadron stopped 01/24/18. H/o frequent occult GI bleed requiring admissions, however source remains elusive despite capsule endoscopy (06/2017), multiple bleed scans and endoscopies with most recent EGD and colonoscopy performed 02/13/18 under the care of Dr. Corado as well as frequent episodes of epistaxis also requiring admissions. Receives Neulasta every 14 days in the outpatient setting. Patient developed epistaxis not responsive to usual measures, pressure, etc. 02/18/18 night which prompted presentation to [facility] ED. Found to have WBC count 1.5, Hgb 7.4 and platelets 31,000. Given 2 units leukodepleted PRBCs and 2 pks platelets received. Patient nares initially packed, underwent cauterization procedure under the care of Dr. Durand this morning. Packing removed, bleeding resolved. Patient reports increased comfort. Denies any other episodes of bleeding, although describes stools as dark. Past Medical History: Chronic Problems (Last Reviewed 02/06/18 @ 10:11 by Sarah Skinner) Neutropenia (Chronic) History of breast cancer (Chronic) Multiple myeloma (Chronic) History of stem cell transplant (Chronic) CAD (coronary artery disease) (Chronic) HTN (hypertension) (Chronic) Iron deficiency anemia (Chronic) Myelodysplasia (myelodysplastic syndrome) (Chronic) Malignant neoplasm of right female breast (Chronic) Multiple myeloma not having achieved remission (Chronic) Myelosuppression after chemotherapy (Chronic) Severe anemia (Chronic) Pancytopenia (Chronic) Past Medical History - Most Recent Inpatient Visit Past Medical History Start: 02/19/18 06:53 Text: Status: Complete Freq: ONCE Protocol: Document 02/19/18 06:53 ANNAMARIA (Rec: 02/19/18 06:59 [facility] [id number]) BMI Required to complete PMH What is Patient's BMI 26.3 Past Medical History Unable History Recalled No Query Text:Pt Unable/Family Not Present Neurologic Medical History Hx Stroke/TIA No Hx Dementia/Alzheimer's No Hx Parkinson's Disease No Hx Seizures No Hx Multiple Sclerosis No Hx Migraines No Cardiac Medical History VTE Present on Admission No Hx of Deep Vein Thrombosis/VTE/PE No Hx Hypertension Yes Hx Chest Pain/Angina Yes: WHEN HGB GETS TOO LOW Hx Heart Attack No Hx Cardiac Surgery/Stents/Etc. Yes: STENT X1 Hx Heart Failure No Hx Pacemaker/AICD No Hx Irregular Heartbeat and/or Afib Yes: skips a beat occasionally Hx Anticoagulant Therapy No Query Text:(Coumadin, Aspirin, Plavix, Xarelto, etc.) Hx Pain in Legs when Walking/Leg Cramps Yes: leg cramps Respiratory Medical History Hx COPD No Hx Emphysema No Hx Smoking No Smoking Status Never smoker Tobacco Use Non-smoker Hx Smoking Cessation Counseling No Hx Smoking Exposure No Hx Tobacco Use in last 12 months No Hx of Pipe Smoking No Hx Sleep Apnea No Do you snore loudly (louder than talking No or can be heard through closed doors)? Do you often feel tired/ fatigued/ No sleepy during daytime? Has anyone observed you stop breathing No during sleep? STOP Results Negative GI Medical History Hx Ulcer No Hx Hepatitis No Hx Cirrhosis No Hx GI Bleed Yes: some blood in stool occasionally Hx Unplanned Weight Loss No Genitourinary Medical History Indwelling Catheter in Place on Arrival/ No Admission Hx Renal Disease No Hx Dialysis No Musculoskeletal History Hx Arthritis No Hx Rheumatoid Arthritis No Endocrine Medical History Hx Diabetes No Hx Thyroid Disease No Hematologic Medical History Hx of Blood Transfusion Yes Hx of Transfusion in last 3 Months Yes Date of Last Transfusion (if within last 4-9-18 3 months) Ever experience any problems with No transfusion(s)? Hx of Preganancy in last 3 Months N/A Nurse Filling Out Transfusion & CKELLY Questions: Date: 02/19/18 Time: 06:58 Psycho/Social Medical History Hx Depression No Hx Anxiety No Hx Behavior Disorder No Hx Alcohol Use No Hx Substance Use No Other Medical History Hx Blood Disorders Yes: MDS Hx Anemia Yes Hx Cancer Yes: breast, mult myeloma, lymphoma, NONHODGKINS Hx Drug Resistant Organism No Wound/Pressure Injury Present on Arrival No /Admission Query Text:If yes, chart assessment in Shift/Clinical Findings Central Line/PICC/VAD Present on Arrival No /Admission Antibiotics within last 7 days? No Methicillin Resistant Staphylococcus aureus Screening Active MRSA No Risk for Readmission Number of Risk Factors 6 At Risk for Readmission Patient is At Risk For Readmission Patient is eligible for Call Back Y Past Medical History (Last Reviewed 02/06/18 @ 10:11 by Sarah Skinner) CATARACT SURGERY BILATERAL (Acute) Non Hodgkin's lymphoma (Acute) Past Surgical History (Last Reviewed 02/06/18 @ 10:11 by Sarah Skinner) H/O mastectomy (Acute) H/O: hysterectomy (Acute) Hx of cholecystectomy (Acute) abdomen biopsy (Resolved) Maternal Family History: Family History (Last Reviewed 02/06/18 @ 10:11 by Sarah Skinner) Father Diabetes Heart disease Mother Arthritis Breast cancer Uterine cancer Family History: Cancer - Uterine and breast Paternal Family History: Family History (Last Reviewed 02/06/18 @ 10:11 by Sarah Skinner) Father Diabetes Heart disease Mother Arthritis Breast cancer Uterine cancer Family History: Cancer, Diabetes - Social History Lives: Spouse/ Significant Other Smoking Status: Never smoker Tobacco Use: Non-smoker Alcohol: None Drugs: None Review of Systems Constitutional:: Reports: Weakness, Fatigue. Denies: Fever, Sweats, Weight loss, Appetite change, Chills Cardiovascular:: Denies: Chest pain, Palpitations, Dyspnea on exertion, Orthopnea, PND, Shortness of breath Respiratory: Denies: Cough, Hemoptysis, Shortness of Breath, Wheezing Gastrointestinal:: Reports: Melena. Denies: Abdominal pain, Nausea, Vomiting, Diarrhea, Constipation, Hematochezia Genitourinary: Denies: Dysuria, Hematuria, 15, Flank pain Musculoskeletal:: Denies: Back pain, Myalgia, Arthralgia Skin: Denies: Rash, Skin Changes, Wounds Neurological:: Denies: Headache, Dizziness, Visual changes, Tinnitus, Hearing loss Psychiatric: Denies: Anxiety, Depression, Homicidal Ideations, Suicidal Ideations Vital Signs Height 5 ft 2 in Weight: 143 lb 9.605 oz Weight in Pounds 143.6 lbs Pulse Ox 95 Temperature 98.2 F Pulse Rate 66 Respiratory Rate 16 Blood Pressure 119/74 Blood Pressure Position Semi-Fowlers - Physical Exam General: Alert, Oriented x3, No apparent distress HEENT: Atraumatic, Normocephalic Oropharynx:: Dry mucosa. Negative for: Ulcerated lesions Neck:: Supple, Trachea midline. Negative for: JVD, bilateral Cardiac:: Regular rate, Regular rhythm, Normal S1, Normal S2. Negative for: Murmur Lungs: Clear to auscultation, Excusion symmetrical. Negative for: Rhonchi, Wheezes Abdomen:: Bowel sounds x 4, Soft, Non-tender, Non-distended. Negative for: Hepatosplenomegaly Extremities:: Edema - BLE. Negative for: Cyanosis, Calf tenderness Skin:: Ecchymosis - BUE in various stages of healing. Negative for: Lesions, Rash, Petechiae Psychiatric:: Appropriate affect, Euthymic Laboratory Data: Laboratory Tests 02/20/18 02/20/18 02/20/18 Range/Units 12:50 07:05 07:05 WBC 7.2 (4.4-11.0) K/mm3 RBC 2.87 L (4.2-5.4) M/mm3 Hgb 8.8 L 8.7 L (12.0-15.0) g/dl Hct 26.5 L 27.6 L (37-47) % MCV 92.3 (81-99) fL MCH 30.7 (27.0-32.0) pg MCHC 33.2 (32-36) g/gl RDW 18.9 H (11.6-14.6) % RDW Differential 60.4 H (35.1-43.9) fl Plt Count 88 L (150-450) K/mm3 MPV 10.6 (6.2-12.0) fl Sodium 143 (136-145) mmol/L Potassium 3.9 (3.5-5.1) mmol/L Chloride 108 H (98-107) mmol/L Carbon Dioxide 26.0 (21.0-32.0) mmol/L Anion Gap 9 (5-15) BUN 22 H (7-18) mg/dL Creatinine 0.59 (0.55-1.02) mg/dL Estim Creat Clear Calc 39.04 ml/min Est GFR (MDRD) Af Amer 128 (>60) mL/min Est GFR (MDRD) Non-Af 106 (>60) mL/min BUN/Creatinine Ratio 37.4 H (10-20) RATIO Glucose 89 (74-106) mg/dL Calcium 8.7 (8.5-10.1) mg/dL Total Bilirubin 2.30 H (0.20-1.00) mg/dL Direct Bilirubin 0.48 H (0.00-0.30) mg/dL AST 52 H (15-37) U/L ALT 21 (13-56) U/L Alkaline Phosphatase 156 H (45-117) U/L Total Protein 5.4 L (6.4-8.2) g/dL Albumin 2.2 L (3.2-5.0) g/dL Globulin 3.2 (2.2-4.2) g/dL Crossmatch 02/20/18 02/19/18 02/19/18 Range/Units 01:05 06:09 06:09 WBC (4.4-11.0) K/mm3 RBC (4.2-5.4) M/mm3 Hgb 8.8 L (12.0-15.0) g/dl Hct 26.7 L (37-47) % MCV (81-99) fL MCH (27.0-32.0) pg MCHC (32-36) g/gl RDW (11.6-14.6) % RDW Differential (35.1-43.9) fl Plt Count (150-450) K/mm3 MPV (6.2-12.0) fl Sodium (136-145) mmol/L Potassium (3.5-5.1) mmol/L Chloride (98-107) mmol/L Carbon Dioxide (21.0-32.0) mmol/L Anion Gap (5-15) BUN (7-18) mg/dL Creatinine (0.55-1.02) mg/dL Estim Creat Clear Calc ml/min Est GFR (MDRD) Af Amer (>60) mL/min Est GFR (MDRD) Non-Af (>60) mL/min BUN/Creatinine Ratio (10-20) RATIO Glucose (74-106) mg/dL Calcium (8.5-10.1) mg/dL Total Bilirubin (0.20-1.00) mg/dL Direct Bilirubin (0.00-0.30) mg/dL AST (15-37) U/L ALT (13-56) U/L Alkaline Phosphatase (45-117) U/L Total Protein (6.4-8.2) g/dL Albumin (3.2-5.0) g/dL Globulin (2.2-4.2) g/dL Crossmatch See Detail See Detail Assessment and Plan 72 y/o F with with complex oncologic history inclusive of non Hodgkin lymphoma, left sided breast cancer and IgG kappa multiple myeloma, experiencing sequela of pancytopenia r/t myelosuppression vs. MDS, frequent episodes of epistaxis and GI bleed with source of bleeding elusive requiring frequent admissions. 1. Myelosuppression vs. MDS- Neutropenia is responsive to Neulasta administered q14 days. ANC upon admission 0.5. Granix 480 mcg SQ x1 given yesterday. Will continue Neulasta in the out patient setting prn. Neutropenic precautions. 2. Acute on Chronic Normocytic Anemia and thrombocytopenia- Likely multifactorial given the context of myelosuppression and frequent yaneli GI bleeding although source cannot be identified thru capsule endoscopy, multiple bleed scans and most recent EGD and colonoscopy 02/13/18. Has been given 2 units leukodepleted, irradiated and CMV neg PRBCS. Will closely monitor CBC. If develops hematochezia, will obtain bleed scan. 3. Epistaxis- Recurrent, ENT consulted. Received 2 packs platelets. Count now 88,000. Underwent cauterization under the care of Dr. Durand. No longer bleeding. 4. IgG kappa Multiple Myeloma- Bone marrow plasma cells decreased to 4% per most recent BMBX obtained December 2017 and M-spike 0.6, off Decadron 40mg weekly for the time being. Case discussed with Dr. Guy, who is agreement with the aforementioned plan. Follow up with Dr. Guy upon discharge. Kaylyn Dutta, MSN, GIS SCIENTIST-C, AOCNP Primary Care Provider: Edvin Anthony Referring Provider:
--- NOTE | 2018-02-20 16:43 | PN_ITS ---
- Problem List (1) Pancytopenia Status: Chronic Subjective Date of Service:: 02/20/18 Epistaxis, pancytopenia Ms. Rhea Calhoun is a pleasant 72 year old woman with a complex oncologic history. She was diagnosed with non-Hodgkin's lymphoma, stage IV, with abdominal mass and ascites in January 2000. She received R-CHOP with remission. She had recurrent disease in May 2004 with multiple abdominal masses. She was treated with 2 cycles of R-CEOP followed by high-dose chemotherapy and autologous stem cell transplant with complete remission. Diagnosed with left breast cancer and underwent a left modified radical mastectomy plus axillary lymph node dissection on 11/26/2008 for stage I, ER/CT positive, HER2 negative disease. She was then diagnosed with multiple myeloma, IgG kappa type, in May 2010. She has received various treatments including Thalomid/Decadron, Revlimid/ Decadron and Velcade/Decadron. Her last dose of Velcade/Decadron was on 2016 because of persistent cytopenia requiring red blood cell transfusions and leukopenia requiring Neupogen. Bone marrow biopsy done on 01/04/2017 showed plasma cells of 15% and cellularity of 50-60%. Bone marrow bx 09/06/2017 at [facility] showed hypercellular marrow 90%, Plasma cell 40%. M-spike 0.5, Cytogenetic was normal 46 XY. US on 09/15/2017 showed mild splenomegaly and fatty infiltration of liver. Received Decadron 40mg weekly, starting on 10/09/2017 covered with PPI. Bone marrow biopsy on 12/19/2017 showed Plasma cells 4%, Hypercellular marrow, + stainable iron. Decadron stopped 01/24/18. H/o frequent occult GI bleed requiring admissions, however source remains elusive despite capsule endoscopy (06/2017), multiple bleed scans and endoscopies with most recent EGD and colonoscopy performed 02/13/18 under the care of Dr. Corado as well as frequent episodes of epistaxis also requiring admissions. Receives Neulasta every 14 days in the outpatient setting. Patient developed epistaxis not responsive to usual measures, pressure, etc. night which prompted presentation to [facility] ED. Found to have WBC count 1.5 , Hgb 7.4 and platelets 31,000. Given 2 units leukodepleted PRBCs and 2 pks platelets received. Patient nares initially packed, underwent cauterization procedure under the care of Dr. Durand this morning. Packing removed, bleeding resolved. Patient reports increased comfort. Denies any other episodes of bleeding, although describes stools as dark. Past Medical History: Chronic Problems (Last Reviewed 02/06/18 @ 10:11 by Sarah Skinner) Neutropenia (Chronic) History of breast cancer (Chronic) Multiple myeloma (Chronic) History of stem cell transplant (Chronic) CAD (coronary artery disease) (Chronic) HTN (hypertension) (Chronic) Iron deficiency anemia (Chronic) Myelodysplasia (myelodysplastic syndrome) (Chronic) Malignant neoplasm of right female breast (Chronic) Multiple myeloma not having achieved remission (Chronic) Myelosuppression after chemotherapy (Chronic) Severe anemia (Chronic) Pancytopenia (Chronic) Past Medical History - Most Recent Inpatient Visit Past Medical History Start: 02/19/18 06: 53 Text: Status: Complete Freq: ONCE Protocol: Document 02/19/18 06:53 ANNAMARIA (Rec: 02/19/18 06:59 [facility] [id number]) BMI Required to complete PMH What is Patient's BMI 26.3 Past Medical History Unable History Recalled No Query Text:Pt Unable/Family Not Present Neurologic Medical History Hx Stroke/TIA No Hx Dementia/Alzheimer's No Hx Parkinson's Disease No Hx Seizures No Hx Multiple Sclerosis No Hx Migraines No Cardiac Medical History VTE Present on Admission No Hx of Deep Vein Thrombosis/VTE/PE No Hx Hypertension Yes Hx Chest Pain/Angina Yes: WHEN HGB GETS TOO LOW Hx Heart Attack No Hx Cardiac Surgery/Stents/Etc. Yes: STENT X1 Hx Heart Failure No Hx Pacemaker/AICD No Hx Irregular Heartbeat and/or Afib Yes: skips a beat occasionally Hx Anticoagulant Therapy No Query Text:(Coumadin, Aspirin, Plavix, Xarelto, etc.) Hx Pain in Legs when Walking/Leg Cramps Yes: leg cramps Respiratory Medical History Hx COPD No Hx Emphysema No Hx Smoking No Smoking Status Never smoker Tobacco Use Non-smoker Hx Smoking Cessation Counseling No Hx Smoking Exposure No Hx Tobacco Use in last 12 months No Hx of Pipe Smoking No Hx Sleep Apnea No Do you snore loudly (louder than talking No or can be heard through closed doors)? Do you often feel tired/ fatigued/ No sleepy during daytime? Has anyone observed you stop breathing No during sleep? STOP Results Negative GI Medical History Hx Ulcer No Hx Hepatitis No Hx Cirrhosis No Hx GI Bleed Yes: some blood in stool occasionally Hx Unplanned Weight Loss No Genitourinary Medical History Indwelling Catheter in Place on Arrival/ No Admission Hx Renal Disease No Hx Dialysis No Musculoskeletal History Hx Arthritis No Hx Rheumatoid Arthritis No Endocrine Medical History Hx Diabetes No Hx Thyroid Disease No Hematologic Medical History Hx of Blood Transfusion Yes Hx of Transfusion in last 3 Months Yes Date of Last Transfusion (if within last 4-9-18 3 months) Ever experience any problems with No transfusion(s)? Hx of Preganancy in last 3 Months N/A Nurse Filling Out Transfusion & CKELLY Questions: Date: 02/19/18 Time: 06:58 Psycho/Social Medical History Hx Depression No Hx Anxiety No Hx Behavior Disorder No Hx Alcohol Use No Hx Substance Use No Other Medical History Hx Blood Disorders Yes: MDS Hx Anemia Yes Hx Cancer Yes: breast, mult myeloma, lymphoma, NONHODGKINS Hx Drug Resistant Organism No Wound/Pressure Injury Present on Arrival No /Admission Query Text:If yes, chart assessment in Shift/Clinical Findings Central Line/PICC/VAD Present on Arrival No /Admission Antibiotics within last 7 days? No Methicillin Resistant Staphylococcus aureus Screening Active MRSA No Risk for Readmission Number of Risk Factors 6 At Risk for Readmission Patient is At Risk For Readmission Patient is eligible for Call Back Y Past Medical History (Last Reviewed 02/06/18 @ 10:11 by Sarah Skinner) CATARACT SURGERY BILATERAL (Acute) Non Hodgkin's lymphoma (Acute) Past Surgical History (Last Reviewed 02/06/18 @ 10:11 by Sarah Skinner) H/O mastectomy (Acute) H/O: hysterectomy (Acute) Hx of cholecystectomy (Acute) abdomen biopsy (Resolved) Maternal Family History: Family History (Last Reviewed 02/06/18 @ 10:11 by Sarah Skinner) Father Diabetes Heart disease Mother Arthritis Breast cancer Uterine cancer Family History: Cancer - Uterine and breast Paternal Family History: Family History (Last Reviewed 02/06/18 @ 10:11 by Sarah Skinner) Father Diabetes Heart disease Mother Arthritis Breast cancer Uterine cancer Family History: Cancer, Diabetes - Social History Lives: Spouse/ Significant Other Smoking Status: Never smoker Tobacco Use: Non-smoker Alcohol: None Drugs: None Review of Systems Constitutional:: Reports: Weakness, Fatigue. Denies: Fever, Sweats, Weight loss , Appetite change, Chills Cardiovascular:: Denies: Chest pain, Palpitations, Dyspnea on exertion, Orthopnea, PND, Shortness of breath Respiratory: Denies: Cough, Hemoptysis, Shortness of Breath, Wheezing Gastrointestinal:: Reports: Melena. Denies: Abdominal pain, Nausea, Vomiting, Diarrhea, Constipation, Hematochezia Genitourinary: Denies: Dysuria, Hematuria, 15, Flank pain Musculoskeletal:: Denies: Back pain, Myalgia, Arthralgia Skin: Denies: Rash, Skin Changes, Wounds Neurological:: Denies: Headache, Dizziness, Visual changes, Tinnitus, Hearing loss Psychiatric: Denies: Anxiety, Depression, Homicidal Ideations, Suicidal Ideations Vital Signs Height 5 ft 2 in Weight: 143 lb 9.605 oz Weight in Pounds 143.6 lbs Pulse Ox 95 Temperature 98.2 F Pulse Rate 66 Respiratory Rate 16 Blood Pressure 119/74 Blood Pressure Position Semi-Fowlers - Physical Exam General: Alert, Oriented x3, No apparent distress HEENT: Atraumatic, Normocephalic Oropharynx:: Dry mucosa. Negative for: Ulcerated lesions Neck:: Supple, Trachea midline. Negative for: JVD, bilateral Cardiac:: Regular rate, Regular rhythm, Normal S1, Normal S2. Negative for: Murmur Lungs: Clear to auscultation, Excusion symmetrical. Negative for: Rhonchi, Wheezes Abdomen:: Bowel sounds x 4, Soft, Non-tender, Non-distended. Negative for: Hepatosplenomegaly Extremities:: Edema - BLE. Negative for: Cyanosis, Calf tenderness Skin:: Ecchymosis - BUE in various stages of healing. Negative for: Lesions, Rash, Petechiae Psychiatric:: Appropriate affect, Euthymic Laboratory Data: Laboratory Tests 3 02/20/18 02/20/18 02/20/18 Range/Units 12:50 07:05 07:05 WBC 7.2 (4.4-11.0) K/mm3 RBC 2.87 L (4.2-5.4) M/mm3 Hgb 8.8 L 8.7 L (12.0-15.0) g/dl Hct 26.5 L 27.6 L (37-47) % MCV 92.3 (81-99) fL MCH 30.7 (27.0-32.0) pg MCHC 33.2 (32-36) g/gl RDW 18.9 H (11.6-14.6) % RDW Differential 60.4 H (35.1-43.9) fl Plt Count 88 L (150-450) K/mm3 MPV 10.6 (6.2-12.0) fl Sodium 143 (136-145) mmol/L Potassium 3.9 (3.5-5.1) mmol/L Chloride 108 H (98-107) mmol/L Carbon Dioxide 26.0 (21.0-32.0) mmol/L Anion Gap 9 (5-15) BUN 22 H (7-18) mg/dL Creatinine 0.59 (0.55-1.02) mg/dL Estim Creat Clear Calc 39.04 ml/min Est GFR (MDRD) Af Amer 128 (>60) mL/min Est GFR (MDRD) Non-Af 106 (>60) mL/min BUN/Creatinine Ratio 37.4 H (10-20) RATIO Glucose 89 (74-106) mg/dL Calcium 8.7 (8.5-10.1) mg/dL Total Bilirubin 2.30 H (0.20-1.00) mg/dL Direct Bilirubin 0.48 H (0.00-0.30) mg/dL AST 52 H (15-37) U/L ALT 21 (13-56) U/L Alkaline Phosphatase 156 H (45-117) U/L Total Protein 5.4 L (6.4-8.2) g/dL Albumin 2.2 L (3.2-5.0) g/dL Globulin 3.2 (2.2-4.2) g/dL Crossmatch 3 02/20/18 02/19/18 02/19/18 Range/Units 01:05 06:09 06:09 WBC (4.4-11.0) K/mm3 RBC (4.2-5.4) M/mm3 Hgb 8.8 L (12.0-15.0) g/dl Hct 26.7 L (37-47) % MCV (81-99) fL MCH (27.0-32.0) pg MCHC (32-36) g/gl RDW (11.6-14.6) % RDW Differential (35.1-43.9) fl Plt Count (150-450) K/mm3 MPV (6.2-12.0) fl Sodium (136-145) mmol/L Potassium (3.5-5.1) mmol/L Chloride (98-107) mmol/L Carbon Dioxide (21.0-32.0) mmol/L Anion Gap (5-15) BUN (7-18) mg/dL Creatinine (0.55-1.02) mg/dL Estim Creat Clear Calc ml/min Est GFR (MDRD) Af Amer (>60) mL/min Est GFR (MDRD) Non-Af (>60) mL/min BUN/Creatinine Ratio (10-20) RATIO Glucose (74-106) mg/dL Calcium (8.5-10.1) mg/dL Total Bilirubin (0.20-1.00) mg/dL Direct Bilirubin (0.00-0.30) mg/dL AST (15-37) U/L ALT (13-56) U/L Alkaline Phosphatase (45-117) U/L Total Protein (6.4-8.2) g/dL Albumin (3.2-5.0) g/dL Globulin (2.2-4.2) g/dL Crossmatch See Detail See Detail Assessment and Plan 72 y/o F with with complex oncologic history inclusive of non Hodgkin lymphoma, left sided breast cancer and IgG kappa multiple myeloma, experiencing sequela of pancytopenia r/t myelosuppression vs. MDS, frequent episodes of epistaxis and GI bleed with source of bleeding elusive requiring frequent admissions. 1. Myelosuppression vs. MDS- Neutropenia is responsive to Neulasta administered q14 days. ANC upon admission 0.5. Granix 480 mcg SQ x1 given yesterday. Will continue Neulasta in the out patient setting prn. Neutropenic precautions. 2. Acute on Chronic Normocytic Anemia and thrombocytopenia- Likely multifactorial given the context of myelosuppression and frequent yaneli GI bleeding although source cannot be identified thru capsule endoscopy, multiple bleed scans and most recent EGD and colonoscopy 02/13/18. Has been given 2 units leukodepleted, irradiated and CMV neg PRBCS. Will closely monitor CBC. If develops hematochezia, will obtain bleed scan. 3. Epistaxis- Recurrent, ENT consulted. Received 2 packs platelets. Count now 88,000. Underwent cauterization under the care of Dr. Durand. No longer bleeding. 4. IgG kappa Multiple Myeloma- Bone marrow plasma cells decreased to 4% per most recent BMBX obtained December 2017 and M-spike 0.6, off Decadron 40mg weekly for the time being. Case discussed with Dr. Guy, who is agreement with the aforementioned plan. Follow up with Dr. Guy upon discharge. Kaylyn Dutta, MSN, [employer] ANALYST-C, AOCNP Primary Care Provider: Edvin Anthony Referring Provider:
[2018-02-20] MEDS: Atorvastatin Calcium 20 MG Tablet PO (21:03)
[2018-02-21] VITALS (11 sets, daily range): BP systolic 113–139; BP diastolic 59–75; PULSE 67–83; RESP 16–18; TEMP 36.4–36.6; O2SAT 96–99
[2018-02-21 06:52] LABS: Anion Gap 7 (5-15); BUN 18 mg/dL (7-18); BUN/Creat Ratio 28.3 RATIO (10-20); Calcium,Total 8.8 mg/dL (8.5-10.1); Chloride 108 mmol/L (98-107); Creatinine, Serum 0.64 mg/dL (0.55-1.02); EST Glomerular Filtration Rate 97 mL/min (>60); Est Glom Filt Rate - Afr Amer 118 mL/min (>60); Estimated Creatinine Clearance 39.04 ml/min; Glucose 85 mg/dL (74-106); Potassium 3.8 mmol/L (3.5-5.1); Sodium Level 143 mmol/L (136-145)
[2018-02-21 06:55] LABS: Absolute Lymphocyte Count 0.93 X10^3/ul (0.83-4.51); Absolute Neutrophil Count 5.5 X10^3/uL (2.0-7.7); Basophil# 0.01 X10^3/uL; Basophil% 0.1 % (0-1); Eosinophil# 0.02 X10^3/uL; Eosinophils% 0.3 % (0-5); Hematocrit 28.1 % (37-47); Hemoglobin 9.2 g/dl (12.0-15.0); Lymphocyte # 0.93 X10^3/ul (4.0); Mean Corp Hgb Conc 32.7 g/gl (32-36); Mean Corpuscular Hgb 30.6 pg (27.0-32.0); Mean Corpuscular Volume 93.4 fL (81-99); Mean Platelet Vol. 11.8 fl (6.2-12.0); Monocyte# 0.64 X10^3/uL; Monocyte% 8.9 % (0-10); Neutrophil # 5.54 X10^3/uL (2.7-7.7); Neutrophil % 77.1 % (47-70); Platelet Count 74 K/mm3 (150-450); RBC Distribution Width CV 18.7 % (11.6-14.6); RBC Distribution Width SD 62.3 fl (35.1-43.9); Red Blood Count 3.01 M/mm3 (4.2-5.4); White Blood Count 7.2 K/mm3 (4.4-11.0)
[2018-02-21 06:56] LABS: POSITIVE COUNT NO; POSITIVE DIFFERENTIAL NO; POSITIVE MORPHOLOGY NO
--- NOTE | 2018-02-21 07:27 | PCM.PROGNOTE ---
Subjective: Patient is a 72-year-old female with a past medical history of breast cancer, non-Hodgkin's lymphoma, multiple myeloma, coronary artery disease, hypertension and intermittent GI bleeding with multiple endoscopies and scans negative who presented to the [facility] emergency room on 02/19/2018 complaining of epistaxis. Vital signs at presentation to the emergency room were temperature 98.1, heart rate 87, blood pressure 141/77, respiratory rate 18 and she was 100% saturated on room air. CBC was remarkable for a white blood cell count of 1.5, hemoglobin of 7.4 lately count of 31 with an absolute neutrophil count of 0.5. She was transfused with 2 units of irradiated leukocyte reduced platelets and 3 units of irradiated/leukocyte reduced RBCs. Oncology was consulted and she received Neulasta and Decadron to stimulate the white blood cell count. She was also placed on ceftriaxone at admission due to severe neutropenia. Her nose was packed in the ED. she was seen in consultation by Dr. Holley on 02/20/2018 nasal packs were removed. Endoscopic examination of the nose and cautery of nasal septal bleeders was performed. FloSeal was painted on the septal and inferior turbinate mucosa to prevent further bleeding. Hemoglobin today is 9.2 and stable. White blood cell count is 7.2 with 77% neutrophils and 1% immature granulocytes. Platelets are 74,000 today. Electrolytes are within normal limits and the BUN is 18 with a creatinine of 0.64. She is afebrile with a temp of 97.7. Vital signs are stable and the current blood pressure is 113/59. Pulse ox on room air is 97%. She had a few loose dark bowel movements this morning but her stool is now brown. Bleeding scan was canceled because he had no bright red blood or maroon blood per rectum and bleeding is too slow to have a positive bleeding scan. She denies chest pain, shortness of breath, lightheadedness, palpitations, abdominal pain, nausea/vomiting. She has no epistaxis. I reviewed the oncology consult. - Physical Exam General: Alert, Oriented x3, Cooperative, No apparent distress, Well developed, Well nourished HEENT: Atraumatic, PERRLA, EOMI Oral: Moist Mucosa, No Gingival or Mucosal Lesions/ Ulcerations Neck: Supple, No JVD, No Nodes, No Nuchal Rigidity, Trachea Midline Lungs: Clear to auscultation, No rhonchi, No wheeze, No rales Cardiovascular: Regular rate, Regular Rhythm, Normal S1, Normal S2, Murmur - She has a 1/6 to 2/6 systolic ejection murmur heard best at the second right intercostal space., No rub noted, No Gallop Abdomen: Bowel Sounds Present - Bowel sounds are not hyperactive, Soft, Non Tender, Non-Distended Extremities: No edema, Cyanosis - of the nailbeds of the hands BL......she tells me that this happens when her hands get cold and sometimes they get painful, Peripheral Pulses Normal Skin: No rashes, No breakdown Neurological: Cranial nerves II-XII grossly intact, Neuro grossly intact Psych/Mental Status: Normal Affect, Appropriate Vital Signs Temp Pulse Resp BP Pulse Ox 97.7 F L 67 18 113/59 L 97 02/21/18 03:30 02/21/18 03:59 02/21/18 03:30 02/21/18 03:30 02/21/18 03:30 Oxygen Flow Rate (L/min) 5 Oxygen Delivery Method Room Air Weight: 143 lb 9.605 oz Body Mass Index (BMI) 26.2 Intake and Output for Last 24 Hours 02/19/18 02/20/18 02/21/18 23:59 23:59 23:59 Intake Total 3999 / 3999 1041 / 1041 857 / 857 Output Total 200 / 200 1450 / 1450 300 / 300 Balance 3799 / 3799 -409 / -409 557 / 557 Laboratory Tests Past 24 Hrs 02/20/18 02/20/18 02/21/18 07:05 12:50 06:10 WBC 7.2 7.2 RBC 2.87 L 3.01 L Hgb 8.8 L 9.2 L Hct 26.5 L 28.1 L MCV 92.3 93.4 MCH 30.7 30.6 MCHC 33.2 32.7 RDW 18.9 H 18.7 H RDW Differential 60.4 H 62.3 H Plt Count 88 L 74 L MPV 10.6 11.8 Immature Gran % (Auto) 1.000 H Neut % (Auto) 77.1 H Lymph % (Auto) 13.0 L [place] % (Auto) 8.9 Eos % (Auto) 0.3 Baso % (Auto) 0.1 Absolute Neuts (auto) 5.5 Absolute Lymphs (auto) 0.93 Total Counted Not Reportable Sodium 143 Potassium 3.9 Chloride 108 H Carbon Dioxide 26.0 Anion Gap 9 BUN 22 H Creatinine 0.59 Estim Creat Clear Calc 39.04 Est GFR (MDRD) Af Amer 128 Est GFR (MDRD) Non-Af 106 BUN/Creatinine Ratio 37.4 H Glucose 89 Calcium 8.7 Total Bilirubin 2.30 H Direct Bilirubin 0.48 H AST 52 H ALT 21 Alkaline Phosphatase 156 H Total Protein 5.4 L Albumin 2.2 L Globulin 3.2 02/21/18 06:10 WBC RBC Hgb Hct MCV MCH MCHC RDW RDW Differential Plt Count MPV Immature Gran % (Auto) Neut % (Auto) Lymph % (Auto) [place] % (Auto) Eos % (Auto) Baso % (Auto) Absolute Neuts (auto) Absolute Lymphs (auto) Total Counted Sodium 143 Potassium 3.8 Chloride 108 H Carbon Dioxide 28.0 Anion Gap 7 BUN 18 Creatinine 0.64 Estim Creat Clear Calc 39.04 Est GFR (MDRD) Af Amer 118 Est GFR (MDRD) Non-Af 97 BUN/Creatinine Ratio 28.3 H Glucose 85 Calcium 8.8 Total Bilirubin Direct Bilirubin AST ALT Alkaline Phosphatase Total Protein Albumin Globulin Medical Necessity - Tobacco Use Smoking Status: Never smoker Tobacco Use: Non-smoker Assessment/Plan Impressions 1. Epistaxis-status post cauterization by Dr. Holley in the OR. 2. pancytopenia - S/P transfusion of packed red blood cells and 2 units of platelets. 3. suspect MDS. Neutropenia is responsive to Neulasta which she is getting every 14 days. 4. Hx of breast cancer, non-Hodgkin's lymphoma, multiple myeloma 5. Coronary artery disease 6. Hypertension 7. History of GI bleeds in the past with multiple endoscopies and bleeding scans negative for source of bleeding. Suspect she probably has AVMs. 8. Anxiety 9. Diffuse gastritis on an EGD performed 02/13/[address] Cage. Colonoscopy at the same time was unremarkable. Continue current treatment Recheck CBC in the a.m. and if her counts are stable will likely discharge home. She will follow up with Dr. Guy next week in the office. Code Visit Inpatient E&M: 93759 Subs Hosp L2
[2018-02-21] MEDS: Ceftriaxone 1 GM/50 ML BAG IV (08:05)
[2018-02-21] MEDS: Loratadine 10 MG Tablet PO (09:06)
[2018-02-21] MEDS: Metoprolol(XL)Succ 25 MG Tablet PO (09:07)
[2018-02-21] MEDS: Pyridoxine HCl 50 MG Tablet 100 MG PO (09:07)
[2018-02-21] MEDS: Lisinopril 2.5 MG Tablet PO (09:08)
[2018-02-21] MEDS: 0.9% NaCl Peripheral Flush Adult/Peds IV (09:30)
--- NOTE | 2018-02-21 14:52 | CHAPLAIN ---
Type of Pastoral Visit _x__ Initial Visit ___ Follow-up Visit ___ On-call Visit ___ General Patient Visit ___ Spiritual Assessment ___ Family Conference ___ Bereavement ___ Rapid Response ___ Code Blue ___ Other (describe below) Pastoral Care Referral From _x__ Patient ___ Family ___ Nurse ___ Physician ___ Flavor Tank Tender ___ Welding Robot Operator ___ Other (describe below) Sacrament/Intervention _x__ Active listening ___ Anointing ___ Gnosticist ___ Bereavement ___ Communion ___ Marielena exploration ___ ___ Life review _x__ Prayer ___ Reconciliation ___ Sacrament of Sick ___ Supportive presence ___ Wedding ___ Other (describe below) Pastoral Comments
--- NOTE | 2018-02-21 17:30 | PCM.CONS.GEN ---
Reason for Consult Date of Consultation: 02/21/18 History of Present Illness: The patient is a 72 year old F with a history of multiple myeloma, Hodgkin's lymphoma and breast cancer who requires frequent transfusions for marrow failure. The patient was most recently admitted for bleeding, early January. Consultation by Dr. Oconnor noted: The patient is a 72 year old F who presents with chest pain, weakness starting on Monday. Patient was noted to have a hemoglobin of 3.3 in the ED. Patient has a history of multiple myeloma (currently being treated for), Non-Hodgkin's lymphoma stage IV (had an abdominal mass)- treated with high-dose chemotherapy. She has also had a previous stem cell transplant in 2003. Patient had history of left breast cancer in 2008. Dr. Oconnor performed a modified radical mastectomy with axillary dissection. She notes being treated with Decadron for multiple years for multiple myeloma. Patient currently receives Decadron weekly. Dr. Guy is her oncologist. Patient has a history of anemia. Patient has been given Procrit on 01/04/18 in oncology. Patient notes she has had multiple transfusions over the last year. She notes on average she would have blood transfusion every 6 months. Patient states since her ER visit in August with a nosebleed, she has had to have 2 units of PRBC every 2-3 weeks. Patient states her last blood transfusion was on 12/29 in oncology. Patient states she has had a previous GI bleed in June 2017 x 2. Patient notes early in June she came in with anemia. Dr. Oconnor performed and upper and lower scope on 06/12/17. Findings included internal hemorrhoids. Patient was given hemorrhoidal ointment. No active bleeding was noted at that time. Patient then returned later that month with anemia. She was transferred to [facility] secondary to suspicion of small bowel bleeding. She had a GI bleeding study/scan which was negative and capsule endoscopy was performed also negative. In August patient presented to the ED with nose bleed which was unable to be controlled. Patient was sent to [facility], where bleeding had ceased. She was transfused 3 or 4 units of PRBC. Patient noted she had an EGD by a Dr. Aguero which was unremarkable per patient. Again in October, patient had acute anemia and scopes were recommended. Dr. Oconnor did not recommend scopes at that time. Dr. Mack also evaluated this patient during that hospitalization and scopes were not recommended by him either. Dr. Mack's impression was possible diverticular bleed. Patient also has a cardiac history. She notes an abnormal stress test and cardiac cath and stent placement in 2009. She currently follows with Dr. Borden. She denies previous myocardial infarction, stroke and blood clots. Patient notes single bowel movement since admission. She noted black, dark stools for 3 days. She notes her stool was more brown yesterday. Patient had a positive occult blood test yesterday. Patient's hemoglobin was 7.0 this morning. Patient notes seeing a small amount of bright red blood on the toilet paper. Patient states she was started on a PPI by Dr. Miller, however this was discontinued by Dr. Guy secondary to possibly the cause of low platelets. Patient's surgical history consists of gallbladder and total hysterectomy. the patient currently denies significant nosebleeds but does note relatively persistent bloody nasal drainage and bleeding gums. This is relatively standard for her. Last week when the patient was seen. Her hemoglobin was 5.5, and she received 2 units of packed red cells. Since that time, the patient noted increased fatigue and more maroon-colored stools, then more black stools. She was admitted to the ER. She has received 4 units of packed cells. Today, she had a bowel movement which the ICU nurse interpreted as melena. I performed upper and lower endoscopy on February 13, which demonstrated patchy diffuse gastritis without obvious signs of bleeding, boucher bile without signs of hepatobiliary and no duodenal or esophageal abnormalities. Colonoscopy was generally unremarkable. I recommended if the patient have further bleeding episodes that with our GI origin that the patient return for a bleeding scan. She returns now having a significant nosebleed. She had noted swallowing some blood and has noted some dark stools but feels this is likely from her epistaxis. She was seen by Dr. Arjun Holley who performed cauterization of her nasal bleeding. She has had no further bleeding since that procedure and now notes no dark stools. Her hemoglobin has been generally stable. Past Medical History Past Medical History (Chronic Problems): Chronic Problems (Last Reviewed 02/06/18 @ 10:11 by Sarah Skinner) Neutropenia (Chronic) History of breast cancer (Chronic) Multiple myeloma (Chronic) History of stem cell transplant (Chronic) CAD (coronary artery disease) (Chronic) HTN (hypertension) (Chronic) Iron deficiency anemia (Chronic) Myelodysplasia (myelodysplastic syndrome) (Chronic) Malignant neoplasm of right female breast (Chronic) Multiple myeloma not having achieved remission (Chronic) Myelosuppression after chemotherapy (Chronic) Severe anemia (Chronic) Pancytopenia (Chronic) Allergies Penicillins [PCN] Allergy (Severe, Verified 02/19/18 03:01) Hives diphenhydramine [From Benadryl] Allergy (Mild, Verified 02/19/18 03:01) restless legs Home Medications: Ambulatory Orders Medication Instructions Recorded Simvastatin [Zocor] 40 mg PO QHS 08/15/13 Multivitamin [Multiple Vitamins] 1 ea PO DAILY 09/26/17 Pyridoxine HCl [Vitamin B6] 100 mg PO DAILY 09/26/17 Albuterol Inhaler [Ventolin Hfa] 1 - 2 puff INHALATION Q4H PRN PRN 10/14/17 #1 inhaler Loratadine [Claritin] 10 mg PO DAILY 11/20/17 metoprolol succinate ER 25 mg 25 mg PO DAILY #30 tab 01/03/18 tablet,extended release 24 hr lisinopril 2.5 mg tablet 2.5 mg PO DAILY #30 tab 01/11/18 Clobetasol Propionate 15 gm TP QHS 14 Days #1 tube 01/30/18 Docusate Sodium [Colace] 100 mg PO DAILY 02/11/18 Pantoprazole Sodium [Protonix] 40 mg PO BID #30 tab 02/14/18 Surgical History: cholecystectomy, hysterectomy, mastectomy Psychiatric History: Anxiety 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 Lives: Spouse/ Significant Other Smoking Status: Never smoker Tobacco Use: Non-smoker Alcohol: None Drugs: None - *Family History Maternal History Items: Cancer - Uterine and breast Paternal History Items: Cancer, Diabetes - Physical Exam General: Alert, Oriented x3, Cooperative, No apparent distress Lungs: Clear to auscultation, Normal air movement Cardiovascular: Regular rate, No murmurs Abdomen: Bowel Sounds Present, Soft, Non Tender Vital Signs Temp Pulse Resp BP Pulse Ox 97.9 F 79 18 135/72 H 97 02/21/18 15:13 02/21/18 15:13 02/21/18 15:13 02/21/18 15:13 02/21/18 15:13 Oxygen Flow Rate (L/min) 5 Oxygen Delivery Method Room Air Weight: 65.136 kg Body Mass Index (BMI) 26.2 Intake and Output for Last 24 Hours 02/19/18 02/20/18 02/21/18 23:59 23:59 23:59 Intake Total 3999 / 3999 1041 / 1041 1217 / 1217 Output Total 200 / 200 1450 / 1450 400 / 400 Balance 3799 / 3799 -409 / -409 817 / 817 Laboratory Tests Past 24 Hrs 02/21/18 02/21/18 06:10 06:10 WBC 7.2 RBC 3.01 L Hgb 9.2 L Hct 28.1 L MCV 93.4 MCH 30.6 MCHC 32.7 RDW 18.7 H RDW Differential 62.3 H Plt Count 74 L MPV 11.8 Immature Gran % (Auto) 1.000 H Neut % (Auto) 77.1 H Lymph % (Auto) 13.0 L [place] % (Auto) 8.9 Eos % (Auto) 0.3 Baso % (Auto) 0.1 Absolute Neuts (auto) 5.5 Absolute Lymphs (auto) 0.93 Total Counted Not Reportable Sodium 143 Potassium 3.8 Chloride 108 H Carbon Dioxide 28.0 Anion Gap 7 BUN 18 Creatinine 0.64 Estim Creat Clear Calc 39.04 Est GFR (MDRD) Af Amer 118 Est GFR (MDRD) Non-Af 97 BUN/Creatinine Ratio 28.3 H Glucose 85 Calcium 8.8 Assessment/Plan acute on chronic anemia-myelodysplastic syndrome, multiple myeloma, lymphoma, breast cancer, obscure source with multiple past endoscopies and procedures - bleeding this time felt to be related to epistaxis. if the patient has recurring melanoma or blood per rectum that I would recommend urgent tagged red cell scan to assess and hopefully catch a bleeding source. Otherwise for now, I feel, epistaxis is the cause of her findings. An happy to follow patient with you.
[2018-02-21] MEDS: Atorvastatin Calcium 20 MG Tablet PO (20:57)
[2018-02-22] VITALS (7 sets, daily range): BP systolic 130–145; BP diastolic 69–78; PULSE 69–78; RESP 18; TEMP 36.5–36.8; O2SAT 95–98
[2018-02-22 08:15] LABS: Absolute Lymphocyte Count 0.74 X10^3/ul (0.83-4.51); Absolute Neutrophil Count 0.4 X10^3/uL (2.0-7.7); Basophil# 0.01 X10^3/uL; Basophil% 0.6 % (0-1); Eosinophil# 0.03 X10^3/uL; Eosinophils% 1.9 % (0-5); Hematocrit 24.7 % (37-47); Hemoglobin 7.8 g/dl (12.0-15.0); Lymphocyte # 0.74 X10^3/ul (4.0); Mean Corp Hgb Conc 31.6 g/gl (32-36); Mean Corpuscular Hgb 29.7 pg (27.0-32.0); Mean Corpuscular Volume 93.9 fL (81-99); Mean Platelet Vol. 9.8 fl (6.2-12.0); Monocyte# 0.39 X10^3/uL; Monocyte% 24.2 % (0-10); Neutrophil # 0.43 X10^3/uL (2.7-7.7); Neutrophil % 26.7 % (47-70); Platelet Count 73 K/mm3 (150-450); RBC Distribution Width CV 18.4 % (11.6-14.6); RBC Distribution Width SD 61.1 fl (35.1-43.9); Red Blood Count 2.63 M/mm3 (4.2-5.4); White Blood Count 1.6 K/mm3 (4.4-11.0)
[2018-02-22 08:17] LABS: Differential Indicated SCAN CRITERIA MET; POSITIVE COUNT NO; POSITIVE DIFFERENTIAL YES; POSITIVE MORPHOLOGY NO
[2018-02-22 08:57] LABS: Hypochromasia 2+; Platelet Estimate MKD DEC (ADEQ); Platelet Morphology LARGE
[2018-02-22] MEDS: 0.9% NaCl Peripheral Flush Adult/Peds IV (09:17)
[2018-02-22] MEDS: Ceftriaxone 1 GM/50 ML BAG IV (09:17)
[2018-02-22] MEDS: Pyridoxine HCl 50 MG Tablet 100 MG PO (09:21)
[2018-02-22] MEDS: Lisinopril 2.5 MG Tablet PO (09:22)
[2018-02-22] MEDS: Loratadine 10 MG Tablet PO (09:22)
[2018-02-22] MEDS: Metoprolol(XL)Succ 25 MG Tablet PO (09:24)
[2018-02-22] MEDS: Furosemide 40 MG/4 ML Vial IV (11:02)
[2018-02-22] MEDS: TBO-FILGRASTIM 300 MCG/0.5 ML ML SC (11:02)
--- NOTE | 2018-02-22 11:38 | PN.SURG_ITS ---
Subjective: no further complaints of bleeding - Physical Exam General: Alert, Oriented x3, Cooperative Lungs: Clear to auscultation Cardiovascular: Regular rate, No murmurs Abdomen: Bowel Sounds Present, Soft, Non Tender Vital Signs Temp Pulse Resp BP Pulse Ox 98.2 F 72 18 145/78 H 96 02/22/18 09:15 02/22/18 09:24 02/22/18 09:15 02/22/18 09:15 02/22/18 09:15 Oxygen Flow Rate (L/min) 5 Oxygen Delivery Method Room Air Weight: 65.136 kg Body Mass Index (BMI) 26.2 Intake and Output for Last 24 Hours 02/20/18 02/21/18 02/22/18 23:59 23:59 23:59 Intake Total 1041 / 1041 1457 / 1457 1338 / 1338 Output Total 1450 / 1450 400 / 400 1250 / 1250 Balance -409 / -409 1057 / 1057 88 / 88 Laboratory Tests Past 24 Hrs 02/22/18 08:00 WBC 1.6 L RBC 2.63 L Hgb 7.8 L Hct 24.7 L MCV 93.9 MCH 29.7 MCHC 31.6 L RDW 18.4 H RDW Differential 61.1 H Plt Count 73 L MPV 9.8 Immature Gran % (Auto) 0.600 Neut % (Auto) 26.7 L Lymph % (Auto) 46.0 H [place] % (Auto) 24.2 H Eos % (Auto) 1.9 Baso % (Auto) 0.6 Absolute Neuts (auto) 0.4 L Absolute Lymphs (auto) 0.74 L Total Counted Not Reportable Platelet Estimate MKD DEC Plt Morphology Comment LARGE Hypochromasia 2+ Medical Necessity - Tobacco Use Smoking Status: Never smoker Tobacco Use: Non-smoker Assessment/Plan acute on chronic anemia-myelodysplastic syndrome, multiple myeloma, lymphoma, breast cancer, obscure source with multiple past endoscopies and procedures - bleeding this time felt to be related to epistaxis. if the patient has recurring melana or blood per rectum that I would recommend urgent tagged red cell scan to assess and hopefully catch a bleeding source. Otherwise for now, I feel, epistaxis is the cause of her findings.
[2018-02-22 16:20] LABS: Hematocrit 28.1 % (37-47); Hemoglobin 8.8 g/dl (12.0-15.0); Mean Corp Hgb Conc 31.3 g/gl (32-36); Mean Corpuscular Hgb 29.4 pg (27.0-32.0); Red Blood Count 2.99 M/mm3 (4.2-5.4); White Blood Count 4.7 K/mm3 (4.4-11.0)
[2018-02-22 16:21] LABS: Platelet Count 72 K/mm3 (150-450); RBC Distribution Width SD 60.5 fl (35.1-43.9); Scan Indicated on CBC? Y/N NO
--- NOTE | 2018-02-22 17:03 | PCM.DC ---
You will use the following diet at home:: Other - soft diet, no caffeine Your food should be the consistency of: Regular Your liquids should be the consistency of: Regular/Thin Discharge Activity: - - activity as tolerated Call your doctor if you observe: Fever of 101 or Higher, Inability to urinate, Inability to have a bowel movement, Shortness of breath, Dizziness, Fainting spells, Swelling in the ankles, Chest pain, Increased palpitations (irregular heartbeat), - - black tarry stool, recurrent nose bleed, Cough, burnning with urination, bleeding from the mouth or anus, large bruies, Instructions: Discharge Instructions: Low Bacteria Diet Additional Instructions: The HGB at discharge is 8.8 and stable. Platelets are stable at 72,000. The white blood cell count is up to 4.7 after the Granix this morning but....will probably go back down in a few days. Call Dr. Guy's office in the AM and find out when they want you to come in to get Neulasta. I think the black stool you had was probably due to blood from the nose bleed that you swallowed and not due to bleeding in the GI tract becuse it resolved quickly. Allergies/Adverse Reactions: Allergies Penicillins [PCN] Allergy (Severe, Verified 02/19/18 03:01) Hives diphenhydramine [From Benadryl] Allergy (Mild, Verified 02/19/18 03:01) restless legs Medications to take at Discharge Simvastatin [Zocor] 40 mg PO QHS 08/15/13 Multivitamin [Multiple Vitamins] 1 ea PO DAILY 09/26/17 Pyridoxine HCl [Vitamin B6] 100 mg PO DAILY 09/26/17 Albuterol Inhaler [Ventolin Hfa] 1 - 2 puff INHALATION Q4H PRN PRN #1 inhaler 10/14/17 Loratadine [Claritin] 10 mg PO DAILY 11/20/17 metoprolol succinate ER 25 mg tablet,extended release 24 hr 25 mg PO DAILY #30 tab 01/03/18 lisinopril 2.5 mg tablet 2.5 mg PO DAILY #30 tab 01/11/18 Clobetasol Propionate 15 gm TP QHS 14 Days #1 tube 01/30/18 Docusate Sodium [Colace] 100 mg PO DAILY 02/11/18 Pantoprazole Sodium [Protonix] 40 mg PO BID #30 tab 02/14/18 Primary Care Physician: Edvin Anthony [Primary Care Provider] - Please follow up with your Primary Care Physician in: 5-7 days Please Follow Up With: Abhay Guy MD When: call the office tomorrow to get an appt to get Neulasta Proposed Discharge Date: 02/22/18
--- NOTE | 2018-02-22 17:39 | PCM.DC.SUM ---
Discharge Date and Diagnosis - Problem List Patient Problems: Active and Suspected Problems (Last Reviewed 02/06/18 @ 10:11 by Sarah Skinner) Gastritis (Acute) Date of Admission: 02/19/18 Date of Discharge: 02/22/18 - Primary Discharge Diagnosis Active and Suspected Problems (Last Reviewed 02/06/18 @ 10:11 by Sarah Skinner) epistaxis - S/P nasal cautery acute blood loss anemia Gastritis (subacute) - Secondary Discharge Diagnosis Chronic Problems (Last Reviewed 02/06/18 @ 10:11 by Sarah Skinner) Anxiety/depression (Chronic) - untreated History of GI bleeds (Chronic) - no source for the bleeding ever identified....likely due to AVM's History of breast cancer (Chronic) History of stem cell transplant (Chronic) CAD (coronary artery disease) (Chronic) HTN (hypertension) (Chronic) Iron deficiency anemia (Chronic) Myelodysplasia (myelodysplastic syndrome) (Chronic) Multiple myeloma not having achieved remission (Chronic) Myelosuppression after chemotherapy (Chronic) Pancytopenia (Chronic) Hospital Course and Treatment Imaging Results: Laboratory Tests 02/19/18 02/19/18 02/19/18 03:23 03:23 04:20 WBC Cancelled Corrected WBC Cancelled RBC Cancelled Hgb Cancelled Hct Cancelled MCV Cancelled MCH Cancelled MCHC Cancelled RDW Cancelled RDW Differential Cancelled Plt Count Cancelled MPV Cancelled Immature Gran % (Auto) Cancelled Neut % (Auto) Cancelled Lymph % (Auto) Cancelled [place] % (Auto) Cancelled Eos % (Auto) Cancelled Baso % (Auto) Cancelled Immature Gran # (Auto) Cancelled Absolute Neuts (auto) Cancelled Absolute Lymphs (auto) Cancelled Absolute Monos (auto) Cancelled Total Counted Cancelled Neutrophils % (Manual) Cancelled Band Neutrophils % Cancelled Lymphocytes % (Manual) Cancelled Monocytes % (Manual) Cancelled Eosinophils % (Manual) Cancelled Basophils % (Manual) Cancelled Metamyelocytes % Cancelled Myelocytes % Cancelled Promyelocytes % Cancelled Blast Cells % Cancelled Plasma Cell % (Manual) Cancelled Other Cells % Cancelled Lymphocytes # Cancelled Nucleated RBCs/100 WBC Cancelled Differential Comment Cancelled Diff Path Review Cancelled Hypersegmented Neuts Cancelled Atypical Lymphocytes Cancelled Reactive Lymphocytes Cancelled Smudge Cells Cancelled Eosinophilia # Cancelled Basophilia # Cancelled Toxic Granulation Cancelled Dohle Bodies Cancelled Anna Rods Cancelled Platelet Estimate Cancelled Plt Morphology Comment Cancelled RBC Morphology Cancelled Polychromasia Cancelled Hypochromasia Cancelled Poikilocytosis Cancelled Basophilic Stippling Cancelled Anisocytosis Cancelled Microcytosis Cancelled Macrocytosis Cancelled Spherocytes Cancelled Sickle Cells Cancelled Target Cells Cancelled Tear Drop Cells Cancelled Ovalocytes Cancelled Stomatocytes Cancelled Reynolds-Marshall Bodies Cancelled Hopkins Cells Cancelled Bite Cells Cancelled Acanthocytes (Spur) Cancelled Rouleaux Cancelled Schistocytes Cancelled PT Cancelled 15.9 H INR Cancelled 1.3 APTT Cancelled 36.1 Sodium Potassium Chloride Carbon Dioxide Anion Gap BUN Creatinine Estim Creat Clear Calc Est GFR (MDRD) Af Amer Est GFR (MDRD) Non-Af BUN/Creatinine Ratio Glucose Calcium Magnesium Total Bilirubin Direct Bilirubin AST ALT Alkaline Phosphatase Total Protein Albumin Globulin Blood Type Antibody Screen Crossmatch 02/19/18 02/19/18 02/19/18 04:20 06:09 06:09 WBC 1.5 L Corrected WBC RBC 2.48 L Hgb 7.4 L Hct 23.3 L MCV 94.0 MCH 29.8 MCHC 31.8 L RDW 18.3 H RDW Differential 60.7 H Plt Count 31 L* MPV 11.1 Immature Gran % (Auto) 1.300 H Neut % (Auto) 30.6 L Lymph % (Auto) 45.8 H [place] % (Auto) 19.6 H Eos % (Auto) 2.0 Baso % (Auto) 0.7 Immature Gran # (Auto) Absolute Neuts (auto) 0.5 L Absolute Lymphs (auto) 0.70 L Absolute Monos (auto) Total Counted Not Reportable Neutrophils % (Manual) Band Neutrophils % Lymphocytes % (Manual) Monocytes % (Manual) Eosinophils % (Manual) Basophils % (Manual) Metamyelocytes % Myelocytes % Promyelocytes % Blast Cells % Plasma Cell % (Manual) Other Cells % Lymphocytes # Nucleated RBCs/100 WBC Differential Comment SCANNED Diff Path Review Reviewed Hypersegmented Neuts Atypical Lymphocytes Reactive Lymphocytes Smudge Cells Eosinophilia # Basophilia # Toxic Granulation Dohle Bodies Anna Rods Platelet Estimate MKD DEC Plt Morphology Comment RBC Morphology Polychromasia Hypochromasia Poikilocytosis Basophilic Stippling Anisocytosis Microcytosis Macrocytosis Spherocytes Sickle Cells Target Cells Tear Drop Cells Ovalocytes Stomatocytes Reynolds-Marshall Bodies Hopkins Cells Bite Cells Acanthocytes (Spur) Rouleaux Schistocytes PT INR APTT Sodium Potassium Chloride Carbon Dioxide Anion Gap BUN Creatinine Estim Creat Clear Calc Est GFR (MDRD) Af Amer Est GFR (MDRD) Non-Af BUN/Creatinine Ratio Glucose Calcium Magnesium Total Bilirubin Direct Bilirubin AST ALT Alkaline Phosphatase Total Protein Albumin Globulin Blood Type A NEGATIVE Antibody Screen NEGATIVE Crossmatch See Detail See Detail 02/19/18 02/19/18 02/19/18 06:09 07:30 07:30 WBC Corrected WBC RBC Hgb 7.4 L Hct 23.2 L MCV MCH MCHC RDW RDW Differential Plt Count MPV Immature Gran % (Auto) Neut % (Auto) Lymph % (Auto) [place] % (Auto) Eos % (Auto) Baso % (Auto) Immature Gran # (Auto) Absolute Neuts (auto) Absolute Lymphs (auto) Absolute Monos (auto) Total Counted Neutrophils % (Manual) Band Neutrophils % Lymphocytes % (Manual) Monocytes % (Manual) Eosinophils % (Manual) Basophils % (Manual) Metamyelocytes % Myelocytes % Promyelocytes % Blast Cells % Plasma Cell % (Manual) Other Cells % Lymphocytes # Nucleated RBCs/100 WBC Differential Comment Diff Path Review Hypersegmented Neuts Atypical Lymphocytes Reactive Lymphocytes Smudge Cells Eosinophilia # Basophilia # Toxic Granulation Dohle Bodies Anna Rods Platelet Estimate Plt Morphology Comment RBC Morphology Polychromasia Hypochromasia Poikilocytosis Basophilic Stippling Anisocytosis Microcytosis Macrocytosis Spherocytes Sickle Cells Target Cells Tear Drop Cells Ovalocytes Stomatocytes Reynolds-Marshall Bodies Hopkins Cells Bite Cells Acanthocytes (Spur) Rouleaux Schistocytes PT INR APTT Sodium 143 Potassium 4.1 Chloride 110 H Carbon Dioxide 26.0 Anion Gap 7 BUN 21 H Creatinine 0.68 Estim Creat Clear Calc 39.04 Est GFR (MDRD) Af Amer 108 Est GFR (MDRD) Non-Af 89 BUN/Creatinine Ratio 30.7 H Glucose 97 Calcium 8.6 Magnesium 2.2 Total Bilirubin Direct Bilirubin AST ALT Alkaline Phosphatase Total Protein Albumin Globulin Blood Type Antibody Screen Crossmatch See Detail 02/19/18 02/20/18 02/20/18 13:00 01:05 07:05 WBC Corrected WBC RBC Hgb 7.6 L 8.8 L Hct 23.8 L 26.7 L MCV MCH MCHC RDW RDW Differential Plt Count MPV Immature Gran % (Auto) Neut % (Auto) Lymph % (Auto) [place] % (Auto) Eos % (Auto) Baso % (Auto) Immature Gran # (Auto) Absolute Neuts (auto) Absolute Lymphs (auto) Absolute Monos (auto) Total Counted Neutrophils % (Manual) Band Neutrophils % Lymphocytes % (Manual) Monocytes % (Manual) Eosinophils % (Manual) Basophils % (Manual) Metamyelocytes % Myelocytes % Promyelocytes % Blast Cells % Plasma Cell % (Manual) Other Cells % Lymphocytes # Nucleated RBCs/100 WBC Differential Comment Diff Path Review Hypersegmented Neuts Atypical Lymphocytes Reactive Lymphocytes Smudge Cells Eosinophilia # Basophilia # Toxic Granulation Dohle Bodies Anna Rods Platelet Estimate Plt Morphology Comment RBC Morphology Polychromasia Hypochromasia Poikilocytosis Basophilic Stippling Anisocytosis Microcytosis Macrocytosis Spherocytes Sickle Cells Target Cells Tear Drop Cells Ovalocytes Stomatocytes Reynolds-Marshall Bodies Hopkins Cells Bite Cells Acanthocytes (Spur) Rouleaux Schistocytes PT INR APTT Sodium 143 Potassium 3.9 Chloride 108 H Carbon Dioxide 26.0 Anion Gap 9 BUN 22 H Creatinine 0.59 Estim Creat Clear Calc 39.04 Est GFR (MDRD) Af Amer 128 Est GFR (MDRD) Non-Af 106 BUN/Creatinine Ratio 37.4 H Glucose 89 Calcium 8.7 Magnesium Total Bilirubin 2.30 H Direct Bilirubin 0.48 H AST 52 H ALT 21 Alkaline Phosphatase 156 H Total Protein 5.4 L Albumin 2.2 L Globulin 3.2 Blood Type Antibody Screen Crossmatch 02/20/18 02/20/18 02/21/18 07:05 12:50 06:10 WBC 7.2 7.2 Corrected WBC RBC 2.87 L 3.01 L Hgb 8.7 L 8.8 L 9.2 L Hct 27.6 L 26.5 L 28.1 L MCV 92.3 93.4 MCH 30.7 30.6 MCHC 33.2 32.7 RDW 18.9 H 18.7 H RDW Differential 60.4 H 62.3 H Plt Count 88 L 74 L MPV 10.6 11.8 Immature Gran % (Auto) 1.000 H Neut % (Auto) 77.1 H Lymph % (Auto) 13.0 L [place] % (Auto) 8.9 Eos % (Auto) 0.3 Baso % (Auto) 0.1 Immature Gran # (Auto) Absolute Neuts (auto) 5.5 Absolute Lymphs (auto) 0.93 Absolute Monos (auto) Total Counted Not Reportable Neutrophils % (Manual) Band Neutrophils % Lymphocytes % (Manual) Monocytes % (Manual) Eosinophils % (Manual) Basophils % (Manual) Metamyelocytes % Myelocytes % Promyelocytes % Blast Cells % Plasma Cell % (Manual) Other Cells % Lymphocytes # Nucleated RBCs/100 WBC Differential Comment Diff Path Review Hypersegmented Neuts Atypical Lymphocytes Reactive Lymphocytes Smudge Cells Eosinophilia # Basophilia # Toxic Granulation Dohle Bodies Anna Rods Platelet Estimate Plt Morphology Comment RBC Morphology Polychromasia Hypochromasia Poikilocytosis Basophilic Stippling Anisocytosis Microcytosis Macrocytosis Spherocytes Sickle Cells Target Cells Tear Drop Cells Ovalocytes Stomatocytes Reynolds-Marshall Bodies Margy Cells Bite Cells Acanthocytes (Spur) Rouleaux Schistocytes PT INR APTT Sodium Potassium Chloride Carbon Dioxide Anion Gap BUN Creatinine Estim Creat Clear Calc Est GFR (MDRD) Af Amer Est GFR (MDRD) Non-Af BUN/Creatinine Ratio Glucose Calcium Magnesium Total Bilirubin Direct Bilirubin AST ALT Alkaline Phosphatase Total Protein Albumin Globulin Blood Type Antibody Screen Crossmatch 02/21/18 02/22/18 02/22/18 06:10 08:00 16:10 WBC 1.6 L 4.7 Corrected WBC RBC 2.63 L 2.99 L Hgb 7.8 L 8.8 L Hct 24.7 L 28.1 L MCV 93.9 94.0 MCH 29.7 29.4 MCHC 31.6 L 31.3 L RDW 18.4 H 18.0 H RDW Differential 61.1 H 60.5 H Plt Count 73 L 72 L MPV 9.8 11.0 Immature Gran % (Auto) 0.600 Neut % (Auto) 26.7 L Lymph % (Auto) 46.0 H [place] % (Auto) 24.2 H Eos % (Auto) 1.9 Baso % (Auto) 0.6 Immature Gran # (Auto) Absolute Neuts (auto) 0.4 L Absolute Lymphs (auto) 0.74 L Absolute Monos (auto) Total Counted Not Reportable Neutrophils % (Manual) Band Neutrophils % Lymphocytes % (Manual) Monocytes % (Manual) Eosinophils % (Manual) Basophils % (Manual) Metamyelocytes % Myelocytes % Promyelocytes % Blast Cells % Plasma Cell % (Manual) Other Cells % Lymphocytes # Nucleated RBCs/100 WBC Differential Comment Diff Path Review Hypersegmented Neuts Atypical Lymphocytes Reactive Lymphocytes Smudge Cells Eosinophilia # Basophilia # Toxic Granulation Dohle Bodies Anna Rods Platelet Estimate MKD DEC Plt Morphology Comment LARGE RBC Morphology Polychromasia Hypochromasia 2+ Poikilocytosis Basophilic Stippling Anisocytosis Microcytosis Macrocytosis Spherocytes Sickle Cells Target Cells Tear Drop Cells Ovalocytes Stomatocytes Reynolds-Marshall Bodies Margy Cells Bite Cells Acanthocytes (Spur) Rouleaux Schistocytes PT INR APTT Sodium 143 Potassium 3.8 Chloride 108 H Carbon Dioxide 28.0 Anion Gap 7 BUN 18 Creatinine 0.64 Estim Creat Clear Calc 39.04 Est GFR (MDRD) Af Amer 118 Est GFR (MDRD) Non-Af 97 BUN/Creatinine Ratio 28.3 H Glucose 85 Calcium 8.8 Magnesium Total Bilirubin Direct Bilirubin AST ALT Alkaline Phosphatase Total Protein Albumin Globulin Blood Type Antibody Screen Crossmatch Kaylyn Dutta - oncology with Dr. Malena Durand - ENT Operations: None Procedures: - - removal of nasal packing and cautery of nasal septal bleeders. Summary of Care Provided: Patient is a 72-year-old female with a past medical history of breast cancer, non-Hodgkin's lymphoma, multiple myeloma, coronary artery disease, hypertension and intermittent GI bleeding with multiple endoscopies and negative bleeding scans who presented to the [facility] emergency room on 02/19/2018 complaining of epistaxis. Vital signs at presentation to the emergency room were temperature 98.1, heart rate 87, blood pressure 141/77, respiratory rate 18 and she was 100% saturated on room air. CBC was remarkable for a white blood cell count of 1.5, hemoglobin of 7.4 lately count of 31 with an absolute neutrophil count of 0.5. She was transfused with 2 units of irradiated leukocyte reduced platelets and 3 units of irradiated/leukocyte reduced RBCs. Oncology was consulted and she received Granix and Decadron to stimulate the white blood cell count. She was placed on ceftriaxone at admission prophylactically due to severe neutropenia. Her nose was packed in the ED. She was seen in consultation by Dr. Jr Holley on 02/20/2018 and the nasal packs were removed. Endoscopic examination of the nose and cautery of nasal septal bleeders was performed. FloSeal was painted on the septal and inferior turbinate mucosa to prevent further bleeding. she had no further significant epistaxis. She did have some dark stool on the morning of 02/21 likely due to blood she swallowed with the severe nasal bleeding. By the afternoon the stool was brown again. Hemoglobin on 02/21/2018 was 9.2 and the platelets were 74,000 with a white blood cell count of 7.2. She was kept in the hospital because of the dark stool on the morning of 02/21/2018. On 02/22/2018 the white blood cell count had once again dropped to 1.6 and her hemoglobin was 7.8. Platelets were stable at 73,000. Review of the fluid balance showed she was up 4 and 1/2 liters since admission. She was given 300 mg of Granix and 40 mg Lasix and the CBC was checked again in the afternoon. The white blood cell count was 4.7 with a hemoglobin of 8.8 and stable platelets at 72,000. Her stool was brown and she denied shortness of breath, palpitations, chest pain. She had no nausea and no abdominal pain. She was discharged home and will call Dr. Guy's office in the AM to schedule and appt for her next Neulasta shot. She will follow up with Dr. Anthony in 5-7 days. She has been having problems sleeping and also problems with appetite, irritability, lack of motivation, problems concentrating, hopelessness. We discussed the sx of anxiety and depression with her and with her and they admitted that she has been experiencing several of the aforementioned problems. She was agreeable to a trial of an antidepressant. She was given a RX for Remeron 15 mg and instructed to take 1/2 tablet at night for 1 week and if she has no adverse reactions she should increase to 1 whole tablet at bedtime which is the therapeutic dose. This note was generated with Cobook[employer] software. It may contain incorrect words, spelling, and punctuation that were not noted in checking the note before signing. Discharge Activity: - - activity as tolerated Call your doctor if you observe: Fever of 101 or Higher, Inability to urinate, Inability to have a bowel movement, Shortness of breath, Dizziness, Fainting spells, Swelling in the ankles, Chest pain, Increased palpitations (irregular heartbeat), - - black tarry stool, recurrent nose bleed, Cough, burnning with urination, bleeding from the mouth or anus, large bruies, Home Medications: Medications to take at Discharge Simvastatin [Zocor] 40 mg PO QHS 08/15/13 Multivitamin [Multiple Vitamins] 1 ea PO DAILY 09/26/17 Pyridoxine HCl [Vitamin B6] 100 mg PO DAILY 09/26/17 Albuterol Inhaler [Ventolin Hfa] 1 - 2 puff INHALATION Q4H PRN PRN #1 inhaler 10/14/17 Loratadine [Claritin] 10 mg PO DAILY 11/20/17 metoprolol succinate ER 25 mg tablet,extended release 24 hr 25 mg PO DAILY #30 tab 01/03/18 lisinopril 2.5 mg tablet 2.5 mg PO DAILY #30 tab 01/11/18 Clobetasol Propionate 15 gm TP QHS 14 Days #1 tube 01/30/18 Docusate Sodium [Colace] 100 mg PO DAILY 02/11/18 Pantoprazole Sodium [Protonix] 40 mg PO BID #30 tab 02/14/18 Mirtazapine [Remeron] 7.5 mg PO QHS #30 tab 02/22/18 Following Prescrptions Were Given to Patient: Mirtazapine [Remeron] 7.5 mg PO QHS #30 tab Primary Care Physician: Edvin Anthony [Primary Care Provider] - Please follow up with your Primary Care Physician in: 5-7 days Please Follow Up With: Abhay Guy MD When: call the office tomorrow to get an appt to get Neulasta Patient Instructions: Discharge Instructions: Low Bacteria Diet Disposition: Home Minutes spent on discharge:: 40 Patient Condition:: Stable Medical Necessity - Tobacco Use Smoking Status: Never smoker Tobacco Use: Non-smoker Meaningful Use Info Meaningful Use Diagnoses (Choose all that apply): None applicable Code Visit Inpatient E&M: 22164 Disch Hosp
--- NOTE | 2018-02-23 16:16 | CASEMGMT ---
JUDY CASEY Discharge Follow-up Phone Call: ERIC: Catrachita Strata: 4 Call Date: 02/23/18 Discharge Date: 02/22/18 Time of Call: 1616 Duration: 1 min Admitting Diagnosis: Anemia, Epistaxis RN JACINTO attemted to follow-up with patient. No answer and voice message left with return contact information No follow-up appts were scheduled prior to discharge.
== END 2018-02-22 18:00 | disposition home or self-care (01) | DRG 982 ==
LOC: ED 03:38 → MS3 05:56
PROVIDERS: Internal Medicine; Otolaryngology Otolaryngology/Facial Plastic Surgery; Admitting Provider Family Medicine; Emergency Provider Emergency Medicine; Family Provider Family Medicine; PCP Family Medicine; Visit Provider Internal Medicine
PROC: 0W3Q8ZZ Control Bleeding in Respiratory Tract, Via Natural or Artificial Opening Endoscopic (ICD-10-PCS; principal; 2018-02-20 09:15)
DX: D46.9 Myelodysplastic syndrome, unspecified (principal); D62 Acute posthemorrhagic anemia; D61.818 Other pancytopenia; C90.00 Multiple myeloma not having achieved remission; K92.2 Gastrointestinal hemorrhage, unspecified; Z94.84 Stem cells transplant status; R04.0 Epistaxis; K64.9 Unspecified hemorrhoids; E78.5 Hyperlipidemia, unspecified; I25.10 Atherosclerotic heart disease of native coronary artery without angina pectoris; F41.9 Anxiety disorder, unspecified; I10 Essential (primary) hypertension; Z85.3 Personal history of malignant neoplasm of breast; D50.9 Iron deficiency anemia, unspecified; Z85.72 Personal history of non-Hodgkin lymphomas; Z66 Do not resuscitate; K29.70 Gastritis, unspecified, without bleeding; F32.9 Major depressive disorder, single episode, unspecified
CPT/HCPCS: 36415; 80048; 80076; 83735; 85014; 85018; 85025; 85027; 85610; 85730; 86850; 86900; 86920; 86922; 86965; 93005; 97802; 99284; J7040; J7050; J7120; P9037; P9040; A4216; J1447; J1940; J2405

== ENCOUNTER 2018-03-03 08:09 | Outpatient (CLI) | payer MEDICARE, BC, SELFPAY ==
[2018-03-03 09:45] VITALS: BP 113/48; PULSE 83; RESP 16; TEMP 37.2; O2SAT 95
[2018-03-03 10:00] VITALS: BP 99/50; PULSE 83; RESP 16; TEMP 37.1; O2SAT 95
[2018-03-03 10:16] VITALS: BP 100/45; PULSE 82; RESP 16; TEMP 36.9; O2SAT 97
== END 2018-03-03 10:30 | disposition home or self-care (01) ==
LOC: MEDOUTP 08:11 → ICU 08:14
PROVIDERS: Family Provider Family Medicine; PCP Family Medicine; Visit Provider Internal Medicine Hematology & Oncology
DX: D64.9 Anemia, unspecified (principal)
CPT/HCPCS: 36430; 86900; 86901; P9037

== ENCOUNTER 2018-03-10 05:42 | Inpatient (IN) | payer MEDICARE, BC, SELFPAY ==
[2018-03-10] VITALS (11 sets, daily range): BP systolic 106–131; BP diastolic 54–66; PULSE 83–105; RESP 13–19; TEMP 36.5–37.3; O2SAT 96–98; BMI 25.6; BMI 25.9; BMI 26.0
--- NOTE | 2018-03-10 06:15 | EKG12_ITS ---
Test Reason : DYSRHYTHMIA Blood Pressure : / mmHG Vent. Rate : 078 BPM Atrial Rate : 078 BPM P-R Int : 160 ms QRS Dur : 086 ms QT Int : 422 ms P-R-T Axes : 027 023 099 degrees QTc Int : 481 ms Normal sinus rhythm Septal infarct , age undetermined Nonspecific T wave abnormality Abnormal ECG Confirmed by SOFIA CHEATHAM, GIACOMO ([id number]), scientific publications editor TORRES PORTILLO ([id number]) on 03/14/2018 1:59:09 PM Referred By: Anthony Borden Confirmed By:GIACOMO BLACK MD
[2018-03-10 06:57] LABS: ALB/GLOB Ratio 0.4 RATIO (0.9-2.4); AST(SGOT) 67 U/L (15-37); Alanine Aminotransfer ALT/SGPT 25 U/L (13-56); Alkaline Phosphatase 188 U/L (45-117); Anion Gap 8 (5-15); BUN 26 mg/dL (7-18); BUN/Creat Ratio 28.6 RATIO (10-20); Calcium,Total 8.7 mg/dL (8.5-10.1); Chloride 109 mmol/L (98-107); Creatinine, Serum 0.91 mg/dL (0.55-1.02); EST Glomerular Filtration Rate 64 mL/min (>60); Est Glom Filt Rate - Afr Amer 78 mL/min (>60); Globulin 4.6 g/dL (2.2-4.2); Glucose 117 mg/dL (74-106); Hematocrit 18.7 % (37-47); Hemoglobin 6.5 g/dl (12.0-15.0); Lipase 301 U/L (73-393); Mean Corp Hgb Conc 34.8 g/gl (32-36); Mean Corpuscular Hgb 33.3 pg (27.0-32.0); Mean Corpuscular Volume 95.9 fL (81-99); Potassium 4.4 mmol/L (3.5-5.1); Protein, Total 6.6 g/dL (6.4-8.2); RBC Distribution Width CV 19.8 % (11.6-14.6); RBC Distribution Width SD 64.5 fl (35.1-43.9); Red Blood Count 1.95 M/mm3 (4.2-5.4); Sodium Level 143 mmol/L (136-145); White Blood Count 1.7 K/mm3 (4.4-11.0)
[2018-03-10 06:59] LABS: Platelet Count 36 K/mm3 (150-450)
[2018-03-10 07:00] LABS: Differential Indicated MANUAL DIFF; POSITIVE COUNT YES; POSITIVE DIFFERENTIAL YES; POSITIVE MORPHOLOGY YES
--- NOTE | 2018-03-10 07:11 | NURSING ---
LAB CALLED WITH CRITICAL OF WBC 1.7, HEMOGLOB 6.5, PLAT 36
[2018-03-10] MEDS: Ondansetron 4 MG/2 ML Vial IV (07:16)
[2018-03-10 07:34] LABS: Anisocytosis 1+; Hypochromasia 1+
[2018-03-10 07:35] LABS: Platelet Estimate MKD DEC (ADEQ)
[2018-03-10 07:38] LABS: Eosinophil 2 % (0-5); Lymphocyte 63 % (19-41); Metamyelocyte 3 % (0-1); Monocyte 1 % (0-10); Neutrophil-Band 5 % (0-5); Neutrophil-Segmented 26 % (47-70); Nucleated Red Bld Cells,Manual 1 % (0-5); Total Cells Counted 100 (MANUAL DIFF)
[2018-03-10 07:39] LABS: Absolute Lymphocyte Count 1.09 X10^3/ul (0.83-4.51); Absolute Neutrophil Count 0.5 X10^3/uL (2.0-7.7); Lymphocyte # 1.09 X10^3/ul (4.0); Neutrophil # 0.54 X10^3/uL (2.7-7.7)
--- NOTE | 2018-03-10 07:52 | ED.DCSUM_ITS ---
History of Present Illness Chief Complaint: Nausea/Vomiting/Diarrhea Informant: Patient, Family Onset: Today, Hours - 2 Context: Gradual Onset Quality: hematemesis, watery diarrhea w/ small amts of blood Current Severity: Mild Maximum Severity: Moderate Worsened by: nothing Relieved by: nothing Associated Symptoms: recent intermittent nosebleeds. malaise/weakness. bleeding gums. Narrative: Patient has a history of GI bleeding from unknown source, scopes have been negative according to the patient. She has a history of multiple myeloma, and thrombocytopenia, she had a platelet transfusion 1-2 weeks ago that brought her from the 30s up to 50. She started having diarrhea last night, and a couple hours prior to arrival, hematemesis again. No syncope. No chest pain. No abdominal pain. Prior similar symptoms: Yes - Past Medical History (1) Chronic GI bleeding Status: Chronic (2) Nasal bleeding Status: Chronic (3) Epistaxis, recurrent Status: Chronic (4) Gastritis Status: Chronic (5) Anxiety Status: Chronic (6) CAD (coronary artery disease) Status: Chronic (7) History of breast cancer Status: Chronic (8) History of stem cell transplant Status: Chronic (9) Iron deficiency anemia Status: Chronic (10) Multiple myeloma not having achieved remission Status: Chronic (11) Pancytopenia Status: Chronic Past Medical History - Allergies and Home Meds Allergies/Adverse Reactions: Allergies Penicillins [PCN] Allergy (Severe, Verified 03/05/18 10:05) Hives diphenhydramine [From Benadryl] Allergy (Mild, Verified 03/05/18 10:05) restless legs Home Medications: Home Medications Medication Instructions Recorded Simvastatin [Zocor] 40 mg PO QHS 08/15/13 Multivitamin [Multiple Vitamins] 1 ea PO DAILY 09/26/17 Pyridoxine HCl [Vitamin B6] 100 mg PO DAILY 09/26/17 Albuterol Inhaler [Ventolin Hfa] 1 - 2 puff INHALATION Q4H PRN PRN 10/14/17 #1 inhaler Loratadine [Claritin] 10 mg PO DAILY 11/20/17 metoprolol succinate ER 25 mg 25 mg PO DAILY #30 tab 01/03/18 tablet,extended release 24 hr lisinopril 2.5 mg tablet 2.5 mg PO DAILY #30 tab 01/11/18 Clobetasol Propionate 15 gm TP QHS 14 Days #1 tube 01/30/18 Docusate Sodium [Colace] 100 mg PO DAILY 02/11/18 Pantoprazole Sodium [Protonix] 40 mg PO BID #30 tab 02/14/18 Mirtazapine [Remeron] 7.5 mg PO QHS #30 tab 02/22/18 Epoetin Ammon [Procrit] 20,000 units SQ X1 1 Days #1 vial 02/26/18 Epoetin Ammon [Procrit] 40,000 unit SQ X1 1 Days #1 units 02/26/18 Primary Care Physician: Edvin Anthony DO [Primary Care Provider] - Doctors: Malena Surgical History: cholecystectomy, hysterectomy, mastectomy Lives: Spouse/ Significant Other Smoking Status: Never smoker - Family History Maternal Family History: Family History (Last Reviewed 03/05/18 @ 10:05 by Sarah Skinner) Father Diabetes Heart disease Mother Arthritis Breast cancer Uterine cancer Family History: Reports: Cancer - Uterine and breast Paternal Family History: Family History (Last Reviewed 03/05/18 @ 10:05 by Sarah Skinner) Father Diabetes Heart disease Mother Arthritis Breast cancer Uterine cancer Family History: Reports: Cancer, Diabetes Review of Systems All systems negative except as indicated General: Reports: Malaise ENT: Reports: - - nosebleeds. bleeding gums. Gastrointestinal: Reports: Nausea, Vomiting, Diarrhea, Hematochezia. Denies: Abdominal pain, Melena Hematologic: Reports: Easy bruising, Easy bleeding Physical Exam Vital Signs/Narrative: Vital Signs Temp Pulse Resp BP Pulse Ox 03/10/18 07:24 83 16 108/54 L 03/10/18 07:01 84 19 H 106/54 L 03/10/18 05:46 97.7 F L 83 13 116/66 97 Inital Vital Signs reviewed: Yes General: Well nourished, Well developed Head: Normocephalic, Atraumatic Eyes: Perrl, EOMI ENT: Moist mucous membranes, No rhinorrhea - no epistaxis. , - - mild bleeding from maxillary gingiva. Negative for: Sinus tenderness Neck: Supple, Nontender Cardiovascular: Regular rate, Regular rhythm, No murmurs Respiratory: No distress, CTA bilaterally, Chest nontender Abdomen: Soft, Nontender, Nondistended, Hyperactive bowel sounds Back: Nontender, Normal Inspection Extremities: Nontender, No edema Skin: Normal color, No rash Neurological: Alert, Oriented x3, Cranial nerves II-XII grossly intact, Normal Strength, Normal Sensation Psychological: Normal affect Diagnostic/Tx/Re-eval Laboratory Tests 03/10/18 03/10/18 05:50 05:50 WBC 1.7 L RBC 1.95 L Hgb 6.5 L Hct 18.7 L MCV 95.9 MCH 33.3 H MCHC 34.8 RDW 19.8 H RDW Differential 64.5 H Plt Count 36 L* MPV 12.0 Neut % (Auto) Not Reportable Absolute Neuts (auto) 0.5 L Absolute Lymphs (auto) 1.09 Total Counted 100 Neutrophils % (Manual) 26 L Band Neutrophils % 5 Lymphocytes % (Manual) 63 H Monocytes % (Manual) 1 Eosinophils % (Manual) 2 Metamyelocytes % 3 H Nucleated RBCs/100 WBC 1 Diff Path Review May foll Platelet Estimate MKD DEC Hypochromasia 1+ Anisocytosis 1+ Sodium 143 Potassium 4.4 Chloride 109 H Carbon Dioxide 26.0 Anion Gap 8 BUN 26 H Creatinine 0.91 Estim Creat Clear Calc 42.90 Est GFR (MDRD) Af Amer 78 Est GFR (MDRD) Non-Af 64 BUN/Creatinine Ratio 28.6 H Glucose 117 H Calcium 8.7 Total Bilirubin 1.00 AST 67 H ALT 25 Alkaline Phosphatase 188 H Total Protein 6.6 Albumin 2.0 L Globulin 4.6 H Albumin/Globulin Ratio 0.4 L Lipase 301 - Medical Decision Making Labs show significant pancytopenia with platelets in the 30s, hemoglobin 6.5. She is continuing to have oozing from her gums but has had no more hematemesis after Zofran. Vital signs have remained stable. I think she will need to be transfused and admitted for further evaluation. Discussed with her planning supervisor Dr. Guy, who agrees w/ 2 units PRBC and a 5-pk of platelets. Critical care time (excluding procedures): 30-74 minutes - 35min ED Disposition - Plan for ED Patient: Disposition: Acute Care [facility] Chief Complaint: Nausea/Vomiting/Diarrhea Diagnosis: Chronic GI bleeding, Pancytopenia, Multiple myeloma not having achieved remission, Acute blood loss anemia
--- NOTE | 2018-03-10 08:31 | NURSING ---
PCU SEVERE THROMPOCYTOMPENIA, GI BLEED PAINTSIL
--- NOTE | 2018-03-10 08:41 | NURSING ---
DR CLANCY IN ROOM
--- NOTE | 2018-03-10 10:54 | HP.PCM_ITS ---
Problem List (1) Nasal bleeding Status: Chronic (2) Gastritis Status: Chronic (3) CAD (coronary artery disease) Status: Chronic Qualifiers: Coronary Disease-Associated Artery/Lesion type: unspecified vessel or lesion type [place] vs. transplanted heart: unspecified whether [place] or transplanted heart Associated angina: angina presence unspecified Qualified Code(s): I25.10 - Atherosclerotic heart disease of [place] coronary artery without angina pectoris (4) HTN (hypertension) Status: Chronic Qualifiers: Hypertension type: essential hypertension Qualified Code(s): I10 - Essential (primary) hypertension (5) Multiple myeloma not having achieved remission Status: Chronic History of Present Illness Date of Admission: 03/10/18 Chief Complaint: Spontaneous bleeding from nose, gums, hematemesis, hematochezia - 1 day The patient is a 72 year old F with PMHx of multiple myeloma, status post recent bone marrow biopsy, chronic pancytopenia with multiple RBC and platelet transfusions in the outpatient, non-Hodgkin's lymphoma, history of intermittent GI bleed with multiple endoscopies and negative bleeding scan, CAD, hypertension admitted with spontaneous bleeding from the nose, gums, hematemesis and hematochezia. Her vitals in the ED was stable with blood pressure of 108/54, heart rate was 83, temperature 97.7, respiratory rate is 16 , she was saturating well on room air. Admitting labs showed a RBC count of 1.7 , Hgb of 6.5, platelet count 36. Her BMP shows sodium 143, potassium 4.4, chloride 109, chloride 26, BUN 26, creatinine 0.91. Patient has had 3 bowel movements that had maroon colored stools, stools are liquidy, eyes any abdominal pain or nausea. Saw her last bowel movement and was on maroon colored in the toilet bowl on the floor. She vomited once this morning and it contained blood. Because this patient's care with the general surgeon, noted by the ED, who did not want to be involved in the care because she has nothing to offer to the patient was continuously bleeding. I updated the patient and her , they were reluctant to be transferred but they were aware that the hospital has no gastroenterology, in the surgeons were no willing to be involved. I was informed by the laboratory that they cannot get any platelets for the patient in the hospital, patient will have to wait a couple of hours to have platelets sent from [place]. I have dated the patient [place] and patient was finally accepted at [facility]. I will transfuse patient with packed RBCs as it becomes available as well as platelets if platelets comes patient is discharged. Past Medical History Past Medical History (Chronic Problems): Chronic Problems (Last Reviewed 03/05/18 @ 10:05 by Sarah Skinner) Chronic GI bleeding (Chronic) Nasal bleeding (Chronic) Gastritis (Chronic) Anxiety (Chronic) History of GI bleed (Chronic) History of breast cancer (Chronic) History of stem cell transplant (Chronic) CAD (coronary artery disease) (Chronic) HTN (hypertension) (Chronic) Iron deficiency anemia (Chronic) Myelodysplasia (myelodysplastic syndrome) (Chronic) Multiple myeloma not having achieved remission (Chronic) Myelosuppression after chemotherapy (Chronic) Epistaxis, recurrent (Chronic) Pancytopenia (Chronic) Allergies Penicillins [PCN] Allergy (Severe, Verified 03/05/18 10:05) Hives diphenhydramine [From Benadryl] Allergy (Mild, Verified 03/05/18 10:05) restless legs Home Medications: Ambulatory Orders Medication Instructions Recorded Simvastatin [Zocor] 40 mg PO QHS 08/15/13 Multivitamin [Multiple Vitamins] 1 ea PO DAILY 09/26/17 Pyridoxine HCl [Vitamin B6] 100 mg PO DAILY 09/26/17 Albuterol Inhaler [Ventolin Hfa] 1 - 2 puff INHALATION Q4H PRN PRN 10/14/17 #1 inhaler Loratadine [Claritin] 10 mg PO DAILY 11/20/17 metoprolol succinate ER 25 mg 25 mg PO DAILY #30 tab 01/03/18 tablet,extended release 24 hr lisinopril 2.5 mg tablet 2.5 mg PO DAILY #30 tab 01/11/18 Clobetasol Propionate 15 gm TP QHS 14 Days #1 tube 01/30/18 Docusate Sodium [Colace] 100 mg PO DAILY 02/11/18 Pantoprazole Sodium [Protonix] 40 mg PO BID #30 tab 02/14/18 Mirtazapine [Remeron] 7.5 mg PO QHS #30 tab 02/22/18 Epoetin Ammon [Procrit] 20,000 units SQ X1 1 Days #1 vial 02/26/18 Epoetin Ammon [Procrit] 40,000 unit SQ X1 1 Days #1 units 02/26/18 Surgical History: cholecystectomy, hysterectomy, mastectomy Lives: Spouse/ Significant Other Smoking Status: Never smoker - *Family History Maternal History Items: Cancer - Uterine and breast Paternal History Items: Cancer, Diabetes Review of Systems Constitutional: Reports: Weakness. Denies: Anorexia, Chills, Fever, Weight Change Eyes: Denies: Blurred vision, Cataracts, Conjunctivae Inflammation HEENT: Reports: Difficulty Hearing. Denies: Head Aches, Hearing Changes, Sinus Congestion, Sinus Drainage Cardiovascular: Denies: Chest Pain, Claudication, Chest Pressure, Heaviness, Light Headedness, Orthopnea, Palpitations, Paroxysmal Noc. Dyspnea, Syncope Respiratory: Denies: Cough, Hemoptysis, Shortness of Breath, Shortness of breath at rest, Shortness of breath upon exertion, Sputum production Gastrointestinal: Reports: Hematemesis, Hematochezia. Denies: Abdominal Pain, Constipation, Nausea, Vomiting Genitourinary: Denies: Dysuria, Frequency, Incontinence, Nocturia Musculoskeletal: Denies: Joint Pain, Joint stiffness, Joint swelling, Joint Tenderness Skin: Denies: Rash, Wounds Neurological: Denies: Numbness, Tingling, Focal weakness Psychiatric: Denies: Anxiety, Depression, Homicidal Ideations, Suicidal Ideations Hematologic/ Lymphatic: Denies: Easy Bruising, Easy Bleeding VTE Information - Inpt Only VTE Present on Admission: No VTE Pharm Prophylaxis ordered?: Yes Patient Problems: Active and Suspected Problems (Last Reviewed 03/05/18 @ 10:05 by Sarah Skinner) Acute blood loss anemia (Acute) - Physical Exam General: Alert, Oriented x3, Cooperative, No apparent distress HEENT: Atraumatic, PERRLA, EOMI, Normocephalic Oral: Moist Mucosa Neck: Supple Lungs: Clear to auscultation, Normal air movement Cardiovascular: Regular rate, Regular Rhythm, Normal S1, Normal S2, No murmurs Abdomen: Bowel Sounds Present, Soft, Non Tender, Non-Distended, No Hepato- splenomegaly, Passing Flatus Extremities: No edema Skin: No rashes, No breakdown Musculoskeletal: No Tenderness to Palpation of Joints or Extremities Lymphatic: No Cervical, Supraclavicular, or Inguinal Adenopathy Neurological: Cranial nerves II-XII grossly intact Psych/Mental Status: Normal Affect, Appropriate Vital Signs Temp Pulse Resp BP Pulse Ox 97.7 F L 83 16 108/54 L 97 03/10/18 05:46 03/10/18 07:24 03/10/18 07:24 03/10/18 07:24 03/10/18 05:46 Weight: 64.41 kg Body Mass Index (BMI) 25.9 Laboratory Tests Past 24 Hrs 03/10/18 03/10/18 10:00 10:00 Blood Type Pending Antibody Screen Pending Pending Crossmatch See Detail Assessment/Plan Active and Suspected Problems (Last Reviewed 03/05/18 @ 10:05 by Sarah Skinner) Acute blood loss anemia (Acute) 72 year old F with PMHx of multiple myeloma, status post recent bone marrow biopsy, chronic pancytopenia with multiple RBC and platelet transfusions in the outpatient, non-Hodgkin's lymphoma, history of intermittent GI bleed with multiple endoscopies and negative bleeding scan, CAD, hypertension admitted with spontaneous bleeding from the nose, gums, hematemesis and hematochezia. 1. Acute spontaneous bleeding -epistaxis, GI bleed( hematemesis, hematochezia) secondary to severe thrombocytopenia/pancytopenia, admitting platelet count of 36,000. H/o of negative GI workup. Plan: Admit patient to PCU, platelet transfusion, packed RBC transfusion, oncology consult, IV PPI. Because patient had another episode of maroon colored stools on the floor which was in large in amount, no GI coverage, no general surgeon willing to take on should incase her GI bleed does not stop after platelet transfusions, patient will be transferred out to [facility]. 2. Acute blood loss anemia, will be transfused 2 units packed RBC 3. Multiple myeloma/lymphoma stage IV/h/o breast CA 4. DVT PPx - SCDs Code Visit Inpatient E&M: 48266 Subs Hosp L3
--- NOTE | 2018-03-10 10:54 | PCM.DC ---
- Discharge Diagnoses Current Active Problems: Current Active and Chronic Problems (Last Reviewed 03/05/18 @ 10:05 by Sarah Skinner) Chronic GI bleeding (Chronic) Nasal bleeding (Chronic) Multiple myeloma not having achieved remission (Chronic) Acute blood loss anemia (Acute) Pancytopenia (Chronic) Allergies/Adverse Reactions: Allergies Penicillins [PCN] Allergy (Severe, Verified 03/05/18 10:05) Hives diphenhydramine [From Benadryl] Allergy (Mild, Verified 03/05/18 10:05) restless legs Medications to take at Discharge Simvastatin [Zocor] 40 mg PO QHS 08/15/13 Multivitamin [Multiple Vitamins] 1 ea PO DAILY 09/26/17 Pyridoxine HCl [Vitamin B6] 100 mg PO DAILY 09/26/17 Albuterol Inhaler [Ventolin Hfa] 1 - 2 puff INHALATION Q4H PRN PRN #1 inhaler 10/14/17 Loratadine [Claritin] 10 mg PO DAILY 11/20/17 metoprolol succinate ER 25 mg tablet,extended release 24 hr 25 mg PO DAILY #30 tab 01/03/18 lisinopril 2.5 mg tablet 2.5 mg PO DAILY #30 tab 01/11/18 Clobetasol Propionate 15 gm TP QHS 14 Days #1 tube 01/30/18 Docusate Sodium [Colace] 100 mg PO DAILY 02/11/18 Pantoprazole Sodium [Protonix] 40 mg PO BID #30 tab 02/14/18 Mirtazapine [Remeron] 7.5 mg PO QHS #30 tab 02/22/18 Epoetin Ammon [Procrit] 20,000 units SQ X1 1 Days #1 vial 02/26/18 Epoetin Ammon [Procrit] 40,000 unit SQ X1 1 Days #1 units 02/26/18 Primary Care Physician: Edvin Anthony DO [Primary Care Provider] - Proposed Discharge Date: 03/10/18
--- NOTE | 2018-03-10 15:17 | EKG12_ITS ---
Test Reason : CHEST PAIN Blood Pressure : / mmHG Vent. Rate : 096 BPM Atrial Rate : 096 BPM P-R Int : 190 ms QRS Dur : 080 ms QT Int : 374 ms P-R-T Axes : 060 044 104 degrees QTc Int : 472 ms Normal sinus rhythm Septal infarct (cited on or before 20-FEB-2018) Abnormal ECG When compared with ECG of 20-FEB-2018 05:37, No significant change was found Confirmed by KASI CHEATHAM, TALI ([id number]), assistant production editor TORRES PORTILLO ([id number]) on 03/14/2018 2:28:06 PM Referred By: JULIETH Confirmed By:TALI VILLASEÑOR MD
--- NOTE | 2018-03-10 17:14 | NURSING ---
Blood transfusion stopped. Approx 100 ml of PBRC left in bag-unable to transport to [facility] with blood running d/t pt needing a blood warmer whenever she recieves blood.
--- NOTE | 2018-03-11 09:33 | PCM.DC.SUM ---
Discharge Date and Diagnosis Date of Admission: 03/10/18 Date of Discharge: 03/10/18 - Primary Discharge Diagnosis Epistaxis Acute GI bleed Severe thrombocytopenia Pancytopenia - Secondary Discharge Diagnosis Chronic Problems (Last Reviewed 03/05/18 @ 10:05 by Sarah Skinner) Chronic GI bleeding (Chronic) Nasal bleeding (Chronic) Gastritis (Chronic) Anxiety (Chronic) History of GI bleed (Chronic) History of breast cancer (Chronic) History of stem cell transplant (Chronic) CAD (coronary artery disease) (Chronic) HTN (hypertension) (Chronic) Iron deficiency anemia (Chronic) Myelodysplasia (myelodysplastic syndrome) (Chronic) Multiple myeloma not having achieved remission (Chronic) Myelosuppression after chemotherapy (Chronic) Epistaxis, recurrent (Chronic) Pancytopenia (Chronic) Hospital Course and Treatment None Operations: None Procedures: None Summary of Care Provided: 72 year old F with PMHx of multiple myeloma, status post recent bone marrow biopsy, chronic pancytopenia with multiple RBC and platelet transfusions in the outpatient, non-Hodgkin's lymphoma, history of intermittent GI bleed with multiple endoscopies and negative bleeding scan, CAD, hypertension admitted with spontaneous bleeding from the nose, gums, hematemesis and hematochezia. 1. Acute spontaneous bleeding -epistaxis, GI bleed( hematemesis, hematochezia) secondary to severe thrombocytopenia/pancytopenia, admitting platelet count of 36,000. H/o of negative GI workup. Patient was admitted to the PCU, general surgery consulted, said they could not offer any options for this patient as she was oozing from everywhere. There is no GI coverage in the hospital. Patient had 4 more episodes of maroon colored-bloody bowel movements. There was a delay in getting patient 's platelets as the platelets had to be ordered from [place] and brought here. She received 2 units of platelets as well as 2 units of packed RBC. Discussed multiple times with the family especially the and the patient herself, recommended transfer to a tertiary facility for her safety as we could not offer the help here. Patient was reluctant to be transferred. She said that that she has had multiple episodes like this, but nothing was found. I explained that I cannot keep her whilst she has persistent episodes of GI bleed. Also if she needed more platelets, she could get them in a tertiary facility. Called multiple hospitals, she was finally accepted at [facility]. Discharge Diet: No Restrictions Discharge Activity: Return to Normal Activity Home Medications: Medications to take at Discharge Simvastatin [Zocor] 40 mg PO QHS 08/15/13 Multivitamin [Multiple Vitamins] 1 ea PO DAILY 09/26/17 Pyridoxine HCl [Vitamin B6] 100 mg PO DAILY 09/26/17 Albuterol Inhaler [Ventolin Hfa] 1 - 2 puff INHALATION Q4H PRN PRN #1 inhaler 10/14/17 Loratadine [Claritin] 10 mg PO DAILY 11/20/17 metoprolol succinate ER 25 mg tablet,extended release 24 hr 25 mg PO DAILY #30 tab 01/03/18 lisinopril 2.5 mg tablet 2.5 mg PO DAILY #30 tab 01/11/18 Clobetasol Propionate 15 gm TP QHS 14 Days #1 tube 01/30/18 Docusate Sodium [Colace] 100 mg PO DAILY 02/11/18 Pantoprazole Sodium [Protonix] 40 mg PO BID #30 tab 02/14/18 Mirtazapine [Remeron] 7.5 mg PO QHS #30 tab 02/22/18 Epoetin Ammon [Procrit] 20,000 units SQ X1 1 Days #1 vial 02/26/18 Epoetin Ammon [Procrit] 40,000 unit SQ X1 1 Days #1 units 02/26/18 Primary Care Physician: Edvin Anthony DO [Primary Care Provider] - Disposition: Acute [facility] Minutes spent on discharge:: 75 Patient Condition:: Guarded Medical Necessity - Tobacco Use Smoking Status: Never smoker Meaningful Use Info Meaningful Use Diagnoses (Choose all that apply): None applicable Code Visit Inpatient E&M: 27198 Disch Hosp Procedures: 22843 Prolonged Physician INPT - Coordinating transfer to acute [facility] hospital, coordinating with blood bank, family meeting etc
--- NOTE | 2018-03-11 09:36 | DS.PCM_ITS ---
Discharge Date and Diagnosis Date of Admission: 03/10/18 Date of Discharge: 03/10/18 - Primary Discharge Diagnosis Epistaxis Acute GI bleed Severe thrombocytopenia Pancytopenia - Secondary Discharge Diagnosis Chronic Problems (Last Reviewed 03/05/18 @ 10:05 by Sarah Skinner) Chronic GI bleeding (Chronic) Nasal bleeding (Chronic) Gastritis (Chronic) Anxiety (Chronic) History of GI bleed (Chronic) History of breast cancer (Chronic) History of stem cell transplant (Chronic) CAD (coronary artery disease) (Chronic) HTN (hypertension) (Chronic) Iron deficiency anemia (Chronic) Myelodysplasia (myelodysplastic syndrome) (Chronic) Multiple myeloma not having achieved remission (Chronic) Myelosuppression after chemotherapy (Chronic) Epistaxis, recurrent (Chronic) Pancytopenia (Chronic) Hospital Course and Treatment None Operations: None Procedures: None Summary of Care Provided: 72 year old F with PMHx of multiple myeloma, status post recent bone marrow biopsy, chronic pancytopenia with multiple RBC and platelet transfusions in the outpatient, non-Hodgkin's lymphoma, history of intermittent GI bleed with multiple endoscopies and negative bleeding scan, CAD, hypertension admitted with spontaneous bleeding from the nose, gums, hematemesis and hematochezia. 1. Acute spontaneous bleeding -epistaxis, GI bleed( hematemesis, hematochezia) secondary to severe thrombocytopenia/pancytopenia, admitting platelet count of 36,000. H/o of negative GI workup. Patient was admitted to the PCU, general surgery consulted, said they could not offer any options for this patient as she was oozing from everywhere. There is no GI coverage in the hospital. Patient had 4 more episodes of maroon colored-bloody bowel movements. There was a delay in getting patient 's platelets as the platelets had to be ordered from [place] and brought here. She received 2 units of platelets as well as 2 units of packed RBC. Discussed multiple times with the family especially the and the patient herself, recommended transfer to a tertiary facility for her safety as we could not offer the help here. Patient was reluctant to be transferred. She said that that she has had multiple episodes like this, but nothing was found. I explained that I cannot keep her whilst she has persistent episodes of GI bleed. Also if she needed more platelets, she could get them in a tertiary facility. Called multiple hospitals, she was finally accepted at [facility]. Discharge Diet: No Restrictions Discharge Activity: Return to Normal Activity Home Medications: Medications to take at Discharge Simvastatin [Zocor] 40 mg PO QHS 08/15/13 Multivitamin [Multiple Vitamins] 1 ea PO DAILY 09/26/17 Pyridoxine HCl [Vitamin B6] 100 mg PO DAILY 09/26/17 Albuterol Inhaler [Ventolin Hfa] 1 - 2 puff INHALATION Q4H PRN PRN #1 inhaler Loratadine [Claritin] 10 mg PO DAILY 11/20/17 metoprolol succinate ER 25 mg tablet,extended release 24 hr 25 mg PO DAILY #30 tab 01/03/18 lisinopril 2.5 mg tablet 2.5 mg PO DAILY #30 tab 01/11/18 Clobetasol Propionate 15 gm TP QHS 14 Days #1 tube 01/30/18 Docusate Sodium [Colace] 100 mg PO DAILY 02/11/18 Pantoprazole Sodium [Protonix] 40 mg PO BID #30 tab 02/14/18 Mirtazapine [Remeron] 7.5 mg PO QHS #30 tab 02/22/18 Epoetin Ammon [Procrit] 20,000 units SQ X1 1 Days #1 vial 02/26/18 Epoetin Ammon [Procrit] 40,000 unit SQ X1 1 Days #1 units 02/26/18 Primary Care Physician: Edvin Anthony DO [Primary Care Provider] - Disposition: Acute [facility] Minutes spent on discharge:: 75 Patient Condition:: Guarded Medical Necessity - Tobacco Use Smoking Status: Never smoker Meaningful Use Info Meaningful Use Diagnoses (Choose all that apply): None applicable Code Visit Inpatient E&M: 87779 Disch Hosp Procedures: 06130 Prolonged Physician INPT - Coordinating transfer to acute [facility] hospital, coordinating with blood bank, family meeting etc
[2018-03-12 14:00] LABS: Pathologist Review Reviewed
== END 2018-03-10 17:18 | disposition short-term general hospital (02) | DRG 809 ==
LOC: ED 08:04 → PCU 08:59
PROVIDERS: Admitting Provider Internal Medicine; Emergency Provider Emergency Medicine; Family Provider Family Medicine; PCP Family Medicine; Visit Provider Internal Medicine
DX: D61.818 Other pancytopenia (principal); K92.2 Gastrointestinal hemorrhage, unspecified; Z94.84 Stem cells transplant status; C90.00 Multiple myeloma not having achieved remission; C85.90 Non-Hodgkin lymphoma, unspecified, unspecified site; K92.0 Hematemesis; R04.0 Epistaxis; D69.6 Thrombocytopenia, unspecified; I25.10 Atherosclerotic heart disease of native coronary artery without angina pectoris; Z85.3 Personal history of malignant neoplasm of breast; D50.9 Iron deficiency anemia, unspecified; D62 Acute posthemorrhagic anemia; D46.9 Myelodysplastic syndrome, unspecified
CPT/HCPCS: 36415; 80053; 83690; 85025; 86850; 86900; 86901; 86921; 86922; 86965; 93005; 99283; J7030; J7040; P9035; P9040

== ENCOUNTER 2018-03-26 03:39 | Emergency (ER) | payer MEDICARE, BC, SELFPAY ==
[2018-03-26 03:40] VITALS: BP 145/72; PULSE 83; RESP 16; TEMP 36.7; O2SAT 95; BMI 27.7
--- NOTE | 2018-03-26 03:50 | ED.DCSUM_ITS ---
- ER Visit Summary Date of Service: 03/26/18 Chief Complaint: [] Nosebleed History of Present Illness: The patient is a 72 F complaining of nosebleed started hour and a half ago gradual onset continuous right-sided. Relieved with pressure. She did use Afrin nasal spray. History of multiple myeloma with low platelets and anemia. Last transfusion was last week. History of frequent nosebleeds. No blood thinners. Physical Examination: Vital signs reviewed General: Well-nourished well-developed Head: Normocephalic atraumatic Eyes: Pupils equal round and reactive to light extraocular movements intact ENT: TMs clear no hemotympanum no trauma. Right-sided nosebleed present. Nothing draining down the back of her throat. Neck: Nontender full range of motion Cardiovascular: Regular rate rhythm no murmurs normal S1-S2 Respiratory: No distress clear to auscultation bilaterally chest nontender Abdomen: Soft nontender nondistended normal bowel sounds no masses Back: Nontender no CVA tenderness Extremities: Nontender active range of motion ?4 extremities no trauma Skin: Normal color no trauma Neuro alert oriented cranial nerves II through XII intact normal strength sensation reflexes Test Results: [] Emergency Department Course and Treatment: [] Pressure was held for approximately 40 minutes with stoppage of the bleed. Kleenex was placed in the right nares. She will go home and keep this in. She will return if she starts to bleed again and cannot control on her own. Treatment Plan: [] Disposition: [] Impression: [] Right-sided nosebleed This note was generated with [employer] dictation software. It may contain incorrect words, spelling, and punctuation that were not noted in review of the chart prior to signing ED Disposition - Plan for ED Patient: Chief Complaint: Nosebleed Referrals: Edvin Anthony DO [Primary Care Provider] -
--- NOTE | 2018-03-26 04:49 | ED.DEP ---
ED Disposition - Plan for ED Patient: Disposition: Home or Assisted Living Chief Complaint: Nosebleed Instructions: Nosebleed Referrals: Edvin Anthony DO [Primary Care Provider] -
[2018-03-26 05:22] VITALS: BP 134/67; PULSE 74; RESP 16; O2SAT 98
== END 2018-03-26 05:23 | disposition home or self-care (01) ==
PROVIDERS: Emergency Provider Emergency Medicine; Family Provider Family Medicine; PCP Family Medicine
DX: R04.0 Epistaxis (principal); C90.00 Multiple myeloma not having achieved remission; D64.9 Anemia, unspecified; D69.6 Thrombocytopenia, unspecified; I25.10 Atherosclerotic heart disease of native coronary artery without angina pectoris; I10 Essential (primary) hypertension; Z85.3 Personal history of malignant neoplasm of breast; Z87.19 Personal history of other diseases of the digestive system; Z94.84 Stem cells transplant status; Z79.899 Other long term (current) drug therapy
CPT/HCPCS: 36415; 85025; 86850; 86900; 86920; 86922; 96372; 99282; J2505

== ENCOUNTER → 2018-03-29 10:32 | Outpatient (CLI) | payer MEDICARE, BC, SELFPAY ==
--- NOTE | 2018-03-29 10:53 | MRI_ITS ---
STUDY: MRI BRAIN WITH AND WITHOUT CONTRAST REASON FOR EXAM: Female, 72 years old. Left hearing loss. Non-Hodgkin's lymphoma with recurrence 10 stencil transplant. Breast carcinoma. Multiple myeloma. TECHNIQUE: Standardized multiplanar fat and water weighted pulse sequences were obtained. 7 ml of Gadavist contrast material was administered intravenously for the contrast portion of the examination. COMPARISON: 03/25/2016. FINDINGS: No restricted diffusion to suspect acute or subacute ischemic infarct. Normal size of the ventricles and extra-axial spaces for the patient's age. Multiple subcortical and periventricular white matter T2 FLAIR hyperintensity foci are chronic white matter ischemic changes. Normal bilateral basal ganglia. Normal thalami. There is no extra-axial fluid accumulation. Normal flow voids within the major intracranial circulation suggesting patency by spin echo criteria. Small enhancing intramedullary vein in the posterior aspect of the right frontal operculum is incidental focal developmental venous anomaly (series 11, images 16-17). Normal venous enhancement. There is no enhancing intra-axial or extra-axial abnormality. Normal sella turcica, pituitary gland, infundibular stalk, optic chiasm and hypothalamus. Normal tectal plate and pineal gland. Normal midbrain, elizabeth and medulla. Normal cerebellum. Normal basal cisterns. Normal bilateral temporal bones. Normal bilateral internal auditory canals. No demonstrated orbital abnormality, within the constraints of a routine brain study. Minimal residual mucosal thickening in the left macros sinuses. Clearing of the extensive mucosal thickening in the paranasal sinuses. Normal calvarium and skull base. Normal visualized soft tissue structures. Normal visualized upper cervical spine. MRI/Brain W/WO Contrast IMPRESSION: 1. No MRI evidence of intracranial metastatic disease, acute infarct or acute intracranial abnormality. 2. Small focal developmental venous anomaly in the posterior aspect of the right frontal operculum (series 11, images 16-17). 3. Chronic white matter ischemic changes in both cerebral hemispheres. 4. Normal thin sections of the internal auditory canals without any abnormal enhancement of the 7th and 8th nerve bundles and no abnormal enhancement of either membranous labyrinth. 5. Marked improvement of mucosal thickening in the paranasal sinuses. Minimal residual mucosal thickening in the left maxillary sinus remains. 6. No other additional findings when compared to 03/25/2016. Electronically Signed: Parker Burt MD at 14:44 EDT , Service support ,
== END ==
PROVIDERS: Family Provider Family Medicine; PCP Family Medicine; Visit Provider Otolaryngology
DX: H91.20 Sudden idiopathic hearing loss, unspecified ear (principal)
CPT/HCPCS: 70553; A9585

== ENCOUNTER → 2018-04-16 21:58 | Outpatient (CLI) | payer MEDICARE, BC, SELFPAY ==
--- NOTE | 2018-04-16 21:58 | DT_ITS ---
This patient was seen during an EMR downtime April 09, 2018 - April 16, 2018. This patient may have a combination of paper and electronic documentation or all paper documentation. All documentation is viewable within the e-chart portion of [facility] for each patient visit.
== END ==
PROVIDERS: Family Provider Family Medicine; PCP Family Medicine; Visit Provider Internal Medicine Medical Oncology
DX: R69 Illness, unspecified (principal)
CPT/HCPCS: 86850; 86900; 86901; 86920; 86921; 86922

== ENCOUNTER 2018-05-04 21:51 | Emergency (ER) | payer MEDICARE, BC, SELFPAY ==
[2018-05-04 21:53] VITALS: BP 177/88; PULSE 84; RESP 17; TEMP 36.8; O2SAT 96; BMI 29.6
--- NOTE | 2018-05-04 22:37 | ED.VISSUMM ---
- ER Visit Summary Date of Service: 05/04/18 Chief Complaint: Bleeding from PICC line History of Present Illness: The patient is a [address] Anthony and Dr. Guy. She reports that she has a history of multiple myeloma and what sounds to be cryoglobulinemia. She states that she was hospitalized at [facility] for approximately 16 days for plasmapheresis. She was discharged with PICC line in place to receive IV Rocephin and acyclovir. She reports that this was placed 3-4 days ago. States that she was discharged from the hospital today and that prior to going home he began to bleed. She went to the emergency department there and the dressing was changed. She got home tonight and appears to be bleeding again. Review of systems: General: No fever, chills, cold sweats. Cardiovascular: No chest pain, palpitations. Respiratory: No cough, shortness of breath, dyspnea on exertion. Gastrointestinal: No abdominal pain, nausea, vomiting, diarrhea, melena, or hematochezia. Genitourinary: No dysuria, frequency, hematuria. Skin: No rash. Neuro: No headache, numbness, weakness. Physical Examination: Vitals: Stable. Afebrile. General: Well-nourished and well-developed. Head: Normocephalic atraumatic. Neck: Supple, no lymphadenopathy. No JVD. Nontender. Cardiovascular: Regular rate and rhythm. No murmurs. Respiratory: No respiratory distress. Clear to auscultation bilaterally. Abdominal: Soft, nontender, nondistended, normal bowel sounds. No guarding, rebound, or peritoneal signs. Back: Nontender. Extremities: Contusion with minimal swelling to the medial side of her left forearm. The PICC line is in place in the left basilic vein. There is minimal blood on the dressing and no active bleeding. She has a 2+ radial pulse. Skin: Normal color, no rash. Neurologic: Alert and oriented ?3. Cranial nerves II through XII are intact. Normal strength and sensation. Psych: Normal affect. Emergency Department Course and Treatment: I had a prolonged discussion with the patient about further management of this. I did discuss with her that I feel that if we change the dressing that we will disturb any clot that is currently there that it will likely bleed again. She does report that she has a history of low platelets. I do not think that this is her best interest. Treatment Plan: Patient will be discharged instructions to have home health out tomorrow as previously scheduled. Return to emerge department for worsening bleeding or any other concerns. Disposition: To home in improved and stable condition. Impression: 1. PICC line left arm. 2. History of cryoglobulinemia. This note was generated with [employer] dictation software. It may contain incorrect words, spelling, and punctuation that were not noted in review of the chart prior to signing ED Disposition - Plan for ED Patient: Disposition: Home or Assisted Living Chief Complaint: Wound Instructions: ED PICC Line Care Referrals: Edvin Anthony DO [Primary Care Provider] - 1-2 Days if not improving
[2018-05-04 22:46] VITALS: RESP 18
== END 2018-05-04 23:15 | disposition home or self-care (01) ==
PROVIDERS: Emergency Provider Emergency Medicine; Family Provider Family Medicine; PCP Family Medicine
DX: T82.838A Hemorrhage due to vascular prosthetic devices, implants and grafts, initial encounter (principal); D89.1 Cryoglobulinemia; R01.1 Cardiac murmur, unspecified; I25.10 Atherosclerotic heart disease of native coronary artery without angina pectoris; I10 Essential (primary) hypertension; E78.00 Pure hypercholesterolemia, unspecified; Z85.3 Personal history of malignant neoplasm of breast; Z85.72 Personal history of non-Hodgkin lymphomas; Z90.49 Acquired absence of other specified parts of digestive tract; Z90.710 Acquired absence of both cervix and uterus; Z90.11 Acquired absence of right breast and nipple; Z79.899 Other long term (current) drug therapy
CPT/HCPCS: 99282

== ENCOUNTER → 2018-07-25 08:06 | Outpatient (CLI) | payer MEDICARE, BC, SELFPAY ==
[2018-07-25] VITALS (11 sets, daily range): BP systolic 134–176; BP diastolic 66–97; PULSE 70–83; RESP 16–18; TEMP 36.1–36.6; O2SAT 95–99; BMI 23.0
[2018-07-25] MEDS: Acetaminophen 325 MG Tablet 650 MG PO (09:15)
[2018-07-25] MEDS: hydrOXYzine 10 MG Tablet 20 MG PO (09:15)
[2018-07-25] MEDS: Furosemide 40 MG/4 ML Vial IV (12:05)
== END ==
PROVIDERS: Family Provider Family Medicine; PCP Family Medicine; Visit Provider Internal Medicine Hematology & Oncology
DX: D61.818 Other pancytopenia (principal)
CPT/HCPCS: 36430; 86850; 86900; 86965; J7040; P9037; P9040; A4216; J1940

== ENCOUNTER → 2018-08-01 08:25 | Outpatient (CLI) | payer MEDICARE, BC, SELFPAY ==
[2018-08-01 08:48] VITALS: BP 123/56; PULSE 65; RESP 16; TEMP 36.4; O2SAT 99; BMI 23.6
[2018-08-01] MEDS: hydrOXYzine 10 MG Tablet PO (09:37)
[2018-08-01] MEDS: Acetaminophen 325 MG Tablet 650 MG PO (09:37)
[2018-08-01 11:22] VITALS: BP 129/66; PULSE 80; RESP 16; TEMP 35.8; O2SAT 95
[2018-08-01 11:48] VITALS: BP 137/67; PULSE 62; RESP 16; TEMP 36.2
[2018-08-01 12:42] VITALS: BP 146/78; PULSE 83; RESP 16; TEMP 36.6
[2018-08-01 13:24] VITALS: BP 145/78; PULSE 84; RESP 16
[2018-08-01 15:22] VITALS: BP 151/81; PULSE 80; RESP 18; TEMP 36.1; O2SAT 99
== END ==
PROVIDERS: Family Provider Family Medicine; PCP Family Medicine; Referring Provider Internal Medicine Hematology & Oncology; Visit Provider Internal Medicine Hematology & Oncology
DX: D61.818 Other pancytopenia (principal)
CPT/HCPCS: 36430; 86644; 86850; 86900; 86921; 86922; 86965; J7040; P9016; P9035; A4216